=== PATIENT | male | born 1970 | race Caucasian/White ===

== ENCOUNTER 2020-04-29 08:20 | Outpatient (REF) | payer OTHER, SELFPAY ==
[2020-04-29 11:16] LABS: MANUAL DIFF FLAG NO
[2020-04-29 11:29] LABS: Basophils Percent Auto 0.3 % (0-2); Eosinophils Absolute Auto 0.2 X10*3/uL (0.0-0.4); Eosinophils Percent Auto 2.1 % (0-4); Hematocrit 42.9 % (42-52); Hemoglobin 13.8 g/dl (14.0-18.0); Imm Gran Abs Auto 0.02 X10*3/uL (0.00-0.03); Imm Gran Pct Auto 0.3 % (0.0-0.4); Lymphocytes Absolute Auto 2.1 X10*3/uL (1.2-4.9); Lymphocytes Percent Auto 28.7 % (20-40); Mean Corpuscular HGB Conc 32.2 g/dl (31.0-36.0); Mean Corpuscular Hemoglobin 28.2 pg (27.0-33.0); Mean Corpuscular Volume 87.7 fL (80-98); Mean Platelet Volume 11.9 fL (9.4-12.4); Monocytes Absolute Auto 0.6 X10*3/uL (0.1-1.2); Monocytes Percent Auto 7.7 % (2-11); Neutrophils Absolute Auto 4.4 X10*3/uL (2.0-8.3); Neutrophils Percent Auto 60.9 % (45-73); Platelet Count 222 X10*3/uL (160-400); Red Blood Count 4.89 X10*6/uL (4.60-5.80); Red Cell Distribution Width 13.5 % (11.0-16.0); White Blood Count 7.3 X10*3/uL (4.8-10.8)
[2020-04-29 11:51] LABS: Alanine Aminotransferase 21 U/L (0-40); Albumin Level 4.1 g/dL (3.5-5.0); Alkaline Phosphatase 94 U/L (39-117); Anion Gap 11 (12-20); Aspartate Amino Transferase 17 U/L (5-37); Bilirubin Total 1.2 mg/dL (0.0-1.0); Blood Urea Nitrogen 16 mg/dL (9-16); Calcium 9.1 mg/dL (8.4-10.2); Carbon Dioxide 29 mmol/L (22-29); Chloride 103 mmol/L (96-108); Cholesterol 101 mg/dL; Estimated Glomerular Filt Rate > 60; Glucose Fasting 117 mg/dL (60-99); HDL Cholesterol 32 mg/dL; LDL Cholesterol Calculated 55 mg/dl; Potassium 3.9 mmol/l (3.3-5.1); Sodium 139 mmol/L (135-145); Triglycerides 71 mg/dL
[2020-04-29 12:14] LABS: Vitamin D 25-OH Total 25.2 ng/mL (>30)
[2020-04-30 02:56] LABS: LDL Cholesterol Direct 55 mg/dL (<100)
== END 2020-04-29 08:21 | disposition home or self-care (01) ==
LOC: HO.HMGCLDS 08:20
PROVIDERS: PCP Internal Medicine; Visit Provider Internal Medicine Endocrinology, Diabetes & Metabolism
DX: E11.42 Type 2 diabetes mellitus with diabetic polyneuropathy (principal)
CPT/HCPCS: 36415; 80053; 80061; 82306; 83721; 85025

== ENCOUNTER → 2020-05-05 12:15 | Outpatient (BNVA) | payer OTHER, SELFPAY | PROVIDERS: PCP Internal Medicine; Referring Provider Internal Medicine; Visit Provider Internal Medicine Endocrinology, Diabetes & Metabolism | DX: Z13.89 Encounter for screening for other disorder (principal) | CPT/HCPCS: 99214 ==

== ENCOUNTER → 2020-08-09 09:47 | Outpatient (BNVA) | payer OTHER, SELFPAY | PROVIDERS: PCP Internal Medicine; Visit Provider Internal Medicine Endocrinology, Diabetes & Metabolism | DX: E11.42 Type 2 diabetes mellitus with diabetic polyneuropathy (principal); E66.01 Morbid (severe) obesity due to excess calories; E78.5 Hyperlipidemia, unspecified; I10 Essential (primary) hypertension | CPT/HCPCS: 82947; 99212 ==

== ENCOUNTER 2020-10-26 07:53 | Outpatient (REF) | payer OTHER, SELFPAY ==
[2020-10-26 11:37] LABS: Estimated Average Glucose 126 mg/dL
[2020-10-26 11:53] LABS: Creatinine Urine 110.88 mg/dL; Microalbum/Creatinine Ratio Ur 6.3 ug/mg cr
[2020-10-26 11:56] LABS: Alanine Aminotransferase 39 U/L (0-40); Albumin Level 3.9 g/dL (3.5-5.0); Alkaline Phosphatase 92 U/L (39-117); Anion Gap 12 (12-20); Aspartate Amino Transferase 26 U/L (5-37); Blood Urea Nitrogen 17 mg/dL (9-16); Calcium 9.2 mg/dL (8.4-10.2); Carbon Dioxide 28 mmol/L (22-29); Chloride 102 mmol/L (96-108); Cholesterol 100 mg/dL; Estimated Glomerular Filt Rate > 60; Glucose Fasting 126 mg/dL (60-99); HDL Cholesterol 36 mg/dL; LDL Cholesterol Calculated 48 mg/dl; Potassium 4.2 mmol/L (3.3-5.1); Sodium 138 mmol/L (135-145); Triglycerides 84 mg/dL
== END 2020-10-26 07:54 | disposition home or self-care (01) ==
LOC: HO.HMGCLDS 07:53
PROVIDERS: PCP Internal Medicine; Visit Provider Internal Medicine
DX: I10 Essential (primary) hypertension (principal)
CPT/HCPCS: 36415; 80053; 80061; 82043; 83036

== ENCOUNTER → 2021-01-26 10:58 | Outpatient (BNVA) | payer OTHER, SELFPAY | PROVIDERS: PCP Internal Medicine; Visit Provider Internal Medicine Endocrinology, Diabetes & Metabolism | DX: E11.42 Type 2 diabetes mellitus with diabetic polyneuropathy (principal); E66.01 Morbid (severe) obesity due to excess calories; E78.5 Hyperlipidemia, unspecified; I10 Essential (primary) hypertension | CPT/HCPCS: 82947; 99212 ==

== ENCOUNTER → 2021-09-02 08:01 | Outpatient (BNVA) | payer OTHER, SELFPAY | PROVIDERS: PCP Internal Medicine; Visit Provider Nurse Practitioner Gerontology | DX: E11.42 Type 2 diabetes mellitus with diabetic polyneuropathy (principal); E78.5 Hyperlipidemia, unspecified; E66.01 Morbid (severe) obesity due to excess calories; I10 Essential (primary) hypertension; Z68.43 Body mass index [BMI] 50.0-59.9, adult; Z79.4 Long term (current) use of insulin | CPT/HCPCS: 82947; 83036; 99212 ==

== ENCOUNTER → 2021-09-26 09:00 | Outpatient (BNVA) | payer OTHER, SELFPAY | PROVIDERS: PCP Internal Medicine; Visit Provider Registered Nurse Diabetes Educator | DX: E11.42 Type 2 diabetes mellitus with diabetic polyneuropathy (principal); Z79.899 Other long term (current) drug therapy; Z71.3 Dietary counseling and surveillance | CPT/HCPCS: 99212 ==

== ENCOUNTER → 2021-11-15 08:28 | Outpatient (BNVA) | payer OTHER, SELFPAY | PROVIDERS: PCP Internal Medicine; Visit Provider Registered Nurse Diabetes Educator | DX: E11.9 Type 2 diabetes mellitus without complications (principal) | CPT/HCPCS: 99211 ==

== ENCOUNTER → 2021-12-14 08:56 | Outpatient (BNVA) | payer OTHER, SELFPAY | PROVIDERS: PCP Internal Medicine; Visit Provider Registered Nurse Diabetes Educator | DX: E11.9 Type 2 diabetes mellitus without complications (principal) | CPT/HCPCS: 99211 ==

== ENCOUNTER 2021-12-26 13:56 | Emergency (ER) | payer OTHER, SELFPAY ==
--- NOTE | ~2021-12-26 | CT_ITS ---
EXAMINATION: CT HEAD WITHOUT CONTRAST CLINICAL INFORMATION: Left-sided numbness COMPARISON: None TECHNIQUE: Imaging was performed from the skull base to vertex without intravenous administration of contrast. This CT examination was performed using dose optimization techniques as appropriate, variously including the following: *Automated exposure control *Adjustment of mA and/or kV according to patient size (this includes techniques or standardized protocols for targeted exams where dose is matched to indication/reason for exam; i.e. extremities or head) *Use of iterative reconstruction technique Total exam dose length product: 918 mGy-cm FINDINGS: No intra or extra-axial fluid collection, hemorrhage, or mass. No ventriculomegaly. No midline shift or herniation. Basal cisterns are patent. Bueno-white matter differentiation is maintained. No territorial encephalomalacia. No significant volume loss. There is no abnormal attenuation within the brain parenchyma. No calvarial fracture or soft tissue abnormality. Small 1.4 cm mucous retention cyst noted in the right maxillary antrum. Visualized paranasal sinuses and mastoid air cells are otherwise normally aerated. CT/CT head/brain wo con IMPRESSION: 1. No acute intracranial pathology.
[2021-12-26 14:14] VITALS: BP 143/84; PULSE 80; O2SAT 98
[2021-12-26 14:45] VITALS: BP 141/79; PULSE 80; RESP 20; TEMP 36.6; O2SAT 94; BMI 50.0
--- NOTE | 2021-12-26 14:48 | ECG_ITS ---
Test Reason : LEDT SIDE NUMBNESS Blood Pressure : / mmHG Vent. Rate : 078 BPM Atrial Rate : 078 BPM P-R Int : 250 ms QRS Dur : 108 ms QT Int : 392 ms P-R-T Axes : 017 028 039 degrees QTc Int : 446 ms Sinus rhythm with 1st degree A-V block Possible Inferior infarct , age undetermined Abnormal ECG When compared with ECG of 08-FEB-2018 21:19, No significant change was found Referred By: Generic ED Physician Electronically Signed By:Sai Zimmerman
[2021-12-26 15:33] LABS: MANUAL DIFF FLAG NO
[2021-12-26 15:36] LABS: Basophils Percent Auto 0.6 % (0-2); Eosinophils Absolute Auto 0.1 X10*3/uL (0.0-0.4); Eosinophils Percent Auto 1.8 % (0-4); Hematocrit 44.3 % (42.0-52.0); Hemoglobin 14.8 g/dl (14.0-18.0); Imm Gran Abs Auto 0.03 X10*3/uL (0.00-0.03); Imm Gran Pct Auto 0.4 % (0.0-0.4); Lymphocytes Absolute Auto 1.7 X10*3/uL (1.2-4.9); Lymphocytes Percent Auto 22.8 % (20-40); Mean Corpuscular HGB Conc 33.4 g/dl (31.0-36.0); Mean Corpuscular Hemoglobin 28.4 pg (27.0-33.0); Mean Corpuscular Volume 84.9 fL (80.0-98.0); Mean Platelet Volume 10.9 fL (9.4-12.4); Monocytes Absolute Auto 0.6 X10*3/uL (0.1-1.2); Monocytes Percent Auto 7.6 % (2-11); Neutrophils Absolute Auto 4.9 x10*3/uL (2.0-8.3); Neutrophils Percent Auto 66.8 % (45-73); Platelet Count 187 X10*3/uL (160-400); Red Blood Count 5.22 X10*6/uL (4.60-5.80); Red Cell Distribution Width 12.9 % (11.0-16.0); White Blood Count 7.3 X10*3/uL (4.8-10.8)
[2021-12-26 15:46] LABS: Anion Gap 11 (12-20); Blood Urea Nitrogen 13 mg/dL (9-16); Calcium 9.2 mg/dL (8.4-10.2); Carbon Dioxide 26 mmol/L (22-29); Chloride 103 mmol/L (96-108); Creatinine Clr Calc Pharmacy 228.2; Estimated Glomerular Filt Rate > 60; Glucose Random 243 mg/dL (60-115); Potassium 3.9 mmol/L (3.3-5.1); Sodium 136 mmol/L (135-145)
[2021-12-26 15:54] LABS: Troponin-I High Sensitivity < 3.5 ng/L (<3.5-35.0)
--- NOTE | 2021-12-26 21:21 | ED.NEUROSD ---
HPI - Neuro Symptoms/Deficit General Chief Complaint: Neuro Symptoms/Deficit Stated Complaint: L SIDE NUMBNESS 1/2 HOUR AGO,-THINNERS,-FAST SCORE Time Seen by Provider: 12/26/21 20:57 Source: patient Mode of arrival: ambulatory Limitations: no limitations History of Present Illness HPI Narrative: Patient 51 years old with history of diabetes and sleep apnea appeared around 14:00 while coming out from the shower noticed sudden onset of numbness of the left thigh and then left arm and then left face numbness lasted lasted only for about half an hour in left arm and left side of the face but still feel numb in the left thigh area no motor weakness gait was normal no headache no nausea no vomiting patient never had similar problem before patient ambulatory as such Related Data Home Medications Medication Instructions Recorded Confirmed aspirin 81 mg tablet,delayed 81 mg PO DAILY 05/05/20 09/02/21 release (Adult Aspirin Regimen) Previous Rx's Medication Instructions Recorded atorvastatin 10 mg tablet 10 mg PO DAILY 30 days #30 tabs 07/26/21 metoprolol succinate 200 mg 200 mg PO DAILY #90 tabs 08/31/21 tablet,extended release 24 hr pen needle, diabetic 32 gauge x #100 ea 09/20/21 (BD Ultra-Fine Lisa Pen Needle) dulaglutide 4.5 mg/0.5 mL 4.5 mg (0.5 mL) subcut QWEEK #2 mL 09/27/21 subcutaneous pen injector (Trulicity) insulin degludec 200 unit/mL (3 40 unit (0.2 mL) subcut BEDTIME 90 09/27/21 mL) subcutaneous pen ( #18 mL FlexTouch U-200 insulin) flash glucose sensor #2 ea 10/10/21 losartan 100 mg tablet 100 mg PO DAILY 30 days #90 tabs 10/25/21 amlodipine 10 mg tablet 10 mg PO DAILY 30 days #90 tabs 12/07/21 hydrochlorothiazide 25 mg tablet 25 mg PO DAILY #90 tabs 12/22/21 Allergies Allergy/AdvReac Type Severity Reaction Status Date / Time canagliflozin [Invokana] AdvReac Unknown rash Verified 09/02/21 08:26 Review of Systems Review of Systems: Yes all other systems are reviewed and are negative PMFSH Past Medical History Surgical History History of surgery of head Hx of cholecystectomy Family History Family History Father No problems noted. Mother Arthritis Brother Stroke Social History Social History Alcohol intake: current Alcohol intake frequency: holidays/special occasions only Patient Tobacco Use Status: Never used Tobacco Advance Directives: No Advance Directives Information Provided: No Physical Exam Vital Signs: Vital Signs: Last Vital Signs Temp 97.8 F 12/26/21 14:45 Pulse 77 12/26/21 21:42 Resp 15 12/26/21 21:45 BP 151/94 H 12/26/21 21:45 Pulse Ox 97 12/26/21 21:42 O2 Del Method 12/26/21 21:42 BMI result Body Mass Index 50.0 Appearance: Alert. Oriented X3. No acute distress. Eyes: PERRLA, No Nystagmus ENT: Pharynx normal. Oral Mucosa moist Neck: Normal inspection. Neck supple. CVS: Normal heart rate and rhythm. Pulses normal. Respiratory: No respiratory distress. Equal air entry bilateral, no wheezing/rales/rhonchi Abdomen: Soft and nontender. Bowel sounds are present, no mass palpable, no CVA tenderness Skin: Skin warm and dry. Normal skin color. Normal skin turgor. Extremities: No lower extremity edema. No calf tenderness Neuro: Oriented X 3. No motor deficit. Decreased sensation to light touch and pinprick to left thigh lateral aspect.No cerebellar signs , cranial nerves II-XII intact MDM - Neuro Symptoms/Deficit MDM Narrative Medical decision making narrative: Patient with mild paresthesia no focal deficits CT scan head negative after 8 hours of symptoms. Patient is on baby aspirin advised to continue and follow up with neurologist for further evaluation Lab Data Attestation: I reviewed the patient's lab results. Result diagrams: 12/26/21 15:29 12/26/21 15:29 Labs: Lab Results 12/26/21 12/26/21 12/26/21 Range/Units 15:29 15:29 15:29 WBC 7.3 (4.8-10.8) X10*3/uL RBC 5.22 (4.60-5.80) X10*6/uL Hgb 14.8 (14.0-18.0) g/dl Hct 44.3 (42.0-52.0) % MCV 84.9 (80.0-98.0) fL MCH 28.4 (27.0-33.0) pg MCHC 33.4 (31.0-36.0) g/dl RDW 12.9 (11.0-16.0) % Plt Count 187 (160-400) X10*3/uL MPV 10.9 (9.4-12.4) fL Immature Gran % (Auto) 0.4 (0.0-0.4) % Neut % (Auto) 66.8 (45-73) % Lymph % (Auto) 22.8 (20-40) % Lawrence % (Auto) 7.6 (2-11) % Eos % (Auto) 1.8 (0-4) % Baso % (Auto) 0.6 (0-2) % Lymph # (Auto) 1.7 (1.2-4.9) X10*3/uL Lawrence # (Auto) 0.6 (0.1-1.2) X10*3/uL Eos # (Auto) 0.1 (0.0-0.4) X10*3/uL Baso # (Auto) 0.0 (0.0-0.2) X10*3/uL Abs Immat Gran (auto) 0.03 (0.00-0.03) X10*3/uL Absolute Neuts (auto) 4.9 (2.0-8.3) x10*3/uL Absolute Nucleated RBC 0.000 (0.0-0.012) X10*3/uL Nucleated RBC % (auto) 0.0 (0.0-0.2) /100WBC Sodium 136 (135-145) mmol/L Potassium 3.9 (3.3-5.1) mmol/L Chloride 103 (96-108) mmol/L Carbon Dioxide 26 (22-29) mmol/L Anion Gap 11 L (12-20) BUN 13 (9-16) mg/dL Creatinine 0.66 (0.5-1.4) mg/dL Estim Creat Clear Calc 228.2 Estimated GFR > 60 Random Glucose 243 H (60-115) mg/dL Calcium 9.2 (8.4-10.2) mg/dL Troponin I High Sens < 3.5 (<3.5-35.0) ng/L NIH Stroke Scale Internal: Other (1930) Level of Consciousness: Alert Level of Consciousness Questions: Answers both questions correctly Level of Consciousness Commands: Performs both tasks correctly Best Gaze: Normal Visual: No visual loss Facial Palsy: Normal Motor Arm (Right): No drift Motor Arm (Left): No drift Motor Leg (Right): No drift Motor Leg (Left): No drift Limb Ataxia: Absent Sensory: Normal Best Language: No aphasia Dysarthia: Normal Extinction and Inattention: No abnormality Score: 0 Discharge Plan Discharge Clinical Impression: TIA (transient ischemic attack) Patient Disposition: Home, Self-Care Instructions: Transient Ischemic Attack (ED) Additional Instructions: Continue taking baby aspirin daily Is possible that you had small TIA Follow-up with neurologist for further evaluation Report to the ER if recurrence of the symptoms Prescriptions: No Action atorvastatin 10 mg tablet 10 mg PO DAILY 30 Days Qty: 30 4RF metoprolol succinate 200 mg tablet extended release 24 hr 200 mg PO DAILY Qty: 90 3RF (DME) pen needle, diabetic [BD Ultra-Fine Lisa Pen Needle] 32 gauge x 5/32 needle See Rx Instructions .ROUTE .MEDSUPPLY Qty: 100 3RF Rx Instructions: As directed once daily Tresiba FlexTouch U-200 200 unit/mL (3 mL) insulin pen 40 unit subcut BEDTIME 90 Days Qty: 18 5RF Trulicity 4.5 mg/0.5 mL pen injector 4.5 mg subcut QWEEK Qty: 2 6RF (DME) flash glucose sensor Kit See Rx Instructions topical DIRECTED Qty: 2 11RF Rx Instructions: As directed losartan 100 mg tablet 100 mg PO DAILY 30 Days Qty: 90 1RF amlodipine 10 mg tablet 10 mg PO DAILY 30 Days Qty: 90 1RF hydrochlorothiazide 25 mg tablet 25 mg PO DAILY Qty: 90 0RF aspirin [Adult Aspirin Regimen] 81 mg tablet,delayed release (DR/EC) 81 mg PO DAILY Referrals: Christiano Egan MD [Physician] - 1 week Interventions: ED Discharge Assessment Last Done: 12/26/21 22:33
[2021-12-26 21:42] VITALS: PULSE 77; O2SAT 97
--- NOTE | 2021-12-26 21:43 | PC.NURSE ---
pt has no c/o dizziness, cp or SOB. pt states numbness has resolved, but there is still a bit of numbness to left thigh. +CSM to upper and lower extremities. powerbuilder strength equal, face symmetrical. pt in no distress, ambulatory to room and to CT
[2021-12-26 21:45] VITALS: BP 151/94; RESP 15
== END 2021-12-26 22:43 | disposition home or self-care (01) ==
PROVIDERS: Emergency Provider Internal Medicine; PCP Internal Medicine
DX: G45.9 Transient cerebral ischemic attack, unspecified (principal); E11.9 Type 2 diabetes mellitus without complications
CPT/HCPCS: 36415; 70450; 80048; 84484; 85025; 93005; 99284

== ENCOUNTER → 2022-01-11 09:29 | Outpatient (BNVA) | payer OTHER, SELFPAY | PROVIDERS: PCP Internal Medicine; Visit Provider Registered Nurse Diabetes Educator | DX: E11.9 Type 2 diabetes mellitus without complications (principal); Z71.89 Other specified counseling | CPT/HCPCS: 99211 ==

== ENCOUNTER → 2022-01-24 10:58 | Outpatient (REF) | payer OTHER, SELFPAY ==
--- NOTE | 2022-01-24 11:12 | HM_ITS ---
TEST PERFORMED: Cardiac event monitoring. ENROLLMENT PERIOD: 01/24/2022, to 02/23/2022; 30 days. REQUESTING PHYSICIAN: Dr. Lima INDICATION: Transient ischemic attack. FINDINGS: In the above monitoring period, underlying rhythm is sinus. Rate ranged from 87 to 94 beats per minute. No arrhythmias documented. CONCLUSION: Study shows sinus rhythm without any arrhythmias. No symptoms documented either. Long Semaan MD HS/RACHELLE / [phone]
== END ==
LOC: HO.CARD 10:58
PROVIDERS: Visit Provider Internal Medicine
DX: G45.9 Transient cerebral ischemic attack, unspecified (principal); E11.9 Type 2 diabetes mellitus without complications
CPT/HCPCS: 93270

== ENCOUNTER → 2022-02-08 11:26 | Outpatient (BNVA) | payer OTHER, SELFPAY | PROVIDERS: PCP Internal Medicine; Visit Provider Registered Nurse Diabetes Educator | DX: E11.9 Type 2 diabetes mellitus without complications (principal) | CPT/HCPCS: 99211 ==

== ENCOUNTER → 2022-02-24 08:25 | Outpatient (REF) | payer OTHER, SELFPAY ==
--- NOTE | 2022-02-24 08:28 | CA_ITS ---
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 The calculated ejection fraction is 63% by biplane method. - No obvious valvular pathology seen on this study. Findings Procedure Information Contrast agent, definity, is being given per protocol without apparent complications. Left Ventricle Normal left ventricular cavity size. There is normal left ventricular wall thickness. The left ventricular systolic function is normal. The calculated ejection fraction is 63% by biplane method. There is no evidence of regional wall motion abnormalities. Diastolic function is normal for age. Right Ventricle Normal right ventricular cavity size and systolic function. Atria Both atria are normal in size. Aortic Valve There is a normal trileaflet aortic valve. There is no aortic valve stenosis. There is no aortic valve regurgitation. Mitral Valve The mitral valve appears normal. There is no mitral valve regurgitation. There is no mitral valve stenosis. Pulmonic Valve The pulmonic valve is likely normal. Tricuspid Valve The tricuspid valve was not well visualized. There is no tricuspid valve regurgitation. Tricuspid regurgitation envelope is inadequate for calculation of right ventricular systolic pressure. Great Vessels The aortic annulus, sinuses of valsalva, and asc aorta are normal in size. Venous The inferior vena cava is normal in size and collapses greater than 50% with inspiration. Pericardium/Pleural There is no evidence of pericardial effusion. Prior Study Comparison No significant change compared to prior study dated: 01/30/2017. Recommendations, Care & Conclusions No obvious valvular pathology seen on this study. Measurements 2D Linear Measurements IVSd: 0.98 0.6-0.9/0.6-1.0 cm LVIDd: 4.98 3.9-5.3/4.2-5.9 cm LVIDd Index: 1.64 2.4-3.2/2.2-3.1 cm/m2 LVIDs: 2.52 2.0-3.6 cm LVPWd: 0.93 0.7-1.1 cm LA Diam: 5.30 2.7-3.8/3.0-4.0 cm LAIDs Index: 1.74 1.5-2.3 cm/m2 LV Mass: 210.98 67-162/88-224 g LV Mass Index: 69.40 43-95/49-115 g/m2 LVOT Diam: 2.70 3.0+(-)1.3 cm 2D Systolic Function EF 4C: 61.10 >55% EF 2C: 63.60 >55% EF BiP: 62.50 >55% Mitral Valve MV Pk E: 0.92 MV PK A: 0.90 MV Decel Time: 187.00 E/A: 1.00 E'Lateral: 10.80 E'Medial: 11.20 E/E' Med: 8.20 E/E' Lat: 8.50 PHT: 55.00 MVA PHT: 4.00 Decel Reagan: 4.91 Aortic Valve AoV Pk Vidal: 1.35 AoV Pk Grad: 7.00 LVOT LVOT Pk Vidal: 0.84 LVOT Mn Vidal: 0.57 LVOT VTI: 0.19 LVOT Pk Grad: 3.00 LVOT Mn Grad: 2.00 LVOT Diam: 2.70 LVOT Area: 5.73 Diastolic Function MV Pk E: 0.92 MV Pk A: 0.90 E/A: 1.00 E'Medial: 11.20 E/E' Med: 8.20 E' Laterial: 10.80 E/E' Lat: 8.50 Right Ventricle TAPSE (mm): 28.60 TVS' Vidal: 13.10 Tricuspid Valve RA Press: 3.00 Great Vessels Aorta Sinus of Valsalva: 3.80 2.0-3.5 cm Ao Asc: 3.20 2.1-3.4 cm Updated in Other Vendor System with Status of Final Long Seaman MD electronically signed on 02/26/2022 12:07:16 PM with status of Final
== END ==
LOC: HO.CARD 08:25
PROVIDERS: Visit Provider Internal Medicine
DX: G45.9 Transient cerebral ischemic attack, unspecified (principal)
CPT/HCPCS: 93306; Q9957

== ENCOUNTER → 2022-03-31 08:30 | Outpatient (BNVA) | payer OTHER, SELFPAY | PROVIDERS: PCP Internal Medicine; Visit Provider Registered Nurse Diabetes Educator | DX: E11.42 Type 2 diabetes mellitus with diabetic polyneuropathy (principal) | CPT/HCPCS: 99211 ==

== ENCOUNTER 2022-06-22 02:14 | Emergency (ER) | payer OTHER, SELFPAY ==
--- NOTE | ~2022-06-22 | XR_ITS ---
EXAMINATION: XR CHEST CLINICAL INFORMATION: Palpitations. COMPARISON: None TECHNIQUE: Frontal view of the chest was obtained. FINDINGS: Normal appearance of the cardiomediastinal structures. No effusions or pneumothoraces. No focal pulmonary consolidation. Normal pattern of pulmonary vasculature. XR/XR chest 1V IMPRESSION: Normal chest.
[2022-06-22 02:27] VITALS: BP 116/70; BP 150/82; PULSE 102; PULSE 115; RESP 20; TEMP 36.6; O2SAT 96; O2SAT 97; BMI 57.5
--- NOTE | 2022-06-22 02:56 | ED_ITS ---
HPI - General Adult General Chief complaint: General Medical Stated complaint: heart racing Time Seen by Provider: 06/22/22 02:54 Source: patient, EMS and old records reviewed Mode of arrival: EMS Limitations: no limitations History of Present Illness HPI narrative: 52-year-old male presented with concern of palpitation. Patient was getting ready to sleep felt his heart is racing but declined chest pain or shortness of breath patient got anxious and call the ambulance on arrival to the ED patient feels anxious, patient do not have CP or SOB or palpitation any more. Patient had previous history of palpitation require having Holter monitor which showed no abnormality patient was in sinus rhythm. Related Data Home Medications Medication Instructions Recorded Confirmed aspirin 81 mg tablet,delayed 81 mg PO DAILY 05/05/20 03/07/22 release (Adult Aspirin Regimen) Previous Rx's Medication Instructions Recorded metoprolol succinate 200 mg 200 mg PO DAILY #90 tabs 08/31/21 tablet,extended release 24 hr pen needle, diabetic 32 gauge x #100 ea 09/20/21 (BD Ultra-Fine Lisa Pen Needle) insulin degludec 200 unit/mL (3 40 unit (0.2 mL) subcut BEDTIME 90 09/27/21 mL) subcutaneous pen ( #18 mL FlexTouch U-200 insulin) flash glucose sensor #2 ea 10/10/21 atorvastatin 10 mg tablet 10 mg PO DAILY 30 days #90 tabs 01/31/22 metformin 1,000 mg tablet 1,000 mg PO BID #180 tabs 03/07/22 dulaglutide 4.5 mg/0.5 mL 4.5 mg (0.5 mL) subcut QWEEK #2 mL 03/31/22 subcutaneous pen injector (Trulicity) losartan 100 mg tablet 100 mg PO DAILY 30 days #90 tabs 04/12/22 amlodipine 10 mg tablet 10 mg PO DAILY 30 days #90 tabs 05/26/22 hydrochlorothiazide 25 mg tablet 25 mg PO DAILY #30 tabs 06/21/22 Allergies Allergy/AdvReac Type Severity Reaction Status Date / Time canagliflozin [Invokana] AdvReac Unknown rash Verified 03/07/22 10:33 Review of Systems Review of Systems: All other systems are reviewed and are negative Constitutional: Reports as per HPI and Reports no additional constitutional complaints Eyes: Reports as per HPI and Reports no additional eye complaints Reports system reviewed and no additional complaints, except as documented Cardiovascular: Reports as per HPI and Reports no additional cardiovascular complaints Respiratory: Reports as per HPI and Reports no additional respiratory complaints Gastrointestinal: Reports as per HPI and Reports no additional gastrointestinal complaints Genitourinary: Reports no additional female genitourinary complaints Musculoskeletal: Reports no additional musculoskeletal complaints Skin/Breast: Reports system reviewed and no additional complaints, except as docu Psychiatric: Reports no additional psychiatric complaints Endocrine: Reports no additional endocrine complaints Hematologic/Lymphatic: Reports no additional hematologic/lymphatic complaints Allergic/Immunologic: Reports no additional allergic/immunologic complaints Reports system reviewed and no additional complaints, except as documented and Reports Abnormal speech present [facility] Past Medical History Medical History Annual physical exam Diabetes type 2, controlled Diabetic polyneuropathy associated with type 2 diabetes mellitus Dyslipidemia Hypertension Morbid obesity Normal colonoscopy Obesity due to excess calories MARK (obstructive sleep apnea) Surgical History History of surgery of head Hx of cholecystectomy Family History Family History Father No problems noted. Mother Arthritis Brother Stroke Social History Social History Housing: House Alcohol intake: current Alcohol intake frequency: holidays/special occasions only Patient Tobacco Use Status: Never used Tobacco Advance Directives: No Current occupational status: employed Cognitive needs: No Hearing needs: No Vision needs: No Physical Exam ED Vital Signs: Vital Signs - 24 hr 06/22/22 02:27 Temperature 97.8 F Pulse Rate 102 H Respiratory Rate 20 Blood Pressure 116/70 Pulse Oximetry 97 Oxygen Delivery Method Room Air BMI result Body Mass Index 57.5 Vital signs have been reviewed as appeared to be correct. Blood pressure normal. Heart rate normal. Respiration rate normal. Temperature normal. Oxygen saturation normal. Appearance: Anxious, Alert. Oriented X3. No acute distress. Head: Normal external exam. Normocephalic. Atraumatic. No Stuart signs noted. No raccoon eyes noted Eyes: PERRLA. EOMI. Conjunctiva and sclera normal. Eyelids normal. ENT: TM's Normal. Pharynx normal. Uvula midline. Moist mucous membranes. No trismus noted. No drooling noted. No muffled voice noted. Neck: Normal inspection. Neck supple. FROM. No adenopathy. Thyroid Normal. No meningeal signs. No neck mass noted. CVS: Normal heart rate and rhythm. Heart sound normal. No murmurs noted. Pulses normal throughout. Respiratory: No respiratory distress. Painless inspiration. Breath sounds normal. No wheezes/rales/rhonchi noted. Chest nontender. No accessory muscle usage noted or decreased air movement noted. Abdomen: Soft and nontender. Bowel sounds normal in all 4 quadrants. No distention noted. No organomegaly noted. No visible injury noted. Back: No CVA tenderness. Full range of motion noted. Skin: Skin warm and dry. Normal skin color. Normal skin turgor. No rashes/lesions/lacerations noted. Extremities: No lower extremity edema. Extremities exhibit normal range of motion. Extremities nontender. Neuro: Oriented X 3. Cranial nerve exam: II-XII are grossly intact No motor deficit. No sensory deficit. Reflexes normal. Course Course Course Narrative: 52-year-old male came in for evaluation of palpitation, patient had this previous symptoms in the past and had Holter monitor which show no problem, patient appears to be anxious which is likely the underlying reason of his palpitation his EKG is a normal sinus rhythm at rate of 95, labs is just remarkable for very mild hypokalemia which was repleted by oral potassium. Will reassure the patient and discharge. Medications Administered Discontinued Medications Generic Name Dose Route Start Last Admin Trade Name Freq PRN Reason Stop Dose Admin Sodium Chloride 1,000 mls @ 999 mls/hr 06/22/22 02:55 06/22/22 03:23 Ns IV 06/22/22 03:55 999 mls/hr .Q1H1M ONE Administration Lorazepam 2 mg 06/22/22 02:55 06/22/22 03:23 Lorazepam 1 Mg Tablet PO 06/22/22 02:56 2 mg ONCE ONE Administration Potassium Chloride 40 meq 06/22/22 04:04 06/22/22 04:18 Potassium Chloride Packet 20 Meq Packet PO 06/22/22 04:05 40 meq ONCE ONE Administration Medical Decision Making Medical Decision Making Differential Diagnoses: Differential diagnosis (Palpitation/atrial fibrillation/anxiety/electrolyte disturbance.) Lab Attestation: I reviewed the patient's lab results. Independent interpretation of EKG, rhythm strip, radiology study: Independent interp EKG,rhythm strip, radiology study I performed an independent interpretation of the: EKG My interpretation is normal sinus rhythm at 95 beats per minute, normal axis deviation, slight QT prolongation otherwise normal intervals. Discussion of test interpretation with radiology: Discussion of test interpretation with radiology Discharge Plan Discharge Clinical Impression: Heart palpitations, Acute hypokalemia Patient Disposition: Home, Self-Care Instructions: Hypokalemia (ED), Potassium Content of Foods List (ED), Heart Palpitations (ED) Prescriptions: No Action metoprolol succinate 200 mg tablet extended release 24 hr 200 mg PO DAILY Qty: 90 3RF (DME) pen needle, diabetic [BD Ultra-Fine Lisa Pen Needle] 32 gauge x 5/32 needle See Rx Instructions .ROUTE .MEDSUPPLY Qty: 100 3RF Rx Instructions: As directed once daily Tresiba FlexTouch U-200 200 unit/mL (3 mL) insulin pen 40 unit subcut BEDTIME 90 Days Qty: 18 5RF (DME) flash glucose sensor Kit See Rx Instructions topical DIRECTED Qty: 2 11RF Rx Instructions: As directed atorvastatin 10 mg tablet 10 mg PO DAILY 30 Days Qty: 90 4RF Trulicity 4.5 mg/0.5 mL pen injector 4.5 mg subcut QWEEK Qty: 2 5RF losartan 100 mg tablet 100 mg PO DAILY 30 Days Qty: 90 0RF amlodipine 10 mg tablet 10 mg PO DAILY 30 Days Qty: 90 0RF hydrochlorothiazide 25 mg tablet 25 mg PO DAILY Qty: 30 0RF metformin 1,000 mg tablet 1,000 mg PO BID Qty: 180 1RF aspirin [Adult Aspirin Regimen] 81 mg tablet,delayed release (DR/EC) 81 mg PO DAILY Referrals: Lexie Lima MD [Primary Care Provider] -
[2022-06-22 03:15] LABS: MANUAL DIFF FLAG NO
[2022-06-22 03:16] LABS: Basophils Percent Auto 0.4 % (0-2); Eosinophils Absolute Auto 0.1 X10*3/uL (0.0-0.4); Eosinophils Percent Auto 1.5 % (0-4); Hematocrit 40.9 % (42.0-52.0); Hemoglobin 13.3 g/dl (14.0-18.0); Imm Gran Abs Auto 0.02 X10*3/uL (0.00-0.03); Imm Gran Pct Auto 0.3 % (0.0-0.4); Lymphocytes Absolute Auto 1.7 X10*3/uL (1.2-4.9); Lymphocytes Percent Auto 22.9 % (20-40); Mean Corpuscular HGB Conc 32.5 g/dl (31.0-36.0); Mean Corpuscular Hemoglobin 27.4 pg (27.0-33.0); Mean Corpuscular Volume 84.3 fL (80.0-98.0); Mean Platelet Volume 10.4 fL (9.4-12.4); Monocytes Absolute Auto 0.6 X10*3/uL (0.1-1.2); Monocytes Percent Auto 8.3 % (2-11); Neutrophils Absolute Auto 4.8 x10*3/uL (2.0-8.3); Neutrophils Percent Auto 66.6 % (45-73); Platelet Count 192 X10*3/uL (160-400); Red Blood Count 4.85 X10*6/uL (4.60-5.80); Red Cell Distribution Width 13.5 % (11.0-16.0); White Blood Count 7.3 X10*3/uL (4.8-10.8)
[2022-06-22] MEDS: 0.9 % Sodium Chloride 1,000 ML 999 ML IV (03:23)
[2022-06-22] MEDS: LORazepam 1 MG TABLET 2 MG PO (03:23)
[2022-06-22 03:32] LABS: Alanine Aminotransferase 24 U/L (0-40); Albumin Level 3.4 g/dL (3.5-5.0); Alkaline Phosphatase 121 U/L (39-117); Anion Gap 12 (12-20); Aspartate Amino Transferase 15 U/L (5-37); Bilirubin Direct 0.3 mg/dL (0.0-0.5); Bilirubin Total 0.7 mg/dL (0.0-1.0); Blood Urea Nitrogen 15 mg/dL (9-16); Calcium 9.1 mg/dL (8.4-10.2); Carbon Dioxide 25 mmol/L (22-29); Chloride 104 mmol/L (96-108); Creatinine Clr Calc Pharmacy 213.3; Estimated Glomerular Filt Rate > 60; Glucose Random 196 mg/dL (60-115); Lipase 19 U/L (8-78); Magnesium 1.6 mg/dL (1.6-2.6); Potassium 3.2 mmol/L (3.3-5.1); Sodium 138 mmol/L (135-145); Total Protein 6.1 g/dL (6.5-8.0)
[2022-06-22 03:38] LABS: Troponin-I High Sensitivity 4.5 ng/L (<3.5-35.0)
[2022-06-22] MEDS: Potassium Chloride Packet 20 MEQ PACKET 40 MEQ PO (04:18)
[2022-06-22 04:44] VITALS: BP 125/87; PULSE 85; RESP 20; TEMP 36.5; O2SAT 95
--- NOTE | 2022-06-22 05:44 | PC.NURSE ---
pt ambulates independently to bathroom. pt presents back to room. this rn assisted pt back into bed. this rn reconnected pt to IV fluids at this time. IV patent. pt reports no pain at this time. head of bed adjusted to pt's preference
[2022-06-22 06:08] VITALS: BP 111/56; PULSE 81; RESP 26; O2SAT 96
--- NOTE | 2022-06-22 07:32 | ECG_ITS ---
Test Reason : TACHY Blood Pressure : / mmHG Vent. Rate : 095 BPM Atrial Rate : 095 BPM P-R Int : 152 ms QRS Dur : 116 ms QT Int : 382 ms P-R-T Axes : 001 032 050 degrees QTc Int : 480 ms Normal sinus rhythm Nonspecific T wave abnormality Prolonged QT Abnormal ECG When compared with ECG of 26-DEC-2021 15:12, [place] interval has decreased Nonspecific T wave abnormality, worse in Anterior leads Referred By: Mike Rios Electronically Signed By:TIAGO STEPHENS MD
== END 2022-06-22 06:56 | disposition home or self-care (01) ==
PROVIDERS: Emergency Provider Emergency Medicine; PCP Internal Medicine
DX: R00.2 Palpitations (principal); E87.6 Hypokalemia; Z79.899 Other long term (current) drug therapy
CPT/HCPCS: 36415; 71045; 80048; 80076; 83690; 83735; 84484; 85025; 93005; 96360; 96361; 99284

== ENCOUNTER 2022-06-25 10:41 | Emergency (ER) | payer OTHER, SELFPAY ==
[2022-06-25 10:57] VITALS: BP 151/79; PULSE 86; RESP 18; TEMP 36.6; O2SAT 97; BMI 55.6
--- NOTE | 2022-06-25 11:01 | ECG_ITS ---
Test Reason : DIZZINESS Blood Pressure : / mmHG Vent. Rate : 085 BPM Atrial Rate : 085 BPM P-R Int : 224 ms QRS Dur : 110 ms QT Int : 392 ms P-R-T Axes : 022 039 044 degrees QTc Int : 466 ms Sinus rhythm with 1st degree A-V block Otherwise normal EKG When compared with ECG of 22-JUN-2022 02:45, [place] interval has increased Nonspecific T wave abnormality no longer evident in Anterior leads Referred By: Generic ED Physician Electronically Signed By:JAIME HARRIS
--- NOTE | 2022-06-25 12:22 | ED.DIZZY ---
HPI - Dizziness General Chief Complaint: Dizziness Stated Complaint: numbness L side, dizzy Time Seen by Provider: 06/25/22 11:37 Source: patient and family (Mother) Mode of arrival: ambulatory Limitations: no limitations History of Present Illness HPI Narrative: 52-year-old male who presents emergency department for evaluation of lightheadedness. Patient states that he was sitting on his mother's sofa. He scooted his body for to stand up when he had a sudden onset of lightheadedness. He states that his entire body felt light as if he was going to pass out. The symptoms lasted for seconds and then resolved. He denied headache, nausea, vomiting, chest pain, neck, jaw or arm pain associated with the lightheadedness. Patient on 06/22/2022 (3 days prior) for palpitations. His mild hypokalemia otherwise was unremarkable. Patient told me that approximately 6 months prior he was diagnosed with a TIA and wore a monitor for 1 month without finding any evidence for arrhythmias. He states that while he was wearing the monitor he did have episodes of palpitations . Related Data Home Medications Medication Instructions Recorded Confirmed aspirin 81 mg tablet,delayed 81 mg PO DAILY 05/05/20 03/07/22 release (Adult Aspirin Regimen) Previous Rx's Medication Instructions Recorded metoprolol succinate 200 mg 200 mg PO DAILY #90 tabs 08/31/21 tablet,extended release 24 hr pen needle, diabetic 32 gauge x #100 ea 09/20/21 (BD Ultra-Fine Lisa Pen Needle) insulin degludec 200 unit/mL (3 40 unit (0.2 mL) subcut BEDTIME 90 09/27/21 mL) subcutaneous pen ( #18 mL FlexTouch U-200 insulin) flash glucose sensor #2 ea 10/10/21 atorvastatin 10 mg tablet 10 mg PO DAILY 30 days #90 tabs 01/31/22 metformin 1,000 mg tablet 1,000 mg PO BID #180 tabs 03/07/22 dulaglutide 4.5 mg/0.5 mL 4.5 mg (0.5 mL) subcut QWEEK #2 mL 03/31/22 subcutaneous pen injector ([facility]) losartan 100 mg tablet 100 mg PO DAILY 30 days #90 tabs 04/12/22 amlodipine 10 mg tablet 10 mg PO DAILY 30 days #90 tabs 05/26/22 hydrochlorothiazide 25 mg tablet 25 mg PO DAILY #30 tabs 06/21/22 Allergies Allergy/AdvReac Type Severity Reaction Status Date / Time canagliflozin [Invokana] AdvReac Unknown rash Verified 03/07/22 10:33 Review of Systems Review of Systems: Yes all other systems are reviewed and are negative [facility] Past Medical History [facility] Narrative: Social history: He denies tobacco use. He states he rarely drinks alcohol. He denies drug use. Medical History Annual physical exam Diabetes type 2, controlled Diabetic polyneuropathy associated with type 2 diabetes mellitus Dyslipidemia Hypertension Morbid obesity Normal colonoscopy Obesity due to excess calories MARK (obstructive sleep apnea) Surgical History History of surgery of head Hx of cholecystectomy Family History Family History Father No problems noted. Mother Arthritis Brother Stroke Social History Social History Housing: House Alcohol intake: current Alcohol intake frequency: does not drink Patient Tobacco Use Status: Never used Tobacco Advance Directives: No Advance Directives Information Provided: Yes Current occupational status: employed Cognitive needs: No Hearing needs: No Vision needs: No Physical Exam Vital Signs: Vital Signs: Last Vital Signs Temp 97.9 F 06/25/22 10:57 Pulse 86 06/25/22 10:57 Resp 18 06/25/22 10:57 BP 151/79 H 06/25/22 10:57 Pulse Ox 97 06/25/22 10:57 O2 Del Method 06/25/22 10:57 BMI result Body Mass Index 55.6 Const: Other: Elevated BMI 55.6. General: cooperative and no acute distress Orientation/consciousness: oriented to person and oriented to place Limitations: no limitations HEENT: Head: Yes normal to inspection, Yes normocephalic and Yes atraumatic Ears: external ears normal General nose exam: Normal external nose present Face and sinus: Yes normal facial exam Mouth: Normal oral and palatal mucosa present Throat: Yes posterior oropharynx normal Eyes: General: appearance normal, both eyes and all related structures Pupils: Equal, round and reactive pupils present Neck: Neck: Yes normal visual inspection, Yes no lymphadenopathy, Yes trachea midline and Yes supple Chest: Chest palpation & inspection: normal inspection of the chest and normal palpation of entire chest wall Resp: Effort & Inspection: normal respiratory effort and able to speak in complete sentences Auscultation: clear to auscultation bilaterally Cardio: Rate: regular rate Rhythm: regular rhythm Heart sounds: S1 normal heart sound present, S2 normal heart sound present and no murmurs GI: Inspection: Yes normal to inspection Palpation (GI): Soft to palpation, nontender and no guarding Auscultation: normal bowel sounds : General: Yes no CVA tenderness Back/Spine/Pelvis: Back: no CVA tenderness Skin: General skin exam: no rashes or lesions noted Neuro: General: oriented to person and oriented to place Cranial nerves: Yes CN's II-XII intact bilaterally and Yes Equal, round and reactive pupils present Cognition (Neuro): normal cognition Motor exam (neuro): 5/5 motor strength present throughout Extrem: General: Yes normal to inspection Psych: Appearance: grossly normal Speech and movement: Normal speech and movement present Affect: normal affect Attitude: cooperative Thought process: Normal thought process present Thought content: Normal thought content present Course Course Course Narrative: 52-year-old male who presented to the emergency department for evaluation of a brief episode of lightheadedness throughout his entire body which occurred while he was sitting on a sofa and scooted his body forward. The event lasted seconds and then resolved. Patient was also recently here for evaluation of palpitations patient's examination was unremarkable and 12 EKG was normal. At this time I suspect that the patient's symptoms are consistent with anxiety/panic attack I did discuss this with him. Patient was given printed and verbal instructions and discharged home. Medical Decision Making Medical Decision Making Independent interpretation of EKG, rhythm strip, radiology study: Independent interp EKG,rhythm strip, radiology study I performed an independent interpretation of the: EKG My interpretation is: 1125: Sinus rhythm with a first-degree AV block with [place] interval 224 milliseconds, rate of 85, prolonged QRS of 110 milliseconds with a normal QTC of 466 milliseconds, the patient has an isolated Q-wave in lead 3, inverted T-wave in V1, no ST segment elevation, no ST segment depression, no PACs, no PVCs. Compared to EKG dated 06/22/2022, the Q-wave is lead 3 old in the inverted T-wave in V1 is old. The first-degree AV block is new but I do not think this is significant.. Discharge Plan Discharge Clinical Impression: Anxiety, Dizziness Patient Disposition: Home, Self-Care Instructions: Anxiety (ED) Additional Instructions: Your EKG was normal. At this time, I believe that your dizziness is triggered by anxiety. Your palpitations may also be related to anxiety. You should follow-up with her doctor to discuss possibly starting medications and therapy for anxiety. You can also contact [facility] ([facility]) at [phone]. This is a community service that helps with anxiety, depression and can get you a prescribing provider and also a therapist. Follow-up with your doctor in 2 days. Please return to the emergency department if your symptoms get worse or if you develop any symptoms that are concerning to you. Prescriptions: No Action metoprolol succinate 200 mg tablet extended release 24 hr 200 mg PO DAILY Qty: 90 3RF (DME) pen needle, diabetic [BD Ultra-Fine Lisa Pen Needle] 32 gauge x 5/32 needle See Rx Instructions .ROUTE .MEDSUPPLY Qty: 100 3RF Rx Instructions: As directed once daily Tresiba FlexTouch U-200 200 unit/mL (3 mL) insulin pen 40 unit subcut BEDTIME 90 Days Qty: 18 5RF (DME) flash glucose sensor Kit See Rx Instructions topical DIRECTED Qty: 2 11RF Rx Instructions: As directed atorvastatin 10 mg tablet 10 mg PO DAILY 30 Days Qty: 90 4RF Trulicity 4.5 mg/0.5 mL pen injector 4.5 mg subcut QWEEK Qty: 2 5RF losartan 100 mg tablet 100 mg PO DAILY 30 Days Qty: 90 0RF amlodipine 10 mg tablet 10 mg PO DAILY 30 Days Qty: 90 0RF hydrochlorothiazide 25 mg tablet 25 mg PO DAILY Qty: 30 0RF metformin 1,000 mg tablet 1,000 mg PO BID Qty: 180 1RF aspirin [Adult Aspirin Regimen] 81 mg tablet,delayed release (DR/EC) 81 mg PO DAILY
== END 2022-06-25 12:29 | disposition home or self-care (01) ==
PROVIDERS: Emergency Provider Emergency Medicine Emergency Medical Services; PCP Internal Medicine
DX: R42 Dizziness and giddiness (principal); F41.1 Generalized anxiety disorder; F43.0 Acute stress reaction; Z79.899 Other long term (current) drug therapy
CPT/HCPCS: 93005; 99283

== ENCOUNTER 2022-06-29 08:48 | Outpatient (REF) | payer OTHER, SELFPAY ==
[2022-06-29 12:04] LABS: Estimated Average Glucose 177 mg/dL; Hemoglobin A1c % 7.8 %
[2022-06-29 13:03] LABS: Anion Gap 13 (12-20); Blood Urea Nitrogen 14 mg/dL (9-16); Calcium 9.4 mg/dL (8.4-10.2); Carbon Dioxide 28 mmol/L (22-29); Chloride 99 mmol/L (96-108); Cholesterol 107 mg/dL; Estimated Glomerular Filt Rate > 60; Glucose Random 133 mg/dL (60-115); HDL Cholesterol 28 mg/dL; LDL Cholesterol Calculated 66 mg/dl; Potassium 3.6 mmol/L (3.3-5.1); Sodium 136 mmol/L (135-145); Triglycerides 69 mg/dL
== END 2022-06-29 08:49 | disposition home or self-care (01) ==
LOC: HO.HMGCLDS 08:48
PROVIDERS: PCP Internal Medicine; Visit Provider Internal Medicine
DX: E87.6 Hypokalemia (principal)
CPT/HCPCS: 36415; 80048; 80061; 83036

== ENCOUNTER 2022-07-11 19:48 | Emergency (ER) | payer OTHER, SELFPAY ==
--- NOTE | 2022-07-11 | ECG_ITS ---
Test Reason : CP Blood Pressure : / mmHG Vent. Rate : 082 BPM Atrial Rate : 082 BPM P-R Int : 240 ms QRS Dur : 112 ms QT Int : 394 ms P-R-T Axes : -05 020 018 degrees QTc Int : 460 ms Sinus rhythm with 1st degree A-V block Inferior infarct (cited on or before 11-JUL-2022) Abnormal ECG When compared with ECG of 25-JUN-2022 11:25, No significant change was found Referred By: Generic ED Physician Electronically Signed By:TIAGO STEPHENS MD
--- NOTE | ~2022-07-11 | XR_ITS ---
EXAMINATION: XR CHEST CLINICAL INFORMATION: Dizziness and palpation. COMPARISON: Chest 06/22/2022. TECHNIQUE: Frontal view of the chest was obtained. FINDINGS: The lungs are well-expanded and clear of acute pneumonic process. The heart size and pulmonary vascularity is normal. No gross bony abnormality seen. XR/XR chest 1V IMPRESSION: Unremarkable chest examination.
[2022-07-11 19:57] VITALS: BP 137/79; BP 138/72; PULSE 80; PULSE 82; RESP 18; TEMP 36.6; O2SAT 95; O2SAT 96; BMI 54.3
[2022-07-11 20:42] LABS: Basophils Percent Auto 0.5 % (0-2); Eosinophils Absolute Auto 0.2 X10*3/uL (0.0-0.4); Eosinophils Percent Auto 1.7 % (0-4); Hematocrit 43.2 % (42.0-52.0); Hemoglobin 13.9 g/dl (14.0-18.0); Imm Gran Abs Auto 0.02 X10*3/uL (0.00-0.03); Imm Gran Pct Auto 0.2 % (0.0-0.4); Lymphocytes Absolute Auto 2.2 X10*3/uL (1.2-4.9); Lymphocytes Percent Auto 24.5 % (20-40); MANUAL DIFF FLAG NO; Mean Corpuscular HGB Conc 32.2 g/dl (31.0-36.0); Mean Corpuscular Hemoglobin 27.4 pg (27.0-33.0); Mean Platelet Volume 9.8 fL (9.4-12.4); Monocytes Absolute Auto 0.7 X10*3/uL (0.1-1.2); Monocytes Percent Auto 8.2 % (2-11); Neutrophils Absolute Auto 5.8 x10*3/uL (2.0-8.3); Neutrophils Percent Auto 64.9 % (45-73); Platelet Count 239 X10*3/uL (160-400); Red Blood Count 5.08 X10*6/uL (4.60-5.80); Red Cell Distribution Width 13.3 % (11.0-16.0); White Blood Count 8.9 X10*3/uL (4.8-10.8)
[2022-07-11 20:51] LABS: Prothrombin Time 11.6 SEC (10.0-13.1)
[2022-07-11 21:08] LABS: Anion Gap 13 (12-20); Blood Urea Nitrogen 17 mg/dL (9-16); Calcium 9.4 mg/dL (8.4-10.2); Carbon Dioxide 28 mmol/L (22-29); Chloride 102 mmol/L (96-108); Creatinine Clr Calc Pharmacy 211.6; Estimated Glomerular Filt Rate > 60; Glucose Random 164 mg/dL (60-115); Potassium 3.7 mmol/L (3.3-5.1); Sodium 139 mmol/L (135-145)
[2022-07-11 21:14] LABS: Troponin-I High Sensitivity < 3.5 ng/L (<3.5-35.0)
[2022-07-11] MEDS: LORazepam 1 MG TABLET 2 MG PO (22:46)
--- NOTE | 2022-07-11 22:47 | PC.NURSE ---
Medicated pt per Sep. Notified Leila regalado
--- NOTE | 2022-07-11 23:08 | ED.GENADULT ---
HPI - General Adult General Chief complaint: Arrhythmia/Palpitations Stated complaint: LIGHTHEADEDNESS PER EMS Time Seen by Provider: 07/11/22 21:06 Source: patient Mode of arrival: ambulatory Limitations: no limitations History of Present Illness HPI narrative: 52-year-old male who presents emergency department for evaluation lightheadedness and palpitations. The patient was seen in the emergency department by me on 06/25/2022 for similar symptoms and at that time I felt that the patient was having anxiety / hyperventilation attacks. Patient states that he has continued to have episodes similar to the previous episode he states that today he has had at least 7 episodes. States that he has a click sensation of lightheadedness with a feeling in his body that he has difficulty describing. He states that he will feel like his heart skips a beat and then he can hear his pulse and his ear. He states the episodes last seconds. He denied chest pain, shortness of breath or dyspnea on exertion. He denied fever, chills, rhinorrhea, sore throat. He states that he has schedule appointment to see his PCP but the appointment is at least 3 weeks away. Related Data Home Medications Medication Instructions Recorded Confirmed aspirin 81 mg tablet,delayed 81 mg PO DAILY 05/05/20 06/28/22 release (Adult Aspirin Regimen) Previous Rx's Medication Instructions Recorded metoprolol succinate 200 mg 200 mg PO DAILY #90 tabs 08/31/21 tablet,extended release 24 hr pen needle, diabetic 32 gauge x #100 ea 09/20/21 (BD Ultra-Fine Lisa Pen Needle) insulin degludec 200 unit/mL (3 40 unit (0.2 mL) subcut BEDTIME 90 09/27/21 mL) subcutaneous pen ( #18 mL FlexTouch U-200 insulin) flash glucose sensor #2 ea 10/10/21 atorvastatin 10 mg tablet 10 mg PO DAILY 30 days #90 tabs 01/31/22 metformin 1,000 mg tablet 1,000 mg PO BID #180 tabs 03/07/22 losartan 100 mg tablet 100 mg PO DAILY 30 days #90 tabs 04/12/22 amlodipine 10 mg tablet 10 mg PO DAILY 30 days #90 tabs 05/26/22 hydrochlorothiazide 25 mg tablet 25 mg PO DAILY #30 tabs 06/21/22 dulaglutide 4.5 mg/0.5 mL 4.5 mg (0.5 mL) subcut QWEEK #2 mL 06/28/22 subcutaneous pen injector ([employer]) flash glucose scanning reader #2 ea 06/28/22 (FreeStyle Bobby 14 Day Antlers) flash glucose sensor (FreeStyle #1 ea 06/28/22 Bobby 14 Day Sensor kit) lorazepam 1 mg tablet (Ativan) 1 mg PO TID PRN anxiety #12 tabs 07/11/22 Allergies Allergy/AdvReac Type Severity Reaction Status Date / Time canagliflozin [Invokana] AdvReac Unknown rash Verified 06/28/22 12:35 Review of Systems Review of Systems: Yes all other systems are reviewed and are negative [facility] Past Medical History [facility] Narrative: social history: He denies tobacco, alcohol and drug use. Medical History Annual physical exam Diabetes type 2, controlled Diabetic polyneuropathy associated with type 2 diabetes mellitus Dyslipidemia Hypertension Morbid obesity Normal colonoscopy Obesity due to excess calories MARK (obstructive sleep apnea) Surgical History History of surgery of head Hx of cholecystectomy Family History Family History Father No problems noted. Mother Arthritis Brother Stroke Social History Social History Housing: House Alcohol intake: current Alcohol intake frequency: does not drink Patient Tobacco Use Status: Never used Tobacco Advance Directives: No Advance Directives Information Provided: No Current occupational status: employed Cognitive needs: No Hearing needs: No Vision needs: No Physical Exam ED Vital Signs: Vital Signs - 24 hr 07/11/22 19:57 Temperature 97.9 F Pulse Rate 82 Respiratory Rate 18 Blood Pressure 138/72 Pulse Oximetry 96 Oxygen Delivery Method Room Air BMI result Body Mass Index 54.3 Const Other: Awake, alert, male patient, anxious, does not appear to be in distress, answers all questions appropriately, elevated BMI 54.3 HENMT Head: Yes normal to inspection, Yes normocephalic and Yes atraumatic Ears: external ears normal General nose exam: Normal external nose present Face and sinus: Yes normal facial exam Mouth: Normal oral and palatal mucosa present Throat: Yes posterior oropharynx normal Eyes General: appearance normal, both eyes and all related structures Pupils: Equal, round and reactive pupils present Neck Neck: Yes normal visual inspection, Yes no lymphadenopathy, Yes trachea midline and Yes supple Chest Chest palpation & inspection: normal inspection of the chest and normal palpation of entire chest wall Resp Effort & Inspection: normal respiratory effort and able to speak in complete sentences Auscultation: clear to auscultation bilaterally Cardio Rate: regular rate Rhythm: regular rhythm Heart sounds: S1 normal heart sound present, S2 normal heart sound present and no murmurs GI Inspection: Yes normal to inspection Palpation (GI): Soft to palpation, nontender and no guarding Auscultation: normal bowel sounds General: Yes no CVA tenderness Back/Spine/Pelvis Back: no CVA tenderness Skin General skin exam: no rashes or lesions noted Neuro Cranial nerves: Yes CN's II-XII intact bilaterally and Yes Equal, round and reactive pupils present Cognition (Neuro): normal cognition Motor exam (neuro): 5/5 motor strength present throughout Extrem General: Yes normal to inspection Psych Appearance: grossly normal Speech and movement: Normal speech and movement present Affect: normal affect Attitude: cooperative Thought process: Normal thought process present Thought content: Normal thought content present Course Course Course Narrative: 52-year-old male patient who presents emergency department for evaluation of brief episodes of palpitations, which she describes as skipped beats, lightheadedness and a body sensation . He has had these episodes for 1 week any had at least 7 episodes today. Patient's physical examination was unremarkable. Patient's laboratory evaluation was normal except for slight elevated glucose of 164. The patient's high sensitive troponin I was below detectable limits. The patient's EKG was unremarkable. At this time I suspect the patient is having anxiety / hyperventilation type attacks most likely caused by stress and I did discuss this with him. Patient was given Ativan 2 mg orally with some improvement of symptoms. Patient will be did prescribe Ativan 1 mg tablets 3 times a day as needed for anxiety/stress. Patient was advised to contact his PCP for follow-up for further management and treatment of his anxiety / panic attacks. Medications Administered Discontinued Medications Generic Name Dose Route Start Last Admin Trade Name Freq PRN Reason Stop Dose Admin Lorazepam 2 mg 07/11/22 21:24 07/11/22 22:46 Lorazepam 1 Mg Tablet PO 07/11/22 21:25 2 mg ONCE STA Administration Medical Decision Making Lab Data Result Diagrams: 07/11/22 20:38 07/11/22 20:38 Labs: Lab Results 07/11/22 07/11/22 07/11/22 Range/Units 20:38 20:38 20:38 WBC 8.9 (4.8-10.8) X10*3/uL RBC 5.08 (4.60-5.80) X10*6/uL Hgb 13.9 L (14.0-18.0) g/dl Hct 43.2 (42.0-52.0) % MCV 85.0 (80.0-98.0) fL MCH 27.4 (27.0-33.0) pg MCHC 32.2 (31.0-36.0) g/dl RDW 13.3 (11.0-16.0) % Plt Count 239 (160-400) X10*3/uL MPV 9.8 (9.4-12.4) fL Immature Gran % (Auto) 0.2 (0.0-0.4) % Neut % (Auto) 64.9 (45-73) % Lymph % (Auto) 24.5 (20-40) % [place] % (Auto) 8.2 (2-11) % Eos % (Auto) 1.7 (0-4) % Baso % (Auto) 0.5 (0-2) % Lymph # (Auto) 2.2 (1.2-4.9) X10*3/uL [place] # (Auto) 0.7 (0.1-1.2) X10*3/uL Eos # (Auto) 0.2 (0.0-0.4) X10*3/uL Baso # (Auto) 0.0 (0.0-0.2) X10*3/uL Abs Immat Gran (auto) 0.02 (0.00-0.03) X10*3/uL Absolute Neuts (auto) 5.8 (2.0-8.3) x10*3/uL Absolute Nucleated RBC 0.000 (0.0-0.012) X10*3/uL Nucleated RBC % (auto) 0.0 (0.0-0.2) /100WBC PT (10.0-13.1) SEC INR (0.9-1.1) Sodium 139 (135-145) mmol/L Potassium 3.7 (3.3-5.1) mmol/L Chloride 102 (96-108) mmol/L Carbon Dioxide 28 (22-29) mmol/L Anion Gap 13 (12-20) BUN 17 H (9-16) mg/dL Creatinine 0.74 (0.5-1.4) mg/dL Estim Creat Clear Calc 211.6 Estimated GFR > 60 Random Glucose 164 H (60-115) mg/dL Calcium 9.4 (8.4-10.2) mg/dL Troponin I High Sens < 3.5 (<3.5-35.0) ng/L 07/11/22 Range/Units 20:38 WBC (4.8-10.8) X10*3/uL RBC (4.60-5.80) X10*6/uL Hgb (14.0-18.0) g/dl Hct (42.0-52.0) % MCV (80.0-98.0) fL MCH (27.0-33.0) pg MCHC (31.0-36.0) g/dl RDW (11.0-16.0) % Plt Count (160-400) X10*3/uL MPV (9.4-12.4) fL Immature Gran % (Auto) (0.0-0.4) % Neut % (Auto) (45-73) % Lymph % (Auto) (20-40) % [place] % (Auto) (2-11) % Eos % (Auto) (0-4) % Baso % (Auto) (0-2) % Lymph # (Auto) (1.2-4.9) X10*3/uL [place] # (Auto) (0.1-1.2) X10*3/uL Eos # (Auto) (0.0-0.4) X10*3/uL Baso # (Auto) (0.0-0.2) X10*3/uL Abs Immat Gran (auto) (0.00-0.03) X10*3/uL Absolute Neuts (auto) (2.0-8.3) x10*3/uL Absolute Nucleated RBC (0.0-0.012) X10*3/uL Nucleated RBC % (auto) (0.0-0.2) /100WBC PT 11.6 (10.0-13.1) SEC INR 1.0 (0.9-1.1) Sodium (135-145) mmol/L Potassium (3.3-5.1) mmol/L Chloride (96-108) mmol/L Carbon Dioxide (22-29) mmol/L Anion Gap (12-20) BUN (9-16) mg/dL Creatinine (0.5-1.4) mg/dL Estim Creat Clear Calc Estimated GFR Random Glucose (60-115) mg/dL Calcium (8.4-10.2) mg/dL Troponin I High Sens (<3.5-35.0) ng/L Discharge Plan Discharge Clinical Impression: Anxiety, Palpitation Patient Disposition: Home, Self-Care Instructions: Hyperventilation (ED), Anxiety (ED) Additional Instructions: Your blood work was normal. Your EKG was unremarkable. Your presentation is consistent with a stress reaction that your feeling in your body (anxiety/hyperventilation syndrome). You were treated with Ativan (lorazepam) 2 mg orally here in the emergency department. I am prescribing Ativan (lorazepam) 1 mg pills, you can take 1 pill 3 times a day and at night as needed for these episodes that your experiencing. Follow-up with your doctor in 2 days. Please return to the emergency department if your symptoms get worse or if you develop any symptoms that are concerning to you. Prescriptions: New lorazepam [Ativan] 1 mg tablet 1 mg PO TID PRN (Reason: anxiety) Qty: 12 0RF Rx Instructions: Patient may request partial fill No Action metoprolol succinate 200 mg tablet extended release 24 hr 200 mg PO DAILY Qty: 90 3RF (DME) pen needle, diabetic [BD Ultra-Fine Lisa Pen Needle] 32 gauge x 5/32 needle See Rx Instructions .ROUTE .MEDSUPPLY Qty: 100 3RF Rx Instructions: As directed once daily Tresiba FlexTouch U-200 200 unit/mL (3 mL) insulin pen 40 unit subcut BEDTIME 90 Days Qty: 18 5RF (DME) flash glucose sensor Kit See Rx Instructions topical DIRECTED Qty: 2 11RF Rx Instructions: As directed atorvastatin 10 mg tablet 10 mg PO DAILY 30 Days Qty: 90 4RF losartan 100 mg tablet 100 mg PO DAILY 30 Days Qty: 90 0RF amlodipine 10 mg tablet 10 mg PO DAILY 30 Days Qty: 90 0RF hydrochlorothiazide 25 mg tablet 25 mg PO DAILY Qty: 30 0RF metformin 1,000 mg tablet 1,000 mg PO BID Qty: 180 1RF (DME) FreeStyle Bobby 14 Day Sensor Kit See Rx Instructions .Route Qty: 1 1RF Rx Instructions: As directed (DME) FreeStyle Bobby 14 Day Antlers Misc See Rx Instructions .Route Qty: 2 4RF Rx Instructions: As directed Trulicity 4.5 mg/0.5 mL pen injector 4.5 mg subcut QWEEK Qty: 2 5RF aspirin [Adult Aspirin Regimen] 81 mg tablet,delayed release (DR/EC) 81 mg PO DAILY
[2022-07-11 23:47] LABS: IDNOW Serial# 16C4AD1C
[2022-07-11 23:48] LABS: COVID-19 Test Negative (Negative)
== END 2022-07-11 23:56 | disposition home or self-care (01) ==
PROVIDERS: Emergency Provider Emergency Medicine Emergency Medical Services; PCP Internal Medicine
DX: R42 Dizziness and giddiness (principal); R00.2 Palpitations; F41.1 Generalized anxiety disorder; F43.0 Acute stress reaction; Z20.822 Contact with and (suspected) exposure to COVID-19; Z79.899 Other long term (current) drug therapy
CPT/HCPCS: 36415; 71045; 80048; 84484; 85025; 85610; 87635; 93005; 99283

== ENCOUNTER 2022-07-21 09:55 | Emergency (ER) | payer OTHER, SELFPAY ==
--- NOTE | ~2022-07-21 | XR_ITS ---
EXAMINATION: XR CHEST CLINICAL INFORMATION: Chest pain COMPARISON: 07/11/2022 TECHNIQUE: Frontal view of the chest was obtained. FINDINGS: Cardiac leads overlie the chest. The lungs are well expanded. There is no focal consolidation, edema, or effusion. No pneumothorax. The cardiomediastinal silhouette is within normal limits. No acute osseous abnormality. XR/XR chest 1V IMPRESSION: No acute pulmonary disease.
--- NOTE | 2022-07-21 10:10 | ECG_ITS ---
Test Reason : CHEST PAIN Blood Pressure : / mmHG Vent. Rate : 077 BPM Atrial Rate : 077 BPM P-R Int : 242 ms QRS Dur : 108 ms QT Int : 394 ms P-R-T Axes : 033 022 021 degrees QTc Int : 445 ms Sinus rhythm with 1st degree A-V block Possible Inferior infarct (cited on or before 11-JUL-2022) Abnormal ECG When compared with ECG of 11-JUL-2022 20:09, No significant change was found Referred By: Gideon Lyons Electronically Signed By:JAIME HARRIS
--- NOTE | 2022-07-21 10:11 | ED_ITS ---
HPI - Arrhythmia/Palpitations General Chief Complaint: General Medical Stated Complaint: PALPITATIONS Time Seen by Provider: 07/21/22 10:07 Source: patient Mode of arrival: EMS Limitations: no limitations History of Present Illness HPI narrative: This is a 52 years old man with history of hypertension, obesity, diabetes, anxiety presented to the emergency department complaining of palpitations just prior to arrival palpitation now gone denies any chest pain shortness of breath MD complaint: rapid heart beat and heart racing Onset (ago): hour(s) (2) Duration: constant Severity: mild Context: occurred during rest Associated symptoms: denies other symptoms Related Data Home Medications Medication Instructions Recorded Confirmed aspirin 81 mg tablet,delayed 81 mg PO DAILY 05/05/20 07/13/22 release (Adult Aspirin Regimen) Previous Rx's Medication Instructions Recorded metoprolol succinate 200 mg 200 mg PO DAILY #90 tabs 08/31/21 tablet,extended release 24 hr pen needle, diabetic 32 gauge x #100 ea 09/20/21 (BD Ultra-Fine Lisa Pen Needle) insulin degludec 200 unit/mL (3 40 unit (0.2 mL) subcut BEDTIME 90 09/27/21 mL) subcutaneous pen ( #18 mL FlexTouch U-200 insulin) flash glucose sensor #2 ea 10/10/21 atorvastatin 10 mg tablet 10 mg PO DAILY 30 days #90 tabs 01/31/22 metformin 1,000 mg tablet 1,000 mg PO BID #180 tabs 03/07/22 losartan 100 mg tablet 100 mg PO DAILY 30 days #90 tabs 04/12/22 amlodipine 10 mg tablet 10 mg PO DAILY 30 days #90 tabs 05/26/22 hydrochlorothiazide 25 mg tablet 25 mg PO DAILY #30 tabs 06/21/22 dulaglutide 4.5 mg/0.5 mL 4.5 mg (0.5 mL) subcut QWEEK #2 mL 06/28/22 subcutaneous pen injector ([facility]) flash glucose scanning reader #2 ea 06/28/22 (FreeStyle Bobby 14 Day [place]) flash glucose sensor (FreeStyle #1 ea 06/28/22 Bobby 14 Day Sensor kit) lorazepam 1 mg tablet (Ativan) 1 mg PO TID PRN anxiety #12 tabs 07/11/22 buspirone 5 mg tablet 5 mg PO BID #60 tabs 07/13/22 lorazepam 1 mg tablet 1 mg PO BEDTIME PRN anxierty #5 07/21/22 tabs Allergies Allergy/AdvReac Type Severity Reaction Status Date / Time canagliflozin [Invokana] AdvReac Unknown rash Verified 07/21/22 10:15 Review of Systems Constitutional: Constitutional: Reports no additional constitutional complaints ENT: Reports system reviewed and no additional complaints, except as documented Cardiovascular: Cardiovascular: Denies chest pain Respiratory: Respiratory: Reports no additional respiratory complaints [facility] Past Medical History Medical History Annual physical exam Diabetes type 2, controlled Diabetic polyneuropathy associated with type 2 diabetes mellitus Dyslipidemia Hypertension Morbid obesity Normal colonoscopy Obesity due to excess calories MARK (obstructive sleep apnea) Surgical History History of surgery of head Hx of cholecystectomy Family History Family History Father No problems noted. Mother Arthritis Brother Stroke Social History Social History Housing: House Alcohol intake: current Alcohol intake frequency: does not drink Patient Tobacco Use Status: Never used Tobacco Advance Directives: No Current occupational status: employed Cognitive needs: No Hearing needs: No Vision needs: No Physical Exam 2 Vital Signs: Vital Signs: Last Vital Signs Temp 97.5 F 07/21/22 15:19 Pulse 73 07/21/22 15:19 Resp 26 H 07/21/22 15:19 BP 128/67 07/21/22 15:19 Pulse Ox 94 07/21/22 15:19 O2 Del Method 07/21/22 15:19 BMI result Body Mass Index 54.2 Const: General: cooperative HEENT: Head: Yes normal to inspection General nose exam: Normal external nose present Face and sinus: Yes normal facial exam Neck: Neck: Yes normal visual inspection Chest: Chest palpation & inspection: normal inspection of the chest Resp: Effort & Inspection: normal respiratory effort Auscultation: clear to auscultation bilaterally Cardio: Jugular venous distension: no JVD Rate: regular rate Rhythm: regular rhythm GI: Inspection: Yes normal to inspection Palpation (GI): Soft to palpation, not firm, nontender and no guarding Skin: General skin exam: no rashes or lesions noted, elasticity normal and turgor normal Course Reevaluation(s) Reevaluation #1: Patient remained hemodynamically stable he was monitor for few hours no arrhythmia seen, I did check 2 troponin which were both normal at this point I think the patient can be discharged safely home. Time: 16:25 Medications Administered Discontinued Medications Generic Name Dose Route Start Last Admin Trade Name Luis Daniel PRN Reason Stop Dose Admin Lorazepam 1 mg 07/21/22 16:23 07/21/22 16:30 Lorazepam 1 Mg Tablet PO 07/21/22 16:24 1 mg ONCE ONE Administration Medical Decision Making Medical Decision Making [facility] Narrative: Patient presented with palpitation will get labs EKG Differential Diagnosis Differential Diagnoses: The differential diagnosis associated with the pr esentation includes Differential Gonzalo's disease arrhythmia, anxiety, mi Admission/Observation Consideration of admission/observation: Escalation of care including admission/observation considered Lab Data [facility] Lab Attestation statement: I reviewed the patient's lab results. 07/21/22 10:40 07/21/22 10:40 Labs: Lab Results 07/21/22 07/21/22 07/21/22 Range/Units 10:40 10:40 10:40 WBC 6.9 (4.8-10.8) X10*3/uL RBC 5.00 (4.60-5.80) X10*6/uL Hgb 13.8 L (14.0-18.0) g/dl Hct 42.4 (42.0-52.0) % MCV 84.8 (80.0-98.0) fL MCH 27.6 (27.0-33.0) pg MCHC 32.5 (31.0-36.0) g/dl RDW 13.4 (11.0-16.0) % Plt Count 230 (160-400) X10*3/uL MPV 10.7 (9.4-12.4) fL Immature Gran % (Auto) 0.4 (0.0-0.4) % Neut % (Auto) 72.9 (45-73) % Lymph % (Auto) 17.8 L (20-40) % [place] % (Auto) 7.0 (2-11) % Eos % (Auto) 1.5 (0-4) % Baso % (Auto) 0.4 (0-2) % Lymph # (Auto) 1.2 (1.2-4.9) X10*3/uL [place] # (Auto) 0.5 (0.1-1.2) X10*3/uL Eos # (Auto) 0.1 (0.0-0.4) X10*3/uL Baso # (Auto) 0.0 (0.0-0.2) X10*3/uL Abs Immat Gran (auto) 0.03 (0.00-0.03) X10*3/uL Absolute Neuts (auto) 5.0 (2.0-8.3) x10*3/uL Absolute Nucleated RBC 0.000 (0.0-0.012) X10*3/uL Nucleated RBC % (auto) 0.0 (0.0-0.2) /100WBC Sodium 137 (135-145) mmol/L Potassium 4.0 (3.3-5.1) mmol/L Chloride 103 (96-108) mmol/L Carbon Dioxide 25 (22-29) mmol/L Anion Gap 13 (12-20) BUN 12 (9-16) mg/dL Creatinine 0.58 (0.5-1.4) mg/dL Estim Creat Clear Calc 269.6 Estimated GFR > 60 Random Glucose 144 H (60-115) mg/dL Calcium 9.4 (8.4-10.2) mg/dL Total Bilirubin 1.1 H (0.0-1.0) mg/dL AST 27 (5-37) U/L ALT 27 (0-40) U/L Alkaline Phosphatase 78 (39-117) U/L Troponin I High Sens < 3.5 (<3.5-35.0) ng/L Total Protein 6.7 (6.5-8.0) g/dL Albumin 3.7 (3.5-5.0) g/dL 07/21/22 Range/Units 14:04 WBC (4.8-10.8) X10*3/uL RBC (4.60-5.80) X10*6/uL Hgb (14.0-18.0) g/dl Hct (42.0-52.0) % MCV (80.0-98.0) fL MCH (27.0-33.0) pg MCHC (31.0-36.0) g/dl RDW (11.0-16.0) % Plt Count (160-400) X10*3/uL MPV (9.4-12.4) fL Immature Gran % (Auto) (0.0-0.4) % Neut % (Auto) (45-73) % Lymph % (Auto) (20-40) % [place] % (Auto) (2-11) % Eos % (Auto) (0-4) % Baso % (Auto) (0-2) % Lymph # (Auto) (1.2-4.9) X10*3/uL [place] # (Auto) (0.1-1.2) X10*3/uL Eos # (Auto) (0.0-0.4) X10*3/uL Baso # (Auto) (0.0-0.2) X10*3/uL Abs Immat Gran (auto) (0.00-0.03) X10*3/uL Absolute Neuts (auto) (2.0-8.3) x10*3/uL Absolute Nucleated RBC (0.0-0.012) X10*3/uL Nucleated RBC % (auto) (0.0-0.2) /100WBC Sodium (135-145) mmol/L Potassium (3.3-5.1) mmol/L Chloride (96-108) mmol/L Carbon Dioxide (22-29) mmol/L Anion Gap (12-20) BUN (9-16) mg/dL Creatinine (0.5-1.4) mg/dL Estim Creat Clear Calc Estimated GFR Random Glucose (60-115) mg/dL Calcium (8.4-10.2) mg/dL Total Bilirubin (0.0-1.0) mg/dL AST (5-37) U/L ALT (0-40) U/L Alkaline Phosphatase (39-117) U/L Troponin I High Sens < 3.5 (<3.5-35.0) ng/L Total Protein (6.5-8.0) g/dL Albumin (3.5-5.0) g/dL Independent Interpretation I performed an independent interpretation of an: EKG (EKG was reviewed by me personally no ischemia sinus rhythm rate 77) and Plain X-Ray (Chest x-ray reviewed by me personally normal) Radiology Impression Discussion of test interpretation with radiology: I have reviewed the rad iologist's reading. Independent Historian I perform also a bedside point of care cardiac echo no pericardial effusion and good wall motion. Discharge Plan Discharge Clinical Impression: Heart palpitations, Anxiety Patient Disposition: Home, Self-Care Instructions: Heart Palpitations (DC) Prescriptions: New lorazepam 1 mg tablet 1 mg PO BEDTIME PRN (Reason: anxierty) Qty: 5 0RF No Action metoprolol succinate 200 mg tablet extended release 24 hr 200 mg PO DAILY Qty: 90 3RF (DME) pen needle, diabetic [BD Ultra-Fine Lisa Pen Needle] 32 gauge x 5/32 needle See Rx Instructions .ROUTE .MEDSUPPLY Qty: 100 3RF Rx Instructions: As directed once daily Tresiba FlexTouch U-200 200 unit/mL (3 mL) insulin pen 40 unit subcut BEDTIME 90 Days Qty: 18 5RF (DME) flash glucose sensor Kit See Rx Instructions topical DIRECTED Qty: 2 11RF Rx Instructions: As directed atorvastatin 10 mg tablet 10 mg PO DAILY 30 Days Qty: 90 4RF losartan 100 mg tablet 100 mg PO DAILY 30 Days Qty: 90 0RF amlodipine 10 mg tablet 10 mg PO DAILY 30 Days Qty: 90 0RF hydrochlorothiazide 25 mg tablet 25 mg PO DAILY Qty: 30 0RF lorazepam [Ativan] 1 mg tablet 1 mg PO TID PRN (Reason: anxiety) Qty: 12 0RF Rx Instructions: Patient may request partial fill metformin 1,000 mg tablet 1,000 mg PO BID Qty: 180 1RF (DME) FreeStyle Bobby 14 Day Sensor Kit See Rx Instructions .Route Qty: 1 1RF Rx Instructions: As directed (DME) FreeStyle Bobby 14 Day [place] Misc See Rx Instructions .Route Qty: 2 4RF Rx Instructions: As directed Trulicity 4.5 mg/0.5 mL pen injector 4.5 mg subcut QWEEK Qty: 2 5RF buspirone 5 mg tablet 5 mg PO BID Qty: 60 2RF aspirin [Adult Aspirin Regimen] 81 mg tablet,delayed release (DR/EC) 81 mg PO DAILY Referrals: Lexie Lima MD [Primary Care Provider] - 07/24/22
[2022-07-21 10:12] VITALS: BP 135/80; BP 136/79; PULSE 79; PULSE 84; RESP 18; TEMP 36.6; O2SAT 94; O2SAT 96; BMI 54.2
[2022-07-21 10:44] LABS: MANUAL DIFF FLAG NO
[2022-07-21 10:51] LABS: Basophils Percent Auto 0.4 % (0-2); Eosinophils Absolute Auto 0.1 X10*3/uL (0.0-0.4); Eosinophils Percent Auto 1.5 % (0-4); Hematocrit 42.4 % (42.0-52.0); Hemoglobin 13.8 g/dl (14.0-18.0); Imm Gran Abs Auto 0.03 X10*3/uL (0.00-0.03); Imm Gran Pct Auto 0.4 % (0.0-0.4); Lymphocytes Absolute Auto 1.2 X10*3/uL (1.2-4.9); Lymphocytes Percent Auto 17.8 % (20-40); Mean Corpuscular HGB Conc 32.5 g/dl (31.0-36.0); Mean Corpuscular Hemoglobin 27.6 pg (27.0-33.0); Mean Corpuscular Volume 84.8 fL (80.0-98.0); Mean Platelet Volume 10.7 fL (9.4-12.4); Monocytes Absolute Auto 0.5 X10*3/uL (0.1-1.2); Neutrophils Percent Auto 72.9 % (45-73); Platelet Count 230 X10*3/uL (160-400); Red Cell Distribution Width 13.4 % (11.0-16.0); White Blood Count 6.9 X10*3/uL (4.8-10.8)
[2022-07-21 11:11] LABS: Alanine Aminotransferase 27 U/L (0-40); Albumin Level 3.7 g/dL (3.5-5.0); Alkaline Phosphatase 78 U/L (39-117); Anion Gap 13 (12-20); Aspartate Amino Transferase 27 U/L (5-37); Bilirubin Total 1.1 mg/dL (0.0-1.0); Blood Urea Nitrogen 12 mg/dL (9-16); Calcium 9.4 mg/dL (8.4-10.2); Carbon Dioxide 25 mmol/L (22-29); Chloride 103 mmol/L (96-108); Creatinine Clr Calc Pharmacy 269.6; Estimated Glomerular Filt Rate > 60; Glucose Random 144 mg/dL (60-115); Sodium 137 mmol/L (135-145); Total Protein 6.7 g/dL (6.5-8.0)
[2022-07-21 11:15] LABS: Troponin-I High Sensitivity < 3.5 ng/L (<3.5-35.0)
--- NOTE | 2022-07-21 14:18 | PC.NURSE ---
patient awake and alert. skin pwd. resp even and non labored. speaking in full, clear sentences. continues w/ intermittent heart palpitations and lightheadedness. NSR via tele. awaiting result of repeat troponin
[2022-07-21 14:20] VITALS: BP 127/65; PULSE 74; RESP 20; O2SAT 95
[2022-07-21 14:37] LABS: Troponin-I High Sensitivity < 3.5 ng/L (<3.5-35.0)
[2022-07-21 15:19] VITALS: BP 128/67; PULSE 73; RESP 26; TEMP 36.4; O2SAT 94
[2022-07-21] MEDS: LORazepam 1 MG TABLET PO (16:30)
[2022-07-21 17:20] VITALS: BP 143/74; PULSE 79; RESP 16; O2SAT 95
== END 2022-07-21 17:24 | disposition home or self-care (01) ==
PROVIDERS: Emergency Provider Emergency Medicine; PCP Internal Medicine
DX: R00.2 Palpitations (principal); F41.1 Generalized anxiety disorder; F43.0 Acute stress reaction; E11.9 Type 2 diabetes mellitus without complications; Z79.899 Other long term (current) drug therapy; Z79.4 Long term (current) use of insulin
CPT/HCPCS: 36415; 71045; 80053; 84484; 85025; 93005; 99283; 99284

== ENCOUNTER 2022-07-24 02:53 | Emergency (ER) | payer OTHER, SELFPAY ==
--- NOTE | 2022-07-24 | ECG_ITS ---
Test Reason : DIZZINESS Blood Pressure : / mmHG Vent. Rate : 079 BPM Atrial Rate : 079 BPM P-R Int : 246 ms QRS Dur : 116 ms QT Int : 398 ms P-R-T Axes : 001 024 019 degrees QTc Int : 456 ms Sinus rhythm with 1st degree A-V block Inferior infarct (cited on or before 11-JUL-2022) nonspecific T wave changes Abnormal ECG When compared with ECG of 21-JUL-2022 10:31, No significant change was found Referred By: Generic ED Physician Electronically Signed By:Sai Zimmerman
--- NOTE | ~2022-07-24 | XR_ITS ---
EXAMINATION: XR CHEST CLINICAL INFORMATION: Dizziness COMPARISON: 07/21/2022 TECHNIQUE: Frontal view of the chest was obtained. FINDINGS: Low lung volumes crowd the bronchovascular markings. Suspect mild bronchial thickening. No discrete consolidation. No pleural effusion or pneumothorax. Normal heart size and pulmonary vascularity. XR/XR chest 1V IMPRESSION: * No focal consolidation. * Mild bronchial wall thickening as can be seen with bronchitis or asthma.
[2022-07-24 03:03] VITALS: BMI 54.0
[2022-07-24 03:11] VITALS: BP 141/68; PULSE 81; RESP 20; TEMP 36.5; O2SAT 94
--- NOTE | 2022-07-24 03:37 | ED.GENADULT ---
HPI - General Adult General Chief complaint: Dizziness Stated complaint: heart palp, dizzy spells, side of body tingle Time Seen by Provider: 07/24/22 03:15 Source: patient Mode of arrival: ambulatory Limitations: no limitations History of Present Illness HPI narrative: 52-year-old male came in for evaluation of palpitation. 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 Patient all day today feeling facial pressure, runny nose, no fever, no chills. Patient had multiple ED visits for similar symptoms (5 ED visits in 1 month). Related Data Home Medications Medication Instructions Recorded Confirmed aspirin 81 mg tablet,delayed 81 mg PO DAILY 05/05/20 07/13/22 release (Adult Aspirin Regimen) Previous Rx's Medication Instructions Recorded metoprolol succinate 200 mg 200 mg PO DAILY #90 tabs 08/31/21 tablet,extended release 24 hr pen needle, diabetic 32 gauge x #100 ea 09/20/21 (BD Ultra-Fine Lisa Pen Needle) insulin degludec 200 unit/mL (3 40 unit (0.2 mL) subcut BEDTIME 90 09/27/21 mL) subcutaneous pen ( #18 mL FlexTouch U-200 insulin) flash glucose sensor #2 ea 10/10/21 atorvastatin 10 mg tablet 10 mg PO DAILY 30 days #90 tabs 01/31/22 metformin 1,000 mg tablet 1,000 mg PO BID #180 tabs 03/07/22 losartan 100 mg tablet 100 mg PO DAILY 30 days #90 tabs 04/12/22 amlodipine 10 mg tablet 10 mg PO DAILY 30 days #90 tabs 05/26/22 hydrochlorothiazide 25 mg tablet 25 mg PO DAILY #30 tabs 06/21/22 dulaglutide 4.5 mg/0.5 mL 4.5 mg (0.5 mL) subcut QWEEK #2 mL 06/28/22 subcutaneous pen injector ([employer]) flash glucose scanning reader #2 ea 06/28/22 (FreeStyle Bobby 14 Day [place]) flash glucose sensor (FreeStyle #1 ea 06/28/22 Bobby 14 Day Sensor kit) lorazepam 1 mg tablet (Ativan) 1 mg PO TID PRN anxiety #12 tabs 07/11/22 buspirone 5 mg tablet 5 mg PO BID #60 tabs 07/13/22 lorazepam 1 mg tablet 1 mg PO BEDTIME PRN anxierty #5 07/21/22 tabs amoxicillin 500 mg tablet 500 mg PO BID #20 tabs 07/24/22 Allergies Allergy/AdvReac Type Severity Reaction Status Date / Time canagliflozin [Invokana] AdvReac Unknown rash Verified 07/24/22 03:12 Review of Systems Review of Systems: All other systems are reviewed and are negative Constitutional: Reports as per HPI and Reports no additional constitutional complaints Eyes: Reports as per HPI and Reports no additional eye complaints Reports system reviewed and no additional complaints, except as documented Cardiovascular: Reports as per HPI and Reports no additional cardiovascular complaints Respiratory: Reports as per HPI and Reports no additional respiratory complaints Gastrointestinal: Reports as per HPI and Reports no additional gastrointestinal complaints Genitourinary: Reports no additional female genitourinary complaints Musculoskeletal: Reports no additional musculoskeletal complaints Skin/Breast: Reports system reviewed and no additional complaints, except as docu Psychiatric: Reports no additional psychiatric complaints Endocrine: Reports no additional endocrine complaints Hematologic/Lymphatic: Reports no additional hematologic/lymphatic complaints Allergic/Immunologic: Reports no additional allergic/immunologic complaints Reports system reviewed and no additional complaints, except as documented and Reports Abnormal speech present [facility] Past Medical History Medical History Annual physical exam Diabetes type 2, controlled Diabetic polyneuropathy associated with type 2 diabetes mellitus Dyslipidemia Hypertension Morbid obesity Normal colonoscopy Obesity due to excess calories MARK (obstructive sleep apnea) Surgical History History of surgery of head Hx of cholecystectomy Family History Family History Father No problems noted. Mother Arthritis Brother Stroke Social History Social History Housing: House Alcohol intake: current Alcohol intake frequency: does not drink Patient Tobacco Use Status: Never used Tobacco Advance Directives: No Advance Directives Information Provided: Yes Current occupational status: employed Cognitive needs: No Hearing needs: No Vision needs: No Physical Exam ED Vital Signs: Vital Signs - 24 hr 07/24/22 03:11 Temperature 97.7 F Pulse Rate 81 Respiratory Rate 20 Blood Pressure 141/68 H Pulse Oximetry 94 Oxygen Delivery Method Room Air BMI result Body Mass Index 54.0 Vital signs have been reviewed as appeared to be correct. Blood pressure normal. Heart rate normal. Respiration rate normal. Temperature normal. Oxygen saturation normal. Appearance: Anxious, Alert. Oriented X3. No acute distress. Head: Normal external exam. Normocephalic. Atraumatic. No Stuart signs noted. No raccoon eyes noted Eyes: PERRLA. EOMI. Conjunctiva and sclera normal. Eyelids normal. ENT: TM's Normal. Pharynx normal. Uvula midline. Moist mucous membranes. Tenderness with percussion over bilateral maxillary sinuses. No trismus noted. No drooling noted. No muffled voice noted. Neck: Normal inspection. Neck supple. FROM. No adenopathy. Thyroid Normal. No meningeal signs. No neck mass noted. CVS: Normal heart rate and rhythm. Heart sound normal. No murmurs noted. Pulses normal throughout. Respiratory: No respiratory distress. Painless inspiration. Breath sounds normal. No wheezes/rales/rhonchi noted. Chest nontender. No accessory muscle usage noted or decreased air movement noted. Abdomen: Soft and nontender. Bowel sounds normal in all 4 quadrants. No distention noted. No organomegaly noted. No visible injury noted. Back: No CVA tenderness. Full range of motion noted. Skin: Skin warm and dry. Normal skin color. Normal skin turgor. No rashes/lesions/lacerations noted. Extremities: No lower extremity edema. Extremities exhibit normal range of motion. Extremities nontender. Neuro: Oriented X 3. Cranial nerve exam: II-XII are grossly intact No motor deficit. No sensory deficit. Reflexes normal. Course Course Course Narrative: Palpitation/anxiety patient had multiple ED visits for similar symptoms patient's exam is unchanged. Maxillary sinusitis start the patient on amoxicillin. uti? with no discrete symptoms of UTI patient will be taking amoxicillin for sinusitis which showed clear UTI. Medical Decision Making Differential Diagnosis Differential Diagnoses: The differential diagnosis associated with the presentation includes (Cardiac dysrhythmia, ACS, tachycardia, bradycardia, electrolyte disturbance, sinus infection) Lab Data MDM Lab Attestation statement: I reviewed the patient's lab results. 07/24/22 03:32 07/24/22 03:32 Labs: Lab Results 07/24/22 07/24/22 07/24/22 Range/Units 03:32 03:32 03:32 WBC 8.4 (4.8-10.8) X10*3/uL RBC 5.33 (4.60-5.80) X10*6/uL Hgb 14.7 (14.0-18.0) g/dl Hct 45.6 (42.0-52.0) % MCV 85.6 (80.0-98.0) fL MCH 27.6 (27.0-33.0) pg MCHC 32.2 (31.0-36.0) g/dl RDW 13.4 (11.0-16.0) % Plt Count 230 (160-400) X10*3/uL MPV 10.4 (9.4-12.4) fL Immature Gran % (Auto) 0.5 H (0.0-0.4) % Neut % (Auto) 61.2 (45-73) % Lymph % (Auto) 27.2 (20-40) % [place] % (Auto) 8.3 (2-11) % Eos % (Auto) 2.3 (0-4) % Baso % (Auto) 0.5 (0-2) % Lymph # (Auto) 2.3 (1.2-4.9) X10*3/uL [place] # (Auto) 0.7 (0.1-1.2) X10*3/uL Eos # (Auto) 0.2 (0.0-0.4) X10*3/uL Baso # (Auto) 0.0 (0.0-0.2) X10*3/uL Abs Immat Gran (auto) 0.04 H (0.00-0.03) X10*3/uL Absolute Neuts (auto) 5.1 (2.0-8.3) x10*3/uL Absolute Nucleated RBC 0.000 (0.0-0.012) X10*3/uL Nucleated RBC % (auto) 0.0 (0.0-0.2) /100WBC Sodium 137 (135-145) mmol/L Potassium 3.6 (3.3-5.1) mmol/L Chloride 102 (96-108) mmol/L Carbon Dioxide 25 (22-29) mmol/L Anion Gap 14 (12-20) BUN 13 (9-16) mg/dL Creatinine 0.67 (0.5-1.4) mg/dL Estim Creat Clear Calc 232.7 Estimated GFR > 60 Random Glucose 136 H (60-115) mg/dL Calcium 10.0 D (8.4-10.2) mg/dL Total Bilirubin 1.2 H (0.0-1.0) mg/dL Direct Bilirubin 0.4 (0.0-0.5) mg/dL AST 21 (5-37) U/L ALT 29 (0-40) U/L Alkaline Phosphatase 104 (39-117) U/L Troponin I High Sens < 3.5 (<3.5-35.0) ng/L B-Natriuretic Peptide (<100) pg/mL Total Protein 7.0 (6.5-8.0) g/dL Albumin 4.0 (3.5-5.0) g/dL Lipase 41 (8-78) U/L Urine Color Urine Appearance Urine pH (5.0-9.0) Ur Specific Davis (1.005-1.025) Urine Protein (Neg-Trace) mg/dL Urine Glucose (UA) (Negative) mg/dL Urine Ketones (Negative) mg/dL Urine Blood (Negative) Urine Nitrite (Negative) Ur Leukocyte Esterase (Negative) Urine RBC (0-2) /HPF Urine WBC (0-5) /HPF Ur Squamous Epith Cells (0-2) /HPF Urine Bacteria (None Seen) Hyaline Casts (0-2) /LPF Influenza Type A (PCR) (Negative) Influenza Type B (PCR) (Negative) RSV RNA Qual (PCR) (Negative) SARS-CoV-2 RNA (RT-PCR) (Negative) 07/24/22 07/24/22 07/24/22 Range/Units 03:32 03:32 05:35 WBC (4.8-10.8) X10*3/uL RBC (4.60-5.80) X10*6/uL Hgb (14.0-18.0) g/dl Hct (42.0-52.0) % MCV (80.0-98.0) fL MCH (27.0-33.0) pg MCHC (31.0-36.0) g/dl RDW (11.0-16.0) % Plt Count (160-400) X10*3/uL MPV (9.4-12.4) fL Immature Gran % (Auto) (0.0-0.4) % Neut % (Auto) (45-73) % Lymph % (Auto) (20-40) % [place] % (Auto) (2-11) % Eos % (Auto) (0-4) % Baso % (Auto) (0-2) % Lymph # (Auto) (1.2-4.9) X10*3/uL [place] # (Auto) (0.1-1.2) X10*3/uL Eos # (Auto) (0.0-0.4) X10*3/uL Baso # (Auto) (0.0-0.2) X10*3/uL Abs Immat Gran (auto) (0.00-0.03) X10*3/uL Absolute Neuts (auto) (2.0-8.3) x10*3/uL Absolute Nucleated RBC (0.0-0.012) X10*3/uL Nucleated RBC % (auto) (0.0-0.2) /100WBC Sodium (135-145) mmol/L Potassium (3.3-5.1) mmol/L Chloride (96-108) mmol/L Carbon Dioxide (22-29) mmol/L Anion Gap (12-20) BUN (9-16) mg/dL Creatinine (0.5-1.4) mg/dL Estim Creat Clear Calc Estimated GFR Random Glucose (60-115) mg/dL Calcium (8.4-10.2) mg/dL Total Bilirubin (0.0-1.0) mg/dL Direct Bilirubin (0.0-0.5) mg/dL AST (5-37) U/L ALT (0-40) U/L Alkaline Phosphatase (39-117) U/L Troponin I High Sens (<3.5-35.0) ng/L B-Natriuretic Peptide < 10 (<100) pg/mL Total Protein (6.5-8.0) g/dL Albumin (3.5-5.0) g/dL Lipase (8-78) U/L Urine Color Yellow Urine Appearance Clear Urine pH 5.5 (5.0-9.0) Ur Specific [place] 1.015 (1.005-1.025) Urine Protein Negative (Neg-Trace) mg/dL Urine Glucose (UA) Negative (Negative) mg/dL Urine Ketones Negative (Negative) mg/dL Urine Blood Negative (Negative) Urine Nitrite Negative (Negative) Ur Leukocyte Esterase Small (1+) H (Negative) Urine RBC 0-2 (0-2) /HPF Urine WBC 6-10 H (0-5) /HPF Ur Squamous Epith Cells 0-2 (0-2) /HPF Urine Bacteria None Seen (None Seen) Hyaline Casts 0-2 (0-2) /LPF Influenza Type A (PCR) NEGATIVE (Negative) Influenza Type B (PCR) NEGATIVE (Negative) RSV RNA Qual (PCR) NEGATIVE (Negative) SARS-CoV-2 RNA (RT-PCR) NEGATIVE (Negative) Independent Interpretation I performed an independent interpretation of an: EKG (Normal sinus rhythm at 79 beats per minute, first-degree AV block otherwise unremarkable intervals, no ST-T changes.) and Plain X-Ray (No acute intrathoracic pathology.) Radiology Impression Discussion of test interpretation with radiology: I have reviewed the radiologist's reading. Discharge Plan Discharge Clinical Impression: Palpitations, Sinusitis, Anxiety, Acute UTI Patient Disposition: Home, Self-Care Instructions: Heart Palpitations (ED) Prescriptions: New amoxicillin 500 mg tablet 500 mg PO BID Qty: 20 0RF No Action metoprolol succinate 200 mg tablet extended release 24 hr 200 mg PO DAILY Qty: 90 3RF (DME) pen needle, diabetic [BD Ultra-Fine Lisa Pen Needle] 32 gauge x 5/32 needle See Rx Instructions .ROUTE .MEDSUPPLY Qty: 100 3RF Rx Instructions: As directed once daily Tresiba FlexTouch U-200 200 unit/mL (3 mL) insulin pen 40 unit subcut BEDTIME 90 Days Qty: 18 5RF (DME) flash glucose sensor Kit See Rx Instructions topical DIRECTED Qty: 2 11RF Rx Instructions: As directed atorvastatin 10 mg tablet 10 mg PO DAILY 30 Days Qty: 90 4RF losartan 100 mg tablet 100 mg PO DAILY 30 Days Qty: 90 0RF amlodipine 10 mg tablet 10 mg PO DAILY 30 Days Qty: 90 0RF hydrochlorothiazide 25 mg tablet 25 mg PO DAILY Qty: 30 0RF lorazepam 1 mg tablet 1 mg PO BEDTIME PRN (Reason: anxierty) Qty: 5 0RF lorazepam [Ativan] 1 mg tablet 1 mg PO TID PRN (Reason: anxiety) Qty: 12 0RF Rx Instructions: Patient may request partial fill metformin 1,000 mg tablet 1,000 mg PO BID Qty: 180 1RF (DME) FreeStyle Bobby 14 Day Sensor Kit See Rx Instructions .Route Qty: 1 1RF Rx Instructions: As directed (DME) FreeStyle Bobby 14 Day [place] Misc See Rx Instructions .Route Qty: 2 4RF Rx Instructions: As directed Trulicity 4.5 mg/0.5 mL pen injector 4.5 mg subcut QWEEK Qty: 2 5RF buspirone 5 mg tablet 5 mg PO BID Qty: 60 2RF aspirin [Adult Aspirin Regimen] 81 mg tablet,delayed release (DR/EC) 81 mg PO DAILY Referrals: Lexie Lima MD [Primary Care Provider] -
[2022-07-24 03:38] LABS: Basophils Percent Auto 0.5 % (0-2); Eosinophils Absolute Auto 0.2 X10*3/uL (0.0-0.4); Eosinophils Percent Auto 2.3 % (0-4); Hematocrit 45.6 % (42.0-52.0); Hemoglobin 14.7 g/dl (14.0-18.0); Imm Gran Abs Auto 0.04 X10*3/uL (0.00-0.03); Imm Gran Pct Auto 0.5 % (0.0-0.4); Lymphocytes Absolute Auto 2.3 X10*3/uL (1.2-4.9); Lymphocytes Percent Auto 27.2 % (20-40); MANUAL DIFF FLAG NO; Mean Corpuscular HGB Conc 32.2 g/dl (31.0-36.0); Mean Corpuscular Hemoglobin 27.6 pg (27.0-33.0); Mean Corpuscular Volume 85.6 fL (80.0-98.0); Mean Platelet Volume 10.4 fL (9.4-12.4); Monocytes Absolute Auto 0.7 X10*3/uL (0.1-1.2); Monocytes Percent Auto 8.3 % (2-11); Neutrophils Absolute Auto 5.1 x10*3/uL (2.0-8.3); Neutrophils Percent Auto 61.2 % (45-73); Platelet Count 230 X10*3/uL (160-400); Red Blood Count 5.33 X10*6/uL (4.60-5.80); Red Cell Distribution Width 13.4 % (11.0-16.0); White Blood Count 8.4 X10*3/uL (4.8-10.8)
[2022-07-24 03:55] LABS: Alanine Aminotransferase 29 U/L (0-40); Alkaline Phosphatase 104 U/L (39-117); Anion Gap 14 (12-20); Aspartate Amino Transferase 21 U/L (5-37); Bilirubin Direct 0.4 mg/dL (0.0-0.5); Bilirubin Total 1.2 mg/dL (0.0-1.0); Blood Urea Nitrogen 13 mg/dL (9-16); Carbon Dioxide 25 mmol/L (22-29); Chloride 102 mmol/L (96-108); Creatinine Clr Calc Pharmacy 232.7; Estimated Glomerular Filt Rate > 60; Glucose Random 136 mg/dL (60-115); Lipase 41 U/L (8-78); Potassium 3.6 mmol/L (3.3-5.1); Sodium 137 mmol/L (135-145)
[2022-07-24 03:58] LABS: B Type Natriuretic Peptide < 10 pg/mL (<100); Troponin-I High Sensitivity < 3.5 ng/L (<3.5-35.0)
[2022-07-24 04:15] LABS: Influenza A PCR NEGATIVE (Negative); Influenza B PCR NEGATIVE (Negative); Resp Syncy Virus RNA Qual PCR NEGATIVE (Negative); SARS COV2 PCR INHOUSE NEGATIVE (Negative)
[2022-07-24 05:47] LABS: Appearance Urine Clear; Color Urine Yellow; Glucose Urine UA Negative (Negative); Leukocyte Esterase Urine Small (1+) (Negative); Nitrite Urine Negative (Negative); PH 5.5 (5.0-9.0); Specific Gravity - Urine 1.015 (1.005-1.025); UMIC TRIGGER UACC YES; Urine Blood Negative (Negative); Urine Ketones Negative (Negative); Urine Protein Negative (Neg-Trace)
[2022-07-24 05:49] LABS: Bacteria Urine None Seen (None Seen); Hyaline Casts Urine 0-2 /LPF (0-2); RBC Urine 0-2 /HPF (0-2); Squamous Epithelial Cell Urine 0-2 /HPF (0-2); UACC Culture Trigger YES
[2022-07-24 06:08] VITALS: BP 119/66; PULSE 80; RESP 16; TEMP 36.5; O2SAT 93
--- NOTE | 2022-07-24 06:22 | PC.NURSE ---
Pt. expresses anxiety throughout visit. Pt. reported heart rate raising to about 90 and feeling some palpitations. Pt. labwork and EKG all reassuring. Pt. being treated for sinusitis and a UTI. This RN went over some non-pharmacological anxiety relief with the patient and encouraged follow-up with PCP.
== END 2022-07-24 06:26 | disposition home or self-care (01) ==
PROVIDERS: Emergency Provider Emergency Medicine; PCP Internal Medicine
DX: R00.2 Palpitations (principal); F41.9 Anxiety disorder, unspecified; J32.0 Chronic maxillary sinusitis; N39.0 Urinary tract infection, site not specified; Z20.822 Contact with and (suspected) exposure to COVID-19; Z20.828 Contact with and (suspected) exposure to other viral communicable diseases; I10 Essential (primary) hypertension; E11.9 Type 2 diabetes mellitus without complications; E78.5 Hyperlipidemia, unspecified; E66.01 Morbid (severe) obesity due to excess calories; Z68.43 Body mass index [BMI] 50.0-59.9, adult; Z86.73 Personal history of transient ischemic attack (TIA), and cerebral infarction without residual deficits; Z79.02 Long term (current) use of antithrombotics/antiplatelets; Z79.899 Other long term (current) drug therapy; Z79.85 Long-term (current) use of injectable non-insulin antidiabetic drugs; Z79.84 Long term (current) use of oral hypoglycemic drugs
CPT/HCPCS: 0241U; 36415; 71045; 80048; 80076; 81001; 83690; 83880; 84484; 85025; 87086; 93005; 99283; 99284

== ENCOUNTER → 2022-07-28 11:23 | Outpatient (REF) | payer OTHER, SELFPAY ==
--- NOTE | 2022-07-28 11:18 | HM_ITS ---
* Total monitoring time 3 days. * Underlying rhythm is sinus. Average ventricular rate 82/Min. Range 68 to 99/Min. * Rare PVCs with minimal burden. One couplet. * Very rare PACs. * First-degree heart block noted, but nothing more pronounced. * No patient diary or markers. MTDD
== END ==
LOC: HO.CARD 11:23
PROVIDERS: Visit Provider Internal Medicine
DX: R00.2 Palpitations (principal)
CPT/HCPCS: 93242

== ENCOUNTER 2022-08-07 12:10 | Outpatient (REF) | payer OTHER, SELFPAY ==
[2022-08-07 14:46] LABS: TSH reflex Free T4 0.69 uIU/mL (0.32-4.0)
[2022-08-07 15:00] LABS: Vitamin B12 586 pg/mL (200-900)
[2022-08-08 11:33] LABS: Calcium (PTHI) 10.1 mg/dL (8.6-10.3); PTHI 64 pg/mL (16-77)
== END 2022-08-07 12:11 | disposition home or self-care (01) ==
LOC: HO.HMGCLDS 12:10
PROVIDERS: PCP Internal Medicine; Visit Provider Physician Assistant
DX: R20.2 Paresthesia of skin (principal)
CPT/HCPCS: 36415; 82310; 82607; 83970; 84443

== ENCOUNTER 2022-08-11 14:07 | Emergency (ER) | payer OTHER, SELFPAY ==
--- NOTE | ~2022-08-11 | XR_ITS ---
EXAMINATION: XR CHEST CLINICAL INFORMATION: Dizziness COMPARISON: 07/24/2022 TECHNIQUE: 2 views of the chest were obtained. FINDINGS: The lungs are well expanded. There is no focal consolidation, edema, or effusion. No pneumothorax. The cardiomediastinal silhouette is within normal limits. No acute osseous abnormality. Degenerative changes noted in the spine. XR/XR chest 2V IMPRESSION: Clear lungs.
--- NOTE | ~2022-08-11 | CT_ITS ---
EXAMINATION: CT HEAD WITHOUT CONTRAST CLINICAL INFORMATION: Intermittent dizziness for the past week COMPARISON: Head CT 12/26/2021 TECHNIQUE: Imaging was performed from the skull base to vertex without intravenous administration of contrast. This CT examination was performed using dose optimization techniques as appropriate, variously including the following: *Automated exposure control *Adjustment of mA and/or kV according to patient size (this includes techniques or standardized protocols for targeted exams where dose is matched to indication/reason for exam; i.e. extremities or head) *Use of iterative reconstruction technique Total exam dose length product: 826 mGy-cm FINDINGS: No intra or extra-axial fluid collection, hemorrhage, or mass. No ventriculomegaly. No midline shift or herniation. Basal cisterns are patent. Bueno-white matter differentiation is maintained. No territorial encephalomalacia. No significant volume loss. There is no abnormal attenuation within the brain parenchyma. No calvarial fracture or soft tissue abnormality. The mastoid air cells are well aerated. Trace mucus layering in the left sphenoid sinus. Paranasal sinuses otherwise normally aerated.. CT/CT head/brain wo IV con IMPRESSION: No acute intracranial pathology.
[2022-08-11 14:11] VITALS: BP 146/88; PULSE 79; RESP 18; TEMP 36.6; O2SAT 98; BMI 53.4
--- NOTE | 2022-08-11 14:12 | ED_ITS ---
HPI - General Adult General Chief complaint: Dizziness <REMEDIOS Dillon - Last Filed: 08/11/22 14:13> Stated complaint: Dizziness <REMEDIOS Dillon - Last Filed: 08/11/22 14:13> Time Seen by Provider: 08/11/22 16:09 <REMEDIOS Dillon - Last Filed: 08/11/22 14:13> Source: patient <REMEDIOS Rutherford Last Filed: 08/11/22 17:40> Mode of arrival: ambulatory <REMEDIOS Rutherford Last Filed: 08/11/22 17:40> Limitations: no limitations <REMEDIOS Rutherford Last Filed: 08/11/22 17:40> History of Present Illness HPI narrative: 52-year-old male with a past medical history of hypertension, obesity, diabetes, anxiety who is presenting to the ER with multiple complaints which include intermittent dizziness, headaches, sinus pressure pain, nasal congestion/rhinorrhea for the past few weeks worse today. Reports today when he was taking a shower in the shower with hitting his sinuses he reports it was making his symptoms worse. He believes he might have a sinus infection although wants to make sure there is nothing going on with his brain due to the dizziness has been for a few weeks. He denies any fevers, change in vision, neck pain/stiffness, sore throat, trouble swallowing or breathing, ear pain, chest pain or shortness of breath, dyspnea on exertion, orthopnea, palpitations, paresthesias, nausea/vomiting/diarrhea constipation, black or bloody stools, abdominal pain, flank pain, recent falls or trauma, recent tick bites, recent CO2 exposure, others with similar symptoms, recent spinal procedure or epidural, recent travel or sick contacts, lower extremity edema or calf tenderness or any other symptoms complaints or concerns at this time. <REMEDIOS Rutherford - Last Filed: 08/11/22 17:40> MD complaint: Dizziness, headaches, sinus pressure pain <REMEDIOS Rutherford Last Filed: 08/11/22 17:40> Onset (ago): week(s) <REMEDIOS Rutherford Last Filed: 08/11/22 17:40> Related Data Home medications: Home Medications Medication Instructions Recorded Confirmed aspirin 81 mg tablet,delayed 81 mg PO DAILY 05/05/20 07/28/22 release (Adult Aspirin Regimen) Previous Rx's Medication Instructions Recorded metoprolol succinate 200 mg 200 mg PO DAILY #90 tabs 08/31/21 tablet,extended release 24 hr pen needle, diabetic 32 gauge x #100 ea 09/20/21 (BD Ultra-Fine Lisa Pen Needle) flash glucose sensor #2 ea 10/10/21 atorvastatin 10 mg tablet 10 mg PO DAILY 30 days #90 tabs 01/31/22 metformin 1,000 mg tablet 1,000 mg PO BID #180 tabs 03/07/22 losartan 100 mg tablet 100 mg PO DAILY 30 days #90 tabs 04/12/22 amlodipine 10 mg tablet 10 mg PO DAILY 30 days #90 tabs 05/26/22 hydrochlorothiazide 25 mg tablet 25 mg PO DAILY #30 tabs 06/21/22 dulaglutide 4.5 mg/0.5 mL 4.5 mg (0.5 mL) subcut QWEEK #2 mL 06/28/22 subcutaneous pen injector (Trulicity) flash glucose scanning reader #2 ea 06/28/22 (FreeStyle Bobby 14 Day Otis) lorazepam 1 mg tablet (Ativan) 1 mg PO TID PRN anxiety #12 tabs 07/11/22 buspirone 5 mg tablet 5 mg PO BID #60 tabs 07/13/22 amoxicillin 500 mg tablet 500 mg PO BID #20 tabs 07/24/22 FreeStyle Bobby 14 Day Sensor #6 ea 07/25/22 (flash glucose sensor) buspirone 10 mg tablet 10 mg PO BID #60 tabs 07/26/22 dulaglutide 1.5 mg/0.5 mL 1.5 mg (0.5 mL) subcut QWEEK #6 mL 07/27/22 subcutaneous pen injector (Trulicity) dulaglutide 3 mg/0.5 mL 3 mg (0.5 mL) subcut QWEEK #6 mL 07/27/22 subcutaneous pen injector (Trulicity) lorazepam 1 mg tablet 0.5 mg PO BID PRN anxiety #14 tabs 08/07/22 lorazepam 1 mg tablet 1 mg PO BEDTIME PRN anxierty #14 08/07/22 tabs insulin degludec 200 unit/mL (3 40 unit (0.2 mL) subcut BEDTIME 90 08/08/22 mL) subcutaneous pen (Tresiba days #18 mL FlexTouch U-200 insulin) amoxicillin 875 mg-potassium 1 tab PO BID 10 days #20 tabs 08/11/22 clavulanate 125 mg tablet prednisone 20 mg tablet 40 mg PO DAILY inflammation 5 days 08/11/22 #10 tabs <REMEDIOS Dillon - Last Filed: 08/11/22 14:13> Allergies/adverse reactions: Allergies Allergy/AdvReac Type Severity Reaction Status Date / Time canagliflozin [Invokana] AdvReac Unknown rash Verified 08/07/22 11:35 <REMEDIOS Dillon - Last Filed: 08/11/22 14:13> Review of Systems Review of Systems: Constitutional : No Fever, No Chills, No Night Sweats, No Fatigue, No Malaise ENT/Mouth : No Ear Pain, + Nasal Congestion, + Sinus Pain, No sore throat, + Rhinorrhea Eyes: No Eye Pain, No Swelling, No Redness, No Foreign Body, No Discharge, No Vision Changes Cardiovascular : No Chest Pain, No SOB, No Dyspnea on Exertion, No Orthopnea, No Palpitations Respiratory : No Cough, No Sputum, No Wheezing, No Dyspnea Gastrointestinal : No Nausea, No Vomiting, No Diarrhea, No Constipation, No abdominal Pain, No Hematochezia, No Melena Genitourinary : No Dysuria, No Urinary Frequency, No Urinary Incontinence, No Urgency, No Flank Pain Musculoskeletal : No joint pain, No Myalgias Skin : No lacerations Neuro : + dizziness/headaches No Focal weakness, no general weakness, No Numbness, No Paresthesias, No Loss of Consciousness <REMEDIOS Rutherford - Last Filed: 08/11/22 17:40> Yes all other systems are reviewed and are negative <REMEDIOS Rutherford Last Filed: 08/11/22 17:40> PMFSH Past Medical History Attestation statement: The following information was validated with the patient. <REMEDIOS Rutherford Last Filed: 08/11/22 17:40> Source: old records reviewed and nursing notes reviewed <REMEDIOS Rutherford Last Filed: 08/11/22 17:40> Medical History: Medical History Annual physical exam Diabetes type 2, controlled Diabetic polyneuropathy associated with type 2 diabetes mellitus Dyslipidemia Hypertension Morbid obesity Normal colonoscopy Obesity due to excess calories MARK (obstructive sleep apnea) <REMEDIOS Dillon - Last Filed: 08/11/22 14:13> Surgical History: Surgical History History of surgery of head Hx of cholecystectomy <REMEDIOS Dillon - Last Filed: 08/11/22 14:13> Family History Family History: Family History Father No problems noted. Mother Arthritis Brother Stroke <REMEDIOS Dillon - Last Filed: 08/11/22 14:13> Social History Social History: Social History Housing: House Alcohol intake: current Alcohol intake frequency: holidays/special occasions only Patient Tobacco Use Status: Never used Tobacco Advance Directives: No Advance Directives Information Provided: No Current occupational status: employed Cognitive needs: No Hearing needs: No Vision needs: No <REMEDIOS Dillon - Last Filed: 08/11/22 14:13> Physical Exam ED Vital Signs: Vital Signs - 24 hr 08/11/22 14:11 Temperature 98 F Pulse Rate 79 Respiratory Rate 18 Blood Pressure 146/88 H Pulse Oximetry 98 Oxygen Delivery Method Room Air BMI result Body Mass Index 53.4 <REMEDIOS Dillon - Last Filed: 08/11/22 14:13> Vital Signs - 24 hr 08/11/22 14:11 Temperature 98 F Pulse Rate 79 Respiratory Rate 18 Blood Pressure 146/88 H Pulse Oximetry 98 Oxygen Delivery Method Room Air BMI result Body Mass Index 53.4 vital signs have been reviewed as normal and appeared to be correct. Blood pressure normal. Heart rate normal. Respiration rate normal. Temperature n ormal. Oxygen saturation normal. <REMEDIOS Rutherford - Last Filed: 08/11/22 17:40> Appearance: Alert. Oriented X3. No acute distress. Head: Normal external exam. Normocephalic. Atraumatic. Able to rotate head bilaterally. Eyes: PERRLA. EOMI. No nystagmus noted. Conjunctiva and sclera normal. Eyelids normal. Corneal reflex normal. ENT: EAC normal. TM's Normal. Hearing normal. Pharynx normal. Uvula midline. tongue midline. Moist mucous membranes. No trismus noted. No drooling noted. No muffled voice noted. No nystagmus noted. Patient does have tenderness to palpation on the sinuses. Neck: Normal inspection. Neck supple. FROM. No adenopathy. Trachea midline. Thyroid Normal. No meningeal signs. No neck mass noted. CVS: Normal heart rate and rhythm. Heart sound normal. No murmurs noted. Pulses normal throughout. Respiratory: No respiratory distress. Painless inspiration. Breath sounds normal. No wheezes/rales/rhonchi noted. Chest nontender. No accessory muscle usage noted or decreased air movement noted. Abdomen: Soft and nontender. Bowel sounds normal in all 4 quadrants. No distention noted. No organomegaly noted. No visible injury noted. Back: No CVA tenderness. Full range of motion noted. Skin: Skin warm and dry. Normal skin color. Normal skin turgor. No rashes/lesions/lacerations noted. Extremities: No lower extremity edema. Extremities exhibit normal range of motion. Extremities nontender. Able to shrug shoulders bilaterally and keep up against resistance. Neuro: Oriented X 3. No motor deficit. No sensory deficit. Reflexes normal. Moving all extremities. No focal motor deficits. Cranial nerves II-XI intact bilaterally. Facial strength normal. Normal cognition. Speech normal. Gait normal. Strength 5/5 throughout. No pronator drift. No tremor noted. No fasciculations noted. No rigidity noted. Muscle tone normal throughout. No asterixis noted. Awzshg-px-mzez test normal. Heel to hernandez test normal. Tandem gait normal. Does not sway with eyes open. Romberg test negative. Rapid alternating movement upper extremity normal. Rapid alternating movement lower extremity normal. Hand drop from overhead Misses face. NIHSS score 0. <REMEDIOS Rutherford - Last Filed: 08/11/22 17:40> Course Course Course Narrative: RME performed by Marisabel Brewer PA-C. Patient is a 52 year old male presenting to the emergency department with dizziness. Patient states that he is having intermittent dizziness, nothing makes it worse, nothing makes it better. Patient states that he is also having sinus pressure. <REMEDIOS Dillon - Last Filed: 08/11/22 14:13> Reevaluation(s) Reevaluation #1: 52-year-old male with a past medical history of hypertension, obesity, diabetes, anxiety who is presenting to the ER with multiple complaints which include intermittent dizziness, headaches, sinus pressure pain, nasal congestion/rhinorrhea for the past few weeks worse today. Reports today when he was taking a shower in the shower with hitting his sinuses he reports it was making his symptoms worse. He believes he might have a sinus infection although wants to make sure there is nothing going on with his brain due to the dizzines s has been for a few weeks. Labs were ordered while the patient was in the waiting room and patient's random glucose 123. Total bilirubin 1.1 which is similar compared to prior. Otherwise all other labs are within normal limits. Patient had negative troponin. Patient negative for COVID/RSV/flu. CT scan of brain revealed nasal congestion in the sinuses otherwise negative for any acute processes. Chest x- ray within normal limits no acute processes are noted. EKG is sinus rhythm with first-degree AV block with a ventricular rate of [address] and T- wave abnormalities similar when compared to prior EKG 07/24/2022 no acute ischemic changes noted at this time. Therefore at this time patient will be discharged with antibiotics for sinusitis infection instructions return if any new or worsening symptoms to follow up with primary care provider. Patient understands agrees with this plan. <REMEDIOS Rutherford - Last Filed: 08/11/22 17:40> Time: 17:35 <REMEDIOS Rutherford - Last Filed: 08/11/22 17:40> Medical Decision Making Lab Data MDM Lab Attestation statement: I reviewed the patient's lab results. <REMEDIOS Rutherford - Last Filed: 08/11/22 17:40> Result Diagrams: 08/11/22 14:22 08/11/22 14:22 <REMEDIOS Dillon - Last Filed: 08/11/22 14:13> Labs: Lab Results 08/11/22 08/11/22 08/11/22 Range/Units 14:22 14:22 14:22 WBC 10.2 (4.8-10.8) X10*3/uL RBC 5.73 (4.60-5.80) X10*6/uL Hgb 15.8 (14.0-18.0) g/dl Hct 48.0 (42.0-52.0) % MCV 83.8 (80.0-98.0) fL MCH 27.6 (27.0-33.0) pg MCHC 32.9 (31.0-36.0) g/dl RDW 13.6 (11.0-16.0) % Plt Count 267 (160-400) X10*3/uL MPV 10.2 (9.4-12.4) fL Immature Gran % (Auto) 0.4 (0.0-0.4) % Neut % (Auto) 65.6 (45-73) % Lymph % (Auto) 21.6 (20-40) % [place] % (Auto) 9.2 (2-11) % Eos % (Auto) 2.6 (0-4) % Baso % (Auto) 0.6 (0-2) % Lymph # (Auto) 2.2 (1.2-4.9) X10*3/uL [place] # (Auto) 0.9 (0.1-1.2) X10*3/uL Eos # (Auto) 0.3 (0.0-0.4) X10*3/uL Baso # (Auto) 0.1 (0.0-0.2) X10*3/uL Abs Immat Gran (auto) 0.04 H (0.00-0.03) X10*3/uL Absolute Neuts (auto) 6.7 (2.0-8.3) x10*3/uL Absolute Nucleated RBC 0.000 (0.0-0.012) X10*3/uL Nucleated RBC % (auto) 0.0 (0.0-0.2) /100WBC Sodium 139 (135-145) mmol/L Potassium 3.8 (3.3-5.1) mmol/L Chloride 103 (96-108) mmol/L Carbon Dioxide 26 (22-29) mmol/L Anion Gap 14 (12-20) BUN 16 (9-16) mg/dL Creatinine 0.71 (0.5-1.4) mg/dL Estim Creat Clear Calc 218.4 Estimated GFR > 60 Random Glucose 123 H (60-115) mg/dL Calcium 10.1 (8.4-10.2) mg/dL Magnesium 2.1 (1.6-2.6) mg/dL Total Bilirubin 1.1 H (0.0-1.0) mg/dL AST 17 (5-37) U/L ALT 26 (0-40) U/L Alkaline Phosphatase 104 (39-117) U/L Troponin I High Sens < 3.5 (<3.5-35.0) ng/L Total Protein 7.2 (6.5-8.0) g/dL Albumin 4.1 (3.5-5.0) g/dL Influenza Type A (PCR) (Negative) Influenza Type B (PCR) (Negative) RSV RNA Qual (PCR) (Negative) SARS-CoV-2 RNA (RT-PCR) (Negative) 08/11/22 Range/Units 16:25 WBC (4.8-10.8) X10*3/uL RBC (4.60-5.80) X10*6/uL Hgb (14.0-18.0) g/dl Hct (42.0-52.0) % MCV (80.0-98.0) fL MCH (27.0-33.0) pg MCHC (31.0-36.0) g/dl RDW (11.0-16.0) % Plt Count (160-400) X10*3/uL MPV (9.4-12.4) fL Immature Gran % (Auto) (0.0-0.4) % Neut % (Auto) (45-73) % Lymph % (Auto) (20-40) % [place] % (Auto) (2-11) % Eos % (Auto) (0-4) % Baso % (Auto) (0-2) % Lymph # (Auto) (1.2-4.9) X10*3/uL [place] # (Auto) (0.1-1.2) X10*3/uL Eos # (Auto) (0.0-0.4) X10*3/uL Baso # (Auto) (0.0-0.2) X10*3/uL Abs Immat Gran (auto) (0.00-0.03) X10*3/uL Absolute Neuts (auto) (2.0-8.3) x10*3/uL Absolute Nucleated RBC (0.0-0.012) X10*3/uL Nucleated RBC % (auto) (0.0-0.2) /100WBC Sodium (135-145) mmol/L Potassium (3.3-5.1) mmol/L Chloride (96-108) mmol/L Carbon Dioxide (22-29) mmol/L Anion Gap (12-20) BUN (9-16) mg/dL Creatinine (0.5-1.4) mg/dL Estim Creat Clear Calc Estimated GFR Random Glucose (60-115) mg/dL Calcium (8.4-10.2) mg/dL Magnesium (1.6-2.6) mg/dL Total Bilirubin (0.0-1.0) mg/dL AST (5-37) U/L ALT (0-40) U/L Alkaline Phosphatase (39-117) U/L Troponin I High Sens (<3.5-35.0) ng/L Total Protein (6.5-8.0) g/dL Albumin (3.5-5.0) g/dL Influenza Type A (PCR) NEGATIVE (Negative) Influenza Type B (PCR) NEGATIVE (Negative) RSV RNA Qual (PCR) NEGATIVE (Negative) SARS-CoV-2 RNA (RT-PCR) NEGATIVE (Negative) <REMEDIOS Dillon - Last Filed: 08/11/22 14:13> Lab Results 08/11/22 08/11/22 08/11/22 Range/Units 14:22 14:22 14:22 WBC 10.2 (4.8-10.8) X10*3/uL RBC 5.73 (4.60-5.80) X10*6/uL Hgb 15.8 (14.0-18.0) g/dl Hct 48.0 (42.0-52.0) % MCV 83.8 (80.0-98.0) fL MCH 27.6 (27.0-33.0) pg MCHC 32.9 (31.0-36.0) g/dl RDW 13.6 (11.0-16.0) % Plt Count 267 (160-400) X10*3/uL MPV 10.2 (9.4-12.4) fL Immature Gran % (Auto) 0.4 (0.0-0.4) % Neut % (Auto) 65.6 (45-73) % Lymph % (Auto) 21.6 (20-40) % [place] % (Auto) 9.2 (2-11) % Eos % (Auto) 2.6 (0-4) % Baso % (Auto) 0.6 (0-2) % Lymph # (Auto) 2.2 (1.2-4.9) X10*3/uL [place] # (Auto) 0.9 (0.1-1.2) X10*3/uL Eos # (Auto) 0.3 (0.0-0.4) X10*3/uL Baso # (Auto) 0.1 (0.0-0.2) X10*3/uL Abs Immat Gran (auto) 0.04 H (0.00-0.03) X10*3/uL Absolute Neuts (auto) 6.7 (2.0-8.3) x10*3/uL Absolute Nucleated RBC 0.000 (0.0-0.012) X10*3/uL Nucleated RBC % (auto) 0.0 (0.0-0.2) /100WBC Sodium 139 (135-145) mmol/L Potassium 3.8 (3.3-5.1) mmol/L Chloride 103 (96-108) mmol/L Carbon Dioxide 26 (22-29) mmol/L Anion Gap 14 (12-20) BUN 16 (9-16) mg/dL Creatinine 0.71 (0.5-1.4) mg/dL Estim Creat Clear Calc 218.4 Estimated GFR > 60 Random Glucose 123 H (60-115) mg/dL Calcium 10.1 (8.4-10.2) mg/dL Magnesium 2.1 (1.6-2.6) mg/dL Total Bilirubin 1.1 H (0.0-1.0) mg/dL AST 17 (5-37) U/L ALT 26 (0-40) U/L Alkaline Phosphatase 104 (39-117) U/L Troponin I High Sens < 3.5 (<3.5-35.0) ng/L Total Protein 7.2 (6.5-8.0) g/dL Albumin 4.1 (3.5-5.0) g/dL Influenza Type A (PCR) (Negative) Influenza Type B (PCR) (Negative) RSV RNA Qual (PCR) (Negative) SARS-CoV-2 RNA (RT-PCR) (Negative) 08/11/22 Range/Units 16:25 WBC (4.8-10.8) X10*3/uL RBC (4.60-5.80) X10*6/uL Hgb (14.0-18.0) g/dl Hct (42.0-52.0) % MCV (80.0-98.0) fL MCH (27.0-33.0) pg MCHC (31.0-36.0) g/dl RDW (11.0-16.0) % Plt Count (160-400) X10*3/uL MPV (9.4-12.4) fL Immature Gran % (Auto) (0.0-0.4) % Neut % (Auto) (45-73) % Lymph % (Auto) (20-40) % [place] % (Auto) (2-11) % Eos % (Auto) (0-4) % Baso % (Auto) (0-2) % Lymph # (Auto) (1.2-4.9) X10*3/uL [place] # (Auto) (0.1-1.2) X10*3/uL Eos # (Auto) (0.0-0.4) X10*3/uL Baso # (Auto) (0.0-0.2) X10*3/uL Abs Immat Gran (auto) (0.00-0.03) X10*3/uL Absolute Neuts (auto) (2.0-8.3) x10*3/uL Absolute Nucleated RBC (0.0-0.012) X10*3/uL Nucleated RBC % (auto) (0.0-0.2) /100WBC Sodium (135-145) mmol/L Potassium (3.3-5.1) mmol/L Chloride (96-108) mmol/L Carbon Dioxide (22-29) mmol/L Anion Gap (12-20) BUN (9-16) mg/dL Creatinine (0.5-1.4) mg/dL Estim Creat Clear Calc Estimated GFR Random Glucose (60-115) mg/dL Calcium (8.4-10.2) mg/dL Magnesium (1.6-2.6) mg/dL Total Bilirubin (0.0-1.0) mg/dL AST (5-37) U/L ALT (0-40) U/L Alkaline Phosphatase (39-117) U/L Troponin I High Sens (<3.5-35.0) ng/L Total Protein (6.5-8.0) g/dL Albumin (3.5-5.0) g/dL Influenza Type A (PCR) NEGATIVE (Negative) Influenza Type B (PCR) NEGATIVE (Negative) RSV RNA Qual (PCR) NEGATIVE (Negative) SARS-CoV-2 RNA (RT-PCR) NEGATIVE (Negative) <REMEDIOS Rutherford - Last Filed: 08/11/22 17:40> Independent Interpretation I performed an independent interpretation of an: CT Scan <REMEDIOS Rutherford - Last Filed: 08/11/22 17:40> Interpretation: EKG is sinus rhythm with first-degree AV block with a ventricular rate of [address] and T-wave abnormalities similar when compared to prior EKG 07/24/2022 no acute ischemic changes noted at this time. FINDINGS: No intra or extra-axial fluid collection, hemorrhage, or mass. No ventriculomegaly. No midline shift or herniation. Basal cisterns are patent. Bueno-white matter differentiation is maintained. No territorial encephalomalacia. ?No significant volume loss. There is no abnormal attenuation within the brain parenchyma. No calvarial fracture or soft tissue abnormality. ?The mastoid air cells are well aerated. Trace mucus layering in the left sphenoid sinus. Paranasal sinuses otherwise normally aerated.. CT/CT head/brain wo IV con IMPRESSION: No acute intracranial pathology. ? FINDINGS: The lungs are well expanded. There is no focal consolidation, edema, or effusion. No pneumothorax. The cardiomediastinal silhouette is within normal limits. No acute osseous abnormality. Degenerative changes noted in the spine. XR/XR chest 2V IMPRESSION: Clear lungs. <REMEDIOS Rutherford - Last Filed: 08/11/22 17:40> Discharge Plan Discharge Clinical Impression: Sinusitis <REMEDIOS Dillon - Last Filed: 08/11/22 14:13> Patient Disposition: Home, Self-Care <REMEDIOS Dillon - Last Filed: 08/11/22 14:13> Instructions: Sinusitis (ED) <REMEDIOS Dillon - Last Filed: 08/11/22 14:13> Prescriptions: New amoxicillin-pot clavulanate 875-125 mg tablet 1 tab PO BID 10 Days Qty: 20 0RF prednisone 20 mg tablet 40 mg PO DAILY 5 Days Qty: 10 0RF No Action metoprolol succinate 200 mg tablet extended release 24 hr 200 mg PO DAILY Qty: 90 3RF (DME) pen needle, diabetic [BD Ultra-Fine Lisa Pen Needle] 32 gauge x 5/32 needle See Rx Instructions .ROUTE .MEDSUPPLY Qty: 100 3RF Rx Instructions: As directed once daily (DME) flash glucose sensor Kit See Rx Instructions topical DIRECTED Qty: 2 11RF Rx Instructions: As directed atorvastatin 10 mg tablet 10 mg PO DAILY 30 Days Qty: 90 4RF losartan 100 mg tablet 100 mg PO DAILY 30 Days Qty: 90 0RF amlodipine 10 mg tablet 10 mg PO DAILY 30 Days Qty: 90 0RF hydrochlorothiazide 25 mg tablet 25 mg PO DAILY Qty: 30 0RF (DME) FreeStyle Bobby 14 Day Sensor Kit See Rx Instructions .Route Qty: 6 3RF Rx Instructions: As directed buspirone 10 mg tablet 10 mg PO BID Qty: 60 0RF Trulicity 3 mg/0.5 mL pen injector 3 mg subcut QWEEK Qty: 6 2RF Rx Instructions: Take WITH Trulicity 1.5mg weekly to equal 4.5mg weekly Trulicity 1.5 mg/0.5 mL pen injector 1.5 mg subcut QWEEK Qty: 6 2RF Rx Instructions: Take WITH Trulicity 3mg weekly to equal 4.5mg weekly due to drug shortage Tresiba FlexTouch U-200 200 unit/mL (3 mL) insulin pen 40 unit subcut BEDTIME 90 Days Qty: 18 5RF amoxicillin 500 mg tablet 500 mg PO BID Qty: 20 0RF lorazepam [Ativan] 1 mg tablet 1 mg PO TID PRN (Reason: anxiety) Qty: 12 0RF Rx Instructions: Patient may request partial fill metformin 1,000 mg tablet 1,000 mg PO BID Qty: 180 1RF (DME) Freeyle Bobby 14 Day Otis Misc See Rx Instructions .Route Qty: 2 4RF Rx Instructions: As directed Trulicity 4.5 mg/0.5 mL pen injector 4.5 mg subcut QWEEK Qty: 2 5RF buspirone 5 mg tablet 5 mg PO BID Qty: 60 2RF lorazepam 1 mg tablet 0.5 mg PO BID PRN (Reason: anxiety) Qty: 14 0RF lorazepam 1 mg tablet 1 mg PO BEDTIME PRN (Reason: anxierty) Qty: 14 0RF aspirin [Adult Aspirin Regimen] 81 mg tablet,delayed release (DR/EC) 81 mg PO DAILY <REMEDIOS Dillon - Last Filed: 08/11/22 14:13> Referrals: Lexie Lima MD [Primary Care Provider] - 2 days <REMEDIOS Dillon - Last Filed: 08/11/22 14:13>
--- NOTE | 2022-08-11 14:13 | ECG_ITS ---
Test Reason : DIZZINESS Blood Pressure : / mmHG Vent. Rate : 078 BPM Atrial Rate : 078 BPM P-R Int : 232 ms QRS Dur : 114 ms QT Int : 394 ms P-R-T Axes : 029 026 037 degrees QTc Int : 449 ms Sinus rhythm with 1st degree A-V block Inferior infarct (cited on or before 11-JUL-2022) Nonspecific ST and T wave abnormality Abnormal ECG When compared with ECG of 24-JUL-2022 02:58, No significant change was found Referred By: Marisabel Brewer Electronically Signed By:JAIME HARRIS
[2022-08-11 14:27] LABS: MANUAL DIFF FLAG NO
[2022-08-11 14:28] LABS: Basophils Absolute Auto 0.1 X10*3/uL (0.0-0.2); Basophils Percent Auto 0.6 % (0-2); Eosinophils Absolute Auto 0.3 X10*3/uL (0.0-0.4); Eosinophils Percent Auto 2.6 % (0-4); Hemoglobin 15.8 g/dl (14.0-18.0); Imm Gran Abs Auto 0.04 X10*3/uL (0.00-0.03); Imm Gran Pct Auto 0.4 % (0.0-0.4); Lymphocytes Absolute Auto 2.2 X10*3/uL (1.2-4.9); Lymphocytes Percent Auto 21.6 % (20-40); Mean Corpuscular HGB Conc 32.9 g/dl (31.0-36.0); Mean Corpuscular Hemoglobin 27.6 pg (27.0-33.0); Mean Corpuscular Volume 83.8 fL (80.0-98.0); Mean Platelet Volume 10.2 fL (9.4-12.4); Monocytes Absolute Auto 0.9 X10*3/uL (0.1-1.2); Monocytes Percent Auto 9.2 % (2-11); Neutrophils Absolute Auto 6.7 x10*3/uL (2.0-8.3); Neutrophils Percent Auto 65.6 % (45-73); Platelet Count 267 X10*3/uL (160-400); Red Blood Count 5.73 X10*6/uL (4.60-5.80); Red Cell Distribution Width 13.6 % (11.0-16.0); White Blood Count 10.2 X10*3/uL (4.8-10.8)
[2022-08-11 14:46] LABS: Alanine Aminotransferase 26 U/L (0-40); Albumin Level 4.1 g/dL (3.5-5.0); Alkaline Phosphatase 104 U/L (39-117); Anion Gap 14 (12-20); Aspartate Amino Transferase 17 U/L (5-37); Bilirubin Total 1.1 mg/dL (0.0-1.0); Blood Urea Nitrogen 16 mg/dL (9-16); Calcium 10.1 mg/dL (8.4-10.2); Carbon Dioxide 26 mmol/L (22-29); Chloride 103 mmol/L (96-108); Creatinine Clr Calc Pharmacy 218.4; Estimated Glomerular Filt Rate > 60; Glucose Random 123 mg/dL (60-115); Magnesium 2.1 mg/dL (1.6-2.6); Potassium 3.8 mmol/L (3.3-5.1); Sodium 139 mmol/L (135-145); Total Protein 7.2 g/dL (6.5-8.0)
[2022-08-11 14:58] LABS: Troponin-I High Sensitivity < 3.5 ng/L (<3.5-35.0)
[2022-08-11 17:20] LABS: Influenza A PCR NEGATIVE (Negative); Influenza B PCR NEGATIVE (Negative); Resp Syncy Virus RNA Qual PCR NEGATIVE (Negative); SARS COV2 PCR INHOUSE NEGATIVE (Negative)
== END 2022-08-11 17:43 | disposition home or self-care (01) ==
PROVIDERS: Physician Assistant Medical; Emergency Provider Emergency Medicine; PCP Internal Medicine
DX: J32.9 Chronic sinusitis, unspecified (principal); R42 Dizziness and giddiness; Z20.822 Contact with and (suspected) exposure to COVID-19; Z20.828 Contact with and (suspected) exposure to other viral communicable diseases; E11.9 Type 2 diabetes mellitus without complications; I10 Essential (primary) hypertension; E78.5 Hyperlipidemia, unspecified; E66.01 Morbid (severe) obesity due to excess calories; Z68.43 Body mass index [BMI] 50.0-59.9, adult; Z79.82 Long term (current) use of aspirin; Z79.84 Long term (current) use of oral hypoglycemic drugs; Z79.85 Long-term (current) use of injectable non-insulin antidiabetic drugs; Z79.899 Other long term (current) drug therapy
CPT/HCPCS: 0241U; 36415; 70450; 71046; 80053; 83735; 84484; 85025; 93005; 99283; 99284

== ENCOUNTER 2022-08-14 17:46 | Emergency (ER) | payer OTHER, SELFPAY ==
[2022-08-14 17:55] VITALS: BP 133/79; PULSE 82; RESP 20; TEMP 36.8; O2SAT 95; BMI 53.1
--- NOTE | 2022-08-14 17:55 | ED.ARRPALP ---
HPI - Arrhythmia/Palpitations General Chief Complaint: Arrhythmia/Palpitations <Samantha Hernandez NP - Last Filed: 08/14/22 17:57> Stated Complaint: Heart palpitations/ slight chest pain <Samantha Hernandez NP - Last Filed: 08/14/22 17:57> Time Seen by Provider: 08/15/22 01:18 <Samantha Hernandez NP - Last Filed: 08/14/22 17:57> Source: patient <Sofiya Leija MD - Last Filed: 08/15/22 01:38> Mode of arrival: ambulatory <Sofiya Leija MD - Last Filed: 08/15/22 01:38> Limitations: no limitations <Sofiya Leija MD - Last Filed: 08/15/22 01:38> History of Present Illness HPI narrative: Patient comes to the emergency room complaining of palpitations for 2 days. Patient states that he has had palpitations in the past, recently had a Holter monitor done, was unremarkable patient. Patient states that the only difference now is that the palpitations are stronger. Patient noted that after taking prednisone for URI, the palpitations got worse. Patient denies any chest pain or shortness of breath. <Sofiya Leija MD - Last Filed: 08/15/22 01:38> Related Data Home Medications: Home Medications Medication Instructions Recorded Confirmed aspirin 81 mg tablet,delayed 81 mg PO DAILY 05/05/20 07/28/22 release (Adult Aspirin Regimen) Previous Rx's Medication Instructions Recorded pen needle, diabetic 32 gauge x #100 ea 09/20/2132 (BD Ultra-Fine Lisa Pen Needle) flash glucose sensor #2 ea 10/10/21 atorvastatin 10 mg tablet 10 mg PO DAILY 30 days #90 tabs 01/31/22 metformin 1,000 mg tablet 1,000 mg PO BID #180 tabs 03/07/22 losartan 100 mg tablet 100 mg PO DAILY 30 days #90 tabs 04/12/22 amlodipine 10 mg tablet 10 mg PO DAILY 30 days #90 tabs 05/26/22 hydrochlorothiazide 25 mg tablet 25 mg PO DAILY #30 tabs 06/21/22 dulaglutide 4.5 mg/0.5 mL 4.5 mg (0.5 mL) subcut QWEEK #2 mL 06/28/22 subcutaneous pen injector (Trulicity) flash glucose scanning reader #2 ea 06/28/22 (FreeStyle Bobby 14 Day [place]) lorazepam 1 mg tablet (Ativan) 1 mg PO TID PRN anxiety #12 tabs 07/11/22 buspirone 5 mg tablet 5 mg PO BID #60 tabs 07/13/22 amoxicillin 500 mg tablet 500 mg PO BID #20 tabs 07/24/22 FreeStyle Bobby 14 Day Sensor #6 ea 07/25/22 (flash glucose sensor) buspirone 10 mg tablet 10 mg PO BID #60 tabs 07/26/22 dulaglutide 1.5 mg/0.5 mL 1.5 mg (0.5 mL) subcut QWEEK #6 mL 07/27/22 subcutaneous pen injector (Trulicity) dulaglutide 3 mg/0.5 mL 3 mg (0.5 mL) subcut QWEEK #6 mL 07/27/22 subcutaneous pen injector (Trulicity) lorazepam 1 mg tablet 0.5 mg PO BID PRN anxiety #14 tabs 08/07/22 lorazepam 1 mg tablet 1 mg PO BEDTIME PRN anxierty #14 08/07/22 tabs insulin degludec 200 unit/mL (3 40 unit (0.2 mL) subcut BEDTIME 90 08/08/22 mL) subcutaneous pen (Tresi days #18 mL FlexTouch U-200 insulin) amoxicillin 875 mg-potassium 1 tab PO BID 10 days #20 tabs 08/11/22 clavulanate 125 mg tablet prednisone 20 mg tablet 40 mg PO DAILY inflammation 5 days 08/11/22 #10 tabs metoprolol succinate 200 mg 200 mg PO DAILY #90 tabs 08/14/22 tablet,extended release 24 hr <Samantha Hernandez NP - Last Filed: 08/14/22 17:57> Allergies/Adverse Reactions: Allergies Allergy/AdvReac Type Severity Reaction Status Date / Time canagliflozin [Invokana] AdvReac Unknown rash Verified 08/07/22 11:35 <Samantha Hernandez NP - Last Filed: 08/14/22 17:57> Review of Systems Review of Systems: Constitutional : No Weight loss, No Fever, No Chills, No Night Sweats, No Fatigue, No Malaise ENT/Mouth : No Hearing loss, No Ear Pain, No Nasal Congestion, No Sinus Pain, No Hoarseness, No sore throat, No Rhinorrhea, No Swallowing Difficulty Eyes: No Eye Pain, No Swelling, No Redness, No Foreign Body, No Discharge, No Vision Changes Cardiovascular : No Chest Pain, No SOB, No Dyspnea on Exertion, No Orthopnea, No Edema, complaining of Palpitations Respiratory : No Cough, No Sputum, No Wheezing, No Smoke Exposure, No Dyspnea Gastrointestinal : No Nausea, No Vomiting, No Diarrhea, No Constipation, No abdominal Pain, No Hematochezia, No Melena Genitourinary : no irregular bleeding, No Dysuria, No Urinary Frequency, No Hematuria, No Urinary Incontinence, No Urgency, No Flank Pain, No Urinary Flow Changes, No Hesitancy Musculoskeletal : No joint pain, No Myalgias, No Joint Swelling Skin : No Skin Lesions, No rash Neuro : No Weakness, No Numbness, No Paresthesias, No Loss of Consciousness, No Dizziness, No Headache Psych : No Anxiety/Panic, No Depression, No SI/HI/AH/VH, No Social Issues, Heme/Lymph: No Bruising, No Bleeding,No Lymphadenopathy Endocrine : No Polyuria, No Polydipsia, No Temperature Intolerance <Sofiya Leija MD - Last Filed: 08/15/22 01:38> [facility] Past Medical History Medical History: Medical History Annual physical exam Diabetes type 2, controlled Diabetic polyneuropathy associated with type 2 diabetes mellitus Dyslipidemia Hypertension Morbid obesity Normal colonoscopy Obesity due to excess calories MARK (obstructive sleep apnea) <Samantha Hernandez NP - Last Filed: 08/14/22 17:57> Surgical History: Surgical History History of surgery of head Hx of cholecystectomy <Samantha Hernandez NP - Last Filed: 08/14/22 17:57> Family History Family History: Family History Father No problems noted. Mother Arthritis Brother Stroke <Samantha Hernandez NP - Last Filed: 08/14/22 17:57> Social History Social History: Social History Housing: House Alcohol intake: current Alcohol intake frequency: holidays/special occasions only Patient Tobacco Use Status: Never used Tobacco Advance Directives: No Advance Directives Information Provided: No Current occupational status: employed Cognitive needs: No Hearing needs: No Vision needs: No <Samantha Hernandez NP - Last Filed: 08/14/22 17:57> Physical Exam Vital Signs: Vital Signs: Last Vital Signs Temp 98.3 F 08/14/22 17:55 Pulse 82 08/14/22 17:55 Resp 20 08/14/22 17:55 BP 133/79 08/14/22 17:55 Pulse Ox 95 08/14/22 17:55 O2 Del Method 08/14/22 17:55 BMI result Body Mass Index 53.1 <Samantha Hernandez NP - Last Filed: 08/14/22 17:57> Vital Signs: Last Vital Signs Temp 98.3 F 08/14/22 17:55 Pulse 82 08/14/22 17:55 Resp 20 08/14/22 17:55 BP 133/79 08/14/22 17:55 Pulse Ox 95 08/14/22 17:55 O2 Del Method 08/14/22 17:55 BMI result Body Mass Index 53.1 <Sofiya Leija MD - Last Filed: 08/15/22 01:38> Const: Other: Appearance: Alert. Oriented X3. No acute distress. Well appearing, morbidly obese Eyes: Pupils equal, round and reactive to light. ENT: Pharynx normal. Neck: Normal inspection. Neck supple. No lymph nodes noted. No crepitus CVS: Normal heart rate and rhythm. Pulses normal. Normal S1 and S2 Respiratory: No respiratory distress. Breath sounds normal. No Wheezing. No rales Abdomen: Soft and nontender. No rigidity. No distention. Skin: Skin warm and dry. Normal skin color. Normal skin turgor. Extremities: No lower extremity edema. No Lacerations. No Rash Neuro: Oriented X 3. No motor deficit. No sensory deficit. Moving all extremities. No slurred speech. CN 2 through 12 grossly intact Psych: calm, cooperative, normal affect <Sofiya Leija MD - Last Filed: 08/15/22 01:38> Course Course Course Narrative: This is a rapid medical exam. deferred additional HPI, ROS,PE to primary provider. 52 yo male with history of HTN, HLD, DM, obesity here with complaints of dizziness/palpitations with walking x 2 days. Recently started prednisone for sinus infection and he believes they are causing the symptoms. Will obtain EKG, labs. VSS <Samantha Hernandez NP - Last Filed: 08/14/22 17:57> Medical Decision Making Medical Decision Making [facility] Narrative: -troponin x2 negative. EKG 1 shows sinus rhythm, heart rate 82, nonspecific T-wave inversions in V1 and V2. EKG 2 similar to EKG 1 with a heart rate of 69,. When these 2 EKGs are compared to the EKGs from August 11, there are no changes. -Patient is asymptomatic -patient will follow-up with his primary care physician <Sofiya Leija MD - Last Filed: 08/15/22 01:38> Differential Diagnosis Differential Diagnoses: The differential diagnosis associated with the presentation includes (Palpitations, anxiety) <Sofiya Leija MD - Last Filed: 08/15/22 01:38> Lab Data [facility] Lab Attestation statement: I reviewed the patient's lab results. <Sofiya Leija MD - Last Filed: 08/15/22 01:38> Result Diagrams: 08/14/22 18:25 08/14/22 18:25 <Samantha Hernandez NP - Last Filed: 08/14/22 17:57> Labs: Lab Results 08/14/22 08/14/22 08/14/22 Range/Units 18:25 18:25 18:25 WBC 10.5 (4.8-10.8) X10*3/uL RBC 5.77 (4.60-5.80) X10*6/uL Hgb 16.0 (14.0-18.0) g/dl Hct 48.1 (42.0-52.0) % MCV 83.4 (80.0-98.0) fL MCH 27.7 (27.0-33.0) pg MCHC 33.3 (31.0-36.0) g/dl RDW 13.4 (11.0-16.0) % Plt Count 267 (160-400) X10*3/uL MPV 10.5 (9.4-12.4) fL Immature Gran % (Auto) 0.4 (0.0-0.4) % Neut % (Auto) 76.6 H (45-73) % Lymph % (Auto) 15.9 L (20-40) % Dare % (Auto) 6.6 (2-11) % Eos % (Auto) 0.1 (0-4) % Baso % (Auto) 0.4 (0-2) % Lymph # (Auto) 1.7 (1.2-4.9) X10*3/uL Dare # (Auto) 0.7 (0.1-1.2) X10*3/uL Eos # (Auto) 0.0 (0.0-0.4) X10*3/uL Baso # (Auto) 0.0 (0.0-0.2) X10*3/uL Abs Immat Gran (auto) 0.04 H (0.00-0.03) X10*3/uL Absolute Neuts (auto) 8.0 (2.0-8.3) x10*3/uL Absolute Nucleated RBC 0.000 (0.0-0.012) X10*3/uL Nucleated RBC % (auto) 0.0 (0.0-0.2) /100WBC Sodium 137 (135-145) mmol/L Potassium 4.2 (3.3-5.1) mmol/L Chloride 102 (96-108) mmol/L Carbon Dioxide 25 (22-29) mmol/L Anion Gap 14 (12-20) BUN 15 (9-16) mg/dL Creatinine 0.70 (0.5-1.4) mg/dL Estim Creat Clear Calc 220.6 Estimated GFR > 60 Random Glucose 190 H (60-115) mg/dL Calcium 10.3 H (8.4-10.2) mg/dL Magnesium 2.1 (1.6-2.6) mg/dL Total Bilirubin 1.0 (0.0-1.0) mg/dL Direct Bilirubin 0.3 (0.0-0.5) mg/dL AST 18 (5-37) U/L ALT 27 (0-40) U/L Alkaline Phosphatase 116 (39-117) U/L Troponin I High Sens < 3.5 (<3.5-35.0) ng/L Total Protein 7.4 (6.5-8.0) g/dL Albumin 4.1 (3.5-5.0) g/dL COVID-19 ([facility]) (Negative) COVID-19 Clin Com 08/14/22 08/14/22 Range/Units 23:44 23:44 WBC (4.8-10.8) X10*3/uL RBC (4.60-5.80) X10*6/uL Hgb (14.0-18.0) g/dl Hct (42.0-52.0) % MCV (80.0-98.0) fL MCH (27.0-33.0) pg MCHC (31.0-36.0) g/dl RDW (11.0-16.0) % Plt Count (160-400) X10*3/uL MPV (9.4-12.4) fL Immature Gran % (Auto) (0.0-0.4) % Neut % (Auto) (45-73) % Lymph % (Auto) (20-40) % Dare % (Auto) (2-11) % Eos % (Auto) (0-4) % Baso % (Auto) (0-2) % Lymph # (Auto) (1.2-4.9) X10*3/uL Dare # (Auto) (0.1-1.2) X10*3/uL Eos # (Auto) (0.0-0.4) X10*3/uL Baso # (Auto) (0.0-0.2) X10*3/uL Abs Immat Gran (auto) (0.00-0.03) X10*3/uL Absolute Neuts (auto) (2.0-8.3) x10*3/uL Absolute Nucleated RBC (0.0-0.012) X10*3/uL Nucleated RBC % (auto) (0.0-0.2) /100WBC Sodium (135-145) mmol/L Potassium (3.3-5.1) mmol/L Chloride (96-108) mmol/L Carbon Dioxide (22-29) mmol/L Anion Gap (12-20) BUN (9-16) mg/dL Creatinine (0.5-1.4) mg/dL Estim Creat Clear Calc Estimated GFR Random Glucose (60-115) mg/dL Calcium (8.4-10.2) mg/dL Magnesium (1.6-2.6) mg/dL Total Bilirubin (0.0-1.0) mg/dL Direct Bilirubin (0.0-0.5) mg/dL AST (5-37) U/L ALT (0-40) U/L Alkaline Phosphatase (39-117) U/L Troponin I High Sens < 3.5 (<3.5-35.0) ng/L Total Protein (6.5-8.0) g/dL Albumin (3.5-5.0) g/dL COVID-19 ([facility]DEN) Negative (Negative) COVID-19 Clin Com See Note <Samantha Hernandez, CUSTOM APPLICATOR - Last Filed: 08/14/22 17:57> Lab Results 08/14/22 08/14/22 08/14/22 Range/Units 18:25 18:25 18:25 WBC 10.5 (4.8-10.8) X10*3/uL RBC 5.77 (4.60-5.80) X10*6/uL Hgb 16.0 (14.0-18.0) g/dl Hct 48.1 (42.0-52.0) % MCV 83.4 (80.0-98.0) fL MCH 27.7 (27.0-33.0) pg MCHC 33.3 (31.0-36.0) g/dl RDW 13.4 (11.0-16.0) % Plt Count 267 (160-400) X10*3/uL MPV 10.5 (9.4-12.4) fL Immature Gran % (Auto) 0.4 (0.0-0.4) % Neut % (Auto) 76.6 H (45-73) % Lymph % (Auto) 15.9 L (20-40) % Dare % (Auto) 6.6 (2-11) % Eos % (Auto) 0.1 (0-4) % Baso % (Auto) 0.4 (0-2) % Lymph # (Auto) 1.7 (1.2-4.9) X10*3/uL Dare # (Auto) 0.7 (0.1-1.2) X10*3/uL Eos # (Auto) 0.0 (0.0-0.4) X10*3/uL Baso # (Auto) 0.0 (0.0-0.2) X10*3/uL Abs Immat Gran (auto) 0.04 H (0.00-0.03) X10*3/uL Absolute Neuts (auto) 8.0 (2.0-8.3) x10*3/uL Absolute Nucleated RBC 0.000 (0.0-0.012) X10*3/uL Nucleated RBC % (auto) 0.0 (0.0-0.2) /100WBC Sodium 137 (135-145) mmol/L Potassium 4.2 (3.3-5.1) mmol/L Chloride 102 (96-108) mmol/L Carbon Dioxide 25 (22-29) mmol/L Anion Gap 14 (12-20) BUN 15 (9-16) mg/dL Creatinine 0.70 (0.5-1.4) mg/dL Estim Creat Clear Calc 220.6 Estimated GFR > 60 Random Glucose 190 H (60-115) mg/dL Calcium 10.3 H (8.4-10.2) mg/dL Magnesium 2.1 (1.6-2.6) mg/dL Total Bilirubin 1.0 (0.0-1.0) mg/dL Direct Bilirubin 0.3 (0.0-0.5) mg/dL AST 18 (5-37) U/L ALT 27 (0-40) U/L Alkaline Phosphatase 116 (39-117) U/L Troponin I High Sens < 3.5 (<3.5-35.0) ng/L Total Protein 7.4 (6.5-8.0) g/dL Albumin 4.1 (3.5-5.0) g/dL COVID-19 ([facility]) (Negative) COVID-19 Clin Com 08/14/22 08/14/22 Range/Units 23:44 23:44 WBC (4.8-10.8) X10*3/uL RBC (4.60-5.80) X10*6/uL Hgb (14.0-18.0) g/dl Hct (42.0-52.0) % MCV (80.0-98.0) fL MCH (27.0-33.0) pg MCHC (31.0-36.0) g/dl RDW (11.0-16.0) % Plt Count (160-400) X10*3/uL MPV (9.4-12.4) fL Immature Gran % (Auto) (0.0-0.4) % Neut % (Auto) (45-73) % Lymph % (Auto) (20-40) % Dare % (Auto) (2-11) % Eos % (Auto) (0-4) % Baso % (Auto) (0-2) % Lymph # (Auto) (1.2-4.9) X10*3/uL Dare # (Auto) (0.1-1.2) X10*3/uL Eos # (Auto) (0.0-0.4) X10*3/uL Baso # (Auto) (0.0-0.2) X10*3/uL Abs Immat Gran (auto) (0.00-0.03) X10*3/uL Absolute Neuts (auto) (2.0-8.3) x10*3/uL Absolute Nucleated RBC (0.0-0.012) X10*3/uL Nucleated RBC % (auto) (0.0-0.2) /100WBC Sodium (135-145) mmol/L Potassium (3.3-5.1) mmol/L Chloride (96-108) mmol/L Carbon Dioxide (22-29) mmol/L Anion Gap (12-20) BUN (9-16) mg/dL Creatinine (0.5-1.4) mg/dL Estim Creat Clear Calc Estimated GFR Random Glucose (60-115) mg/dL Calcium (8.4-10.2) mg/dL Magnesium (1.6-2.6) mg/dL Total Bilirubin (0.0-1.0) mg/dL Direct Bilirubin (0.0-0.5) mg/dL AST (5-37) U/L ALT (0-40) U/L Alkaline Phosphatase (39-117) U/L Troponin I High Sens < 3.5 (<3.5-35.0) ng/L Total Protein (6.5-8.0) g/dL Albumin (3.5-5.0) g/dL COVID-19 ([facility]) Negative (Negative) COVID-19 Clin Com See Note <Sofiya Leija MD - Last Filed: 08/15/22 01:38> Discharge Plan Discharge Clinical Impression: Palpitations <Samantha Hernandez NP - Last Filed: 08/14/22 17:57> Patient Disposition: Home, Self-Care <Samantha Hernandez NP - Last Filed: 08/14/22 17:57> Instructions: Heart Palpitations (DC) <Samantha Hernandez NP - Last Filed: 08/14/22 17:57> Additional Instructions: Please follow-up with your primary care physician tomorrow. If you have any worsening or new symptoms, please return to the emergency room or call 911 <Samantha Hernandez NP - Last Filed: 08/14/22 17:57> Prescriptions: No Action (DME) pen needle, diabetic [BD Ultra-Fine Lisa Pen Needle] 32 gauge x 5/32 needle See Rx Instructions .ROUTE .MEDSUPPLY Qty: 100 3RF Rx Instructions: As directed once daily (DME) flash glucose sensor Kit See Rx Instructions topical DIRECTED Qty: 2 11RF Rx Instructions: As directed atorvastatin 10 mg tablet 10 mg PO DAILY 30 Days Qty: 90 4RF losartan 100 mg tablet 100 mg PO DAILY 30 Days Qty: 90 0RF amlodipine 10 mg tablet 10 mg PO DAILY 30 Days Qty: 90 0RF hydrochlorothiazide 25 mg tablet 25 mg PO DAILY Qty: 30 0RF (DME) FreeStyle Bobby 14 Day Sensor Kit See Rx Instructions .Route Qty: 6 3RF Rx Instructions: As directed buspirone 10 mg tablet 10 mg PO BID Qty: 60 0RF Trulicity 3 mg/0.5 mL pen injector 3 mg subcut QWEEK Qty: 6 2RF Rx Instructions: Take WITH Trulicity 1.5mg weekly to equal 4.5mg weekly Trulicity 1.5 mg/0.5 mL pen injector 1.5 mg subcut QWEEK Qty: 6 2RF Rx Instructions: Take WITH Trulicity 3mg weekly to equal 4.5mg weekly due to drug shortage Tresiba FlexTouch U-200 200 unit/mL (3 mL) insulin pen 40 unit subcut BEDTIME 90 Days Qty: 18 5RF metoprolol succinate 200 mg tablet extended release 24 hr 200 mg PO DAILY Qty: 90 3RF amoxicillin 500 mg tablet 500 mg PO BID Qty: 20 0RF amoxicillin-pot clavulanate 875-125 mg tablet 1 tab PO BID 10 Days Qty: 20 0RF prednisone 20 mg tablet 40 mg PO DAILY 5 Days Qty: 10 0RF lorazepam [Ativan] 1 mg tablet 1 mg PO TID PRN (Reason: anxiety) Qty: 12 0RF Rx Instructions: Patient may request partial fill metformin 1,000 mg tablet 1,000 mg PO BID Qty: 180 1RF (DME) FreeStyle Bobby 14 Day [place] Misc See Rx Instructions .Route Qty: 2 4RF Rx Instructions: As directed Trulicity 4.5 mg/0.5 mL pen injector 4.5 mg subcut QWEEK Qty: 2 5RF buspirone 5 mg tablet 5 mg PO BID Qty: 60 2RF lorazepam 1 mg tablet 0.5 mg PO BID PRN (Reason: anxiety) Qty: 14 0RF lorazepam 1 mg tablet 1 mg PO BEDTIME PRN (Reason: anxierty) Qty: 14 0RF aspirin [Adult Aspirin Regimen] 81 mg tablet,delayed release (DR/EC) 81 mg PO DAILY <Samantha Hernandez NP - Last Filed: 08/14/22 17:57>
--- NOTE | 2022-08-14 17:56 | ECG_ITS ---
Test Reason : palpitations Blood Pressure : / mmHG Vent. 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
[2022-08-14 18:34] LABS: MANUAL DIFF FLAG NO
[2022-08-14 18:40] LABS: Basophils Percent Auto 0.4 % (0-2); Eosinophils Percent Auto 0.1 % (0-4); Hematocrit 48.1 % (42.0-52.0); Imm Gran Abs Auto 0.04 X10*3/uL (0.00-0.03); Imm Gran Pct Auto 0.4 % (0.0-0.4); Lymphocytes Absolute Auto 1.7 X10*3/uL (1.2-4.9); Lymphocytes Percent Auto 15.9 % (20-40); Mean Corpuscular HGB Conc 33.3 g/dl (31.0-36.0); Mean Corpuscular Hemoglobin 27.7 pg (27.0-33.0); Mean Corpuscular Volume 83.4 fL (80.0-98.0); Mean Platelet Volume 10.5 fL (9.4-12.4); Monocytes Absolute Auto 0.7 X10*3/uL (0.1-1.2); Monocytes Percent Auto 6.6 % (2-11); Neutrophils Percent Auto 76.6 % (45-73); Platelet Count 267 X10*3/uL (160-400); Red Blood Count 5.77 X10*6/uL (4.60-5.80); Red Cell Distribution Width 13.4 % (11.0-16.0); White Blood Count 10.5 X10*3/uL (4.8-10.8)
[2022-08-14 18:50] LABS: Alanine Aminotransferase 27 U/L (0-40); Albumin Level 4.1 g/dL (3.5-5.0); Alkaline Phosphatase 116 U/L (39-117); Anion Gap 14 (12-20); Aspartate Amino Transferase 18 U/L (5-37); Bilirubin Direct 0.3 mg/dL (0.0-0.5); Blood Urea Nitrogen 15 mg/dL (9-16); Calcium 10.3 mg/dL (8.4-10.2); Carbon Dioxide 25 mmol/L (22-29); Chloride 102 mmol/L (96-108); Creatinine Clr Calc Pharmacy 220.6; Estimated Glomerular Filt Rate > 60; Glucose Random 190 mg/dL (60-115); Magnesium 2.1 mg/dL (1.6-2.6); Potassium 4.2 mmol/L (3.3-5.1); Sodium 137 mmol/L (135-145); Total Protein 7.4 g/dL (6.5-8.0)
[2022-08-14 18:57] LABS: Troponin-I High Sensitivity < 3.5 ng/L (<3.5-35.0)
[2022-08-15 00:14] LABS: COVID-19 Test Negative (Negative); IDNOW Serial# 6674DD1D
[2022-08-15 00:31] LABS: Troponin-I High Sensitivity < 3.5 ng/L (<3.5-35.0)
--- NOTE | 2022-08-15 07:35 | ECG_ITS ---
Test Reason : CHEST PAIN Blood Pressure : / mmHG Vent. Rate : 069 BPM Atrial Rate : 069 BPM P-R Int : 228 ms QRS Dur : 114 ms QT Int : 410 ms P-R-T Axes : 011 042 051 degrees QTc Int : 439 ms Sinus rhythm with 1st degree A-V block Otherwise normal ECG When compared with ECG of 14-AUG-2022 18:28, No significant change was found Referred By: Sofiya Leija Electronically Signed By:Sai Zimmerman
== END 2022-08-15 02:16 | disposition home or self-care (01) ==
PROVIDERS: Nurse Practitioner Family; Emergency Provider Emergency Medicine; PCP Internal Medicine
DX: I49.9 Cardiac arrhythmia, unspecified (principal); R07.89 Other chest pain; R00.2 Palpitations; E11.9 Type 2 diabetes mellitus without complications; Z20.822 Contact with and (suspected) exposure to COVID-19; Z20.828 Contact with and (suspected) exposure to other viral communicable diseases; Z79.4 Long term (current) use of insulin; Z79.899 Other long term (current) drug therapy
CPT/HCPCS: 36415; 80048; 80076; 83735; 84484; 85025; 87635; 93005; 99283

== ENCOUNTER 2022-08-31 16:28 | Emergency (ER) | payer OTHER, SELFPAY ==
--- NOTE | ~2022-08-31 | XR_ITS ---
EXAMINATION: XR CHEST CLINICAL INFORMATION: Dizziness/palpitation. COMPARISON: Chest radiograph dated from 08/11/2022. TECHNIQUE: 2 views of the chest were obtained. FINDINGS: New subtle focal hazy airspace opacity in the right lower lobe. Otherwise, clear lungs. No pleural effusion or pneumothorax. Stable appearance of the cardiomediastinal silhouette. Thoracic spondylosis. No acute osseous abnormalities. The visualized upper abdomen is within normal limits. XR/XR chest 2V IMPRESSION: New focal hazy airspace opacity in the right lower lobe which could represent atelectasis, aspiration or developing infiltrate. Correlate clinically and follow-up to ensure resolution.
[2022-08-31 16:31] VITALS: BP 131/75; PULSE 94; RESP 18; TEMP 36.8; O2SAT 94; BMI 52.9
--- NOTE | 2022-08-31 16:32 | ED.ARRPALP ---
HPI - Arrhythmia/Palpitations General Chief Complaint: Arrhythmia/Palpitations <REMEDIOS Rutherford - Last Filed: 08/31/22 16:36> Stated Complaint: heart palpitations, ?tachy cradiac <REMEDIOS Rutherford - Last Filed: 08/31/22 16:36> Time Seen by Provider: 08/31/22 21:16 <REMEDIOS Rutherford - Last Filed: 08/31/22 16:36> Source: patient, RN notes reviewed and old records reviewed <Gonzalo Mcclendon - Last Filed: 08/31/22 21:41> Mode of arrival: ambulatory <Gonzalo Mcclendon - Last Filed: 08/31/22 21:41> Limitations: no limitations <Gonzalo Mcclendon - Last Filed: 08/31/22 21:41> History of Present Illness HPI narrative: 52-year-old male past medical history significant for morbid obesity, anxiety, palpitations, hypokalemia, diabetes, MARK presents for evaluation of palpitations. The patient reports about 30 minutes prior to arrival he ?burped He reports that he then had a sensation that his heart was racing? I can feel a pressure in my neck and head. He reports that he has associated intermittent shortness of breath Denies any cough, fevers, chills The patient denies any pain and currently has no symptoms including palpitations He reports that he ?felt palpitations about 8 times while in the waiting room for 5 hours. ? He reports that he had a Holter monitor about a month ago without any significant findings. The patient was treated for sinusitis about 3 weeks ago with Augmentin and he reports he still feels symptomatic with sinus pressure <Gonzalo Mcclendon - Last Filed: 08/31/22 21:41> Related Data Home Medications: Home Medications Medication Instructions Recorded Confirmed aspirin 81 mg tablet,delayed 81 mg PO DAILY 05/05/20 08/21/22 release (Adult Aspirin Regimen) Previous Rx's Medication Instructions Recorded pen needle, diabetic 32 gauge x #100 ea 09/20/21 (BD Ultra-Fine Lisa Pen Needle) flash glucose sensor #2 ea 10/10/21 atorvastatin 10 mg tablet 10 mg PO DAILY 30 days #90 tabs 01/31/22 amlodipine 10 mg tablet 10 mg PO DAILY 30 days #90 tabs 05/26/22 hydrochlorothiazide 25 mg tablet 25 mg PO DAILY #30 tabs 06/21/22 dulaglutide 4.5 mg/0.5 mL 4.5 mg (0.5 mL) subcut QWEEK #2 mL 06/28/22 subcutaneous pen injector (Trulicity) flash glucose scanning reader #2 ea 06/28/22 (FreeStyle Bobby 14 Day [place]) FreeStyle Bobby 14 Day Sensor #6 ea 07/25/22 (flash glucose sensor) dulaglutide 1.5 mg/0.5 mL 1.5 mg (0.5 mL) subcut QWEEK #6 mL 07/27/22 subcutaneous pen injector (Trulicity) dulaglutide 3 mg/0.5 mL 3 mg (0.5 mL) subcut QWEEK #6 mL 07/27/22 subcutaneous pen injector (Trulicity) insulin degludec 200 unit/mL (3 40 unit (0.2 mL) subcut BEDTIME 90 08/08/22 mL) subcutaneous pen (Tresiba days #18 mL FlexTouch U-200 insulin) metoprolol succinate 200 mg 200 mg PO DAILY #90 tabs 08/14/22 tablet,extended release 24 hr losartan 100 mg tablet 100 mg PO DAILY #90 tabs 08/16/22 buspirone 10 mg tablet 10 mg PO BID #60 tabs 08/21/22 comp.stocking,thigh,long,x-lrg #1 ea 08/21/22 sertraline 50 mg tablet 50 mg PO DAILY #30 tabs 08/21/22 metformin 1,000 mg tablet 1,000 mg PO BID #180 tabs 08/22/22 azithromycin 250 mg tablet See Rx Instructions PO .COMPLEX #6 08/31/22 tabs <REMEDIOS Rutherford - Last Filed: 08/31/22 16:36> Allergies/Adverse Reactions: Allergies Allergy/AdvReac Type Severity Reaction Status Date / Time canagliflozin [Invokana] AdvReac Unknown rash Verified 08/31/22 16:30 <REMEDIOS Rutherford - Last Filed: 08/31/22 16:36> Review of Systems Constitutional: Constitutional: Reports as per HPI, Denies chills and Denies fatigue <Gonzalo Mcclendon - Last Filed: 08/31/22 21:41> ENT: Reports facial pain and Reports sinus pressure <Gonzalo Mcclendon - Last Filed: 08/31/22 21:41> Cardiovascular: Cardiovascular: Denies chest pain, Reports palpitations and Reports dyspnea <Gonzalo Mcclendon - Last Filed: 08/31/22 21:41> Respiratory: Respiratory: Denies cough and Reports dyspnea <Gonzalo Mcclendon - Last Filed: 08/31/22 21:41> Gastrointestinal: Gastrointestinal: Denies abdominal pain, Denies constipation and Denies vomiting <Gonzalo Mcclendon - Last Filed: 08/31/22 21:41> Genitourinary: Genitourinary: Denies difficulty urinating and Denies dysuria <Gonzalo Mcclendon - Last Filed: 08/31/22 21:41> Psychiatric: Psychiatric: Reports anxiety <Gonzalo Mcclendon Last Filed: 08/31/22 21:41> Endocrine: Endocrine: Denies fatigue and Reports palpitations <Gonzalo Mcclendon - Last Filed: 08/31/22 21:41> [facility] Past Medical History Medical History: Medical History Annual physical exam Diabetes type 2, controlled Diabetic polyneuropathy associated with type 2 diabetes mellitus Dyslipidemia Hypertension Morbid obesity Normal colonoscopy Obesity due to excess calories MARK (obstructive sleep apnea) <REMEDIOS Rutherford - Last Filed: 08/31/22 16:36> Surgical History: Surgical History History of surgery of head Hx of cholecystectomy <REMEDIOS Rutherford - Last Filed: 08/31/22 16:36> Family History Family History: Family History Father No problems noted. Mother Arthritis Brother Stroke <REMEDIOS Rutherford - Last Filed: 08/31/22 16:36> Social History Social History: Social History Housing: House Alcohol intake: current Alcohol intake frequency: holidays/special occasions only Patient Tobacco Use Status: Never used Tobacco Advance Directives: No Advance Directives Information Provided: No Current occupational status: employed Cognitive needs: No Hearing needs: No Vision needs: No <REMEDIOS Rutherford - Last Filed: 08/31/22 16:36> Physical Exam Vital Signs: Vital Signs: Last Vital Signs Temp 97.1 F 08/31/22 21:21 Pulse 68 08/31/22 21:21 Resp 17 08/31/22 21:21 BP 123/67 08/31/22 21:21 Pulse Ox 95 08/31/22 21:21 O2 Del Method 08/31/22 16:31 BMI result Body Mass Index 52.9 <REMEDIOS Rutherford - Last Filed: 08/31/22 16:36> Vital Signs: Last Vital Signs Temp 97.1 F 08/31/22 21:21 Pulse 68 08/31/22 21:21 Resp 17 08/31/22 21:21 BP 123/67 08/31/22 21:21 Pulse Ox 95 08/31/22 21:21 O2 Del Method 08/31/22 16:31 BMI result Body Mass Index 52.9 <Gonzalo Mcclendon - Last Filed: 08/31/22 21:41> Const: General: cooperative, comfortable, no acute distress and well developed <Gonzalo Mcclendon - Last Filed: 08/31/22 21:41> Nutritional Appearance: obese <Gonzalo Mcclendon - Last Filed: 08/31/22 21:41> Orientation/consciousness: patient oriented x3 <Gonzalo Mcclendon - Last Filed: 08/31/22 21:41> HEENT: Head: Yes normocephalic and Yes atraumatic <Gonzalo Mcclendon - Last Filed: 08/31/22 21:41> Face and sinus: Yes sinus tenderness <Gonzalo Mcclendon - Last Filed: 08/31/22 21:41> Throat: Yes posterior oropharynx normal <Gonzalo Mcclendon - Last Filed: 08/31/22 21:41> Neck: Neck: Yes normal visual inspection, Yes full ROM, Yes trachea midline, No anterior neck swelling and Yes lymphadenopathy <Gonzalo Mcclendon - Last Filed: 08/31/22 21:41> Chest: Chest palpation & inspection: normal inspection of the chest and normal palpation of entire chest wall <Gonzalo Mcclendon Last Filed: 08/31/22 21:41> Resp: Effort & Inspection: normal respiratory effort and able to speak in complete sentences <Gonzalo OAlamance - Last Filed: 08/31/22 21:41> Auscultation: clear to auscultation bilaterally, no rales, no rhonchi and no wheezes <Gonzalo OAlamance - Last Filed: 08/31/22 21:41> Cardio: Jugular venous distension: no JVD <Gonzalo TylerAlamance - Last Filed: 08/31/22 21:41> Rate: regular rate <Gonzalo TylerAlamance - Last Filed: 08/31/22 21:41> Rhythm: regular rhythm <Gonzalo TylerAlamance - Last Filed: 08/31/22 21:41> Heart sounds: S1 normal heart sound present and S2 normal heart sound present <Gonzalo TylerManuel - Last Filed: 08/31/22 21:41> GI: Inspection: Yes normal to inspection and No distended <Gonzalo TylerAlamance - Last Filed: 08/31/22 21:41> Palpation (GI): Soft to palpation, nontender and no guarding <Gonzalo OAlamance - Last Filed: 08/31/22 21:41> Skin: Rashes: no rashes <Gonzalo OAlamance - Last Filed: 08/31/22 21:41> Neuro: General: patient oriented x3 <Gonzalo Martinez Last Filed: 08/31/22 21:41> Course Course Course Narrative: RME- 16:35PM - 52 yo male with history of HTN, HLD, DM, obesity here with complaints of intermittent dizziness/palpitations and facial pressure/lightheadedness for a while. Although patient is very concerned. He had a Holter monitor for 3 days which was normal. Reports every time he comes here his EKG is normal in his labs are normal. Although he does not feel normal. Also reports neck and middle back pain. Started taking magnesium glycinate. Denies drug or alcohol. Denies any other symptoms complaints or concerns at this time. Plan: will obtain labs, EKG, chest x-ray, COVID/RSV/flu swab. Patient will be sent back to the waiting room to be evaluated in the ED. <REMEDIOS Rutherford - Last Filed: 08/31/22 16:36> Medical Decision Making Medical Decision Making [facility] Narrative: This is a 52-year-old male who has numerous ER visits for anxiety, palpitations. I suspect this is a large component of anxiety to the patient's presentation. His EKG is sinus rhythm without ectopy. He is on a teletypesetter monitor without any noted arrhythmias. Patient's labs are reassuring without any electrolyte abnormalities. The patient is currently, cooperative, his vital signs are stable his heart rate is 72. Dinah 3 discussed with the patient regarding his anxiety and how this contributes to his symptoms. Of note, the patient's chest x-ray does show a subtle possible developing infiltrate and given the patient's intermittent shortness of breath we will treat with azithromycin. This will also cover any further sinus floor as the patient did not respond to amoxicillin when treated 3 weeks ago. <Gonzalo Mcclendon - Last Filed: 08/31/22 21:41> Differential Diagnosis Differential Diagnoses: The differential diagnosis associated with the presentation includes (Anxiety, cardiac arrhythmia, palpitations, PVC, pneumonia, electrolyte abnormality) <Gonzalo Mcclendon - Last Filed: 08/31/22 21:41> Lab Data [facility] Lab Attestation statement: I reviewed the patient's lab results. <Gonzalo Mcclendon - Last Filed: 08/31/22 21:41> Result Diagrams: 08/31/22 17:02 08/31/22 17:02 <REMEDIOS Rutherford - Last Filed: 08/31/22 16:36> Labs: Lab Results 08/31/22 08/31/22 08/31/22 Range/Units 17:02 17:02 17:02 WBC 9.6 (4.8-10.8) X10*3/uL RBC 5.44 (4.60-5.80) X10*6/uL Hgb 15.0 (14.0-18.0) g/dl Hct 45.6 (42.0-52.0) % MCV 83.8 (80.0-98.0) fL MCH 27.6 (27.0-33.0) pg MCHC 32.9 (31.0-36.0) g/dl RDW 13.4 (11.0-16.0) % Plt Count 254 (160-400) X10*3/uL MPV 10.4 (9.4-12.4) fL Immature Gran % (Auto) 0.3 (0.0-0.4) % Neut % (Auto) 68.5 (45-73) % Lymph % (Auto) 21.2 (20-40) % [place] % (Auto) 7.5 (2-11) % Eos % (Auto) 2.0 (0-4) % Baso % (Auto) 0.5 (0-2) % Lymph # (Auto) 2.0 (1.2-4.9) X10*3/uL [place] # (Auto) 0.7 (0.1-1.2) X10*3/uL Eos # (Auto) 0.2 (0.0-0.4) X10*3/uL Baso # (Auto) 0.1 (0.0-0.2) X10*3/uL Abs Immat Gran (auto) 0.03 (0.00-0.03) X10*3/uL Absolute Neuts (auto) 6.6 (2.0-8.3) x10*3/uL Absolute Nucleated RBC 0.000 (0.0-0.012) X10*3/uL Nucleated RBC % (auto) 0.0 (0.0-0.2) /100WBC PT 11.3 (10.0-13.1) SEC INR 1.0 (0.9-1.1) Sodium 138 (135-145) mmol/L Potassium 3.9 (3.3-5.1) mmol/L Chloride 103 (96-108) mmol/L Carbon Dioxide 23 (22-29) mmol/L Anion Gap 16 (12-20) BUN 13 (9-16) mg/dL Creatinine 0.66 (0.5-1.4) mg/dL Estim Creat Clear Calc 233.3 Estimated GFR > 60 Random Glucose 124 H (60-115) mg/dL Calcium 9.6 D (8.4-10.2) mg/dL Magnesium 2.1 (1.6-2.6) mg/dL Total Bilirubin 1.3 H (0.0-1.0) mg/dL AST 17 (5-37) U/L ALT 20 (0-40) U/L Alkaline Phosphatase 95 (39-117) U/L Troponin I High Sens (<3.5-35.0) ng/L Total Protein 7.1 (6.5-8.0) g/dL Albumin 4.0 (3.5-5.0) g/dL Influenza Type A (PCR) (Negative) Influenza Type B (PCR) (Negative) RSV RNA Qual (PCR) (Negative) SARS-CoV-2 RNA (RT-PCR) (Negative) 08/31/22 08/31/22 Range/Units 17:02 17:02 WBC (4.8-10.8) X10*3/uL RBC (4.60-5.80) X10*6/uL Hgb (14.0-18.0) g/dl Hct (42.0-52.0) % MCV (80.0-98.0) fL MCH (27.0-33.0) pg MCHC (31.0-36.0) g/dl RDW (11.0-16.0) % Plt Count (160-400) X10*3/uL MPV (9.4-12.4) fL Immature Gran % (Auto) (0.0-0.4) % Neut % (Auto) (45-73) % Lymph % (Auto) (20-40) % [place] % (Auto) (2-11) % Eos % (Auto) (0-4) % Baso % (Auto) (0-2) % Lymph # (Auto) (1.2-4.9) X10*3/uL [place] # (Auto) (0.1-1.2) X10*3/uL Eos # (Auto) (0.0-0.4) X10*3/uL Baso # (Auto) (0.0-0.2) X10*3/uL Abs Immat Gran (auto) (0.00-0.03) X10*3/uL Absolute Neuts (auto) (2.0-8.3) x10*3/uL Absolute Nucleated RBC (0.0-0.012) X10*3/uL Nucleated RBC % (auto) (0.0-0.2) /100WBC PT (10.0-13.1) SEC INR (0.9-1.1) Sodium (135-145) mmol/L Potassium (3.3-5.1) mmol/L Chloride (96-108) mmol/L Carbon Dioxide (22-29) mmol/L Anion Gap (12-20) BUN (9-16) mg/dL Creatinine (0.5-1.4) mg/dL Estim Creat Clear Calc Estimated GFR Random Glucose (60-115) mg/dL Calcium (8.4-10.2) mg/dL Magnesium (1.6-2.6) mg/dL Total Bilirubin (0.0-1.0) mg/dL AST (5-37) U/L ALT (0-40) U/L Alkaline Phosphatase (39-117) U/L Troponin I High Sens < 3.5 (<3.5-35.0) ng/L Total Protein (6.5-8.0) g/dL Albumin (3.5-5.0) g/dL Influenza Type A (PCR) NEGATIVE (Negative) Influenza Type B (PCR) NEGATIVE (Negative) RSV RNA Qual (PCR) NEGATIVE (Negative) SARS-CoV-2 RNA (RT-PCR) NEGATIVE (Negative) <REMEDIOS Rutherford - Last Filed: 08/31/22 16:36> Lab Results 08/31/22 08/31/22 08/31/22 Range/Units 17:02 17:02 17:02 WBC 9.6 (4.8-10.8) X10*3/uL RBC 5.44 (4.60-5.80) X10*6/uL Hgb 15.0 (14.0-18.0) g/dl Hct 45.6 (42.0-52.0) % MCV 83.8 (80.0-98.0) fL MCH 27.6 (27.0-33.0) pg MCHC 32.9 (31.0-36.0) g/dl RDW 13.4 (11.0-16.0) % Plt Count 254 (160-400) X10*3/uL MPV 10.4 (9.4-12.4) fL Immature Gran % (Auto) 0.3 (0.0-0.4) % Neut % (Auto) 68.5 (45-73) % Lymph % (Auto) 21.2 (20-40) % [place] % (Auto) 7.5 (2-11) % Eos % (Auto) 2.0 (0-4) % Baso % (Auto) 0.5 (0-2) % Lymph # (Auto) 2.0 (1.2-4.9) X10*3/uL [place] # (Auto) 0.7 (0.1-1.2) X10*3/uL Eos # (Auto) 0.2 (0.0-0.4) X10*3/uL Baso # (Auto) 0.1 (0.0-0.2) X10*3/uL Abs Immat Gran (auto) 0.03 (0.00-0.03) X10*3/uL Absolute Neuts (auto) 6.6 (2.0-8.3) x10*3/uL Absolute Nucleated RBC 0.000 (0.0-0.012) X10*3/uL Nucleated RBC % (auto) 0.0 (0.0-0.2) /100WBC PT 11.3 (10.0-13.1) SEC INR 1.0 (0.9-1.1) Sodium 138 (135-145) mmol/L Potassium 3.9 (3.3-5.1) mmol/L Chloride 103 (96-108) mmol/L Carbon Dioxide 23 (22-29) mmol/L Anion Gap 16 (12-20) BUN 13 (9-16) mg/dL Creatinine 0.66 (0.5-1.4) mg/dL Estim Creat Clear Calc 233.3 Estimated GFR > 60 Random Glucose 124 H (60-115) mg/dL Calcium 9.6 D (8.4-10.2) mg/dL Magnesium 2.1 (1.6-2.6) mg/dL Total Bilirubin 1.3 H (0.0-1.0) mg/dL AST 17 (5-37) U/L ALT 20 (0-40) U/L Alkaline Phosphatase 95 (39-117) U/L Troponin I High Sens (<3.5-35.0) ng/L Total Protein 7.1 (6.5-8.0) g/dL Albumin 4.0 (3.5-5.0) g/dL Influenza Type A (PCR) (Negative) Influenza Type B (PCR) (Negative) RSV RNA Qual (PCR) (Negative) SARS-CoV-2 RNA (RT-PCR) (Negative) 08/31/22 08/31/22 Range/Units 17:02 17:02 WBC (4.8-10.8) X10*3/uL RBC (4.60-5.80) X10*6/uL Hgb (14.0-18.0) g/dl Hct (42.0-52.0) % MCV (80.0-98.0) fL MCH (27.0-33.0) pg MCHC (31.0-36.0) g/dl RDW (11.0-16.0) % Plt Count (160-400) X10*3/uL MPV (9.4-12.4) fL Immature Gran % (Auto) (0.0-0.4) % Neut % (Auto) (45-73) % Lymph % (Auto) (20-40) % [place] % (Auto) (2-11) % Eos % (Auto) (0-4) % Baso % (Auto) (0-2) % Lymph # (Auto) (1.2-4.9) X10*3/uL [place] # (Auto) (0.1-1.2) X10*3/uL Eos # (Auto) (0.0-0.4) X10*3/uL Baso # (Auto) (0.0-0.2) X10*3/uL Abs Immat Gran (auto) (0.00-0.03) X10*3/uL Absolute Neuts (auto) (2.0-8.3) x10*3/uL Absolute Nucleated RBC (0.0-0.012) X10*3/uL Nucleated RBC % (auto) (0.0-0.2) /100WBC PT (10.0-13.1) SEC INR (0.9-1.1) Sodium (135-145) mmol/L Potassium (3.3-5.1) mmol/L Chloride (96-108) mmol/L Carbon Dioxide (22-29) mmol/L Anion Gap (12-20) BUN (9-16) mg/dL Creatinine (0.5-1.4) mg/dL Estim Creat Clear Calc Estimated GFR Random Glucose (60-115) mg/dL Calcium (8.4-10.2) mg/dL Magnesium (1.6-2.6) mg/dL Total Bilirubin (0.0-1.0) mg/dL AST (5-37) U/L ALT (0-40) U/L Alkaline Phosphatase (39-117) U/L Troponin I High Sens < 3.5 (<3.5-35.0) ng/L Total Protein (6.5-8.0) g/dL Albumin (3.5-5.0) g/dL Influenza Type A (PCR) NEGATIVE (Negative) Influenza Type B (PCR) NEGATIVE (Negative) RSV RNA Qual (PCR) NEGATIVE (Negative) SARS-CoV-2 RNA (RT-PCR) NEGATIVE (Negative) <Gonzalo Mcclendon - Last Filed: 08/31/22 21:41> Independent Interpretation I performed an independent interpretation of an: EKG and Plain X-Ray <Gonzalo Mcclendon - Last Filed: 08/31/22 21:41> Interpretation: Sinus rhythm without ectopy <Gonzalo Mcclendon - Last Filed: 08/31/22 21:41> Radiology Impression Discussion of test interpretation with radiology: I have reviewed the radiologist's reading. <Gonzalo Mcclendon - Last Filed: 08/31/22 21:41> Radiologist Impression: Agree with radiology's interpretation of subtle right-sided infiltrate <Gonzalo Mcclendon - Last Filed: 08/31/22 21:41> Discharge Plan Discharge Clinical Impression: Heart palpitations, Community acquired pneumonia, Anxiety <REMEDIOS Rutherford - Last Filed: 08/31/22 16:36> Patient Disposition: Home, Self-Care <REMEDIOS Rutherford - Last Filed: 08/31/22 16:36> Instructions: Anxiety (ED) <REMEDIOS Rutherford - Last Filed: 08/31/22 16:36> Additional Instructions: New chest x-ray today showed a subtle area that could be related to a developing pneumonia. This could explain the symptoms that you are experiencing, so we will treat with antibiotic. Take the azithromycin as directed. This should also help with any further sinus pressure your experiencing. Your cardiac workup was reassuring. There was no evidence of irregular heart rhythm, or abnormal lab values Call your doctor to schedule follow-up <REMEDIOS Rutherford - Last Filed: 08/31/22 16:36> Prescriptions: New azithromycin 250 mg tablet See Rx Instructions .ROUTE .COMPLEX Qty: 6 0RF Rx Instructions: For 250 mg dose pack: take 500 mg today (day 1), then 250 mg for 4 days (days 2-5) No Action (DME) pen needle, diabetic [BD Ultra-Fine Lisa Pen Needle] 32 gauge x 5/32 needle See Rx Instructions .ROUTE .MEDSUPPLY Qty: 100 3RF Rx Instructions: As directed once daily (DME) flash glucose sensor Kit See Rx Instructions topical DIRECTED Qty: 2 11RF Rx Instructions: As directed atorvastatin 10 mg tablet 10 mg PO DAILY 30 Days Qty: 90 4RF amlodipine 10 mg tablet 10 mg PO DAILY 30 Days Qty: 90 0RF hydrochlorothiazide 25 mg tablet 25 mg PO DAILY Qty: 30 0RF (DME) FreeStyle Bobby 14 Day Sensor Kit See Rx Instructions .Route Qty: 6 3RF Rx Instructions: As directed Trulicity 3 mg/0.5 mL pen injector 3 mg subcut QWEEK Qty: 6 2RF Rx Instructions: Take WITH Trulicity 1.5mg weekly to equal 4.5mg weekly Trulicity 1.5 mg/0.5 mL pen injector 1.5 mg subcut QWEEK Qty: 6 2RF Rx Instructions: Take WITH Trulicity 3mg weekly to equal 4.5mg weekly due to drug shortage Tresiba FlexTouch U-200 200 unit/mL (3 mL) insulin pen 40 unit subcut BEDTIME 90 Days Qty: 18 5RF metoprolol succinate 200 mg tablet extended release 24 hr 200 mg PO DAILY Qty: 90 3RF losartan 100 mg tablet 100 mg PO DAILY Qty: 90 1RF metformin 1,000 mg tablet 1,000 mg PO BID Qty: 180 3RF (DME) FreeStyle Bobby 14 Day [place] Misc See Rx Instructions .Route Qty: 2 4RF Rx Instructions: As directed Trulicity 4.5 mg/0.5 mL pen injector 4.5 mg subcut QWEEK Qty: 2 5RF sertraline 50 mg tablet 50 mg PO DAILY Qty: 30 1RF Rx Instructions: 1/2 tabl tabl po x 2 days, then 1 tabl qd (DME) comp.stocking,thigh,long,x-lrg Misc See Rx Instructions .Route Qty: 1 0RF Rx Instructions: 1 qd buspirone 10 mg tablet 10 mg PO BID Qty: 60 3RF aspirin [Adult Aspirin Regimen] 81 mg tablet,delayed release (DR/EC) 81 mg PO DAILY <REMEDIOS Rutherford - Last Filed: 08/31/22 16:36>
--- NOTE | 2022-08-31 16:33 | ECG_ITS ---
Test Reason : palpitations Blood Pressure : / mmHG Vent. Rate : 070 BPM Atrial Rate : 070 BPM P-R Int : 230 ms QRS Dur : 114 ms QT Int : 406 ms P-R-T Axes : -01 021 023 degrees QTc Int : 438 ms Sinus rhythm with 1st degree A-V block Inferior infarct , age undetermined Nonspecific T wave changes Abnormal ECG When compared with ECG of 15-AUG-2022 01:24, No significant change was found Referred By: Muna Samaniego Electronically Signed By:Sai Zimmerman
[2022-08-31 17:10] LABS: MANUAL DIFF FLAG NO
[2022-08-31 17:12] LABS: Basophils Absolute Auto 0.1 X10*3/uL (0.0-0.2); Basophils Percent Auto 0.5 % (0-2); Eosinophils Absolute Auto 0.2 X10*3/uL (0.0-0.4); Hematocrit 45.6 % (42.0-52.0); Imm Gran Abs Auto 0.03 X10*3/uL (0.00-0.03); Imm Gran Pct Auto 0.3 % (0.0-0.4); Lymphocytes Percent Auto 21.2 % (20-40); Mean Corpuscular HGB Conc 32.9 g/dl (31.0-36.0); Mean Corpuscular Hemoglobin 27.6 pg (27.0-33.0); Mean Corpuscular Volume 83.8 fL (80.0-98.0); Mean Platelet Volume 10.4 fL (9.4-12.4); Monocytes Absolute Auto 0.7 X10*3/uL (0.1-1.2); Monocytes Percent Auto 7.5 % (2-11); Neutrophils Absolute Auto 6.6 x10*3/uL (2.0-8.3); Neutrophils Percent Auto 68.5 % (45-73); Platelet Count 254 X10*3/uL (160-400); Red Blood Count 5.44 X10*6/uL (4.60-5.80); Red Cell Distribution Width 13.4 % (11.0-16.0); White Blood Count 9.6 X10*3/uL (4.8-10.8)
[2022-08-31 17:28] LABS: Alanine Aminotransferase 20 U/L (0-40); Alkaline Phosphatase 95 U/L (39-117); Anion Gap 16 (12-20); Aspartate Amino Transferase 17 U/L (5-37); Bilirubin Total 1.3 mg/dL (0.0-1.0); Blood Urea Nitrogen 13 mg/dL (9-16); Calcium 9.6 mg/dL (8.4-10.2); Carbon Dioxide 23 mmol/L (22-29); Chloride 103 mmol/L (96-108); Creatinine Clr Calc Pharmacy 233.3; Estimated Glomerular Filt Rate > 60; Glucose Random 124 mg/dL (60-115); Magnesium 2.1 mg/dL (1.6-2.6); Potassium 3.9 mmol/L (3.3-5.1); Sodium 138 mmol/L (135-145); Total Protein 7.1 g/dL (6.5-8.0)
[2022-08-31 17:29] LABS: Prothrombin Time 11.3 SEC (10.0-13.1)
[2022-08-31 17:38] LABS: Troponin-I High Sensitivity < 3.5 ng/L (<3.5-35.0)
[2022-08-31 17:49] LABS: Influenza A PCR NEGATIVE (Negative); Influenza B PCR NEGATIVE (Negative); Resp Syncy Virus RNA Qual PCR NEGATIVE (Negative); SARS COV2 PCR INHOUSE NEGATIVE (Negative)
--- NOTE | 2022-08-31 21:17 | MHC.EDTECH ---
ekg was done but not documented
[2022-08-31 21:21] VITALS: BP 123/67; PULSE 68; RESP 17; TEMP 36.2; O2SAT 95
== END 2022-08-31 21:50 | disposition home or self-care (01) ==
PROVIDERS: Physician Assistant Medical; Emergency Provider Emergency Medicine; PCP Internal Medicine
DX: J18.9 Pneumonia, unspecified organism (principal); I49.9 Cardiac arrhythmia, unspecified; R00.2 Palpitations; F41.1 Generalized anxiety disorder; F43.0 Acute stress reaction; Z20.828 Contact with and (suspected) exposure to other viral communicable diseases; Z20.822 Contact with and (suspected) exposure to COVID-19; Z79.899 Other long term (current) drug therapy
CPT/HCPCS: 0241U; 36415; 71046; 80053; 83735; 84484; 85025; 85610; 93005; 99283

== ENCOUNTER 2022-09-13 08:43 | Outpatient (REF) | payer OTHER, SELFPAY ==
--- NOTE | ~2022-09-13 | XR_ITS ---
EXAMINATION: XR CHEST CLINICAL INFORMATION: Pneumonia COMPARISON: Chest x-rays every 2022 TECHNIQUE: 2 views of the chest were obtained. FINDINGS: Cardiac silhouette is normal in size. The lungs are mildly hypoinflated. There is no lobar consolidation. Subtle bibasilar opacities are again noted suggesting atelectasis. Slightly improved aeration of the right lung base. No pleural effusion or pneumothorax. Moderate degenerative changes of the spine. XR/XR chest 2V IMPRESSION: Slightly improved aeration of the right lung base. Atelectasis is suspected, however, infiltrate not entirely excluded.
[2022-09-13 11:04] LABS: MANUAL DIFF FLAG NO
[2022-09-13 11:19] LABS: Basophils Absolute Auto 0.1 X10*3/uL (0.0-0.2); Basophils Percent Auto 0.7 % (0-2); Eosinophils Absolute Auto 0.2 X10*3/uL (0.0-0.4); Eosinophils Percent Auto 2.7 % (0-4); Hematocrit 43.6 % (42.0-52.0); Hemoglobin 14.2 g/dl (14.0-18.0); Imm Gran Abs Auto 0.02 X10*3/uL (0.00-0.03); Imm Gran Pct Auto 0.3 % (0.0-0.4); Lymphocytes Absolute Auto 1.6 X10*3/uL (1.2-4.9); Lymphocytes Percent Auto 21.4 % (20-40); Mean Corpuscular HGB Conc 32.6 g/dl (31.0-36.0); Mean Corpuscular Hemoglobin 27.8 pg (27.0-33.0); Mean Corpuscular Volume 85.5 fL (80.0-98.0); Mean Platelet Volume 11.3 fL (9.4-12.4); Monocytes Absolute Auto 0.7 X10*3/uL (0.1-1.2); Monocytes Percent Auto 8.7 % (2-11); Neutrophils Absolute Auto 5.1 x10*3/uL (2.0-8.3); Neutrophils Percent Auto 66.2 % (45-73); Platelet Count 246 X10*3/uL (160-400); Red Cell Distribution Width 13.6 % (11.0-16.0); White Blood Count 7.7 X10*3/uL (4.8-10.8)
[2022-09-13 11:50] LABS: Estimated Average Glucose 154 mg/dL
[2022-09-13 12:28] LABS: Alanine Aminotransferase 22 U/L (0-40); Albumin Level 3.8 g/dL (3.5-5.0); Alkaline Phosphatase 96 U/L (39-117); Anion Gap 12 (12-20); Aspartate Amino Transferase 19 U/L (5-37); Bilirubin Total 1.1 mg/dL (0.0-1.0); Blood Urea Nitrogen 15 mg/dL (9-16); Calcium 9.5 mg/dL (8.4-10.2); Carbon Dioxide 30 mmol/L (22-29); Chloride 102 mmol/L (96-108); Cholesterol 118 mg/dL; Estimated Glomerular Filt Rate > 60; Glucose Fasting 119 mg/dL (60-99); HDL Cholesterol 29 mg/dL; LDL Cholesterol Calculated 73 mg/dl; Magnesium 2.1 mg/dL (1.6-2.6); Potassium 3.6 mmol/L (3.3-5.1); Sodium 140 mmol/L (135-145); Total Protein 6.6 g/dL (6.5-8.0); Triglycerides 80 mg/dL
== END 2022-09-13 08:44 | disposition home or self-care (01) ==
LOC: HO.HMGCLDS 08:43
PROVIDERS: PCP Internal Medicine; Visit Provider Internal Medicine
DX: I10 Essential (primary) hypertension (principal); E78.5 Hyperlipidemia, unspecified; E11.42 Type 2 diabetes mellitus with diabetic polyneuropathy; J18.9 Pneumonia, unspecified organism
CPT/HCPCS: 36415; 71046; 80053; 80061; 83036; 83735; 85025

== ENCOUNTER 2022-09-13 13:23 | Outpatient (REF) | payer OTHER, SELFPAY | END 2022-09-13 13:24 | disposition home or self-care (01) | LOC: HO.HMGCX 13:23 | PROVIDERS: PCP Internal Medicine; Visit Provider Internal Medicine | DX: Z13.89 Encounter for screening for other disorder (principal) ==

== ENCOUNTER → 2022-09-29 08:50 | Outpatient (BNVA) | payer OTHER, SELFPAY | PROVIDERS: PCP Internal Medicine; Referring Provider Internal Medicine; Visit Provider Internal Medicine Cardiovascular Disease | DX: R00.2 Palpitations (principal) | CPT/HCPCS: 93005; 99202 ==

== ENCOUNTER 2022-10-12 13:00 | Outpatient (RCR) | payer OTHER, SELFPAY ==
--- NOTE | 2022-09-06 10:52 | MHC.PT.EP ---
[facility] [place] Office [place] Office [place] Office [address] Sebastian Sullivan [address] [phone] F: [phone] F: [phone] F: [phone] F: [phone] Physical Therapy Plan of Care Date of Evaluation: Date of Surgery: Diagnosis: This is a 52 yo male presenting to skilled PT with a script for cervicalgia Assessment: This is a 52 yo male presenting to skilled PT with a script for cervicalgia. Patient reporting neck pain that has been ongoing for a few months now, no noted injury. Patient reporting that pain increases with standing for prolonged periods (mainly at work, has not had any ergonomic adjustments). Pain can also start out of nowhere and is described as throbbing, sharp/shooting and cramping. Pain is located B c-spine and goes into the upper back, no side is worse than the other. Pain comes and goes. Denies PARISI's but gets some occasional dizziness/lightheadedness. He reports numbness/tingling in different areas of his body that have been ongoing prior to his neck pain and do not appear to be radiating from his neck. 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 He has been using ice for pain management. Assessment reveals pain that ranges from4-10/10. Patient demos slight decreased cervical ROM but decreased shoulder ROM B (L worse than R). He has decreased strength of B shoulders and upper back. Denies soft tissue tenderness. Based on functional limitations, impaired QOL and decreased education on pain management, patient is a good candidate for skilled PT 2x/wk for 6 wks. Frequency and Duration: The patient will be seen 2x/wk for 6 wks Short Term Goals: I in HEP Improve rotation by at least 25% Hvac Manager Goals: Improve pain to no more than a 3/10 Report 50% improvement in QOL Tolerate standing for entire shift without pain Improve NDI by 4 points Treatment Plan: Modalities to reduce pain, spasms and effusion. Manual therapy to restore motion and function. Therapeutic exercise to improve strength and flexibility. Neuromuscular re-education for posture and balance. Therapeutic activities to return to functional activities of daily living. Electronically signed by: Jesika Dubuc, PT Please sign and return to therapist. Thank you for your referral.
--- NOTE | 2022-11-13 11:22 | MHC.PT.DC ---
[facility] [place] [facility] [place] [facility] [place] Office [address] Sebastian Sullivan [address] [phone] F: [phone] F: [phone] F: [phone] F: [phone] Physical Therapy Discharge Report Diagnosis: This is a 52 yo male presenting to skilled PT with a script for cervicalgia Date of Surgery: Date of Evaluation: 09/06/22 Date of Discharge: 11/13/22 Treatments to Date: 7 Cancellations to Date: 0 No Shows to Date: 0 Discharge Status: Achieved Goals Improved Function Independent with HEP Patient Elected to Stop Discharge Summary: Pt was challenged throughout the session without increase in pain. Enjoyed his ther-ex program and is motivated to return to the gym once cleared by cardiology, no noted palpitations throughout the session. He had no pain and normal ROM during his last session. He self DC'd due to work related scheduling however has an HEP to continue on his own. DC'd his chart after 30 days/ Electronically signed by: Jesika Cadena PT Please sign and return to therapist. Thank you for your referral.
== END 2022-11-13 11:22 | disposition home or self-care (01) ==
LOC: HO.PTCHIC 13:00
PROVIDERS: PCP Internal Medicine; Visit Provider Physician Assistant
DX: M54.2 Cervicalgia (principal)
CPT/HCPCS: 97110; 97140; 97162

== ENCOUNTER → 2022-10-18 10:49 | Outpatient (REF) | payer OTHER, SELFPAY ==
--- NOTE | 2022-10-18 10:52 | HM_ITS ---
Cardiac event monitor Indication: Palpitations Technique: Patient was hooked up to cardiac event monitor for total of 30 days starting on 10/18/2022. Compliance 8 was 95%. Findings: Baseline was normal sinus rhythm with lowest heart rate of 68 beats per minute and maximum heart rate of 98 beats per minute. There were no significant pauses noted. There were occasional isolated PVCs noted with total burden of 1.2%. No significant supraventricular tachycardia or atrial fibrillation noted Patient activated the button 37 times with symptoms of skipped heartbeat or palpitations or nausea vomiting sweating correlated with isolated PVCs. Conclusion: 1. Baseline was normal sinus rhythm with no pauses 2. Occasional PVCs with total burden of 1.2% 3. Patient reported events multiple times correlating with isolated PVCs MTDD
== END ==
LOC: HO.CARD 10:49
PROVIDERS: PCP Internal Medicine; Visit Provider Internal Medicine Cardiovascular Disease
DX: R00.2 Palpitations (principal)
CPT/HCPCS: 93270

== ENCOUNTER → 2022-10-23 09:58 | Outpatient (REF) | payer OTHER, SELFPAY ==
--- NOTE | 2022-10-23 10:00 | CA_ITS ---
Transthoracic Echocardiogram Patient (Last, First, Middle): Bharat Cullen M Gender: Male Date of : 1970 Age: 52 Procedure Date: 10/23/2022 Procedure Type: Transthoracic Echocardiogram Location: OP Height: 190.5 cm Weight: 191.87 kg BSA: 3.02 m2 Heart Rate: bpm BP: 138 / 80 mmHg Process Laboratory Specialist: Referring MD: Craig Valadez MD Weather Anchor: Craig Valadez MD Symptoms: R00.2 - Palpitations Study Quality: Adequate ECG Rhythm: Sinus Conclusions: - 1. Normal LV systolic function with normal filling pattern 2. Normal cardiac valvular Doppler 3. Upper limits of normal RV systolic pressure 4. No gross pericardial effusion Findings Left Ventricle Normal left ventricular size, thickness, and systolic function. The visually estimated ejection fraction is between 60-65%. Spectral Doppler is indicative of a normal filling pattern. Peak GLS is -18.6%, within normal limits. Right Ventricle Normal right ventricular cavity size and systolic function. Atria Both atria are normal in size. There is lipomatous hypertrophy of the interatrial septum. Interatrial shunt cannot be excluded. Aortic Valve The aortic valve structure and function is likely normal. There is no aortic valve stenosis. There is no aortic valve regurgitation. Mitral Valve Normal mitral valve structure and function. There is trace mitral valve regurgitation. There is no mitral valve stenosis. Pulmonic Valve The pulmonic valve is likely normal. Tricuspid Valve Normal tricuspid valve structure. There is mild tricuspid valve regurgitation. Normal right atrial pressure. There is no evidence of pulmonary hypertension. Great Vessels The aorta was not well visualized. The pulmonary artery was not well visualized. Venous The inferior vena cava is normal in size and collapses greater than 50% with inspiration. Pericardium/Pleural There is no evidence of pericardial effusion. Prior Study Comparison Changes noted compared to prior study dated: 02/24/2022. RV systolic function are at upper limits of normal Measurements 2D Linear Measurements IVSd: 1.21 0.6-0.9/0.6-1.0 cm LVIDd: 5.49 3.9-5.3/4.2-5.9 cm LVIDd Index: 1.82 2.4-3.2/2.2-3.1 cm/m2 LVIDs: 3.39 2.0-3.6 cm LVPWd: 1.31 0.7-1.1 cm Ao Root: 3.30 2.1-3.5 cm LA Diam: 4.60 2.7-3.8/3.0-4.0 cm LAIDs Index: 1.52 1.5-2.3 cm/m2 LV Mass: 362.39 67-162/88-224 g LV Mass Index: 120.00 43-95/49-115 g/m2 LVOT Diam: 2.40 3.0+(-)1.3 cm 2D Systolic Function EF 4C: 63.40 >55% EF 2C: 54.40 >55% EF BiP: 60.10 >55% Mitral Valve MV Pk E: 0.84 MV PK A: 0.70 MV Decel Time: 186.00 E/A: 1.20 E'Lateral: 15.90 E'Medial: 5.33 E/E' Med: 15.70 E/E' Lat: 5.30 PHT: 54.00 MVA PHT: 4.07 Decel [place]: 4.50 Aortic Valve AoV Pk Vidal: 1.58 AoV Mn Vidal: 1.02 AoV VTI: 0.34 AoV Pk Grad: 10.00 Aov Mn Grad: 5.00 LOAN Cont.VTI: 2.56 LVOT LVOT Pk Vidal: 0.82 LVOT Mn Vidal: 0.55 LVOT VTI: 0.19 LVOT Pk Grad: 3.00 LVOT Mn Grad: 1.00 LVOT Diam: 2.40 LVOT Area: 4.52 Diastolic Function MV Pk E: 0.84 MV Pk A: 0.70 E/A: 1.20 E'Medial: 5.33 E/E' Med: 15.70 E' Laterial: 15.90 E/E' Lat: 5.30 Right Ventricle TAPSE (mm): 30.00 TVS' Vidal: 14.00 Tricuspid Valve TR Pk Vidal: 3.02 TR Pk Grad: 36.00 RA Press: 3.00 RVSP: 39.00 Great Vessels Aorta Ao Root-2D: 3.30 2.0-3.7 cm Pulmonary Valve PV Pk Vidal: 1.09 Peak PV Grad: 5.00 Updated in Other Vendor System with Status of Final Craig Valadez MD electronically signed on 10/23/2022 4:47:41 PM with status of Final
== END ==
LOC: HO.CARD 09:58
PROVIDERS: Visit Provider Internal Medicine Cardiovascular Disease
DX: R00.2 Palpitations (principal)
CPT/HCPCS: 93306; 93356

== ENCOUNTER → 2022-12-06 15:04 | Outpatient (BNVA) | payer OTHER, SELFPAY | PROVIDERS: PCP Internal Medicine; Referring Provider Internal Medicine; Visit Provider Internal Medicine Cardiovascular Disease | DX: I49.3 Ventricular premature depolarization (principal); I10 Essential (primary) hypertension; E11.42 Type 2 diabetes mellitus with diabetic polyneuropathy; E66.01 Morbid (severe) obesity due to excess calories; Z68.43 Body mass index [BMI] 50.0-59.9, adult; Z79.4 Long term (current) use of insulin | CPT/HCPCS: 99212 ==

== ENCOUNTER 2023-01-02 12:55 | Outpatient (REF) | payer OTHER, SELFPAY ==
[2023-01-02 15:31] LABS: Estimated Average Glucose 146 mg/dL; Hemoglobin A1c % 6.7 %
[2023-01-02 15:45] LABS: Alanine Aminotransferase 26 U/L (0-40); Alkaline Phosphatase 127 U/L (39-117); Anion Gap 12 (12-20); Aspartate Amino Transferase 22 U/L (5-37); Bilirubin Total 0.8 mg/dL (0.0-1.0); Blood Urea Nitrogen 16 mg/dL (9-16); Carbon Dioxide 27 mmol/L (22-29); Chloride 104 mmol/L (96-108); Estimated Glomerular Filt Rate > 60; Glucose Random 137 mg/dL (60-115); Sodium 139 mmol/L (135-145); Total Protein 7.5 g/dL (6.5-8.0)
== END 2023-01-02 12:56 | disposition home or self-care (01) ==
LOC: HO.HMGCLDS 12:55
PROVIDERS: PCP Internal Medicine; Visit Provider Internal Medicine
DX: E11.42 Type 2 diabetes mellitus with diabetic polyneuropathy (principal); E78.5 Hyperlipidemia, unspecified; I10 Essential (primary) hypertension
CPT/HCPCS: 36415; 80053; 83036

== ENCOUNTER 2023-07-29 13:29 | Emergency (ER) | payer OTHER, SELFPAY ==
--- NOTE | ~2023-07-29 | CT_ITS ---
EXAMINATION: CT HEAD WITHOUT CONTRAST CLINICAL INFORMATION: Fall. COMPARISON: CT head from 08/11/2022. TECHNIQUE: Contiguous axial imaging was performed from the skull base to vertex without intravenous administration of contrast. This CT examination was performed using dose optimization techniques as appropriate, variously including the following: *Automated exposure control. *Adjustment of mA and/or kV according to patient size (this includes techniques or standardized protocols for targeted exams where dose is matched to indication/reason for exam; i.e. extremities or head). *Use of iterative reconstruction technique. DLP: 1037 mGy-cm FINDINGS: There are hyperattenuating left hemispheric subdural blood products, measuring up to 1.1 cm in depth. Subdural blood products slightly trace along the left aspect of the falx cerebri and left tentorial leaflet. Trace subarachnoid hemorrhagic products are noted along the bilateral frontoparietal lobes. Moderate mass effect on the left cerebral hemisphere with effacement of the regional sulci and left lateral ventricle. There is 1 cm rightward midline shift. There is a degree of downward transtentorial herniation with crowding of the midbrain. Near complete effacement of the third ventricle. The right lateral ventricle is slightly expanded, potentially with early entrapment. No demonstrated loss of villarreal-white matter differentiation. No acute soft tissue or osseous abnormalities. Mild mucosal thickening of the paranasal sinuses. The mastoid air cells and middle ear cavities are clear. CT/CT head/brain wo IV con IMPRESSION: 1. Left hemispheric subdural hematoma measuring up to 1.1 cm in depth. Trace subarachnoid hemorrhagic products. 2. Moderate mass effect on the left cerebral hemisphere with 1 cm rightward midline shift. There is a degree of downward transtentorial herniation with crowding of the midbrain. 3. The right lateral ventricle is slightly expanded, potentially with early entrapment. This critical result was discussed with at 18:35 on 07/29/2023 and it was ascertained that the content and urgency of the report was understood at the time of direct communication.
[2023-07-29 13:57] VITALS: BP 138/86; PULSE 65; O2SAT 96
[2023-07-29 14:16] VITALS: BP 122/78; PULSE 70; RESP 22; TEMP 36.8; O2SAT 94; BMI 55.1
[2023-07-29 15:41] VITALS: BP 121/79; PULSE 73; RESP 16; TEMP 36.6; O2SAT 95
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
[2023-07-29 17:14] VITALS: BP 129/70; PULSE 74; RESP 16; TEMP 36.4; O2SAT 97
[2023-07-29] MEDS: 0.9 % Sodium Chloride 1,000 ML 999 ML IV (17:33)
[2023-07-29 17:39] LABS: MANUAL DIFF FLAG NO
[2023-07-29 17:44] LABS: Basophils Percent Auto 0.3 % (0-2); Eosinophils Absolute Auto 0.1 X10*3/uL (0.0-0.4); Eosinophils Percent Auto 0.6 % (0-4); Hematocrit 45.9 % (42.0-52.0); Hemoglobin 14.9 g/dl (14.0-18.0); Imm Gran Abs Auto 0.06 X10*3/uL (0.00-0.03); Imm Gran Pct Auto 0.4 % (0.0-0.4); Lymphocytes Absolute Auto 1.9 X10*3/uL (1.2-4.9); Mean Corpuscular HGB Conc 32.5 g/dl (31.0-36.0); Mean Corpuscular Volume 83.3 fL (80.0-98.0); Mean Platelet Volume 10.5 fL (9.4-12.4); Monocytes Absolute Auto 0.9 X10*3/uL (0.1-1.2); Monocytes Percent Auto 6.8 % (2-11); Neutrophils Absolute Auto 10.5 x10*3/uL (2.0-8.3); Neutrophils Percent Auto 77.9 % (45-73); Platelet Count 236 X10*3/uL (160-400); Red Blood Count 5.51 X10*6/uL (4.60-5.80); Red Cell Distribution Width 13.2 % (11.0-16.0); White Blood Count 13.4 X10*3/uL (4.8-10.8)
[2023-07-29 17:55] LABS: COVID-19 Test Negative (Negative); IDNOW Serial# 08D9AD1C
[2023-07-29 18:00] LABS: Alanine Aminotransferase 31 U/L (0-40); Albumin Level 3.6 g/dL (3.5-5.0); Alkaline Phosphatase 79 U/L (39-117); Anion Gap 14 (12-20); Aspartate Amino Transferase 30 U/L (5-37); Bilirubin Total 1.9 mg/dL (0.0-1.0); Blood Urea Nitrogen 14 mg/dL (9-16); Calcium 9.6 mg/dL (8.4-10.2); Carbon Dioxide 27 mmol/L (22-29); Chloride 101 mmol/L (96-108); Creatinine Clr Calc Pharmacy 213.9; Estimated Glomerular Filt Rate > 60; Glucose Random 148 mg/dL (60-115); Magnesium 1.9 mg/dL (1.6-2.6); Potassium 3.7 mmol/L (3.3-5.1); Sodium 138 mmol/L (135-145); Total Protein 7.3 g/dL (6.5-8.0)
--- NOTE | 2023-07-29 18:02 | PC.NURSE ---
pt a+o x3. he reports 04/24 R lower back pain s/p fall x2 yesterday. pt reports that he fell at 6 pm and at 10 pm. 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 pt lives alone. denies loc/hs. denies headache/dizziness/blurry vision. no other complaints. pt on aspirin, vss.
[2023-07-29 19:02] LABS: INTERNATIONAL NORM RATIO 1.4 (0.9-1.1); Prothrombin Time 17.2 SEC (11.1-13.3)
[2023-07-29 19:03] VITALS: BP 121/71; PULSE 88; O2SAT 94
--- NOTE | 2023-07-29 19:04 | PC.NURSE ---
PT A & O x 4 , neuros intact, VSS. Transport currently being facilitated by LUIS CARLOS Moscoso. PT reporting headache 10/23.
[2023-07-29 19:05] LABS: Partial Thromboplastin Time 35.7 SEC (26.0-36.4)
[2023-07-29 19:17] VITALS: BP 127/57; PULSE 74; RESP 18; O2SAT 95
== END 2023-07-29 19:30 | disposition short-term general hospital (02) ==
PROVIDERS: Emergency Provider Internal Medicine
DX: S06.5XAA Traumatic subdural hemorrhage with loss of consciousness status unknown, initial encounter (principal); R53.1 Weakness; M54.50 Low back pain, unspecified; R51.9 Headache, unspecified; W01.10XA Fall on same level from slipping, tripping and stumbling with subsequent striking against unspecified object, initial encounter; Y93.9 Activity, unspecified; Y92.007 Garden or yard of unspecified non-institutional (private) residence as the place of occurrence of the external cause; Y99.8 Other external cause status; Z79.899 Other long term (current) drug therapy; Z11.52 Encounter for screening for COVID-19
CPT/HCPCS: 36415; 70450; 80053; 82550; 83735; 85025; 85610; 85730; 87635; 96360; 96361; 99285

== ENCOUNTER 2023-08-31 13:29 | Outpatient (AMB) | payer OTHER, SELFPAY ==
--- NOTE | 2023-08-31 13:45 | MHC.PC.OV ---
Vital Signs 08/31/23 13:46 Height 6 ft 3 in Weight 442 lb BMI 55.2 BP 134/78 Blood Pressure Location Lt brachial Position Sitting Pulse 65 Pulse Source Pulse Oximeter Pulse Oximetry (%) 94 Oxygen Delivery Method Room Air Intake [facility] Allergies canagliflozin [Invokana] Adverse Reaction (Unknown, Verified 08/31/23 13:48) rash Medication List - Last Reconciled 08/31/23 by Lexie Lima MD amlodipine 10 mg PO DAILY aspirin (Adult Aspirin Regimen) 81 mg PO DAILY atorvastatin 10 mg PO DAILY buspirone 10 mg PO TID comp.stocking,thigh,long,x-lrg 1 qd dulaglutide (Trulicity) 3 mg (0.5 mL) subcut QWEEK dulaglutide (Trulicity) 1.5 mg (0.5 mL) subcut QWEEK dulaglutide (Trulicity) 4.5 mg (0.5 mL) subcut QWEEK flash glucose scanning reader (FreeStyle Bobby 14 Day [place]) As directed flash glucose sensor As directed FreeStyle Bobby 14 Day Sensor (flash glucose sensor) As directed NS hydrochlorothiazide 25 mg PO DAILY insulin degludec (Tresiba FlexTouch U-200 insulin) 24 units subcut BEDTIME losartan 100 mg PO DAILY magnesium oxide 400 mg PO DAILY metformin 1,000 mg PO DAILY metoprolol succinate ER 200 mg PO DAILY pen needle, diabetic (BD Ultra-Fine Lisa Pen Needle) As directed once daily sertraline 50 mg PO DAILY Tobacco use date assessed: 08/31/23 Dental Screening Dental Screen Date: 08/31/23 Did you have a dental visit in the last 12 months?: Yes Did you have a dental problem in the last 6 months where you did not have access to dental care?: No Was dental information given to patient?: Patient has dentist HPI [facility] HDF/Subdural hematoma HPI Details Patient presents for the follow-up of hospitalization at [facility] trauma for left subdural hematoma with midline shift and transtentorial herniation after a fall at home. Patient was hospitalized at Surgical ICU and underwent middle meningeal artery embolization on August 03. Patient was transferred to rehab and recovered well. He completed physical therapy and is back to his baseline ambulation. Patient denies any weakness numbness in extremities headaches change in vision nausea or vomiting. He reports high blood glucose readings since the discharge because of decreased dose of Tresiba and metformin at discharge. Hypertension has been stable on Losartan. [facility] Medical History (Updated 08/31/23 @ 15:13 by Lexie Lima MD) Obesity due to excess calories Annual physical exam MARK (obstructive sleep apnea) Normal colonoscopy Diabetic polyneuropathy associated with type 2 diabetes mellitus Hypertension Dyslipidemia Morbid obesity Diabetes type 2, controlled Surgical History History of surgery of head Hx of cholecystectomy Family History Father No problems noted. Mother Arthritis Brother Stroke Social History Housing: House Alcohol intake: current Alcohol intake frequency: holidays/special occasions only Patient Tobacco Use Status: Never used Tobacco e-Cigarette/Vaping Use: Never Used Current occupational status: employed Cognitive needs: No Hearing needs: No Vision needs: No Questionnaire PHQ-9 Over the last 2 weeks, how often have you been bothered by any of the following problems? 1. Little interest or pleasure in doing things: not at all 2. Feeling down, depressed, or hopeless: several days 3. Trouble falling or staying asleep, or sleeping too much: several days 4. Feeling tired or having little energy: several days 5. Poor appetite or overeating: not at all 6. Feeling bad about yourself - or that you are a failure or have let yourself or your family down: not at all 7. Trouble concentrating on things, such as reading the newspaper or watching television: not at all 8. Moving or speaking so slowly that other people could have noticed. Or the opposite - being so fidgety or restless that you have been moving around a lot more than usual: not at all 9. Thoughts that you would be better off or of hurting yourself in some way: not at all Total score: 3 Depression Screening Interpretation: Negative Depression Screening Done: Yes Source: Developed by Drs. Gaurav Dalton, Shira De La Vega, Jordin Nash and colleagues, with an educational bassem from [employer]. Thrive Questionnaire Date Thrive assessed: 08/31/23 I am a: Patient What is your living situation today?: I have a steady place to live Within the past 12 months, did the food you bought not last and you didn't have the money to get more?: Never true Within the past 12 months, did you worry whether your food would run out before you got money to buy more?: Never true Do you have trouble paying for medicines?: No Do you have trouble getting transportation to medical appointments?: No Do you have trouble paying your heating and electricity bill?: No Do you have trouble taking care of your child, family member or friend?: No Do you have trouble with day-to-day activities such as bathing, preparing meals, shopping, managing finances, etc.?: No Are you currently unemployed and looking for a job?: No Are you interested in more education?: No Please select the resources that you would like help with: None THRIVE Score: 0 AUDIT C Alcohol Use Questionnaire (AUDIT-C) 1. How often do you have a drink containing alcohol?: Never 3. How often do you have six or more drinks on one occasion?: Never Total Score: 0 BRIDGETT-7 AMB Questionnaire BRIDGETT-7 Date BRIDGETT - 7 assessed: 08/31/23 Feeling nervous, anxious, or on edge: 0 = Not at all Not being able to stop or control worryin = Not at all Worrying too much about different things: 0 = Not at all Trouble relaxin = Not at all Being so restless that it is hard to sit still: 0 = Not at all Becoming easily annoyed or irritable: 0 = Not at all Feeling afraid as if something awful might happen: 0 = Not at all Total BRIDGETT-7 score (0-4 normal; 5-9 mild; 10-14 moderate; 15-21 severe): 0 Source: Developed by Drs. Gaurav Dalton, Shira De La Vgea, Jordin Nash and colleagues, with an educational bassem from [employer]. Review of Systems Const All systems reviewed & are unremarkable except as noted in HPI and below Reports no additional complaints Eyes Reports no additional complaints ENT Reports no additional complaints Card Reports no additional complaints Resp Reports no additional complaints GI Reports no additional complaints Reports no additional complaints Physical exam (Primary Care) Vital Signs: Last Vital Signs Pulse 65 08/31/23 13:46 BP 134/78 08/31/23 13:46 Pulse Ox 94 08/31/23 13:46 Oxygen Delivery Method Room Air 08/31/23 13:46 BMI result Body Mass Index 55.2 Tobacco/Smoking Status: Tobacco use Status Tobacco use date assessed 08/31/23 08/31/23 13:52 Patient Tobacco Use Status Never used Tobacco 08/31/23 13:52 e-Cigarette/Vaping Use Never Used 08/31/23 13:46 PHQ-9: PHQ-9 Score PHQ-9: Total score 3 08/31/23 13:53 Depression Screening Interpretation: Negative Thrive Assessment: Date of Thrive Assessment Date Thrive assessed 08/31/23 08/31/23 13:52 Const General: no acute distress HENMT Head: Yes normal to inspection Neck Neck: Yes no lymphadenopathy and Yes supple Resp Effort & Inspection: normal respiratory effort Auscultation: clear to auscultation bilaterally Cardio Rhythm: regular rhythm Heart sounds: S1 normal heart sound present and S2 normal heart sound present GI Palpation (GI): Soft to palpation Neuro General: gait normal Cranial nerves: Yes CN's II-XII intact bilaterally Motor exam (neuro): 5/5 motor strength present throughout Assessment and Plan Assessment & Plan (1) Subdural hematoma, post-traumatic: Comment: Left, 1.1 cm, with midline shift to the right and transtentorial herniation, s/p middle meningeal artery embolization 08/03/23 f/u [facility] in 1 and 3 months Code(s): S06.5XAA - Traumatic subdural hemorrhage with loss of consciousness status unknown, initial encounter Plan: Follow-up with [facility] trauma team in 1 and 3 months (2) Diabetes type 2, controlled: Code(s): E11.9 - Type 2 diabetes mellitus without complications Qualifiers: Diabetes mellitus halfway insulin use: without halfway use Diabetes mellitus complication status: with neurologic complications Diabetes mellitus complication detail: with polyneuropathy Qualified Code(s): E11.42 - Type 2 diabetes mellitus with diabetic polyneuropathy Plan: Patient was advised to increase his Tresiba and metformin to pre-hospital doses and monitor his blood glucose with Bobby sensor, follow-up in 2 months with a fasting labs before (3) Morbid obesity: Code(s): E66.01 - Morbid (severe) obesity due to excess calories (4) Hypertension: Code(s): I10 - Essential (primary) hypertension Qualifiers: Hypertension type: essential hypertension Qualified Code(s): I10 - Essential (primary) hypertension Plan: Continue current medications Orders: Orders Complete Blood Count Auto Diff 6 Weeks E11.9 - Type 2 diabetes mellitus without complications, E78.5 - Hyperlipidemia, unspecified, I10 - Essential (primary) hypertension Comprehensive [place]. Panel Fast 6 Weeks E11.9 - Type 2 diabetes mellitus without complications, E78.5 - Hyperlipidemia, unspecified, I10 - Essential (primary) hypertension Lipid Panel 6 Weeks E11.9 - Type 2 diabetes mellitus without complications, E78.5 - Hyperlipidemia, unspecified, I10 - Essential (primary) hypertension Hemoglobin A1c 6 Weeks E11.9 - Type 2 diabetes mellitus without complications, E78.5 - Hyperlipidemia, unspecified, I10 - Essential (primary) hypertension Microalbumin, Random (w Creat) 6 Weeks E11.9 - Type 2 diabetes mellitus without complications, E78.5 - Hyperlipidemia, unspecified, I10 - Essential (primary) hypertension TSH reflex Free T4 6 Weeks E11.9 - Type 2 diabetes mellitus without complications, E78.5 - Hyperlipidemia, unspecified, I10 - Essential (primary) hypertension Medications: Changed From metformin 1,000 mg PO DAILY To metformin 1,000 mg PO BID From insulin degludec (Tresiba FlexTouch U-200 insulin) 24 units subcut BEDTIME To insulin degludec (Tresiba FlexTouch U-200 insulin) 48 units subcut BEDTIME Discontinued dulaglutide (Trulicity) Take WITH Trulicity 1.5mg weekly to equal 4.5mg weekly Discontinued Reason: Doctor's Order 3 mg (0.5 mL) subcut QWEEK 6 mL 2RF dulaglutide (Trulicity) Take WITH Trulicity 3mg weekly to equal 4.5mg weekly due to drug shortage Discontinued Reason: Doctor's Order 1.5 mg (0.5 mL) subcut QWEEK 6 mL 2RF Coding Level of Care Code Est Pt Level 4 (34075) Diagnoses Subdural hematoma, post-traumatic S06.5XAA Controlled type 2 diabetes mellitus with diabetic polyneuropathy, without long-term current use of insulin E11.42 Diabetes mellitus halfway insulin use: without terminal clerk use Diabetes mellitus complication status: with neurologic complications Diabetes mellitus complication detail: with polyneuropathy Morbid obesity E66.01 Essential hypertension I10 Hypertension type: essential hypertension
[2023-08-31 13:46] VITALS: BP 134/78; PULSE 65; O2SAT 94; BMI 55.2
== END 2023-08-31 15:19 | disposition home or self-care (01) ==
PROVIDERS: PCP Internal Medicine; Visit Provider Internal Medicine
DX: S06.5XAA Traumatic subdural hemorrhage with loss of consciousness status unknown, initial encounter (principal); E11.42 Type 2 diabetes mellitus with diabetic polyneuropathy; E66.01 Morbid (severe) obesity due to excess calories; Z68.43 Body mass index [BMI] 50.0-59.9, adult; W19.XXXA Unspecified fall, initial encounter; I10 Essential (primary) hypertension
CPT/HCPCS: 99214

== ENCOUNTER 2023-10-22 08:44 | Outpatient (REF) | payer OTHER, SELFPAY ==
[2023-10-22 10:15] LABS: MANUAL DIFF FLAG NO
[2023-10-22 10:22] LABS: Basophils Absolute Auto 0.1 X10*3/uL (0.0-0.2); Basophils Percent Auto 0.6 % (0-2); Eosinophils Absolute Auto 0.2 X10*3/uL (0.0-0.4); Eosinophils Percent Auto 2.6 % (0-4); Hematocrit 45.2 % (42.0-52.0); Hemoglobin 14.6 g/dl (14.0-18.0); Imm Gran Abs Auto 0.02 X10*3/uL (0.00-0.03); Imm Gran Pct Auto 0.2 % (0.0-0.4); Lymphocytes Percent Auto 23.6 % (20-40); Mean Corpuscular HGB Conc 32.3 g/dl (31.0-36.0); Mean Corpuscular Hemoglobin 27.5 pg (27.0-33.0); Mean Corpuscular Volume 85.1 fL (80.0-98.0); Mean Platelet Volume 10.6 fL (9.4-12.4); Monocytes Absolute Auto 0.7 X10*3/uL (0.1-1.2); Monocytes Percent Auto 8.3 % (2-11); Neutrophils Absolute Auto 5.4 x10*3/uL (2.0-8.3); Neutrophils Percent Auto 64.7 % (45-73); Platelet Count 258 X10*3/uL (160-400); Red Blood Count 5.31 X10*6/uL (4.60-5.80); Red Cell Distribution Width 13.8 % (11.0-16.0); White Blood Count 8.4 X10*3/uL (4.8-10.8)
[2023-10-22 11:12] LABS: Alanine Aminotransferase 32 U/L (0-40); Albumin Level 3.9 g/dL (3.5-5.0); Alkaline Phosphatase 144 U/L (39-117); Anion Gap 13 (12-20); Aspartate Amino Transferase 21 U/L (5-37); Bilirubin Total 0.6 mg/dL (0.0-1.0); Blood Urea Nitrogen 16 mg/dL (9-16); Calcium 9.7 mg/dL (8.4-10.2); Carbon Dioxide 27 mmol/L (22-29); Chloride 103 mmol/L (96-108); Cholesterol 125 mg/dL (<200); Estimated Glomerular Filt Rate > 60; Glucose Fasting 140 mg/dL (60-99); HDL Cholesterol 32 mg/dL (>40); LDL Cholesterol Calculated 76 mg/dL (<100); Sodium 139 mmol/L (135-145); TSH reflex Free T4 1.07 uIU/mL (0.32-4.0); Total Protein 7.2 g/dL (6.5-8.0); Triglycerides 89 mg/dL (<150)
[2023-10-22 11:17] LABS: Estimated Average Glucose 169 mg/dL; Hemoglobin A1c % 7.5 % (<6.0)
[2023-10-22 11:19] LABS: Creatinine Urine 122.79 mg/dL; Microalbum/Creatinine Ratio Ur 7.3 ug/mg cr (<30)
== END 2023-10-22 08:45 | disposition home or self-care (01) ==
LOC: HO.HMGCLDS 08:44
PROVIDERS: PCP Internal Medicine; Visit Provider Internal Medicine
DX: I10 Essential (primary) hypertension (principal); E11.9 Type 2 diabetes mellitus without complications; E78.5 Hyperlipidemia, unspecified
CPT/HCPCS: 36415; 80053; 80061; 82043; 82570; 83036; 84443; 85025

== ENCOUNTER 2023-10-26 10:23 | Outpatient (AMB) | payer OTHER, SELFPAY ==
--- NOTE | 2023-10-26 10:24 | A.OFFPC_ITS ---
Vital Signs 10/26/23 10:41 Height 6 ft 3 in Weight 433 lb BMI 54.1 BP 126/78 Blood Pressure Location Lt brachial Position Sitting Pulse 87 Pulse Source Pulse Oximeter Pulse Oximetry (%) 93 Oxygen Delivery Method Room Air Intake Visit Reasons: Annual PE Intake Note: Pt is here today for PE. Allergies canagliflozin [Invokana] Adverse Reaction (Unknown, Verified 10/26/23 10:45) rash Medication List - Last Reconciled 10/26/23 by Lexie Lima MD amlodipine 10 mg PO DAILY aspirin (Adult Aspirin Regimen) 81 mg PO DAILY atorvastatin 10 mg PO DAILY buspirone 10 mg PO TID comp.stocking,thigh,long,x-lrg 1 qd dulaglutide (Trulicity) 4.5 mg (0.5 mL) subcut QWEEK flash glucose scanning reader (FreeStyle Bobby 14 Day [place]) As directed flash glucose sensor As directed FreeStyle Bobby 14 Day Sensor (flash glucose sensor) As directed NS hydrochlorothiazide 25 mg PO DAILY insulin degludec (Tresiba FlexTouch U-200 insulin) 48 units (0.24 mL) subcut BEDTIME losartan 100 mg PO DAILY magnesium oxide 400 mg PO DAILY metformin 1,000 mg PO BID metoprolol succinate ER 200 mg PO DAILY pen needle, diabetic (BD Ultra-Fine Lisa Pen Needle) As directed once daily sertraline 50 mg PO DAILY Tobacco use date assessed: 10/26/23 Dental Screening Dental Screen Date: 08/31/23 HPI Annual PE HPI Details Patient presents for PE. PFS Medical History Obesity due to excess calories Annual physical exam MARK (obstructive sleep apnea) Normal colonoscopy Diabetic polyneuropathy associated with type 2 diabetes mellitus Hypertension Dyslipidemia Morbid obesity Diabetes type 2, controlled Surgical History History of surgery of head Hx of cholecystectomy Family History Father No problems noted. Mother Arthritis Brother Stroke Social History Housing: House Alcohol intake: current Alcohol intake frequency: holidays/special occasions only Patient Tobacco Use Status: Never used Tobacco e-Cigarette/Vaping Use: Never Used service: No Current occupational status: employed Cognitive needs: No Hearing needs: No Vision needs: No Questionnaire Thrive Questionnaire Date Thrive assessed: 08/31/23 BRIDGETT-7 AMB Questionnaire BRIDGETT-7 Date BRIDGETT - 7 assessed: 08/31/23 Source: Developed by Drs. Gaurav Dalton, Shira De La Vega, Jordin Nash and colleagues, with an educational bassem from [employer]. Review of Systems Const All systems reviewed & are unremarkable except as noted in HPI and below Reports no additional complaints Eyes Reports no additional complaints ENT Reports no additional complaints Card Reports no additional complaints Resp Reports no additional complaints GI Reports no additional complaints Physical exam (Primary Care) Vital Signs: Last Vital Signs Pulse 87 10/26/23 10:41 BP 126/78 10/26/23 10:41 Pulse Ox 93 10/26/23 10:41 Oxygen Delivery Method Room Air 10/26/23 10:41 BMI result Body Mass Index 54.1 Tobacco/Smoking Status: Tobacco use Status Tobacco use date assessed 10/26/23 10/26/23 10:47 Patient Tobacco Use Status Never used Tobacco 10/26/23 10:25 e-Cigarette/Vaping Use Never Used 10/26/23 10:25 Thrive Assessment: Date of Thrive Assessment Date Thrive assessed 08/31/23 10/26/23 10:25 Const General: no acute distress HENMT Head: Yes normal to inspection Ears: hearing grossly normal bilaterally Throat: Yes posterior oropharynx normal Eyes General: appearance normal, both eyes and all related structures Neck Neck: Yes no lymphadenopathy and Yes supple Resp Effort & Inspection: normal respiratory effort Auscultation: clear to auscultation bilaterally Cardio Rhythm: regular rhythm Heart sounds: S1 normal heart sound present and S2 normal heart sound present GI Inspection: Yes normal to inspection Palpation (GI): Soft to palpation Percussion: Yes normal to percussion Auscultation: normal bowel sounds Assessment and Plan Assessment & Plan (1) Diabetic polyneuropathy associated with type 2 diabetes mellitus: Code(s): E11.42 - Type 2 diabetes mellitus with diabetic polyneuropathy Plan: Follow-up with lead generation representative (2) Diabetes type 2, controlled: Code(s): E11.9 - Type 2 diabetes mellitus without complications Qualifiers: Diabetes mellitus termite control service representative insulin use: without shelter use Diabetes mellitus complication status: with neurologic complications Diabetes mellitus complication detail: with polyneuropathy Qualified Code(s): E11.42 - Type 2 diabetes mellitus with diabetic polyneuropathy Plan: A1c is 7.5 , ADA diet increase physical activity weight loss discussed with the patient. Continue current medications. If the A1c is still elevated in 3 months Mounjaro will be tried instead of Trulicity. (3) Morbid obesity: Code(s): E66.01 - Morbid (severe) obesity due to excess calories Plan: Increase physical activity weight loss discussed with the patient (4) Dyslipidemia: Code(s): E78.5 - Hyperlipidemia, unspecified Plan: Continue statin (5) Hypertension: Code(s): I10 - Essential (primary) hypertension Qualifiers: Hypertension type: essential hypertension Qualified Code(s): I10 - Essential (primary) hypertension Plan: Continue current medications (6) Annual physical exam: Code(s): Z00.00 - Encounter for general adult medical examination without abnormal findings Plan: Well-balanced diet regular physical activity weight loss discussed with the patient. He is due for a repeat colonoscopy next year Orders: Orders Microalbumin, Random (w Creat) 3 Months E11.42 - Type 2 diabetes mellitus with diabetic polyneuropathy, E78.5 - Hyperlipidemia, unspecified, I10 - Essential (primary) hypertension Comprehensive [place]. Panel Fast 3 Months E11.42 - Type 2 diabetes mellitus with diabetic polyneuropathy, E78.5 - Hyperlipidemia, unspecified, I10 - Essential (primary) hypertension Hemoglobin A1c 3 Months E11.42 - Type 2 diabetes mellitus with diabetic polyneuropathy, E78.5 - Hyperlipidemia, unspecified, I10 - Essential (primary) hypertension Complete Blood Count Auto Diff 3 Months E11.42 - Type 2 diabetes mellitus with diabetic polyneuropathy, E78.5 - Hyperlipidemia, unspecified, I10 - Essential (primary) hypertension Lipid Panel 3 Months E11.42 - Type 2 diabetes mellitus with diabetic polyneuropathy, E78.5 - Hyperlipidemia, unspecified, I10 - Essential (primary) hypertension Coding Level of Care Code Est Pt Prev Care 40-64y(80522) Diagnoses Diabetic polyneuropathy associated with type 2 diabetes mellitus E11.42 Controlled type 2 diabetes mellitus with diabetic polyneuropathy, without long- term current use of insulin E11.42 Diabetes mellitus shelter insulin use: without shelter use Diabetes mellitus complication status: with neurologic complications Diabetes mellitus complication detail: with polyneuropathy Morbid obesity E66.01 Dyslipidemia E78.5 Essential hypertension I10 Hypertension type: essential hypertension Annual physical exam Z00.00
[2023-10-26 10:41] VITALS: BP 126/78; PULSE 87; O2SAT 93; BMI 54.1
== END 2023-10-26 11:12 | disposition home or self-care (01) ==
PROVIDERS: PCP Internal Medicine; Visit Provider Internal Medicine
DX: Z00.00 Encounter for general adult medical examination without abnormal findings (principal); E11.42 Type 2 diabetes mellitus with diabetic polyneuropathy; E66.01 Morbid (severe) obesity due to excess calories; Z68.43 Body mass index [BMI] 50.0-59.9, adult; E78.5 Hyperlipidemia, unspecified; I10 Essential (primary) hypertension
CPT/HCPCS: 99396

== ENCOUNTER 2023-12-06 10:23 | Outpatient (AMB) | payer OTHER, SELFPAY ==
[2023-12-06 10:44] VITALS: BP 120/80; PULSE 87; BMI 54.8
--- NOTE | 2023-12-06 10:44 | MHC.OFFVIS ---
Vital Signs 12/06/23 10:44 Height 6 ft 3 in Weight 438 lb 11.518 oz BMI 54.8 BP 120/80 Blood Pressure Location Lt brachial Position Sitting Pulse 87 Intake Visit Reasons: 1 yr f/up Intake Note: 1 year follow-up with ekg feeling good Finger Buff Sewer Required: No Allergies canagliflozin [Invokana] Adverse Reaction (Unknown, Verified 10/26/23 10:45) rash Medication List - Last Reconciled 12/06/23 by Craig Valadez MD amlodipine 10 mg PO DAILY atorvastatin 10 mg PO DAILY buspirone 10 mg PO TID comp.stocking,thigh,long,x-lrg 1 qd dulaglutide (Trulicity) 4.5 mg (0.5 mL) subcut QWEEK flash glucose scanning reader (FreeStyle Bobby 14 Day [place]) As directed flash glucose sensor As directed FreeStyle Bobby 14 Day Sensor (flash glucose sensor) As directed NS hydrochlorothiazide 25 mg PO DAILY insulin degludec (Tresiba FlexTouch U-200 insulin) 48 units (0.24 mL) subcut BEDTIME losartan 100 mg PO DAILY magnesium oxide 400 mg PO DAILY metformin 1,000 mg PO BID metoprolol succinate ER 200 mg PO DAILY pen needle, diabetic (BD Ultra-Fine Lisa Pen Needle) As directed once daily sertraline 50 mg PO DAILY HPI Comments Details: Bharat comes for follow-up. In July had an accidental fall and had subdural hematoma. Aspirin was discontinued at that point time. Since then he has been doing well although occasionally still feels palpitations. Sometimes he says his beats are very strong and he gets low concern. However he has learned to ignore them. Symptoms are not worsening. He has no life-limiting other symptoms. Denies any significant exertional chest pain or shortness of breath. He said he continues to struggle with weight loss program. [facility] Medical History Obesity due to excess calories Annual physical exam MARK (obstructive sleep apnea) Normal colonoscopy Diabetic polyneuropathy associated with type 2 diabetes mellitus Hypertension Dyslipidemia Morbid obesity Diabetes type 2, controlled Surgical History History of surgery of head Hx of cholecystectomy Family History Father No problems noted. Mother Arthritis Brother Stroke Social History Housing: House Alcohol intake: current Alcohol intake frequency: holidays/special occasions only Patient Tobacco Use Status: Never used Tobacco e-Cigarette/Vaping Use: Never Used service: No Current occupational status: employed Cognitive needs: No Hearing needs: No Vision needs: No Review of Systems Const Denies chills, Denies fatigue, Denies fever(s), Denies frequent falls, Denies weakness, Denies weight gain and Denies weight loss ENT Denies dizziness Card Denies chest pain, Denies leg edema, Denies lightheadedness, Denies palpitations, Denies dyspnea, Denies dyspnea on exertion, Denies orthopnea and Denies other (loss of consciousness) Resp Denies cough, Denies dyspnea and Denies dyspnea on exertion GI Denies hematochezia and Denies change in stool character Musc Denies abnormal gait, Denies muscle weakness, Denies numbness, Denies radiating pain into limb and Denies tingling Neuro Denies Abnormal speech present, Denies abnormal gait, Denies dizziness, Denies frequent falls, Denies numbness, Denies tingling and Denies weakness Endo Denies fatigue and Denies palpitations Physical Exam Vital Signs: Last Vital Signs Pulse 87 12/06/23 10:44 BP 120/80 12/06/23 10:44 BMI result Body Mass Index 54.8 Const General: cooperative, comfortable, no acute distress, alert, awake and anxious Nutritional Appearance: obese morbidly obese Orientation/consciousness: patient oriented x3 Limitations: no limitations Neck Neck: Yes trachea midline, Yes supple and Yes no JVD Chest Chest palpation & inspection: normal inspection of the chest Resp Effort & Inspection: normal respiratory effort Auscultation: clear to auscultation bilaterally Cardio Jugular venous distension: no JVD Palpation: normal PMI Rate: regular rate Rhythm: regular rhythm Heart sounds: S1 normal heart sound present, S2 normal heart sound present, no click, no gallops, no murmurs and no rubs GI Auscultation: normal bowel sounds Neuro General: patient oriented x3 and no focal motor deficits Speech: No Abnormal speech present Office Procedures EKG Details: EKG shows normal sinus rhythm with first-degree AV block with Q-waves in lead 3 and AVF most likely pseudo infarct pattern related to body habitus [id number], Complete Assessment & Plan Assessment & Plan (1) PVCs (premature ventricular contractions): Code(s): I49.3 - Ventricular premature depolarization Category: Medical Plan: Highly symptomatic PVCs currently on very high dose of metoprolol. He still continues to have symptoms but has learned to live with them. We discussed about benign nature of isolated PVCs in the setting of normal structure of the heart again. Discussed that this should not affect his overall prognosis. He understands agrees and feels relieved. Continue aggressive risk factor modification. Blood pressure is currently well optimized. Advised to monitor blood pressure at home maintain a log. Goal blood pressure less than 130/84. Continue aggressive diabetes management goal hemoglobin A1c less than 7%. Continue statin therapy with target goal LDL less than 70 mg/dL. There was mentioned of TIA in his chart and I am not sure if he has any significant other vascular disease. If aspirin is essential reconsider starting it after neuro surgery evaluation. He is encouraged to continue to participate in aggressive weight loss program and he is trying. Will refer him to bariatric surgery program. From cardiac perspective will follow up in 2 years time Orders: Referrals Bariatric Surgery Referral E66.01 - Morbid (severe) obesity due to excess calories Coding Level of Care Code Est Pt Level 3 (20680) Diagnoses PVCs (premature ventricular contractions) I49.3 CPT Codes EKG - CPT: [id number], Complete ([id number])
== END 2023-12-06 11:17 | disposition home or self-care (01) ==
PROVIDERS: Visit Provider Internal Medicine Cardiovascular Disease
DX: I49.3 Ventricular premature depolarization (principal)
CPT/HCPCS: 93010; 99213

== ENCOUNTER → 2023-12-06 10:23 | Outpatient (BNVA) | payer OTHER, SELFPAY | PROVIDERS: Visit Provider Internal Medicine Cardiovascular Disease | DX: I49.3 Ventricular premature depolarization (principal); I44.0 Atrioventricular block, first degree; R94.31 Abnormal electrocardiogram [ECG] [EKG] | CPT/HCPCS: 93005; 99212 ==

== ENCOUNTER 2024-01-15 09:47 | Outpatient (AMB) | payer OTHER, SELFPAY ==
[2024-01-15 09:53] VITALS: BP 128/74; PULSE 86; O2SAT 94; BMI 56.2
--- NOTE | 2024-01-15 09:53 | A.OFFPC_ITS ---
Vital Signs 01/15/24 09:53 Height 6 ft 3 in Weight 450 lb BMI 56.2 BP 128/74 Blood Pressure Location Rt brachial Position Sitting Pulse 86 Pulse Source Pulse Oximeter Pulse Oximetry (%) 94 Oxygen Delivery Method Room Air Intake Visit Reasons: 3M F/U Intake Note: Pt is here today for a 3 months follow up visit. Pt states that he had a dry cough for 4 days and now he has some mucus buiding up. Allergies canagliflozin [Invokana] Adverse Reaction (Unknown, Verified 01/15/24 09:58) rash Medication List - Last Reconciled 01/15/24 by Lexie Lima MD amlodipine 10 mg PO DAILY atorvastatin 10 mg PO DAILY buspirone 10 mg PO TID comp.stocking,thigh,long,x-lrg 1 qd dulaglutide (Trulicity) 4.5 mg (0.5 mL) subcut QWEEK flash glucose scanning reader (FreeStyle Bobby 14 Day [place]) As directed flash glucose sensor As directed FreeStyle Bobby 14 Day Sensor (flash glucose sensor) As directed NS hydrochlorothiazide 25 mg PO DAILY insulin degludec (Tresiba FlexTouch U-200 insulin) 48 units (0.24 mL) subcut BEDTIME losartan 100 mg PO DAILY magnesium oxide 400 mg PO DAILY metformin 1,000 mg PO BID metoprolol succinate ER 200 mg PO DAILY pen needle, diabetic (BD Ultra-Fine Lisa Pen Needle) As directed once daily sertraline 50 mg PO DAILY Tobacco use date assessed: 01/15/24 Dental Screening Dental Screen Date: 01/15/24 Did you have a dental visit in the last 12 months?: Yes Did you have a dental problem in the last 6 months where you did not have access to dental care?: No Was dental information given to patient?: Patient has dentist HPI 3M F/U HPI Details Patient presents for the follow-up on hypertension hyperlipidemia type 2 diabetes. He has not been compliant with ADA diet and reports high blood glucose reading after eating to over 200. Patient gained 12 lb since the last visit despite taking maximum dose of Trulicity. [facility] Medical History Obesity due to excess calories Annual physical exam MARK (obstructive sleep apnea) Normal colonoscopy Diabetic polyneuropathy associated with type 2 diabetes mellitus Hypertension Dyslipidemia Morbid obesity Diabetes type 2, controlled Surgical History History of surgery of head Hx of cholecystectomy Family History Father No problems noted. Mother Arthritis Brother Stroke Social History Housing: House Alcohol intake: current Alcohol intake frequency: holidays/special occasions only Patient Tobacco Use Status: Never used Tobacco e-Cigarette/Vaping Use: Never Used service: No Current occupational status: employed Cognitive needs: No Hearing needs: No Vision needs: No Questionnaire Thrive Questionnaire Date Thrive assessed: 08/31/23 BRIDGETT-7 AMB Questionnaire BRIDGETT-7 Date BRIDGETT - 7 assessed: 08/31/23 Source: Developed by Drs. Gaurav Dalton, Shira De La Vega, Jordin Nash and colleagues, with an educational bassem from [employer]. Review of Systems Const All systems reviewed & are unremarkable except as noted in HPI and below Card Reports no additional complaints Resp Reports no additional complaints GI Reports no additional complaints Reports no additional complaints Musc Reports no additional complaints Physical exam (Primary Care) Vital Signs: Last Vital Signs Pulse 86 01/15/24 09:53 BP 128/74 01/15/24 09:53 Pulse Ox 94 01/15/24 09:53 Oxygen Delivery Method Room Air 01/15/24 09:53 BMI result Body Mass Index 56.2 Tobacco/Smoking Status: Tobacco use Status Tobacco use date assessed 01/15/24 01/15/24 09:59 Patient Tobacco Use Status Never used Tobacco 01/15/24 09:54 e-Cigarette/Vaping Use Never Used 01/15/24 09:54 Thrive Assessment: Date of Thrive Assessment Date Thrive assessed 08/31/23 01/15/24 09:54 Const General: no acute distress HENMT Head: Yes normal to inspection Neck Neck: Yes no lymphadenopathy and Yes supple Resp Effort & Inspection: normal respiratory effort Auscultation: clear to auscultation bilaterally Cardio Rhythm: regular rhythm Heart sounds: S1 normal heart sound present and S2 normal heart sound present GI Inspection: Yes normal to inspection Assessment and Plan Assessment & Plan (1) Diabetes type 2, controlled: Code(s): E11.9 - Type 2 diabetes mellitus without complications Qualifiers: Diabetes mellitus complication detail: with polyneuropathy Diabetes mellitus complication status: with neurologic complications Diabetes mellitus terminal operator insulin use: without terminal operator use Qualified Code(s): E11.42 - Type 2 diabetes mellitus with diabetic polyneuropathy Plan: Patient will return for fasting blood work including A1c, ADA diet increase exercise weight loss discussed with the patient. He will be referred to diabetic medical and health services manager. Trulicity will be changed to Mounjaro and patient will continue Tresiba and metformin. Follow-up in 3 months with a fasting labs before (2) Hypertension: Code(s): I10 - Essential (primary) hypertension Qualifiers: Hypertension type: essential hypertension Qualified Code(s): I10 - Essential (primary) hypertension Plan: Continue current medications (3) Dyslipidemia: Code(s): E78.5 - Hyperlipidemia, unspecified Plan: Continue statin (4) Morbid obesity: Code(s): E66.01 - Morbid (severe) obesity due to excess calories Plan: Weight loss discussed with the patient. Orders: Orders Hemoglobin A1c 3 Months E11.42 - Type 2 diabetes mellitus with diabetic polyneuropathy, E78.5 - Hyperlipidemia, unspecified, I10 - Essential (primary) hypertension Lipid Panel 3 Months E11.42 - Type 2 diabetes mellitus with diabetic polyneuropathy, E78.5 - Hyperlipidemia, unspecified, I10 - Essential (primary) hypertension Microalbumin, Random (w Creat) 3 Months E11.42 - Type 2 diabetes mellitus with diabetic polyneuropathy, E78.5 - Hyperlipidemia, unspecified, I10 - Essential (primary) hypertension Comprehensive [place]. Panel Fast 3 Months E11.42 - Type 2 diabetes mellitus with diabetic polyneuropathy, E78.5 - Hyperlipidemia, unspecified, I10 - Essential (primary) hypertension Referrals Nutrition/Dietitian Referral E11.42 - Type 2 diabetes mellitus with diabetic polyneuropathy Medications: New Mounjaro (tirzepatide) 15 mg (0.5 mL) subcut QWEEK 6 mL 3RF NS Refilled metformin 1,000 mg PO BID 180 tabs 3RF amlodipine 10 mg PO DAILY 90 tabs 3RF I10 - Essential (primary) hypertension atorvastatin 10 mg PO DAILY 90 tabs 3RF E78.5 - Hyperlipidemia, unspecified Discontinued dulaglutide (Trulicity) Discontinued Reason: Doctor's Order 4.5 mg (0.5 mL) subcut QWEEK 6 mL 4RF Coding Level of Care Code Est Pt Level 4 (72684) Diagnoses Controlled type 2 diabetes mellitus with diabetic polyneuropathy, without long- term current use of insulin E11.42 Diabetes mellitus complication detail: with polyneuropathy Diabetes mellitus complication status: with neurologic complications Diabetes mellitus terminal operator insulin use: without terminal operator use Essential hypertension I10 Hypertension type: essential hypertension Dyslipidemia E78.5 Morbid obesity E66.01
== END 2024-01-15 10:22 | disposition home or self-care (01) ==
PROVIDERS: PCP Internal Medicine; Visit Provider Internal Medicine
DX: E11.42 Type 2 diabetes mellitus with diabetic polyneuropathy (principal); E66.01 Morbid (severe) obesity due to excess calories; Z68.43 Body mass index [BMI] 50.0-59.9, adult; I10 Essential (primary) hypertension; E78.5 Hyperlipidemia, unspecified
CPT/HCPCS: 99214

== ENCOUNTER 2024-01-24 10:01 | Outpatient (AMB) | payer OTHER, SELFPAY ==
--- NOTE | 2024-01-24 10:08 | A.OFFVIS_ITS ---
VS Expanded 01/24/24 10:10 01/31/24 09:13 Height 6 ft 3 in 6 ft 3 in Weight 452 lb 6.217 oz 452 lb BMI 56.5 56.5 Intake Visit Reasons: T2DM w diabetic polyneuropathy/CONFIRMED Allergies canagliflozin [Invokana] Adverse Reaction (Unknown, Verified 01/15/24 09:58) rash Nutrition Presentation Details: Pt presents for T2DM with polyneuropathy. Pt was referred by PCP, Dr. Ondina Lima Pt reports dietary indiscretion , wants to work on meal planning BS Monitoring Most Recent Diabetes Results: Microalb/Creat Ratio 7.3 ug/mg cr (<30) 10/22/23 Cholesterol 125 mg/dL (<200) 10/22/23 HDL Cholesterol 32 mg/dL (>40) L 10/22/23 Triglycerides 89 mg/dL (<150) 10/22/23 Creatinine 0.67 mg/dL (0.5-1.4) 10/22/23 Blood Urea Nitrogen 16 mg/dL (9-16) 10/22/23 Sodium 139 mmol/L (135-145) 10/22/23 Potassium 4.0 mmol/L (3.3-5.1) 10/22/23 Chloride 103 mmol/L (96-108) 10/22/23 Carbon Dioxide 27 mmol/L (22-29) 10/22/23 Calcium 9.7 mg/dL (8.4-10.2) 10/22/23 AST 21 U/L (5-37) 10/22/23 ALT 32 U/L (0-40) 10/22/23 Total Protein 7.2 g/dL (6.5-8.0) 10/22/23 Albumin 3.9 g/dL (3.5-5.0) 10/22/23 BVM-Atqbllq-Ad.Jeor Equation Height: 6 ft 3 in Weight: 452 lb Resting Metabolic Rate: 2978.13 Calculated Activity Level: Sedentary Calories Needed to Maintain Weight: 3573.76 Diagnosis Nutrition problem #1: food nutri know defi As related to (etiology) #1: diagnosis As evidenced by (sign/symptom) #1: knowledge deficit of diet [facility] Medical History Obesity due to excess calories Annual physical exam MARK (obstructive sleep apnea) Normal colonoscopy Diabetic polyneuropathy associated with type 2 diabetes mellitus Hypertension Dyslipidemia Morbid obesity Diabetes type 2, controlled Surgical History History of surgery of head Hx of cholecystectomy Family History Father No problems noted. Mother Arthritis Brother Stroke Social History Housing: House Alcohol intake: current Alcohol intake frequency: holidays/special occasions only Patient Tobacco Use Status: Never used Tobacco e-Cigarette/Vaping Use: Never Used service: No Current occupational status: employed Cognitive needs: No Hearing needs: No Vision needs: No Assessment & Plan Assessment & Plan (1) Diabetic polyneuropathy associated with type 2 diabetes mellitus: Code(s): E11.42 - Type 2 diabetes mellitus with diabetic polyneuropathy Category: Medical Plan: Wt: 205 Kg ( 01/2024 ) Est kcal needs as per MSJ: 3600 (40% carb, 30% protein/fat) Est fluid needs as per 25-30 ml/d: 6200 Est prot per day as per 1 g/kg bw: 205 Recommend fiber intake : 8-10 g per day and gradually increase to 25-28 g per day for women and 35-38 g for men or as tolerated Recommend sodium intake per day : less than 2000 mg Educated patient on: ( R = reviewed V = verbalizes understanding N/R = needs review N/A = not applicable * Food sources of carbohydrate, adequate serving sizes and its role in various health conditions: R V N/R * Differences between complex carbohydrates a simple carbohydrates, role of fiber in diet: R * Lean protein sources of foods: R V NR * Differences between types of fats and role in diet (mono on saturated fat fatty acids, saturated fatty acids, trans fats): R V N/R * Food sources of sodium in salt and healthy modifications for heart health in kidney health: R * Vitamins and minerals: R V N/R * Healthy plate method concept: R * Physical activity: Benefits a precaution: R V N/R * Hypoglycemia protocol (rule of 15): R V N/R * Dietary prevention of Hyperglycemia: R V R/V Patient Instructions: Drink water with meals (herb, fruit infused water ok) Replace a pastry/processed snack with a fruit , choose 3 a day Reduce total carb at meal to 120 g or less following healthy plate method , have 3 meals per day Coding Level of Care Code Nutr Indiv Intake (85475) Diagnoses Diabetic polyneuropathy associated with type 2 diabetes mellitus E11.42 Time Spent (min) 30
[2024-01-24 10:10] VITALS: BMI 56.5
[2024-01-31 09:13] VITALS: BMI 56.5
== END 2024-01-24 10:54 | disposition home or self-care (01) ==
PROVIDERS: PCP Internal Medicine; Visit Provider Dietitian, Registered
DX: E11.42 Type 2 diabetes mellitus with diabetic polyneuropathy (principal)

== ENCOUNTER → 2024-01-24 10:01 | Outpatient (BNVA) | payer OTHER, SELFPAY | PROVIDERS: PCP Internal Medicine; Visit Provider Dietitian, Registered | DX: E11.42 Type 2 diabetes mellitus with diabetic polyneuropathy (principal) | CPT/HCPCS: 97802 ==

== ENCOUNTER 2024-07-14 09:02 | Outpatient (REF) | payer OTHER, SELFPAY ==
[2024-07-14 09:59] LABS: MANUAL DIFF FLAG NO
[2024-07-14 10:03] LABS: Basophils Percent Auto 0.5 % (0-2); Eosinophils Absolute Auto 0.2 X10*3/uL (0.0-0.4); Eosinophils Percent Auto 2.4 % (0-4); Hematocrit 44.5 % (42.0-52.0); Hemoglobin 14.3 g/dl (14.0-18.0); Imm Gran Abs Auto 0.04 X10*3/uL (0.00-0.03); Imm Gran Pct Auto 0.5 % (0.0-0.4); Lymphocytes Absolute Auto 1.8 X10*3/uL (1.2-4.9); Lymphocytes Percent Auto 24.6 % (20-40); Mean Corpuscular HGB Conc 32.1 g/dl (31.0-36.0); Mean Corpuscular Hemoglobin 26.8 pg (27.0-33.0); Mean Corpuscular Volume 83.5 fL (80.0-98.0); Mean Platelet Volume 10.7 fL (9.4-12.4); Monocytes Absolute Auto 0.6 X10*3/uL (0.1-1.2); Monocytes Percent Auto 7.7 % (2-11); Neutrophils Absolute Auto 4.8 x10*3/uL (2.0-8.3); Neutrophils Percent Auto 64.3 % (45-73); Platelet Count 203 X10*3/uL (160-400); Red Blood Count 5.33 X10*6/uL (4.60-5.80); Red Cell Distribution Width 14.5 % (11.0-16.0); White Blood Count 7.4 X10*3/uL (4.8-10.8)
[2024-07-14 10:20] LABS: Alanine Aminotransferase 36 U/L (0-40); Albumin Level 3.9 g/dL (3.5-5.0); Alkaline Phosphatase 134 U/L (39-117); Anion Gap 10 (12-20); Aspartate Amino Transferase 31 U/L (5-37); Bilirubin Total 0.7 mg/dL (0.0-1.0); Blood Urea Nitrogen 10 mg/dL (9-16); Calcium 9.6 mg/dL (8.4-10.2); Carbon Dioxide 30 mmol/L (22-29); Chloride 102 mmol/L (96-108); Cholesterol 122 mg/dL (<200); Estimated Glomerular Filt Rate > 60; Glucose Fasting 188 mg/dL (60-99); HDL Cholesterol 31 mg/dL (>40); LDL Cholesterol Calculated 70 mg/dL (<100); Potassium 3.8 mmol/L (3.3-5.1); Sodium 138 mmol/L (135-145); Total Protein 7.1 g/dL (6.5-8.0); Triglycerides 105 mg/dL (<150)
[2024-07-14 10:29] LABS: Estimated Average Glucose 200 mg/dL; Hemoglobin A1C 244.7683 umol/L; Hemoglobin A1c % 8.6 % (<6.0); Total Hemoglobin (HGBA1C) 3456.6278 umol/L
[2024-07-14 10:47] LABS: Creatinine Urine 171.01 mg/dL; Microalbum/Creatinine Ratio Ur 8.7 ug/mg cr (<30)
== END 2024-07-14 09:03 | disposition home or self-care (01) ==
LOC: HO.HMGCLDS 09:02
PROVIDERS: PCP Internal Medicine; Visit Provider Internal Medicine
DX: I10 Essential (primary) hypertension (principal); E78.5 Hyperlipidemia, unspecified; E11.42 Type 2 diabetes mellitus with diabetic polyneuropathy
CPT/HCPCS: 36415; 80053; 80061; 82043; 82570; 83036; 85025

== ENCOUNTER 2024-07-15 12:25 | Outpatient (AMB) | payer OTHER, SELFPAY ==
[2024-07-15 12:31] VITALS: BP 136/82; PULSE 96; O2SAT 92; BMI 57.5
--- NOTE | 2024-07-15 12:31 | MHC.PC.OV ---
Vital Signs 07/15/24 12:31 Height 6 ft 3 in Weight 460 lb BMI 57.5 BP 136/82 Blood Pressure Location Lt brachial Position Sitting Pulse 96 Pulse Source Pulse Oximeter Pulse Oximetry (%) 92 Oxygen Delivery Method Room Air Intake Visit Reasons: 3M F/U diabetic - see comments Intake Note: Pt is here today for 3 months follow up visit on DM. Allergies canagliflozin [Invokana] Adverse Reaction (Unknown, Verified 07/15/24 12:49) rash Medication List - Last Reconciled 07/15/24 by Lexie Lima MD amlodipine 10 mg PO DAILY atorvastatin 10 mg PO DAILY buspirone 10 mg PO TID comp.stocking,thigh,long,x-lrg 1 qd Dexcom G7 Sensor (blood-glucose sensor) As directed NS flash glucose scanning reader (FreeStyle Bobby 14 Day [place]) As directed flash glucose sensor As directed FreeStyle Bobby 14 Day Sensor (flash glucose sensor) As directed NS hydrochlorothiazide 25 mg PO DAILY insulin degludec (Tresiba FlexTouch U-200 insulin) 48 units (0.24 mL) subcut BEDTIME losartan 100 mg PO DAILY magnesium oxide 400 mg PO DAILY metformin 1,000 mg PO BID metoprolol succinate ER 200 mg PO DAILY Mounjaro (tirzepatide) 15 mg (0.5 mL) subcut QWEEK NS pen needle, diabetic (BD Ultra-Fine Lisa Pen Needle) As directed once daily sertraline 50 mg PO DAILY Tobacco use date assessed: 07/15/24 Dental Screening Dental Screen Date: 01/15/24 HPI 3M F/U diabetic - see comments HPI Details Patient presents for the follow-up on hypertension hyperlipidemia type 2 diabetes morbid obesity. Patient has not been compliant with ADA diet , gaining weight and not exercising because of bilateral knee pain. He has not been checking his blood glucose regularly would like to get a new Dexcom sensor [facility] Medical History Obesity due to excess calories Annual physical exam MARK (obstructive sleep apnea) Normal colonoscopy Diabetic polyneuropathy associated with type 2 diabetes mellitus Hypertension Dyslipidemia Morbid obesity Diabetes type 2, controlled Surgical History History of surgery of head Hx of cholecystectomy Family History Father No problems noted. Mother Arthritis Brother Stroke Social History Housing: House Alcohol intake: current Alcohol intake frequency: holidays/special occasions only Patient Tobacco Use Status: Never used Tobacco e-Cigarette/Vaping Use: Never Used service: No Current occupational status: employed Cognitive needs: No Hearing needs: No Vision needs: No Questionnaire PHQ-9 Over the last 2 weeks, how often have you been bothered by any of the following problems? 1. Little interest or pleasure in doing things: not at all 2. Feeling down, depressed, or hopeless: not at all 3. Trouble falling or staying asleep, or sleeping too much: not at all 4. Feeling tired or having little energy: several days 5. Poor appetite or overeating: several days 6. Feeling bad about yourself - or that you are a failure or have let yourself or your family down: not at all 7. Trouble concentrating on things, such as reading the newspaper or watching television: not at all 8. Moving or speaking so slowly that other people could have noticed. Or the opposite - being so fidgety or restless that you have been moving around a lot more than usual: not at all 9. Thoughts that you would be better off or of hurting yourself in some way: not at all Total score: 2 Depression Screening Interpretation: Negative Depression Screening Done: Yes 69132 - PHQ-9 Billing: Yes Source: Developed by Drs. Gaurav Dalton, Shira De La Vega, Jordin Nash and colleagues, with an educational bassem from [employer]. Thrive Questionnaire Date Thrive assessed: 07/15/24 I am a: Patient What is your living situation today?: I have a steady place to live Within the past 12 months, did the food you bought not last and you didn't have the money to get more?: I choose not to answer this question Within the past 12 months, did you worry whether your food would run out before you got money to buy more?: Never true Do you have trouble paying for medicines?: No Do you have trouble getting transportation to medical appointments?: No Do you have trouble paying your heating and electricity bill?: No Do you have trouble taking care of your child, family member or friend?: No Do you have trouble with day-to-day activities such as bathing, preparing meals, shopping, managing finances, etc.?: No Are you currently unemployed and looking for a job?: Yes Are you interested in more education?: No Please select the resources that you would like help with: None Currently or been in a relationship where the following occur: No concerns reported THRIVE Score: 0 AUDIT C Alcohol Use Questionnaire (AUDIT-C) 1. How often do you have a drink containing alcohol?: Never 3. How often do you have six or more drinks on one occasion?: Never Total Score: 0 BRIDGETT-7 AMB Questionnaire BRIDGETT-7 Date BRIDGETT - 7 assessed: 07/15/24 Feeling nervous, anxious, or on edge: 0 = Not at all Not being able to stop or control worryin = Not at all Worrying too much about different things: 0 = Not at all Trouble relaxin = Not at all Being so restless that it is hard to sit still: 0 = Not at all Becoming easily annoyed or irritable: 0 = Not at all Feeling afraid as if something awful might happen: 0 = Not at all Total BRIDGETT-7 score (0-4 normal; 5-9 mild; 10-14 moderate; 15-21 severe): 0 Source: Developed by Drs. Gaurav Dalton, Shira De La Vega, Jordin Nash and colleagues, with an educational bassem from [employer]. BRIDGETT-7 Assessment Billing BRIDGETT-7 Assessment Tool: BRIDGETT-7 Assessment 30166 Review of Systems Const All systems reviewed & are unremarkable except as noted in HPI and below Eyes Reports no additional complaints ENT Reports no additional complaints Card Reports no additional complaints Resp Reports no additional complaints GI Reports no additional complaints Reports no additional complaints Physical exam (Primary Care) Vital Signs: Last Vital Signs Pulse 96 07/15/24 12:31 BP 136/82 07/15/24 12:31 Pulse Ox 92 07/15/24 12:31 Oxygen Delivery Method Room Air 07/15/24 12:31 BMI result Body Mass Index 57.5 Tobacco/Smoking Status: Tobacco use Status Tobacco use date assessed 07/15/24 07/15/24 12:33 Patient Tobacco Use Status Never used Tobacco 07/15/24 12:33 e-Cigarette/Vaping Use Never Used 07/15/24 12:31 PHQ-9: PHQ-9 Score PHQ-9: Total score 2 07/15/24 13:15 Depression Screening Interpretation: Negative Thrive Assessment: Date of Thrive Assessment Date Thrive assessed 07/15/24 07/15/24 13:15 Currently or been in a relationship where the following occur: No concerns reported Const General: no acute distress HENMT Head: Yes normal to inspection Resp Effort & Inspection: normal respiratory effort Auscultation: clear to auscultation bilaterally Cardio Rhythm: regular rhythm Heart sounds: S1 normal heart sound present and S2 normal heart sound present GI Inspection: Yes normal to inspection Palpation (GI): Soft to palpation Percussion: Yes normal to percussion Auscultation: normal bowel sounds Extrem Other: Decreased range of motion and crepitus of both knees Coding Level of Care Code Est Pt Level 4 (75567) Diagnoses Essential hypertension I10 Hypertension type: essential hypertension Dyslipidemia E78.5 Controlled type 2 diabetes mellitus with diabetic polyneuropathy, without long-term current use of insulin E11.42 Diabetes mellitus complication detail: with polyneuropathy Diabetes mellitus complication status: with neurologic complications Diabetes mellitus long term care social worker insulin use: without senior care use Morbid obesity E66.01 Bilateral knee pain M25.561; M25.562 Additional Codes BRIDGETT-7 Assessment Billing - BRIDGETT-7 Assessment Tool: BRIDGETT-7 Assessment 67969 ([id number]) PHQ-9 - 29582 - PHQ-9 Billing: Yes ([id number]) Assessment & Plan Assessment & Plan (1) Hypertension: Code(s): I10 - Essential (primary) hypertension Category: Medical Qualifiers: Hypertension type: essential hypertension Qualified Code(s): I10 - Essential (primary) hypertension Plan: Continue current medications (2) Dyslipidemia: Code(s): E78.5 - Hyperlipidemia, unspecified Category: Medical Plan: Continue statin (3) Diabetes type 2, controlled: Code(s): E11.9 - Type 2 diabetes mellitus without complications Category: Medical Qualifiers: Diabetes mellitus complication detail: with polyneuropathy Diabetes mellitus complication status: with neurologic complications Diabetes mellitus long term care social worker insulin use: without senior care use Qualified Code(s): E11.42 - Type 2 diabetes mellitus with diabetic polyneuropathy Plan: A1c is 8.6, ADA diet increase exercise weight loss discussed with the patient continue current medications. patient will try Dexcom to improve glycemic control and detect hypoglycemia. Jardiance 10 mg daily will be added. Follow-up in 3 months with a fasting labs before (4) Morbid obesity: Code(s): E66.01 - Morbid (severe) obesity due to excess calories Category: Medical Plan: Decrease caloric intake increasing physical activity weight loss discussed with the patient (5) Bilateral knee pain: Comment: X-rays showed advanced osteoarthritis Code(s): M25.561 - Pain in right knee; M25.562 - Pain in left knee Category: Medical Plan: Referred to physical therapy Orders: Orders Hemoglobin A1c 3 Months E11.42 - Type 2 diabetes mellitus with diabetic polyneuropathy, E66.01 - Morbid (severe) obesity due to excess calories, E78.5 - Hyperlipidemia, unspecified, I10 - Essential (primary) hypertension Complete Blood Count Auto Diff 3 Months E11.42 - Type 2 diabetes mellitus with diabetic polyneuropathy, E66.01 - Morbid (severe) obesity due to excess calories, E78.5 - Hyperlipidemia, unspecified, I10 - Essential (primary) hypertension Lipid Panel 3 Months E11.42 - Type 2 diabetes mellitus with diabetic polyneuropathy, E66.01 - Morbid (severe) obesity due to excess calories, E78.5 - Hyperlipidemia, unspecified, I10 - Essential (primary) hypertension Microalbumin, Random (w Creat) 3 Months E11.42 - Type 2 diabetes mellitus with diabetic polyneuropathy, E66.01 - Morbid (severe) obesity due to excess calories, E78.5 - Hyperlipidemia, unspecified, I10 - Essential (primary) hypertension PT Evaluation and Treatment Today M25.561 - Pain in right knee, M25.562 - Pain in left knee Comprehensive [place]. Panel Fast 3 Months E11.42 - Type 2 diabetes mellitus with diabetic polyneuropathy, E66.01 - Morbid (severe) obesity due to excess calories, E78.5 - Hyperlipidemia, unspecified, I10 - Essential (primary) hypertension Medications: New Dexcom G7 Sensor (blood-glucose sensor) As directed 3 ea 4RF NS empagliflozin (Jardiance) 10 mg PO DAILY 90 tabs 3RF Refilled hydrochlorothiazide 25 mg PO DAILY 90 tabs 3RF I10 - Essential (primary) hypertension amlodipine 10 mg PO DAILY 90 tabs 3RF I10 - Essential (primary) hypertension atorvastatin 10 mg PO DAILY 90 tabs 3RF E78.5 - Hyperlipidemia, unspecified losartan 100 mg PO DAILY 90 tabs 3RF I10 - Essential (primary) hypertension
== END 2024-07-15 13:40 | disposition home or self-care (01) ==
PROVIDERS: PCP Internal Medicine; Visit Provider Internal Medicine
DX: E11.42 Type 2 diabetes mellitus with diabetic polyneuropathy (principal); E66.01 Morbid (severe) obesity due to excess calories; Z68.43 Body mass index [BMI] 50.0-59.9, adult; M25.561 Pain in right knee; I10 Essential (primary) hypertension; E78.5 Hyperlipidemia, unspecified; M25.562 Pain in left knee

== ENCOUNTER 2024-09-04 09:00 | Outpatient (RCR) | payer OTHER, SELFPAY ==
--- NOTE | 2024-08-20 10:48 | MHC.PT.EP ---
[facility] Office [place] Office [place] Office [address] [phone] F: [phone] F: [phone] F: [phone] F: [phone] Physical Therapy Plan of Care Date of Evaluation: 08/20/24 Date of Surgery: Diagnosis: bilateral knee pain Assessment: Patient is a 54 year old R handed male who presents with s/s consistent with bilateral knee pain. He is not working and is fairly sedentary. Patient past medical history includes obesity. Current impairments include pain, balance, ROM, strength, activity tolerance and functional mobility. Functional limitations include decreased ability to transer, stand, negotiate stairs, and being on feet for prolonged periods of time. Patient is motivated with good rehab potential. Skilled PT will address impairments and functional limitations in order to achieve goals. Frequency and Duration: The patient will be seen 2x/week for 5 weeks Short Term Goals: I with HEP - 2weeks AROM 0-120 - 3 weeks Able to walk 20 minutes without increased pain - 3 weeks Senior Living Goals: LEFS 50/80 - 5 weeks Strength 4/5 grossly - 5 weeks Max pain with ADLs 3/10 - 5 weeks Treatment Plan: Modalities to reduce pain, spasms and effusion. Manual therapy to restore motion and function. Therapeutic exercise to improve strength and flexibility. Neuromuscular re-education for posture and balance. Therapeutic activities to return to functional activities of daily living. Electronically signed by: Abdias Fu PT Please sign and return to therapist. Thank you for your referral.
--- NOTE | 2024-10-08 14:10 | MHC.PT.DC ---
[facility] [place] Office [place] Office [place] Office [address] [phone] F: [phone] F: [phone] F: [phone] F: [phone] Physical Therapy Discharge Report Diagnosis: bilateral knee pain Date of Surgery: Date of Evaluation: 08/20/24 Date of Discharge: Treatments to Date: 3 Cancellations to Date: No Shows to Date: Discharge Status: Independent with HEP Patient Elected to Stop Discharge Summary: 09/04/24: pt able to progress well today. we will continue to assess response and progress HEP NV. 08/26/24: progressed with strength, flex and activity. no adverse reactions. continue to progress as tolerated. Patient is a 54 year old R handed male who presents with s/s consistent with bilateral knee pain. He is not working and is fairly sedentary. Patient past medical history includes obesity. Current impairments include pain, balance, ROM, strength, activity tolerance and functional mobility. Functional limitations include decreased ability to transer, stand, negotiate stairs, and being on feet for prolonged periods of time. Patient is motivated with good rehab potential. Skilled PT will address impairments and functional limitations in order to achieve goals. Electronically signed by: Abdias Fu, PT Please sign and return to therapist. Thank you for your referral.
== END 2024-10-08 14:10 | disposition home or self-care (01) ==
LOC: HO.PTCHIC 09:00
PROVIDERS: PCP Internal Medicine; Visit Provider Internal Medicine
DX: M25.561 Pain in right knee (principal); M25.562 Pain in left knee
CPT/HCPCS: 97110; 97162

== ENCOUNTER 2024-09-06 11:08 | Outpatient (AMB) | payer OTHER, SELFPAY ==
[2024-09-06 13:30] VITALS: BP 118/82; PULSE 69; RESP 16; TEMP 36.8; O2SAT 95; BMI 57.2
--- NOTE | 2024-09-06 13:30 | MHC.OFFWIV ---
Intake Vital Signs 09/06/24 13:30 Height 6 ft 3 in Weight 458 lb BMI 57.2 BP 118/82 Blood Pressure Location Lt brachial Position Sitting Respiration 16 Pulse 69 Pulse Source Pulse Oximeter Temp 98.2 F Temp Source Oral Pulse Oximetry (%) 95 Oxygen Delivery Method Room Air Intake Visit Reasons: EP-Fell home, Rt side of body pain. Intake Note: Pt is here today c/o Rt side of body pain due to a fall in his driveway on ice, x4days ago: denies hitting head Patient Tobacco Use Status: Never used Tobacco Allergies canagliflozin [Invokana] Adverse Reaction (Unknown, Verified 09/06/24 13:30) rash HPI EP-Fell home, Rt side of body pain. HPI Details Patient is a 54-year-old morbidly obese male with a history of obstructive sleep apnea and diabetes who comes to the walk-in clinic 2 days after he slipped on ice and fell onto his right anterior chest wall and shoulder area. He denies hitting his head, loss of consciousness, headache or dizziness, disequilibrium, memory changes, vision changes, or other significant associated TBI symptoms. He also denies neck or spine pain. 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 He reports that he had pain with lifting and carrying the groceries, and has pain with movement, especially with standing up. He also has pain with deep respirations, although he denies shortness of breath, cough, fever or chills, fatigue, myalgias or malaise, headache or dizziness, nausea vomiting or diarrhea, or other systemic infection associated symptoms. He reports history of a subdural head bleed last winter when he had a similar slip and fall on ice, but struck his head that time. He is on no blood thinners currently. HPI Comments History of Present Illness Details Patient is a 54-year-old male COUNT INCLUDES THE [facility] Medical History Obesity due to excess calories Annual physical exam MARK (obstructive sleep apnea) Normal colonoscopy Diabetic polyneuropathy associated with type 2 diabetes mellitus Hypertension Dyslipidemia Morbid obesity Diabetes type 2, controlled Surgical History History of surgery of head Hx of cholecystectomy Family History Father No problems noted. Mother Arthritis Brother Stroke Social History Housing: House Alcohol intake: current Alcohol intake frequency: holidays/special occasions only Patient Tobacco Use Status: Never used Tobacco e-Cigarette/Vaping Use: Never Used service: No Current occupational status: employed Cognitive needs: No Hearing needs: No Vision needs: No Review of Systems Const All systems reviewed & are unremarkable except as noted in HPI and below Physical Exam Vital Signs: Last Vital Signs Temp 98.2 F 09/06/24 13:30 Pulse 69 09/06/24 13:30 Resp 16 09/06/24 13:30 BP 118/82 09/06/24 13:30 Pulse Ox 95 09/06/24 13:30 Oxygen Delivery Method Room Air 09/06/24 13:30 BMI result Body Mass Index 57.2 Const General: cooperative, alert, awake, Physically active, in distress (He shows distress with position changes, especially sitting to standing) not respiratory and well groomed; No comfortable, anxious, diaphoretic, ill appearing, intoxicated appearing, poor hygiene or tired appearing Nutritional Appearance: obese Orientation/consciousness: patient oriented x3 Limitations: no limitations Neck Neck: Yes full ROM Chest Other: Tender to palpation of the right anterior maxillary chest wall, with palpable contusion, but no chest wall deformity, flail chest segment, or paradoxical chest wall movement. Chest palpation & inspection: localized rib tenderness with anteroposterior compression Resp Effort & Inspection: normal respiratory effort, able to speak in complete sentences, no audible wheezes, no cough, no grunting, not labored, no nasal flaring, no pursed lip breathing, no respiratory distress, no retractions, no segmental paradox chest wall movement, no stridor, not tachypneic, no tripod positioning, no use of accessory muscles, No prolonged expiratory phase and symmetric chest movement Auscultation: clear to auscultation bilaterally, no crackles, no rales, no rhonchi, no wheezes, diminished lung sounds (Right more than left) and No rub present Cardio Palpation: normal PMI Rate: regular rate Rhythm: regular rhythm Heart sounds: S1 normal heart sound present and S2 normal heart sound present Skin Other: Good color, warm and dry Neuro General: patient oriented x3 Extrem Right upper extremity: full ROM (PROM, but limited AROM due to chest wall pain), shoulder/upper arm Details: tenderness (Anterior aspect); no swelling and Extremity exam: right hand Details: normal capillary refill, neuromotor exam normal and neurosensory exam normal; no cyanosis and no edema Psych Appearance: grossly normal Mental Status: mental status grossly normal Speech and movement: Normal speech and movement present Affect: normal affect Attitude: cooperative Thought process: Normal thought process present Insight: Good insight present (Psych) Judgement: Good judgement present (Psych) Results Reviewed Results Reviewed: Right-sided ribs and chest view x-rays obtained today. No obvious rib fractures noted, although difficult to determine for sure based on visible lung masses that resemble large nodes. Pending radiologist's stat read to confirm Assessment & Plan Assessment & Plan (1) Chest wall injury: Code(s): S29.9XXA - Unspecified injury of thorax, initial encounter Qualifiers: Encounter type: initial encounter Qualified Code(s): S29.9XXA - Unspecified injury of thorax, initial encounter Plan: Patient is a 54-year-old morbidly obese male with a history of obstructive sleep apnea and diabetes who comes to the walk-in clinic 2 days after he slipped on ice and fell onto his right anterior chest wall and shoulder area. No apparent head injury. At rest he appears stable, in mild distress only and in no respiratory distress. However with position changes (especially sitting to standing) and with deep respirations, he is in moderate apparent distress. His oxygen saturation is 95% on room air, which is better than on prior visits and his lung sounds are diminished on the right more than the left however, and this might be due to his pain. He has no visible trauma to his right chest wall, however he is mildly swollen to palpation to the anterior axillary chest wall area, and very tender there. He is also tender with anterior-posterior compression. His lung sounds are clear, but difficult to auscultate due to habitus and his restricted respirations. He has no cough, and no work of breathing however. His right shoulder exam is only remarkable for anterior joint line tenderness, and restricted range of motion actively, likely due to pain, however as he is not restricted in passive range of motion. His plain film x-ray of the right shoulder looks unremarkable, and I do not see an obvious rib deformity on the rib xrays. However, is difficult to visualize the ribs due to diffuse masses in the right lung gonzales. There is no history of this on prior reads, but radiologist read is pending. In meantime, we discussed that it is possible that he has developed pneumonia, and that he needs to do incentive breathing and monitor his condition closely. It is also possible that he has an occult or hairline rib fracture due to his pain level with movement, and we discussed how finding of the ribs is no longer appropriate treatment, and that he needs due rest, and maintain adequate respiratory status. We discussed a call back with the x-ray results, as the clinic is closing but I can keep monitoring for results. I am attempting to get a stat read from Radiology. I will send him over pain management meds in the meantime. He has tolerated oxycodone in the past, with no risk of addiction per chart. So Percocet 5 mg written for him at this time, and I advised that he be sure to use his CPAP machine with use at night, due to obstructive sleep apnea history. We discussed that he should continue close monitoring and he knows to go to the emergency department with worsening symptoms. If he continues outpatient, he might need follow up next week with PCP if possible, or again at the walk-in if needed. I will have MA reach out to him to schedule a follow up once we have confirmation of his x-ray. Orders: Orders XR ribs RT min 3V w CXR1V Today T14.90XA - Injury, unspecified, initial encounter XR shoulder RT min 2V Today T14.90XA - Injury, unspecified, initial encounter Medications: New amoxicillin-pot clavulanate 875-125 mg 1 tab PO BID 10 tabs 0RF oxycodone-acetaminophen 5-325 mg (Percocet) Partial Fill upon patient request. 1 tab PO Q4-6H PRN 12 tabs 0RF pain, severe 4 days azithromycin For 250 mg dose pack: take 500 mg today (day 1), then 250 mg for 4 days (days 2-5) PO 6 tabs 0RF Coding Level of Care Code Est Pt Level 4 (09146) Diagnoses Injury of chest wall, initial encounter S29.9XXA Encounter type: initial encounter
== END 2024-09-06 14:42 | disposition home or self-care (01) ==
LOC: HO.HMCWIC 11:08
PROVIDERS: PCP Internal Medicine; Visit Provider Physician Assistant Medical
DX: S29.9XXA Unspecified injury of thorax, initial encounter (principal)

== ENCOUNTER 2024-09-06 11:08 | Outpatient (REF) | payer OTHER, SELFPAY ==
--- NOTE | ~2024-09-06 | XR_ITS ---
CLINICAL HISTORY: T14.90XA - Injury, unspecified, initial encounter 3 view right shoulder Comparison: None Findings: Bones intact. No dislocations. No significant arthritic change. No erosions. No radiopaque foreign body. IMPRESSION: 1. No acute findings This document has been electronically signed by: Clifford Schmitt MD on 09/06/2024 15:10:03
--- NOTE | ~2024-09-06 | XR_ITS ---
CLINICAL HISTORY: T14.90XA - Injury, unspecified, initial encounter 4 view, chest and right ribs Comparison: None Findings: Bones intact. No dislocations. Moderate diffuse reticulonodular pulmonary opacity. IMPRESSION: 1. No acute rib fractures. 2. Moderate atypical pneumonia. This document has been electronically signed by: Clifford Schmitt MD on 09/06/2024 17:12:59
== END 2024-09-06 11:09 | disposition home or self-care (01) ==
LOC: HO.HMGCX 11:08
PROVIDERS: PCP Internal Medicine; Visit Provider Physician Assistant Medical
DX: S29.9XXA Unspecified injury of thorax, initial encounter (principal)
CPT/HCPCS: 71101; 73030; 99212

== ENCOUNTER → 2024-09-06 14:30 | Outpatient (BNV) | payer OTHER, SELFPAY | PROVIDERS: PCP Internal Medicine; Visit Provider Radiology Diagnostic Radiology | DX: R07.9 Chest pain, unspecified (principal) | CPT/HCPCS: 71250 ==

== ENCOUNTER 2024-09-06 21:57 | Inpatient (IN) | payer OTHER, SELFPAY ==
--- NOTE | ~2024-09-06 | CT_ITS ---
CLINICAL HISTORY: severe R sided chest pain CT chest without contrast Comparison: Chest x-ray from 09/13/2022 Findings: Mild multifocal pulmonary opacities nonspecific and may reflect pneumonitis/pneumonia with a opacities measuring up to 1 cm imaged left lung base. Mild additional atelectasis and scarring also present. No pneumothorax or pleural effusion. Mediastinal lipomatosis noted with mild cardiomegaly with multi chamber enlargement of the heart. No enlarged mediastinal lymphadenopathy in this noncontrast study. Steatotic change of the partially imaged liver. Degenerative changes include imaged spine and imaged manubrium articulation. IMPRESSION: 1. Mild pulmonary opacities are nonspecific and may reflect pneumonitis/pneumonia, including left lower lobe. Recommend attention on follow-up to ensure resolution. 2. Mild cardiomegaly. This document has been electronically signed by: Elmo Troy MD on 09/06/2024 23:47:45
--- NOTE | ~2024-09-06 | CT_ITS ---
CLINICAL HISTORY: pain hypoxia , Suboptimal study due to pt body habitus stopping table from moving f or scan CT angiography chest with contrast. With MIP MPR Postprocessing. Comparison: Chest CT from 09/06/2024 Findings: No definite central pulmonary embolism with artifacts and suboptimal imaging timing. Main pulmonary artery measures 4 cm diameter as can be associated with pulmonary hypertension. Mild cardiomegaly with multi chamber enlargement of the heart. Trace pericardial effusion. No new or enlarged mediastinal lymphadenopathy. Mild worsening bibasilar atelectasis/pneumonitis. No pneumothorax or pleural effusion. Volume loss of the imaged pancreas again noted in the partially imaged abdomen. The gallbladder is surgically absent. Mild degenerative changes of the imaged spine. Mild vertebral height losses appear old/chronic. IMPRESSION: 1. No definite central pulmonary embolism accounting for artifacts. 2. Mild worsening bibasilar atelectasis/pneumonitis. This document has been electronically signed by: Elmo Troy MD on 09/07/2024 00:58:51
[2024-09-06 22:59] VITALS: BP 151/82; PULSE 84; RESP 22; TEMP 36.7; O2SAT 86; BMI 57.1
--- NOTE | 2024-09-06 22:59 | ED.SOB ---
HPI - SOB/Dyspnea General Chief Complaint: Chest Pain Stated Complaint: moderate pneomonia/sent from Urgent care Time Seen by Provider: 09/06/24 23:17 Source: patient and old records reviewed Mode of arrival: ambulatory Limitations: no limitations History of Present Illness ED Provider: Heydi Galan PA-C HPI Narrative: 54 yo male with hx of morbid obesity, prior fall with SDH, not anticoagulated, hyperlipidemia, HTN, DM presents after fall that occurred 3 days ago. Patient states he slipped and fell landing on his right side. Since he has had severe right-sided chest pain. Patient states he has not been able to take a deep breath secondary to his pain. Patient states following his fall, he developed a productive cough and generalized malaise. When patient fell he did not strike his head there was no loss consciousness. Patient was seen by his primary care provider and told that he had pneumonia, with no rib fractures. Patient was advised to come to the emergency department for further assessment due to new onset hypoxia, the patient was 86% on room air. Related Data Home Medications ?Medication ?Instructions ?Recorded ?Confirmed buspirone 10 mg tablet 10 mg PO TID 09/29/22 07/15/24 magnesium oxide 400 mg PO DAILY 09/29/22 07/15/24 Previous Rx's ?Medication ?Instructions ?Recorded pen needle, diabetic 32 gauge x #100 ea 09/20/21 (BD Ultra-Fine Lisa Pen Needle) flash glucose sensor #2 ea 10/10/21 flash glucose scanning reader #2 ea 06/28/22 (FreeStyle Bobby 14 Day [place]) comp.stocking,thigh,long,x-lrg #1 ea 08/21/22 sertraline 50 mg tablet 50 mg PO DAILY #30 tabs 08/21/22 Mounjaro 15 mg/0.5 mL subcutaneous 15 mg (0.5 mL) subcut QWEEK #6 mL 01/15/24 pen injector (tirzepatide) metformin 1,000 mg tablet 1,000 mg PO BID #180 tabs 01/15/24 FreeStyle Bobby 14 Day Sensor #6 ea 05/12/24 (flash glucose sensor) insulin degludec 200 unit/mL (3 48 unit (0.24 mL) subcut BEDTIME 06/24/24 mL) subcutaneous pen (Tresiba #24 mL FlexTouch U-200 insulin) metoprolol succinate 200 mg 200 mg PO DAILY #90 tabs 07/13/24 tablet,extended release 24 hr Dexcom G7 Sensor (blood-glucose #3 ea 07/15/24 sensor) amlodipine 10 mg tablet 10 mg PO DAILY #90 tabs 07/15/24 atorvastatin 10 mg tablet 10 mg PO DAILY #90 tabs 07/15/24 empagliflozin 10 mg tablet 10 mg PO DAILY #90 tabs 07/15/24 (Jardiance) hydrochlorothiazide 25 mg tablet 25 mg PO DAILY #90 tabs 07/15/24 losartan 100 mg tablet 100 mg PO DAILY #90 tabs 07/15/24 Dexcom G7 Assistant Front Office Manager (blood-glucose #1 ea 08/13/24 meter,continuous) amoxicillin 875 mg-potassium 1 tab PO BID #10 tabs 09/06/24 clavulanate 125 mg tablet azithromycin 250 mg tablet See Rx Instructions PO .COMPLEX #6 09/06/24 tabs oxycodone-acetaminophen 5 mg-325 1 tab PO Q4-6H PRN pain, severe 4 09/06/24 mg tablet (Percocet) days #12 tabs Allergies Allergy/AdvReac Type Severity Reaction Status Date / Time canagliflozin [Invokana] AdvReac Unknown rash Verified 09/06/24 23:00 Review of Systems Review of Systems: Yes all other systems are reviewed and are negative Constitutional: Constitutional: Reports fatigue, Denies fever(s) and Reports malaise Cardiovascular: Cardiovascular: Reports chest pain and Reports dyspnea Respiratory: Respiratory: Reports chest congestion, Reports cough, Reports dyspnea and Denies wheezing Gastrointestinal: Gastrointestinal: Denies abdominal pain, Denies nausea and Denies vomiting Endocrine: Endocrine: Reports fatigue Allergic/Immunologic: Allergic/Immunologic: Denies wheezing PMF Past Medical History Attestation statement: The following information was validated with the patient. Medical History Obesity due to excess calories Annual physical exam MARK (obstructive sleep apnea) Normal colonoscopy Diabetic polyneuropathy associated with type 2 diabetes mellitus Hypertension Dyslipidemia Morbid obesity Diabetes type 2, controlled Surgical History History of surgery of head Hx of cholecystectomy Family History Family History Father No problems noted. Mother Arthritis Brother Stroke Social History Social History Housing: House Alcohol intake: current Alcohol intake frequency: holidays/special occasions only Patient Tobacco Use Status: Never used Tobacco e-Cigarette/Vaping Use: Never Used Advance Directives: No Advance Directives Information Provided: Yes service: No Current occupational status: employed Cognitive needs: No Hearing needs: No Vision needs: No Physical Exam Vital Signs: Vital Signs: Last Vital Signs Temp 98.0 F 09/06/24 22:59 Pulse 84 09/06/24 22:59 Resp 22 H 09/06/24 22:59 BP 151/82 H 09/06/24 22:59 Pulse Ox 86 L 09/06/24 22:59 O2 Del Method Room Air 09/06/24 22:59 BMI result Body Mass Index 57.1 Const: Other: Alert, appears older than stated age Orientation/consciousness: patient oriented x3 Resp: Other: Tachypneic, splinting with inspiration Cardio: Other: Normal peripheral perfusion Skin: Other: Warm dry no rash Neuro: General: patient oriented x3, no focal motor deficits and CN's II-XI intact bilaterally Psych: Other: Cooperative Course Course Course Narrative: 54 yo male with PMH of HLD, obesity, prior fall and SDH but not on thinners, HTN, DM he notes he fell on and did not hit head or have LOC - he reports since then he cannot move because his breathing is so painful. He went to walk in clinic today had rib xrays but no trauma noted. He was found to have multifocal pneumonia referred to ED. He does admit to dyspnea, cough, sputum and not feeling well. He was not sick before he fell. He cannot take a deep breath. At this time EKG, basic labs, CT scan of chest. this is a RAPID medical screening exam the rest of the history and physical exam is to be done by the main provider. Reevaluation(s) Reevaluation #1: Considering sepsis, blood cultures in process, lactic resulted at 2.8, starting empiric antibiotics, he has evidence of pneumonia on chest CT. He is normotensive, he does not require weight based IV fluid therapy, we will give a 500 mL bolus. He is afebrile. Time: 23:37 Medications Administered Generic Name Dose Route Start Last Admin Trade Name Freq PRN Reason Stop Dose Admin Azithromycin 500 mg/ Sodium 250 mls @ 125 mls/hr 09/07/24 00:21 09/07/24 01:03 Chloride IV 09/07/24 02:20 125 mls/hr ONCE ONE Administration Sodium Chloride 500 mls @ 500 mls/hr 09/07/24 00:26 09/07/24 01:03 Ns IV 09/07/24 01:25 500 mls/hr .Q1H ONE Administration Discontinued Medications Generic Name Dose Route Start Last Admin Trade Name Freq PRN Reason Stop Dose Admin Ceftriaxone Sodium 2 gm 09/07/24 00:21 09/07/24 01:02 Ceftriaxone Sodium 2 Gm Vial IVPUSH 09/07/24 00:22 2 gm ONCE ONE Administration Iohexol 100 ml 09/07/24 00:20 09/07/24 00:21 Iohexol 350 Mg/Ml 100 Ml Infus..Btl IV 09/07/24 00:21 100 ml ONCE ONE Administration Morphine Sulfate 10 mg 09/06/24 23:45 09/06/24 23:49 Morphine Sulfate 10 Mg/Ml Cartridge IVPUSH 09/06/24 23:46 10 mg ONCE ONE Administration Protocol Medical Decision Making Medical Decision Making MDM Narrative: 54 yo male with hx of morbid obesity, prior fall with SDH, not anticoagulated, hyperlipidemia, HTN, DM presents after fall that occurred 3 days ago. Patient states he slipped and fell landing on his right side. Since he has had severe right-sided chest pain. Patient states he has not been able to take a deep breath secondary to his pain. Patient states following his fall, he developed a productive cough and generalized malaise. When patient fell he did not strike his head there was no loss consciousness. Patient was seen by his primary care provider and told that he had pneumonia, with no rib fractures. Patient was advised to come to the emergency department for further assessment due to new onset hypoxia, the patient was 86% on room air. Problem: Obesity, diabetes History: Per patient I have considered the following differential diagnoses: Occult rib fractures, pneumonia, PE, ACS, new heart failure, sepsis, viral syndrome Plan: Sepsis secondary to respiratory etiology is the greatest concern, the patient has had cough and cold symptoms, now with new hypoxia and report of pneumonia on outpatient chest x-ray. In addition to screening labs, blood cultures and a lactic acid we will be obtained. The patient was afebrile, normotensive, he does not require the weight based IV fluid resuscitation per our sepsis protocol. We will be ordering ceftriaxone and azithromycin. A CT scan was obtained to better differentiate the pneumonia, and to rule out occult rib fractures. We will be giving morphine for the patient's pain. He is now on 4 L nasal cannula with an oxygen saturation of 90%. Thought about ACS, the patient does have multiple risk factors for coronary artery disease, a troponin and EKG were obtained. New heart failure was also considered, BNP was added. PE is of concern with new hypoxia, pleuritic chest discomfort, and there are EKG changes that are concerning for potential PE, S1Q3T3, we are deferring a dimer and obtaining a CT angio of the chest. I have independently reviewed the following tests: Labs: Slight leukocytosis, not anemic, no electrolyte abnormality, 1st lactic acid 2.8, troponin 3.8, BNP 60, viral panel negative EKG: Sinus rhythm with first-degree AV block, rate of 73, evidence of old inferior infarct, ST and T-wave abnormality anterior leads, QTC 456, S1Q3T3?? Chest CT:MPRESSION: 1. Mild pulmonary opacities are nonspecific and may reflect pneumonitis/pneumonia, including left lower lobe. Recommend attention on follow-up to ensure resolution. 2. Mild cardiomegaly. This document has been electronically signed by: Elmo Troy MD on 09/06/2024 23:47:45 CTA chest:Findings: No definite central pulmonary embolism with artifacts and suboptimal imaging timing. Main pulmonary artery measures 4 cm diameter as can be associated with pulmonary hypertension. Mild cardiomegaly with multi chamber enlargement of the heart. Trace pericardial effusion. No new or enlarged mediastinal lymphadenopathy. Mild worsening bibasilar atelectasis/pneumonitis. No pneumothorax or pleural effusion. Volume loss of the imaged pancreas again noted in the partially imaged abdomen. The gallbladder is surgically absent. Mild degenerative changes of the imaged spine. Mild vertebral height losses appear old/chronic. IMPRESSION: 1. No definite central pulmonary embolism accounting for artifacts. 2. Mild worsening bibasilar atelectasis/pneumonitis. This document has been electronically signed by: Elmo Troy MD on 09/07/2024 00:58:51 Lab Data 09/06/24 23:37 09/06/24 23:37 Labs: Lab Results 09/06/24 09/06/24 Range/Units 23:37 23:39 WBC 11.8 H (4.8-10.8) X10*3/uL RBC 5.77 (4.60-5.80) X10*6/uL Hgb 15.4 (14.0-18.0) g/dl Hct 47.5 (42.0-52.0) % MCV 82.3 (80.0-98.0) fL MCH 26.7 L (27.0-33.0) pg MCHC 32.4 (31.0-36.0) g/dl RDW 14.8 (11.0-16.0) % Plt Count 245 (160-400) X10*3/uL MPV 10.8 (9.4-12.4) fL Immature Gran % (Auto) 0.3 (0.0-0.4) % Neut % (Auto) 72.0 (45-73) % Lymph % (Auto) 17.8 L (20-40) % [place] % (Auto) 8.4 (2-11) % Eos % (Auto) 1.1 (0-4) % Baso % (Auto) 0.4 (0-2) % Lymph # (Auto) 2.1 (1.2-4.9) X10*3/uL [place] # (Auto) 1.0 (0.1-1.2) X10*3/uL Eos # (Auto) 0.1 (0.0-0.4) X10*3/uL Baso # (Auto) 0.1 (0.0-0.2) X10*3/uL Abs Immat Gran (auto) 0.04 H (0.00-0.03) X10*3/uL Absolute Neuts (auto) 8.5 H (2.0-8.3) x10*3/uL Absolute Nucleated RBC 0.000 (0.0-0.012) X10*3/uL Nucleated RBC % (auto) 0.0 (0.0-0.2) /100WBC Hold Blue Top SEE NOTE Sodium 139 (135-145) mmol/L Potassium 3.5 (3.3-5.1) mmol/L Chloride 106 (96-108) mmol/L Carbon Dioxide 21 L (22-29) mmol/L Anion Gap 16 (12-20) BUN 16 (9-16) mg/dL Creatinine 0.77 (0.5-1.4) mg/dL Estim Creat Clear Calc 204.8 Estimated GFR > 60 Random Glucose 185 H (60-115) mg/dL Lactic Acid 2.8 H* (0.5-2.0) mmol/L Calcium 10.0 (8.4-10.2) mg/dL Magnesium 2.2 (1.6-2.6) mg/dL Total Bilirubin 0.9 (0.0-1.0) mg/dL Direct Bilirubin 0.3 (0.0-0.5) mg/dL AST 21 (5-37) U/L ALT 26 (0-40) U/L Alkaline Phosphatase 97 (39-117) U/L Total Creatine Kinase 57 (38-174) U/L Troponin I High Sens 3.8 (<3.5-35.0) ng/L C-Reactive Protein 2.18 H (< or = 0.50) mg/dL B-Natriuretic Peptide 60 (<100) pg/mL Total Protein 8.0 (6.5-8.0) g/dL Albumin 4.1 (3.5-5.0) g/dL Lipase 16 (8-78) U/L Procalcitonin 0.04 ng/mL Hold Green Top See Note Influenza Type A (PCR) NEGATIVE (Negative) Influenza Type B (PCR) NEGATIVE (Negative) RSV RNA Qual (PCR) NEGATIVE (Negative) SARS-CoV-2 RNA (RT-PCR) NEGATIVE (Negative) Procedures Procedure Narrative Procedure Narrative: Ultrasound-guided IV. 20 gauge 2-1/2 inch IV placed in right upper extremity. Adequate blood return, flushes well secured with Tegaderm. Discharge Plan Discharge Clinical Impression: Pneumonia, Hypoxia Patient Disposition: Admitted As Inpatient Print Language: Kazakh
--- NOTE | 2024-09-06 23:01 | ECG_ITS ---
Test Reason : CP Blood Pressure : */* mmHG Vent. Rate : 73 BPM Atrial Rate : 73 BPM P-R Int : 214 ms QRS Dur : 112 ms QT Int : 414 ms P-R-T Axes : 26 53 12 degrees QTcB Int : 456 ms Sinus rhythm with 1st degree A-V block Possible Inferior infarct (cited on or before 31-Aug-2022) ST & T wave abnormality, consider anterior ischemia Abnormal ECG When compared with ECG of 31-Aug-2022 16:53, T wave inversion more evident in Anterior leads Referred By: Fatemeh Ballard Electronically Signed By: JAIME HARRIS
--- NOTE | 2024-09-06 23:20 | MHC.EDTECH ---
EKG delayed due to CT taken pt ,T/W was not aware,pt brought from CT to an ED bed
[2024-09-06 23:47] LABS: MANUAL DIFF FLAG NO
[2024-09-06] MEDS: Morphine Sulfate 10 MG/ML CARTRIDGE IVPUSH (23:49)
[2024-09-06 23:52] LABS: Basophils Absolute Auto 0.1 X10*3/uL (0.0-0.2); Basophils Percent Auto 0.4 % (0-2); Eosinophils Absolute Auto 0.1 X10*3/uL (0.0-0.4); Eosinophils Percent Auto 1.1 % (0-4); Hematocrit 47.5 % (42.0-52.0); Hemoglobin 15.4 g/dl (14.0-18.0); Imm Gran Abs Auto 0.04 X10*3/uL (0.00-0.03); Imm Gran Pct Auto 0.3 % (0.0-0.4); Lymphocytes Absolute Auto 2.1 X10*3/uL (1.2-4.9); Lymphocytes Percent Auto 17.8 % (20-40); Mean Corpuscular HGB Conc 32.4 g/dl (31.0-36.0); Mean Corpuscular Hemoglobin 26.7 pg (27.0-33.0); Mean Corpuscular Volume 82.3 fL (80.0-98.0); Mean Platelet Volume 10.8 fL (9.4-12.4); Monocytes Percent Auto 8.4 % (2-11); Neutrophils Absolute Auto 8.5 x10*3/uL (2.0-8.3); Platelet Count 245 X10*3/uL (160-400); Red Blood Count 5.77 X10*6/uL (4.60-5.80); Red Cell Distribution Width 14.8 % (11.0-16.0); White Blood Count 11.8 X10*3/uL (4.8-10.8)
[2024-09-07] VITALS (11 sets, daily range): BP systolic 113–132; BP diastolic 47–70; PULSE 63–69; RESP 16–26; TEMP 36.8–37.2; O2SAT 84–95
[2024-09-07 00:11] LABS: Lactic Acid 2.8 mmol/L (0.5-2.0)
[2024-09-07 00:13] LABS: Troponin-I High Sensitivity 3.8 ng/L (<3.5-35.0)
[2024-09-07 00:14] LABS: B Type Natriuretic Peptide 60 pg/mL (<100)
[2024-09-07 00:17] LABS: Alanine Aminotransferase 26 U/L (0-40); Albumin Level 4.1 g/dL (3.5-5.0); Alkaline Phosphatase 97 U/L (39-117); Anion Gap 16 (12-20); Aspartate Amino Transferase 21 U/L (5-37); Bilirubin Direct 0.3 mg/dL (0.0-0.5); Bilirubin Total 0.9 mg/dL (0.0-1.0); Blood Urea Nitrogen 16 mg/dL (9-16); C Reactive Protein 2.18 mg/dL (< or = 0.50); Carbon Dioxide 21 mmol/L (22-29); Chloride 106 mmol/L (96-108); Creatinine Clr Calc Pharmacy 204.8; Estimated Glomerular Filt Rate > 60; Glucose Random 185 mg/dL (60-115); Lipase 16 U/L (8-78); Magnesium 2.2 mg/dL (1.6-2.6); Potassium 3.5 mmol/L (3.3-5.1); Sodium 139 mmol/L (135-145)
[2024-09-07] MEDS: iohexoL 350 MG/ML 100 ML INFUS..BTL IV (00:21)
[2024-09-07 00:30] LABS: Procalcitonin 0.04 ng/mL
[2024-09-07 00:33] LABS: Influenza A PCR NEGATIVE (Negative); Influenza B PCR NEGATIVE (Negative); Resp Syncy Virus RNA Qual PCR NEGATIVE (Negative); SARS COV2 PCR INHOUSE NEGATIVE (Negative)
[2024-09-07] MEDS: cefTRIAXone sodium 2 GM VIAL IVPUSH (01:02)
[2024-09-07] MEDS: 0.9 % Sodium Chloride 500 ML IV (01:03)
[2024-09-07] MEDS: Azithromycin 500 MG in 0.9 % Sodium Chloride 250 ML 125 MG IV (01:03)
[2024-09-07 01:44] LABS: Reflex Lactate? Lactic Acid Added
[2024-09-07 01:48] LABS: Lactic Acid 1.3 mmol/L (0.5-2.0)
[2024-09-07 01:53] LABS: ABG HCO3 25 mmol/L (22-26); ABG pCO2 43 mmHg (32-45); ABG pH 7.37 (7.35-7.45); ABG pO2 64 mmHg (83-108)
[2024-09-07 01:54] LABS: Troponin-I High Sensitivity 3.2 ng/L (<3.5-35.0)
[2024-09-07 01:57] LABS: ABG Refer to POC result
--- NOTE | 2024-09-07 02:37 | ED.CHESTPAIN ---
HPI - Chest Pain General Chief Complaint: Chest Pain Stated Complaint: moderate pneomonia/sent from Urgent care Time Seen by Provider: 09/06/24 23:17 Source: patient and old records reviewed Mode of arrival: ambulatory Limitations: no limitations Related Data Home Medications ?Medication ?Instructions ?Recorded ?Confirmed buspirone 10 mg tablet 10 mg PO TID 09/29/22 07/15/24 magnesium oxide 400 mg PO DAILY 09/29/22 07/15/24 Previous Rx's ?Medication ?Instructions ?Recorded pen needle, diabetic 32 gauge x #100 ea 09/20/21/32 (BD Ultra-Fine Lisa Pen Needle) flash glucose sensor #2 ea 10/10/21 flash glucose scanning reader #2 ea 06/28/22 (FreeStyle Obbby 14 Day [place]) comp.stocking,thigh,long,x-lrg #1 ea 08/21/22 sertraline 50 mg tablet 50 mg PO DAILY #30 tabs 08/21/22 Mounjaro 15 mg/0.5 mL subcutaneous 15 mg (0.5 mL) subcut QWEEK #6 mL 01/15/24 pen injector (tirzepatide) metformin 1,000 mg tablet 1,000 mg PO BID #180 tabs 01/15/24 FreeStyle Bobby 14 Day Sensor #6 ea 05/12/24 (flash glucose sensor) insulin degludec 200 unit/mL (3 48 unit (0.24 mL) subcut BEDTIME 06/24/24 mL) subcutaneous pen (Tresiba #24 mL FlexTouch U-200 insulin) metoprolol succinate 200 mg 200 mg PO DAILY #90 tabs 07/13/24 tablet,extended release 24 hr Dexcom G7 Sensor (blood-glucose #3 ea 07/15/24 sensor) amlodipine 10 mg tablet 10 mg PO DAILY #90 tabs 07/15/24 atorvastatin 10 mg tablet 10 mg PO DAILY #90 tabs 07/15/24 empagliflozin 10 mg tablet 10 mg PO DAILY #90 tabs 07/15/24 (Jardiance) hydrochlorothiazide 25 mg tablet 25 mg PO DAILY #90 tabs 07/15/24 losartan 100 mg tablet 100 mg PO DAILY #90 tabs 07/15/24 Dexcom G7 Wallpaper Scraper (blood-glucose #1 ea 08/13/24 meter,continuous) amoxicillin 875 mg-potassium 1 tab PO BID #10 tabs 09/06/24 clavulanate 125 mg tablet azithromycin 250 mg tablet See Rx Instructions PO .COMPLEX #6 09/06/24 tabs oxycodone-acetaminophen 5 mg-325 1 tab PO Q4-6H PRN pain, severe 4 09/06/24 mg tablet (Percocet) days #12 tabs Allergies Allergy/AdvReac Type Severity Reaction Status Date / Time canagliflozin [Invokana] AdvReac Unknown rash Verified 09/06/24 23:00 [facility]LY [facility] Past Medical History Medical History Obesity due to excess calories Annual physical exam MARK (obstructive sleep apnea) Normal colonoscopy Diabetic polyneuropathy associated with type 2 diabetes mellitus Hypertension Dyslipidemia Morbid obesity Diabetes type 2, controlled Surgical History History of surgery of head Hx of cholecystectomy Family History Family History Father No problems noted. Mother Arthritis Brother Stroke Social History Social History Housing: House Alcohol intake: current Alcohol intake frequency: holidays/special occasions only Patient Tobacco Use Status: Never used Tobacco e-Cigarette/Vaping Use: Never Used Advance Directives: No Advance Directives Information Provided: Yes service: No Current occupational status: employed Cognitive needs: No Hearing needs: No Vision needs: No Physical Exam Vital Signs: Vital Signs: Last Vital Signs Temp 98.0 F 09/06/24 22:59 Pulse 84 09/06/24 22:59 Resp 22 H 09/06/24 22:59 BP 151/82 H 09/06/24 22:59 Pulse Ox 86 L 09/06/24 22:59 O2 Del Method Room Air 09/06/24 22:59 BMI result Body Mass Index 57.1 Medications Administered Discontinued Medications Generic Name Dose Route Start Last Admin Trade Name Freq PRN Reason Stop Dose Admin Ceftriaxone Sodium 2 gm 09/07/24 00:21 09/07/24 01:02 Ceftriaxone Sodium 2 Gm Vial IVPUSH 09/07/24 00:22 2 gm ONCE ONE Administration Azithromycin 500 mg/ Sodium 250 mls @ 125 mls/hr 09/07/24 00:21 09/07/24 01:03 Chloride IV 09/07/24 02:20 125 mls/hr ONCE ONE Administration Sodium Chloride 500 mls @ 500 mls/hr 09/07/24 00:26 09/07/24 01:03 Ns IV 09/07/24 01:25 500 mls/hr .Q1H ONE Administration Iohexol 100 ml 09/07/24 00:20 09/07/24 00:21 Iohexol 350 Mg/Ml 100 Ml Infus..Btl IV 09/07/24 00:21 100 ml ONCE ONE Administration Morphine Sulfate 10 mg 09/06/24 23:45 09/06/24 23:49 Morphine Sulfate 10 Mg/Ml Cartridge IVPUSH 09/06/24 23:46 10 mg ONCE ONE Administration Protocol Medical Decision Making Lab Data 09/06/24 23:37 09/06/24 23:37 Labs: Lab Results 09/06/24 09/06/24 09/07/24 Range/Units 23:37 23:39 01:29 WBC 11.8 H (4.8-10.8) X10*3/uL RBC 5.77 (4.60-5.80) X10*6/uL Hgb 15.4 (14.0-18.0) g/dl Hct 47.5 (42.0-52.0) % MCV 82.3 (80.0-98.0) fL MCH 26.7 L (27.0-33.0) pg MCHC 32.4 (31.0-36.0) g/dl RDW 14.8 (11.0-16.0) % Plt Count 245 (160-400) X10*3/uL MPV 10.8 (9.4-12.4) fL Immature Gran % (Auto) 0.3 (0.0-0.4) % Neut % (Auto) 72.0 (45-73) % Lymph % (Auto) 17.8 L (20-40) % [place] % (Auto) 8.4 (2-11) % Eos % (Auto) 1.1 (0-4) % Baso % (Auto) 0.4 (0-2) % Lymph # (Auto) 2.1 (1.2-4.9) X10*3/uL [place] # (Auto) 1.0 (0.1-1.2) X10*3/uL Eos # (Auto) 0.1 (0.0-0.4) X10*3/uL Baso # (Auto) 0.1 (0.0-0.2) X10*3/uL Abs Immat Gran (auto) 0.04 H (0.00-0.03) X10*3/uL Absolute Neuts (auto) 8.5 H (2.0-8.3) x10*3/uL Absolute Nucleated RBC 0.000 (0.0-0.012) X10*3/uL Nucleated RBC % (auto) 0.0 (0.0-0.2) /100WBC Hold Blue Top SEE NOTE O2 Saturation % ABG pH at Pt Temp (7.35-7.45) ABG pCO2 at Pt Temp (32-45) mmHg ABG pO2 at Pt Temp (83-108) mmHg ABG HCO3 (22-26) mmol/L ABG Base Excess (Actual) mmol/L Sodium 139 (135-145) mmol/L Potassium 3.5 (3.3-5.1) mmol/L Chloride 106 (96-108) mmol/L Carbon Dioxide 21 L (22-29) mmol/L Anion Gap 16 (12-20) BUN 16 (9-16) mg/dL Creatinine 0.77 (0.5-1.4) mg/dL Estim Creat Clear Calc 204.8 Estimated GFR > 60 Random Glucose 185 H (60-115) mg/dL Lactic Acid 2.8 H* 1.3 (0.5-2.0) mmol/L Calcium 10.0 (8.4-10.2) mg/dL Magnesium 2.2 (1.6-2.6) mg/dL Total Bilirubin 0.9 (0.0-1.0) mg/dL Direct Bilirubin 0.3 (0.0-0.5) mg/dL AST 21 (5-37) U/L ALT 26 (0-40) U/L Alkaline Phosphatase 97 (39-117) U/L Total Creatine Kinase 57 (38-174) U/L Troponin I High Sens 3.8 3.2 (<3.5-35.0) ng/L C-Reactive Protein 2.18 H (< or = 0.50) mg/dL B-Natriuretic Peptide 60 (<100) pg/mL Total Protein 8.0 (6.5-8.0) g/dL Albumin 4.1 (3.5-5.0) g/dL Lipase 16 (8-78) U/L Procalcitonin 0.04 ng/mL Hold Green Top See Note Influenza Type A (PCR) NEGATIVE (Negative) Influenza Type B (PCR) NEGATIVE (Negative) RSV RNA Qual (PCR) NEGATIVE (Negative) SARS-CoV-2 RNA (RT-PCR) NEGATIVE (Negative) 09/07/24 Range/Units 01:49 WBC (4.8-10.8) X10*3/uL RBC (4.60-5.80) X10*6/uL Hgb (14.0-18.0) g/dl Hct (42.0-52.0) % MCV (80.0-98.0) fL MCH (27.0-33.0) pg MCHC (31.0-36.0) g/dl RDW (11.0-16.0) % Plt Count (160-400) X10*3/uL MPV (9.4-12.4) fL Immature Gran % (Auto) (0.0-0.4) % Neut % (Auto) (45-73) % Lymph % (Auto) (20-40) % [place] % (Auto) (2-11) % Eos % (Auto) (0-4) % Baso % (Auto) (0-2) % Lymph # (Auto) (1.2-4.9) X10*3/uL [place] # (Auto) (0.1-1.2) X10*3/uL Eos # (Auto) (0.0-0.4) X10*3/uL Baso # (Auto) (0.0-0.2) X10*3/uL Abs Immat Gran (auto) (0.00-0.03) X10*3/uL Absolute Neuts (auto) (2.0-8.3) x10*3/uL Absolute Nucleated RBC (0.0-0.012) X10*3/uL Nucleated RBC % (auto) (0.0-0.2) /100WBC Hold Blue Top O2 Saturation 89.0 % ABG pH at Pt Temp 7.37 (7.35-7.45) ABG pCO2 at Pt Temp 43 (32-45) mmHg ABG pO2 at Pt Temp 64 L (83-108) mmHg ABG HCO3 25 (22-26) mmol/L ABG Base Excess (Actual) 0.0 mmol/L Sodium (135-145) mmol/L Potassium (3.3-5.1) mmol/L Chloride (96-108) mmol/L Carbon Dioxide (22-29) mmol/L Anion Gap (12-20) BUN (9-16) mg/dL Creatinine (0.5-1.4) mg/dL Estim Creat Clear Calc Estimated GFR Random Glucose (60-115) mg/dL Lactic Acid (0.5-2.0) mmol/L Calcium (8.4-10.2) mg/dL Magnesium (1.6-2.6) mg/dL Total Bilirubin (0.0-1.0) mg/dL Direct Bilirubin (0.0-0.5) mg/dL AST (5-37) U/L ALT (0-40) U/L Alkaline Phosphatase (39-117) U/L Total Creatine Kinase (38-174) U/L Troponin I High Sens (<3.5-35.0) ng/L C-Reactive Protein (< or = 0.50) mg/dL B-Natriuretic Peptide (<100) pg/mL Total Protein (6.5-8.0) g/dL Albumin (3.5-5.0) g/dL Lipase (8-78) U/L Procalcitonin ng/mL Hold Green Top Influenza Type A (PCR) (Negative) Influenza Type B (PCR) (Negative) RSV RNA Qual (PCR) (Negative) SARS-CoV-2 RNA (RT-PCR) (Negative) Discharge Plan Discharge Clinical Impression: Pneumonia, Hypoxia Patient Disposition: Admitted As Inpatient Print Language: Hebrew
--- NOTE | 2024-09-07 02:38 | P.HPHOSP_ITS ---
History of Present Illness Date of Service: 09/07/24 Attending physician on admission: [facility] Chief Complaint: Right-sided chest pain Patient is a 54-year-old male with a past medical history significant for morbid obesity, HLD, SDH s/p fall, PVCs, HTN, type 2 diabetes, MARK on BiPAP and diabetic neuropathy, who presented to the ED due to right-sided chest pain after a fall 3 days ago and pneumonia. He reports that he had a mechanical fall and was seen by his PCP who diagnosed pneumonia however note rib fractures. He then went to urgent care who also did not see any rib fractures on imaging but found moderate pneumonia and suggested that he come to the ED due to hypoxia. He still complains of severe right-sided chest pain making it difficult for him to take a deep breath. He has a productive cough and generalized malaise. After his fall he denies any head strike or loss of consciousness. He does not use oxygen at baseline but is requiring OxyMask here. Review of Systems 2 Constitutional: Constitutional: Denies body ache(s), Denies chills, Denies fatigue, Denies fever(s) and Denies headache(s) Eyes: Eyes: Denies change in vision and Denies photophobia ENT: Denies headache(s), Denies nasal congestion, Denies nasal discharge and Denies sore throat Cardiovascular: Cardiovascular: Reports chest pain, Denies rapid heart rate, Denies leg edema, Denies lightheadedness and Reports dyspnea (Due to inability to take a deep breath) Respiratory: Respiratory: Reports chest congestion, Reports cough, Reports pain on inspiration, Reports pain with cough, Reports dyspnea (Due to inability to take a deep breath) and Denies wheezing Gastrointestinal: Gastrointestinal: Denies diarrhea, Denies nausea and Denies vomiting Genitourinary: Genitourinary: Denies difficulty urinating, Denies dysuria and Denies urinary urgency Musculoskeletal: Musculoskeletal: Denies myalgias Integumentary/Breasts: Skin/Breast: Denies rash Neurologic: Denies confusion and Denies headache(s) Psychiatric: Psychiatric: Denies confusion Endocrine: Endocrine: Denies fatigue Hematologic/Lymphatic: Hematologic/Lymphatic: Denies easy bleeding and Denies easy bruising Allergic/Immunologic: Allergic/Immunologic: Denies wheezing FOR[facility]LY [facility] Medical History Obesity due to excess calories Annual physical exam MARK (obstructive sleep apnea) Normal colonoscopy Diabetic polyneuropathy associated with type 2 diabetes mellitus Hypertension Dyslipidemia Morbid obesity Diabetes type 2, controlled Family History Father No problems noted. Mother Arthritis Brother Stroke Surgical History History of surgery of head Hx of cholecystectomy Social History Housing: House Alcohol intake: current Alcohol intake frequency: holidays/special occasions only Patient Tobacco Use Status: Never used Tobacco e-Cigarette/Vaping Use: Never Used Advance Directives: No Advance Directives Information Provided: Yes service: No Current occupational status: employed Cognitive needs: No Hearing needs: No Vision needs: No Narrative: No smoking, alcohol or drug use Meds Allergies Allergy/AdvReac Type Severity Reaction Status Date / Time canagliflozin [Invokana] AdvReac Unknown rash Verified 09/06/24 23:00 Home Medications ?Medication ?Instructions ?Recorded ?Confirmed ?Last Taken ?Type buspirone 10 mg tablet 10 mg PO TID 09/29/22 07/15/24 Unknown History magnesium oxide 400 mg PO DAILY 09/29/22 07/15/24 Unknown History Physical Exam 2 Vital Signs and Narrative: Vital Signs: Last Vital Signs Temp 98.0 F 09/06/24 22:59 Pulse 84 09/06/24 22:59 Resp 22 H 09/06/24 22:59 BP 151/82 H 09/06/24 22:59 Pulse Ox 86 L 09/06/24 22:59 O2 Del Method Room Air 09/06/24 22:59 BMI result Body Mass Index 57.1 General: AOx3, no acute distress, morbidly obese Resp: Difficult to auscultate due to body habitus and pain with inspiration, breath sounds diminished bilaterally, no wheezing CVS: S1, S2, RRR GI: +BS, NT, no distention Skin: Warm, dry Neuro: Cranial nerves II-XII grossly intact bilaterally. Motor grossly intact bilaterally Extremities: No lower extremity edema Psych: Appropriate affect Const: General: No confusion Orientation/consciousness: No confusion Eyes: Direct Ophthalmoscopy: No photophobia Neuro: General: No confusion Results Labs 09/06/24 23:37 09/06/24 23:37 Labs: Laboratory Results - last 24 hr 09/06/24 09/06/24 09/07/24 23:37 23:39 01:29 MCV 82.3 MCH 26.7 L MCHC 32.4 RDW 14.8 Plt Count 245 MPV 10.8 Immature Gran % (Auto) 0.3 Neut % (Auto) 72.0 Lymph % (Auto) 17.8 L [place] % (Auto) 8.4 Eos % (Auto) 1.1 Baso % (Auto) 0.4 Lymph # (Auto) 2.1 [place] # (Auto) 1.0 Eos # (Auto) 0.1 Baso # (Auto) 0.1 Abs Immat Gran (auto) 0.04 H Absolute Neuts (auto) 8.5 H Absolute Nucleated RBC 0.000 Nucleated RBC % (auto) 0.0 Hold Blue Top SEE NOTE O2 Saturation ABG pH at Pt Temp ABG pCO2 at Pt Temp ABG pO2 at Pt Temp ABG HCO3 ABG Base Excess (Actual) Anion Gap 16 Estim Creat Clear Calc 204.8 Estimated GFR > 60 Random Glucose 185 H Lactic Acid 2.8 H* 1.3 Calcium 10.0 Magnesium 2.2 Total Bilirubin 0.9 Direct Bilirubin 0.3 AST 21 ALT 26 Alkaline Phosphatase 97 Total Creatine Kinase 57 C-Reactive Protein 2.18 H B-Natriuretic Peptide 60 Total Protein 8.0 Albumin 4.1 Lipase 16 Procalcitonin 0.04 Hold Green Top See Note Influenza Type A (PCR) NEGATIVE Influenza Type B (PCR) NEGATIVE RSV RNA Qual (PCR) NEGATIVE SARS-CoV-2 RNA (RT-PCR) NEGATIVE 09/07/24 01:49 MCV MCH MCHC RDW Plt Count MPV Immature Gran % (Auto) Neut % (Auto) Lymph % (Auto) [place] % (Auto) Eos % (Auto) Baso % (Auto) Lymph # (Auto) [place] # (Auto) Eos # (Auto) Baso # (Auto) Abs Immat Gran (auto) Absolute Neuts (auto) Absolute Nucleated RBC Nucleated RBC % (auto) Hold Blue Top O2 Saturation 89.0 ABG pH at Pt Temp 7.37 ABG pCO2 at Pt Temp 43 ABG pO2 at Pt Temp 64 L ABG HCO3 25 ABG Base Excess (Actual) 0.0 Anion Gap Estim Creat Clear Calc Estimated GFR Random Glucose Lactic Acid Calcium Magnesium Total Bilirubin Direct Bilirubin AST ALT Alkaline Phosphatase Total Creatine Kinase C-Reactive Protein B-Natriuretic Peptide Total Protein Albumin Lipase Procalcitonin Hold Green Top Influenza Type A (PCR) Influenza Type B (PCR) RSV RNA Qual (PCR) SARS-CoV-2 RNA (RT-PCR) Assessment and Plan (1) Acute hypoxic respiratory failure: Status: Acute (2) Sepsis: Status: Acute (3) Pneumonia: Status: Acute (4) Respiratory acidosis: Status: Acute (5) Lactic acidosis: Status: Acute (6) Morbid obesity: Status: Acute Plan Patient is a 54-year-old male with a past medical history significant for morbid obesity, HLD, SDH s/p fall, PVCs, HTN, type 2 diabetes, MARK on BiPAP and diabetic neuropathy, who presented to the ED due to right-sided chest pain after a fall 3 days ago and pneumonia. Acute hypoxic respiratory failure and sepsis secondary to pneumonia - WBC 11.8, tachypneic, lactic acid 2.8, 1.3 on repeat, blood cultures x2 pending, not severe sepsis - chest CT with mild pulmonary opacities left lower lung - CTA chest negative for PE - COVID/flu/RSV negative - EKG with NSR, first-degree AV block - started on ceftriaxone and azithromycin, continue - given 500 mL NS in ED, no further fluids needed at this time, BP normal - on BiPAP for sleep, OxyMask prior to BiPAP, titrate off oxygen as appropriate - monitor CBC and BMP Respiratory acidosis/lactic acidosis - secondary to acute hypoxia/metformin use - lactic acid improved on repeat from 2.8-1.3 - continue with oxygen as above Morbid obesity - BMI 57.1 - weight loss encouraged, patient on mounjaro HLD - continue home meds Type 2 diabetes - hold home meds - sliding scale insulin - diabetic diet MARK - BiPAP at night Full code VTE prophylaxis: Lovenox Patient was acute hypoxic respiratory failure and sepsis secondary to pneumonia, requiring admission for at least 2 midnight stay for IV antibiotics, titration off of oxygen and monitoring. Quality Stroke Does the patient have a stroke diagnosis?: No VTE Prior VTE?: No VTE Risk Level:: Medical - moderate - high VTE Device Contraindication: Treatment Not Indicated VTE Drug Contraindication: N/A - Med Ordered
[2024-09-07] MEDS: Enoxaparin Sodium 40 MG/0.4 ML SYRINGE SUBCUT ×2 (04:18→14:23)
[2024-09-07 05:33] LABS: MANUAL DIFF FLAG NO
[2024-09-07 05:39] LABS: Basophils Percent Auto 0.4 % (0-2); Eosinophils Absolute Auto 0.1 X10*3/uL (0.0-0.4); Hematocrit 44.3 % (42.0-52.0); Hemoglobin 14.3 g/dl (14.0-18.0); Imm Gran Abs Auto 0.05 X10*3/uL (0.00-0.03); Imm Gran Pct Auto 0.5 % (0.0-0.4); Lymphocytes Absolute Auto 1.6 X10*3/uL (1.2-4.9); Mean Corpuscular HGB Conc 32.3 g/dl (31.0-36.0); Mean Corpuscular Hemoglobin 26.7 pg (27.0-33.0); Mean Corpuscular Volume 82.8 fL (80.0-98.0); Mean Platelet Volume 10.9 fL (9.4-12.4); Monocytes Absolute Auto 0.9 X10*3/uL (0.1-1.2); Monocytes Percent Auto 9.9 % (2-11); Neutrophils Absolute Auto 6.6 x10*3/uL (2.0-8.3); Neutrophils Percent Auto 71.2 % (45-73); Platelet Count 210 X10*3/uL (160-400); Red Blood Count 5.35 X10*6/uL (4.60-5.80); Red Cell Distribution Width 14.7 % (11.0-16.0); White Blood Count 9.3 X10*3/uL (4.8-10.8)
[2024-09-07 05:52] LABS: Anion Gap 12 (12-20); Blood Urea Nitrogen 16 mg/dL (9-16); Calcium 9.2 mg/dL (8.4-10.2); Carbon Dioxide 24 mmol/L (22-29); Chloride 106 mmol/L (96-108); Creatinine Clr Calc Pharmacy 246.4; Estimated Glomerular Filt Rate > 60; Glucose Random 166 mg/dL (60-115); Potassium 3.4 mmol/L (3.3-5.1); Sodium 139 mmol/L (135-145)
[2024-09-07 07:24] LABS: Glucose, Whole Blood 187 mg/dL (60-115)
[2024-09-07] MEDS: Insulin Lispro 100 UNIT/ML 3 ML VIAL SUBCUT ×4 (08:00→21:26)
[2024-09-07] MEDS: Benzonatate 100 MG CAPSULE PO ×3 (08:00→20:38)
--- NOTE | 2024-09-07 08:01 | PM.EVENT ---
Event Note Date of Service: 09/07/24 Event Note: 54-year-old male with a past medical history significant for morbid obesity, HLD, SDH s/p fall, PVCs, HTN, type 2 diabetes, MARK on BiPAP and diabetic neuropathy, who presented to the ED due to right-sided chest pain after a fall 3 days ago and pneumonia. Complaining of right-sided chest pain Taking shallow breaths Lungs diminished breath sounds /no wheeze Acute hypoxic respiratory failure and sepsis secondary to pneumonia -on admission WBC 11.8, tachypneic, lactic acid 2.8, 1.3 on repeat, blood cultures x2 pending, not severe sepsis - chest CT with mild pulmonary opacities left lower lung - CTA chest negative for PE - COVID/flu/RSV negative - EKG with NSR, first-degree AV block - WBC normalized to 9.3,cont. iv ceftriaxone and azithromycin, started on 09/07 - on BiPAP for sleep, OxyMask prior to BiPAP, titrate off oxygen as appropriate - monitor CBC and BMP -add incentive spirometry/out of bed to chair -add scheduled cough medication and continue as needed Acute lactic acidosis- likely due to metformin use, dehydration, lactic acid improved after IV fluids repeat from 2.8 to 1.3 Morbid obesity- BMI 57.1, weight loss encouraged, patient on mounjaro HLD - continue home meds Hypertension on multiple antihypertensive resume hydrochlorothiazide, metoprolol 200 mg, amlodipine 10 mg, hold losartan 100 mg Type 2 diabetes - hold metformin and Mounjero, continue Jardiance 10 mg and Lantus 20 units home dose 48 units - sliding scale insulin - diabetic diet MARK - BiPAP at night with oxygen Mood disorder on sertraline 100 mg at bedtime and BuSpar 10 mg t.i.d.. Full code VTE prophylaxis: Lovenox acute hypoxic respiratory failure and sepsis secondary to pneumonia, requiring continued inpatient hospitalization for IV antibiotics, titration off of oxygen and monitoring. Time Spent With Patient Time: Total time managing care of this patient today ____ minutes.
[2024-09-07] MEDS: 0.9 % Sodium Chloride Flush 3 ML SYRINGE IVFLUSH ×2 (08:47→18:35)
--- NOTE | 2024-09-07 09:22 | PC.NURSE ---
Resumed care of patient at 0700, he was sitting up on the edge of his bed, he had removed his own Cpap at this time, Pt NC changed out to a thrasher at 6L NC as pt will not wear an oxy mask, humidification added as well. Pt having pain with coughing, PRN medications given with morning with good effect. RA pt continues to be 83-85%, on 6L he is 88-94%, this RN reached out to provider to discuss if they wanted to make any changes, MD would like pt to remain on 6L NC, will add IS to help encourage deep breathing. Awaiting new medication orders at this time to help with cooughing. Frequent reminding to pt to breath through his nose and trying to splint his right side when deep breathing or coughing.
--- NOTE | 2024-09-07 09:29 | PHA.MEDREC ---
Pharmacy Consult ? Medication Reconciliation Pharmacy has completed the medication reconciliation. Spoke to pt to confirm meds. Pt was prescribed Augmentin 875 mg BID, Azithromycin 250 mg taper, and percocet 5/325 mg Q4-6H PRN, but has not picked them up yet. Left off med rec.
--- NOTE | 2024-09-07 12:44 | MHC.CM.PN ---
PT REPORTS HE LIVES WITH HIS BROTHER AND IS INDEPENDENT WITH CARE HE USES A CPAP CONNECTED TO OXYGEN WHEN SLEEPING HE SAYS HE HAS A HCP, COPY REQUESTED PCP: MAIRAM PATTERSON PTS PREFERRED DCP: [facility] PT WILL ARRANGE TRANSPORT
[2024-09-07 12:56] LABS: Glucose, Whole Blood 160 mg/dL (60-115)
[2024-09-07] MEDS: busPIRone HCl 10 MG TABLET PO ×2 (14:22→20:38)
[2024-09-07] MEDS: guaiFEN/Codeine SF 200/20/10ML 10 ML LIQUID PO (14:23)
[2024-09-07 18:02] LABS: Glucose, Whole Blood 174 mg/dL (60-115)
--- NOTE | 2024-09-07 19:52 | PC.NURSE ---
Report taken from Orly ALDRIDGE assumed care of pt at 1900. Pt A&Ox3 skin pwd respirations even unlabored, sitting up at side of bed, CPAP on, SpO2 95% on CPaP, tolerating well. Pt endorsing right sided chest pain constant and aching/sharp in nature. States he hasn't received pain meds all day. Hospitalist contacted, request for PRN pain med for moderate pain. Pt offers no additional complaints.
[2024-09-07] MEDS: Ketorolac Tromethamine 15 MG/ML VIAL IVPUSH (20:37)
[2024-09-07] MEDS: Sertraline HCL 100 MG TABLET PO (20:38)
[2024-09-07 21:17] LABS: Glucose, Whole Blood 228 mg/dL (60-115)
--- NOTE | 2024-09-07 23:00 | PC.NURSE ---
Report given to Destini ALDRIDGE pt exits my care at this time.
[2024-09-08] MEDS: cefTRIAXone sodium 1 GM VIAL IVPUSH ×2 (01:53→21:12)
[2024-09-08 02:02] VITALS: BP 134/65; PULSE 66; RESP 27; TEMP 36.8; O2SAT 93
[2024-09-08] MEDS: guaiFEN/Codeine SF 200/20/10ML 10 ML LIQUID PO (02:08)
[2024-09-08] MEDS: Azithromycin 250 MG TABLET PO ×2 (02:53→21:12)
[2024-09-08] MEDS: Enoxaparin Sodium 40 MG/0.4 ML SYRINGE SUBCUT ×2 (02:59→15:49)
--- NOTE | 2024-09-08 06:29 | PC.NURSE ---
pt wore his cpap all night with no difficulty.
[2024-09-08 06:37] LABS: MANUAL DIFF FLAG NO
[2024-09-08 06:47] LABS: Basophils Percent Auto 0.4 % (0-2); Eosinophils Absolute Auto 0.1 X10*3/uL (0.0-0.4); Eosinophils Percent Auto 1.7 % (0-4); Hematocrit 44.4 % (42.0-52.0); Hemoglobin 13.9 g/dl (14.0-18.0); Imm Gran Abs Auto 0.04 X10*3/uL (0.00-0.03); Imm Gran Pct Auto 0.5 % (0.0-0.4); Lymphocytes Absolute Auto 1.2 X10*3/uL (1.2-4.9); Lymphocytes Percent Auto 15.5 % (20-40); Mean Corpuscular HGB Conc 31.3 g/dl (31.0-36.0); Mean Corpuscular Hemoglobin 26.6 pg (27.0-33.0); Mean Corpuscular Volume 84.9 fL (80.0-98.0); Mean Platelet Volume 10.9 fL (9.4-12.4); Monocytes Absolute Auto 0.7 X10*3/uL (0.1-1.2); Monocytes Percent Auto 9.4 % (2-11); Neutrophils Absolute Auto 5.7 x10*3/uL (2.0-8.3); Neutrophils Percent Auto 72.5 % (45-73); Platelet Count 180 X10*3/uL (160-400); Red Blood Count 5.23 X10*6/uL (4.60-5.80); Red Cell Distribution Width 14.6 % (11.0-16.0); White Blood Count 7.9 X10*3/uL (4.8-10.8)
--- NOTE | 2024-09-08 07:00 | PC.NURSE ---
Report taken from Destini Allison RN
[2024-09-08 07:02] LABS: Anion Gap 12 (12-20); Blood Urea Nitrogen 13 mg/dL (9-16); Calcium 9.2 mg/dL (8.4-10.2); Carbon Dioxide 24 mmol/L (22-29); Chloride 106 mmol/L (96-108); Creatinine Clr Calc Pharmacy 242.6; Estimated Glomerular Filt Rate > 60; Glucose Random 186 mg/dL (60-115); Potassium 3.4 mmol/L (3.3-5.1); Sodium 139 mmol/L (135-145)
[2024-09-08 08:33] VITALS: BP 155/71; PULSE 72; RESP 16; TEMP 36.7; O2SAT 92
--- NOTE | 2024-09-08 08:36 | PC.NURSE ---
MD Patrick notified that pt. is requiring 5L NC when off of CPAP
[2024-09-08 08:42] LABS: Glucose, Whole Blood 246 mg/dL (60-115)
[2024-09-08] MEDS: amLODIPine Besylate 10 MG TABLET PO (08:50)
[2024-09-08] MEDS: Empagliflozin 10 MG TABLET PO (08:50)
[2024-09-08] MEDS: Magnesium Oxide 400 MG TABLET PO (08:50)
[2024-09-08] MEDS: Metoprolol Succinate ER 100 MG TAB.ER.24H 200 MG PO (08:50)
[2024-09-08] MEDS: Benzonatate 100 MG CAPSULE PO ×3 (08:50→19:58)
[2024-09-08] MEDS: Insulin Lispro 100 UNIT/ML 3 ML VIAL SUBCUT ×4 (08:50→21:19)
[2024-09-08] MEDS: Atorvastatin Calcium 10 MG TABLET PO (08:50)
[2024-09-08] MEDS: hydroCHLOROthiazide 25 MG TABLET PO (08:50)
[2024-09-08 09:56] VITALS: BP 132/79; PULSE 75; RESP 19; TEMP 36.5; O2SAT 93
--- NOTE | 2024-09-08 11:02 | P.PNIM_ITS ---
Subjective Subjective Date of Service: 09/09/24 Interval History: Complaining of right upper back and anterior chest pain worse with deep breathing, denies fever, no chills, no nausea, no vomiting tolerating diet, tolerating BiPAP at night requiring daytime oxygen Due to hypoxia. Review of Systems All other system reviewed and are negative. Physical Exam 2 Vital Signs: Vital Signs: Last Vital Signs Temp 97.7 F 09/08/24 09:56 Pulse 75 09/08/24 09:56 Resp 19 09/08/24 09:56 BP 132/79 09/08/24 09:56 Pulse Ox 93 09/08/24 09:56 O2 Del Method Oxymask 09/08/24 09:56 O2 Flow Rate 5 09/08/24 09:56 BMI result Body Mass Index 57.1 Const: Other: General in no acute distress. Neck no JVD. CVS regular rate rhythm, Respiratory lungs diminished, no respiratory distress, no wheeze, no rhonchi. Gastrointestinal abdomen soft, non tender, bowel sounds audible, obese, Extremities no edema. Neuro non focal Skin no rash/no ecchymosis Psych appropriate affect Objective Data Active Medications Acetaminophen (Acetaminophen 325 Mg Tablet) 975 mg PO Q6H PRN PRN Reason: Pain, Mild 1-3,fever,headache Hydrocodone Bitart/Acetaminophen (Hydrocodone Bit/Acetam 5/325 Tablet) 2 tab PO Q6H PRN PRN Reason: Pain, Severe (Pain Scale 7-10) Amlodipine Besylate (Amlodipine Besylate 10 Mg Tablet) 10 mg PO DAILY [facility]; Protocol Last Admin: 09/08/24 08:50 Dose: 10 mg Documented By: WANDA Atorvastatin Calcium (Atorvastatin Calcium 10 Mg Tablet) 10 mg PO DAILY [facility] Last Admin: 09/08/24 08:50 Dose: 10 mg Documented By: WANDA Azithromycin (Azithromycin 250 Mg Tablet) 250 mg PO Q24H [facility] Stop: 09/11/24 00:31 Last Admin: 09/08/24 02:53 Dose: 250 mg Documented By: JUAN LUIS Benzonatate (Benzonatate 100 Mg Capsule) 100 mg PO TID [facility] Last Admin: 09/08/24 08:50 Dose: 100 mg Documented By: WANDA Buspirone HCl (Buspirone Hcl 10 Mg Tablet) 10 mg PO TID [facility] Last Admin: 09/07/24 20:38 Dose: 10 mg Documented By: CAITLIN Calcium Carbonate (Calcium Carbonate 750 Mg Tab.Chew) 750 mg PO Q4H PRN PRN Reason: Heartburn Ceftriaxone Sodium (Ceftriaxone Sodium 1 Gm Vial) 1 gm IVPUSH Q24H [facility] Last Admin: 09/08/24 01:53 Dose: 1 gm Documented By: JUAN LUIS Dextrose (Dextrose 50 % 25 Gm/50 Ml Syringe) 25 gm IVPUSH Q15M PRN; Protocol PRN Reason: per Hypoglycemia Standing Ord. Empagliflozin (Empagliflozin 10 Mg Tablet) 10 mg PO DAILY [facility] Last Admin: 09/08/24 08:50 Dose: 10 mg Documented By: WANDA Enoxaparin Sodium (Enoxaparin Sodium 40 Mg/0.4 Ml Syringe) 40 mg SUBCUT Q12H [facility] Last Admin: 09/08/24 02:59 Dose: 40 mg Documented By: JUAN LUIS Glucose (Glucose Gel 15 Gm Gel..Gram.) 15 gm PO Q15M PRN; Protocol PRN Reason: per Hypoglycemia Standing Ord. Guaifenesin/Codeine Phosphate (Guaifen/Codeine Sf 200/20/10ml 10 Ml Liquid) 10 ml PO Q6H PRN PRN Reason: Cough Last Admin: 09/08/24 02:08 Dose: 10 ml Documented By: JUAN LUIS Hydrochlorothiazide (Hydrochlorothiazide 25 Mg Tablet) 25 mg PO DAILY [facility]; Protocol Last Admin: 09/08/24 08:50 Dose: 25 mg Documented By: WANDA Insulin Human Lispro (Insulin Lispro 100 Unit/Ml 3 Ml Vial) 0 unit SUBCUT QIDACHS [facility]; Protocol Last Admin: 09/08/24 08:50 Dose: 4 unit Documented By: WANDA Ketorolac Tromethamine (Ketorolac Tromethamine 30 Mg/Ml Vial) 30 mg IVPUSH Q6H PRN PRN Reason: Pain, Moderate(Pain Scale 4-6) Magnesium Hydroxide (Milk Of Magnesia 30 Ml Oral.Susp) 30 ml PO DAILY PRN PRN Reason: Constipation Magnesium Oxide (Magnesium Oxide 400 Mg Tablet) 400 mg PO DAILY [facility] Last Admin: 09/08/24 08:50 Dose: 400 mg Documented By: WANDA Melatonin (Melatonin 3 Mg Tablet) 6 mg PO BEDTIME PRN PRN Reason: Insomnia Metoprolol Succinate (Metoprolol Succinate Er 100 Mg Tab.Er.24h) 200 mg PO DAILY [facility]; Protocol Last Admin: 09/08/24 08:50 Dose: 200 mg Documented By: WANDA Ondansetron HCl (Ondansetron Hcl 4 Mg/2 Ml Vial) 4 mg IVPUSH Q8H PRN PRN Reason: Nausea and Vomiting Sertraline HCl (Sertraline Hcl 100 Mg Tablet) 100 mg PO BEDTIME [facility] Last Admin: 09/07/24 20:38 Dose: 100 mg Documented By: CAITLIN Sodium Chloride (0.9 % Sodium Chloride Flush 3 Ml Syringe) 3 ml IVFLUSH QSHIFT [facility] Last Admin: 09/08/24 08:51 Dose: Not Given Documented By: WANDA Non-Admin Reason: Previously Administered Labs 09/09/24 05:26 09/09/24 05:26 Labs: Laboratory Results - last 24 hr 09/07/24 09/07/24 09/07/24 12:51 17:54 21:13 MCV MCH MCHC RDW Plt Count MPV Immature Gran % (Auto) Neut % (Auto) Lymph % (Auto) [place] % (Auto) Eos % (Auto) Baso % (Auto) Lymph # (Auto) [place] # (Auto) Eos # (Auto) Baso # (Auto) Abs Immat Gran (auto) Absolute Neuts (auto) Absolute Nucleated RBC Nucleated RBC % (auto) Anion Gap Estim Creat Clear Calc Estimated GFR POC Glucose 160 H 174 H 228 H Random Glucose Calcium 09/08/24 09/08/24 06:16 08:38 MCV 84.9 MCH 26.6 L MCHC 31.3 RDW 14.6 Plt Count 180 MPV 10.9 Immature Gran % (Auto) 0.5 H Neut % (Auto) 72.5 Lymph % (Auto) 15.5 L [place] % (Auto) 9.4 Eos % (Auto) 1.7 Baso % (Auto) 0.4 Lymph # (Auto) 1.2 [place] # (Auto) 0.7 Eos # (Auto) 0.1 Baso # (Auto) 0.0 Abs Immat Gran (auto) 0.04 H Absolute Neuts (auto) 5.7 Absolute Nucleated RBC 0.000 Nucleated RBC % (auto) 0.0 Anion Gap 12 Estim Creat Clear Calc 242.6 Estimated GFR > 60 POC Glucose 246 H Random Glucose 186 H Calcium 9.2 Microbiology Microbiology Results: Microbiology 09/06/24 23:39 Blood Culture - Preliminary Blood - Venous No growth after 24 hours. 09/06/24 23:39 Blood Culture - Preliminary Blood - Venous No growth after 24 hours. Assessment and Plan (1) Lactic acidosis: Status: Acute (2) Respiratory acidosis: Status: Acute (3) Sepsis: Status: Acute (4) Acute hypoxic respiratory failure: Status: Acute Plan Acute hypoxic respiratory failure and sepsis secondary to pneumonia -on admission WBC 11.8, tachypneic, lactic acid 2.8, 1.3 on repeat, blood cultures x2 pending, not severe sepsis -chest CT with mild pulmonary opacities left lower lung -CTA chest negative for PE -COVID/flu/RSV negative -EKG with NSR, first-degree AV block - WBC normalized to 9.3,cont. iv ceftriaxone and azithromycin, started on 09/07 - on BiPAP for sleep, OxyMask with BiPAP, continue O2 support daytime and titrate off oxygen as appropriate - monitor CBC and BMP -add incentive spirometry/out of bed to chair -add scheduled cough medication and continue as needed -will add IV Toradol and hydrocodone for pain management Acute lactic acidosis- likely due to metformin use, dehydration, lactic acid improved after IV fluids repeat from 2.8 to 1.3 Morbid obesity- BMI 57.1, weight loss encouraged, patient on mounjaro HLD - continue home meds Hypertension on multiple antihypertensive resume hydrochlorothiazide, metoprolol 200 mg, amlodipine 10 mg, hold losartan 100 mg Type 2 diabetes - hold metformin and Mounjero, continue Jardiance 10 mg and Lantus 20 units home dose 48 units - sliding scale insulin - diabetic diet MARK -continue BiPAP at night with oxygen Mood disorder on sertraline 100 mg at bedtime and BuSpar 10 mg t.i.d.. Full code VTE prophylaxis: Lovenox acute hypoxic respiratory failure and sepsis secondary to pneumonia, requiring continued inpatient hospitalization for IV antibiotics, titration off of oxygen and monitoring. Quality Stroke Does the patient have a stroke diagnosis?: No VTE Prior VTE?: No VTE Risk Level:: Medical - moderate - high VTE Device Contraindication: Treatment Not Indicated VTE Drug Contraindication: N/A - Med Ordered
[2024-09-08 11:24] LABS: Glucose, Whole Blood 166 mg/dL (60-115)
[2024-09-08] MEDS: Ketorolac Tromethamine 30 MG/ML VIAL IVPUSH ×2 (12:46→19:58)
[2024-09-08 13:02] VITALS: BMI 57.0
[2024-09-08 15:05] VITALS: BP 131/60; PULSE 62; RESP 18; TEMP 36.3; O2SAT 95
[2024-09-08] MEDS: busPIRone HCl 10 MG TABLET PO ×2 (15:49→19:58)
[2024-09-08 16:19] LABS: Glucose, Whole Blood 174 mg/dL (60-115)
[2024-09-08] MEDS: 0.9 % Sodium Chloride Flush 3 ML SYRINGE IVFLUSH ×2 (16:49→21:20)
[2024-09-08 19:00] VITALS: BP 137/69; PULSE 67; RESP 18; TEMP 36.9; O2SAT 92
[2024-09-08 19:50] LABS: Glucose, Whole Blood 221 mg/dL (60-115)
[2024-09-08] MEDS: Sertraline HCL 100 MG TABLET PO (19:58)
[2024-09-09 02:58] VITALS: BP 121/60; PULSE 58; RESP 18; TEMP 36.6; O2SAT 97
[2024-09-09] MEDS: Enoxaparin Sodium 40 MG/0.4 ML SYRINGE SUBCUT ×2 (02:58→15:27)
[2024-09-09 06:26] LABS: MANUAL DIFF FLAG NO
[2024-09-09 06:29] LABS: Basophils Percent Auto 0.6 % (0-2); Eosinophils Absolute Auto 0.2 X10*3/uL (0.0-0.4); Eosinophils Percent Auto 2.4 % (0-4); Hematocrit 41.7 % (42.0-52.0); Hemoglobin 13.6 g/dl (14.0-18.0); Imm Gran Abs Auto 0.03 X10*3/uL (0.00-0.03); Imm Gran Pct Auto 0.5 % (0.0-0.4); Lymphocytes Absolute Auto 1.3 X10*3/uL (1.2-4.9); Lymphocytes Percent Auto 19.9 % (20-40); Mean Corpuscular HGB Conc 32.6 g/dl (31.0-36.0); Mean Corpuscular Hemoglobin 27.1 pg (27.0-33.0); Mean Corpuscular Volume 83.1 fL (80.0-98.0); Mean Platelet Volume 10.9 fL (9.4-12.4); Monocytes Absolute Auto 0.6 X10*3/uL (0.1-1.2); Monocytes Percent Auto 9.3 % (2-11); Neutrophils Absolute Auto 4.4 x10*3/uL (2.0-8.3); Neutrophils Percent Auto 67.3 % (45-73); Platelet Count 185 X10*3/uL (160-400); Red Blood Count 5.02 X10*6/uL (4.60-5.80); Red Cell Distribution Width 14.5 % (11.0-16.0); White Blood Count 6.6 X10*3/uL (4.8-10.8)
[2024-09-09 06:46] LABS: Anion Gap 12 (12-20); Blood Urea Nitrogen 17 mg/dL (9-16); Calcium 8.9 mg/dL (8.4-10.2); Carbon Dioxide 26 mmol/L (22-29); Chloride 105 mmol/L (96-108); Creatinine Clr Calc Pharmacy 250.1; Estimated Glomerular Filt Rate > 60; Glucose Random 158 mg/dL (60-115); Potassium 3.1 mmol/L (3.3-5.1); Sodium 140 mmol/L (135-145)
[2024-09-09 07:00] VITALS: BP 130/66; PULSE 58; RESP 16; TEMP 36.1; O2SAT 98
[2024-09-09 07:44] LABS: Glucose, Whole Blood 161 mg/dL (60-115)
[2024-09-09] MEDS: HYDROcodone Bit/Acetam 5/325 TABLET 2 TAB PO (08:01)
[2024-09-09] MEDS: Potassium Chloride ER 20 MEQ TAB.ER.PRT 40 MEQ PO (08:02)
[2024-09-09] MEDS: Empagliflozin 10 MG TABLET PO (08:03)
[2024-09-09] MEDS: Metoprolol Succinate ER 100 MG TAB.ER.24H 200 MG PO (08:03)
[2024-09-09] MEDS: busPIRone HCl 10 MG TABLET PO ×3 (08:03→19:49)
[2024-09-09] MEDS: Magnesium Oxide 400 MG TABLET PO (08:03)
[2024-09-09] MEDS: hydroCHLOROthiazide 25 MG TABLET PO (08:03)
[2024-09-09] MEDS: Atorvastatin Calcium 10 MG TABLET PO (08:03)
[2024-09-09] MEDS: amLODIPine Besylate 10 MG TABLET PO (08:03)
[2024-09-09] MEDS: Benzonatate 100 MG CAPSULE PO ×2 (08:04→15:27)
[2024-09-09] MEDS: Insulin Lispro 100 UNIT/ML 3 ML VIAL SUBCUT ×4 (08:05→21:41)
[2024-09-09] MEDS: 0.9 % Sodium Chloride Flush 3 ML SYRINGE IVFLUSH ×3 (08:06→21:41)
[2024-09-09 11:00] VITALS: BP 128/81; PULSE 52; RESP 16; TEMP 36.2; O2SAT 96
[2024-09-09 11:46] LABS: Glucose, Whole Blood 171 mg/dL (60-115)
--- NOTE | 2024-09-09 13:44 | HO.PM.IMPN ---
Subjective Subjective Date of Service: 09/09/24 Interval History: Good pain control, persistent hypoxia, using incentive spirometry, continue O2 support No acute events overnight, no fevers, no chills, no worsening shortness of breath, tolerating diet. Review of Systems All other system reviewed and are negative Physical Exam Vital Signs: Vital Signs: Last Vital Signs Temp 97.1 F 09/09/24 11:00 Pulse 52 09/09/24 11:00 Resp 16 09/09/24 11:00 BP 128/81 09/09/24 11:00 Pulse Ox 96 09/09/24 11:00 O2 Del Method Nasal Cannula 09/09/24 11:00 O2 Flow Rate 7 09/09/24 11:00 BMI result Body Mass Index 57.0 Const: Other: General in no acute distress. Neck no JVD. CVS regular rate rhythm, Respiratory lungs diminished, no respiratory distress, no wheeze, no rhonchi. Gastrointestinal abdomen soft, non tender, bowel sounds audible, obese, Extremities no edema. Neuro non focal Skin no rash/no ecchymosis Psych appropriate affect Objective Data Active Medications Acetaminophen (Acetaminophen 325 Mg Tablet) 975 mg PO Q6H PRN PRN Reason: Pain, Mild 1-3,fever,headache Hydrocodone Bitart/Acetaminophen (Hydrocodone Bit/Acetam 5/325 Tablet) 2 tab PO Q6H PRN PRN Reason: Pain, Severe (Pain Scale 7-10) Last Admin: 09/09/24 08:01 Dose: 2 tab Documented By: CHAPARRO Amlodipine Besylate (Amlodipine Besylate 10 Mg Tablet) 10 mg PO DAILY [facility]; Protocol Last Admin: 09/09/24 08:03 Dose: 10 mg Documented By: CHAPARRO Atorvastatin Calcium (Atorvastatin Calcium 10 Mg Tablet) 10 mg PO DAILY [facility] Last Admin: 09/09/24 08:03 Dose: 10 mg Documented By: CHAPARRO Azithromycin (Azithromycin 250 Mg Tablet) 250 mg PO Q24H [facility] Stop: 09/10/24 22:01 Last Admin: 09/08/24 21:12 Dose: 250 mg Documented By: STEPHANIE Benzonatate (Benzonatate 100 Mg Capsule) 100 mg PO TID [facility] Last Admin: 09/09/24 08:04 Dose: 100 mg Documented By: CHAPARRO Buspirone HCl (Buspirone Hcl 10 Mg Tablet) 10 mg PO TID [facility] Last Admin: 09/09/24 08:03 Dose: 10 mg Documented By: CHAPARRO Calcium Carbonate (Calcium Carbonate 750 Mg Tab.Chew) 750 mg PO Q4H PRN PRN Reason: Heartburn Ceftriaxone Sodium (Ceftriaxone Sodium 1 Gm Vial) 1 gm IVPUSH Q24H [facility] Last Admin: 09/08/24 21:12 Dose: 1 gm Documented By: STEPHANIE Dextrose (Dextrose 50 % 25 Gm/50 Ml Syringe) 25 gm IVPUSH Q15M PRN; Protocol PRN Reason: per Hypoglycemia Standing Ord. Empagliflozin (Empagliflozin 10 Mg Tablet) 10 mg PO DAILY [facility] Last Admin: 09/09/24 08:03 Dose: 10 mg Documented By: CHAPARRO Enoxaparin Sodium (Enoxaparin Sodium 40 Mg/0.4 Ml Syringe) 40 mg SUBCUT Q12H [facility] Last Admin: 09/09/24 02:58 Dose: 40 mg Documented By: STEPHANIE Glucose (Glucose Gel 15 Gm Gel..Gram.) 15 gm PO Q15M PRN; Protocol PRN Reason: per Hypoglycemia Standing Ord. Guaifenesin/Codeine Phosphate (Guaifen/Codeine Sf 200/20/10ml 10 Ml Liquid) 10 ml PO Q6H PRN PRN Reason: Cough Last Admin: 09/08/24 02:08 Dose: 10 ml Documented By: JUAN LUIS Hydrochlorothiazide (Hydrochlorothiazide 25 Mg Tablet) 25 mg PO DAILY [facility]; Protocol Last Admin: 09/09/24 08:03 Dose: 25 mg Documented By: CHAPARRO Insulin Human Lispro (Insulin Lispro 100 Unit/Ml 3 Ml Vial) 0 unit SUBCUT QIDACHS [facility]; Protocol Last Admin: 09/09/24 12:25 Dose: 2 unit Documented By: CHAPARRO Ketorolac Tromethamine (Ketorolac Tromethamine 30 Mg/Ml Vial) 30 mg IVPUSH Q6H PRN PRN Reason: Pain, Moderate(Pain Scale 4-6) Last Admin: 09/08/24 19:58 Dose: 30 mg Documented By: STEPHANIE Magnesium Hydroxide (Milk Of Magnesia 30 Ml Oral.Susp) 30 ml PO DAILY PRN PRN Reason: Constipation Magnesium Oxide (Magnesium Oxide 400 Mg Tablet) 400 mg PO DAILY [facility] Last Admin: 09/09/24 08:03 Dose: 400 mg Documented By: CHAPARRO Melatonin (Melatonin 3 Mg Tablet) 6 mg PO BEDTIME PRN PRN Reason: Insomnia Metoprolol Succinate (Metoprolol Succinate Er 100 Mg Tab.Er.24h) 200 mg PO DAILY [facility]; Protocol Last Admin: 09/09/24 08:03 Dose: 200 mg Documented By: CHAPARRO Ondansetron HCl (Ondansetron Hcl 4 Mg/2 Ml Vial) 4 mg IVPUSH Q8H PRN PRN Reason: Nausea and Vomiting Sertraline HCl (Sertraline Hcl 100 Mg Tablet) 100 mg PO BEDTIME [facility] Last Admin: 09/08/24 19:58 Dose: 100 mg Documented By: STEPHANIE Sodium Chloride (0.9 % Sodium Chloride Flush 3 Ml Syringe) 3 ml IVFLUSH QSHIFT [facility] Last Admin: 09/09/24 08:06 Dose: 3 ml Documented By: CHAPARRO Labs 09/09/24 05:26 09/09/24 05:26 Labs: Laboratory Results - last 24 hr 09/08/24 09/08/24 09/09/24 16:08 19:32 05:26 MCV 83.1 MCH 27.1 MCHC 32.6 RDW 14.5 Plt Count 185 MPV 10.9 Immature Gran % (Auto) 0.5 H Neut % (Auto) 67.3 Lymph % (Auto) 19.9 L [place] % (Auto) 9.3 Eos % (Auto) 2.4 Baso % (Auto) 0.6 Lymph # (Auto) 1.3 [place] # (Auto) 0.6 Eos # (Auto) 0.2 Baso # (Auto) 0.0 Abs Immat Gran (auto) 0.03 Absolute Neuts (auto) 4.4 Absolute Nucleated RBC 0.000 Nucleated RBC % (auto) 0.0 Anion Gap 12 Estim Creat Clear Calc 250.1 Estimated GFR > 60 POC Glucose 174 H 221 H Random Glucose 158 H Calcium 8.9 09/09/24 09/09/24 07:37 11:33 MCV MCH MCHC RDW Plt Count MPV Immature Gran % (Auto) Neut % (Auto) Lymph % (Auto) [place] % (Auto) Eos % (Auto) Baso % (Auto) Lymph # (Auto) [place] # (Auto) Eos # (Auto) Baso # (Auto) Abs Immat Gran (auto) Absolute Neuts (auto) Absolute Nucleated RBC Nucleated RBC % (auto) Anion Gap Estim Creat Clear Calc Estimated GFR POC Glucose 161 H 171 H Random Glucose Calcium Microbiology Microbiology Results: Microbiology 09/06/24 23:39 Blood Culture - Preliminary Blood - Venous No growth after 48 hours. 09/06/24 23:39 Blood Culture - Preliminary Blood - Venous No growth after 48 hours. Assessment and Plan (1) Lactic acidosis: Status: Acute (2) Respiratory acidosis: Status: Acute (3) Sepsis: Status: Acute (4) Acute hypoxic respiratory failure: Status: Acute (5) Pneumonia: Status: Acute Plan Acute hypoxic respiratory failure and sepsis secondary to pneumonia -on admission WBC 11.8, tachypneic, lactic acid 2.8, 1.3 on repeat, blood cultures x2 pending, not severe sepsis -chest CT with mild pulmonary opacities left lower lung -CTA chest negative for PE -COVID/flu/RSV negative -EKG with NSR, first-degree AV block - WBC normalized ,cont. iv ceftriaxone and azithromycin po, started on 09/07 - on BiPAP for sleep, OxyMask with BiPAP, continue O2 support daytime and titrate off oxygen as appropriate Encourage incentive spirometry/out of bed to chair scheduled cough medication and continue as needed Continue IV Toradol and hydrocodone for pain management Acute lactic acidosis- likely due to metformin use, dehydration, lactic acid improved after IV fluids repeat from 2.8 to 1.3 Acute hypokalemia will replete and follow labs Morbid obesity- BMI 57.1, weight loss encouraged, patient on mounjaro HLD - continue home meds Hypertension on multiple antihypertensive continue hydrochlorothiazide, metoprolol 200 mg, amlodipine 10 mg, and continued to hold losartan 100 mg Type 2 diabetes - hold metformin and Mounjero, continue Jardiance 10 mg and Lantus 20 units home dose 48 units, sliding scale insulin, diabetic diet MARK -continue BiPAP at night with oxygen Mood disorder on sertraline 100 mg at bedtime and BuSpar 10 mg t.i.d.. Full code VTE prophylaxis: Lovenox acute hypoxic respiratory failure and sepsis secondary to pneumonia, requiring continued inpatient hospitalization for IV antibiotics, titration off of oxygen and monitoring. Quality Stroke Does the patient have a stroke diagnosis?: No VTE Prior VTE?: No VTE Risk Level:: Medical - moderate - high VTE Device Contraindication: Treatment Not Indicated VTE Drug Contraindication: N/A - Med Ordered
[2024-09-09 15:09] VITALS: BP 124/73; PULSE 57; RESP 18; TEMP 36.3; O2SAT 97
[2024-09-09] MEDS: Ketorolac Tromethamine 30 MG/ML VIAL IVPUSH (15:31)
[2024-09-09 16:19] LABS: Glucose, Whole Blood 162 mg/dL (60-115)
[2024-09-09 19:00] VITALS: BP 115/60; PULSE 52; RESP 19; TEMP 36; O2SAT 95
[2024-09-09] MEDS: Sertraline HCL 100 MG TABLET PO (19:49)
[2024-09-09 20:23] LABS: Glucose, Whole Blood 185 mg/dL (60-115)
[2024-09-09] MEDS: Azithromycin 250 MG TABLET PO (21:41)
[2024-09-09] MEDS: cefTRIAXone sodium 1 GM VIAL IVPUSH (21:41)
[2024-09-09 23:00] VITALS: BP 124/66; PULSE 58; RESP 16; TEMP 36.7; O2SAT 96
[2024-09-10 03:00] VITALS: BP 104/57; PULSE 56; RESP 16; TEMP 36.3; O2SAT 94
[2024-09-10] MEDS: Enoxaparin Sodium 40 MG/0.4 ML SYRINGE SUBCUT (03:13)
[2024-09-10 06:02] LABS: Anion Gap 12 (12-20); Blood Urea Nitrogen 13 mg/dL (9-16); Calcium 8.8 mg/dL (8.4-10.2); Carbon Dioxide 28 mmol/L (22-29); Chloride 104 mmol/L (96-108); Creatinine Clr Calc Pharmacy 254.2; Estimated Glomerular Filt Rate > 60; Glucose Random 153 mg/dL (60-115); Potassium 3.5 mmol/L (3.3-5.1); Sodium 140 mmol/L (135-145)
[2024-09-10 07:00] VITALS: BP 133/77; PULSE 54; RESP 16; TEMP 36.4; O2SAT 94
[2024-09-10 07:43] LABS: Glucose, Whole Blood 159 mg/dL (60-115)
--- NOTE | 2024-09-10 08:55 | PC.NURSE ---
per ok to administer BP and HR meds despite HR < 60
[2024-09-10] MEDS: amLODIPine Besylate 10 MG TABLET PO (08:58)
[2024-09-10] MEDS: Metoprolol Succinate ER 100 MG TAB.ER.24H 200 MG PO (08:58)
[2024-09-10] MEDS: Insulin Lispro 100 UNIT/ML 3 ML VIAL SUBCUT ×2 (08:58→11:59)
[2024-09-10] MEDS: Benzonatate 100 MG CAPSULE PO (08:58)
[2024-09-10] MEDS: Empagliflozin 10 MG TABLET PO (08:58)
[2024-09-10] MEDS: hydroCHLOROthiazide 25 MG TABLET PO (08:58)
[2024-09-10] MEDS: Magnesium Oxide 400 MG TABLET PO (08:58)
[2024-09-10] MEDS: Atorvastatin Calcium 10 MG TABLET PO (08:58)
[2024-09-10] MEDS: busPIRone HCl 10 MG TABLET PO (08:58)
[2024-09-10] MEDS: HYDROcodone Bit/Acetam 5/325 TABLET 2 TAB PO (09:20)
[2024-09-10 10:27] VITALS: O2SAT 90; O2SAT 94
[2024-09-10 11:00] VITALS: BP 123/78; PULSE 57; RESP 16; TEMP 36.1; O2SAT 92
[2024-09-10 11:30] LABS: Glucose, Whole Blood 206 mg/dL (60-115)
--- NOTE | 2024-09-10 11:42 | PM.DS ---
DS: Providers Provider Date of Service: 09/10/24 Date of admission: 09/07/24 02:50 Date of discharge: 09/10/24 Primary care physician: Lexie Lima MD DS: Diagnosis Discharge Diagnosis (1) Lactic acidosis: Status: Acute (2) Respiratory acidosis: Status: Acute (3) Sepsis: Status: Acute (4) Acute hypoxic respiratory failure: Status: Acute (5) Pneumonia: Status: Acute DS: Summary Hospital Course Hospital Course: History of presenting illness: Date of Service: 09/07/24 Attending physician on admission: [facility] Chief Complaint: Right-sided chest pain Patient is a 54-year-old male with a past medical history significant for morbid obesity, HLD, SDH s/p fall, PVCs, HTN, type 2 diabetes, MARK on BiPAP and diabetic neuropathy, who presented to the ED due to right-sided chest pain after a fall 3 days ago and pneumonia. He reports that he had a mechanical fall and was seen by his PCP who diagnosed pneumonia He then went to urgent care who did not see any rib fractures on imaging but found moderate pneumonia and suggested that he come to the ED due to hypoxia. He still complains of severe right-sided chest pain making it difficult for him to take a deep breath. He has a productive cough and generalized malaise. After his fall he denies any head strike or loss of consciousness. He does not use oxygen at baseline but is requiring OxyMask here. Hospital course: Acute hypoxic respiratory failure and sepsis secondary to right base pneumonia ,on admission WBC 11.8, tachypneic, lactic acid 2.8, 1.3 on repeat, chest CT with mild pulmonary opacities bilateral lower lung, CTA chest negative for PE,COVID/flu/RSV negative,EKG with NSR, first-degree AV block, patient admitted to medical floor treated with IV ceftriaxone and azithromycin, and was continued on home BiPAP with OxyMask at 3 L of oxygen ,he was encouraged to use spirometry, in regard to right-sided chest wall pain,he was treated with IV Toradol and hydrocodone with good response, hypoxia resolved ,evaluated by respiratory therapy do not qualify for home oxygen therefore he is being discharged home , he is recommended to take Augmentin for 3 more days that was given to him by urgent Care Clinic, and to take oxycodone for severe pain, Advil/Motrin 400 mg t.i.d. for moderate pain and Tylenol for mild pain discomfort is recommended to continue incentive spirometry at home. Acute lactic acidosis- likely due to metformin use, dehydration, lactic acid improved after IV fluids repeat from 2.8 to 1.3 Acute hypokalemia Repleted Morbid obesity- BMI 57.1, weight loss encouraged, patient on mounjaro HLD - continue home meds Hypertension on multiple antihypertensive continue hydrochlorothiazide, metoprolol 200 mg, amlodipine 10 mg, and losartan 100 mg and follow BP Type 2 diabetes - recommend to resume all home medications including metformin and Mounjero, Jardiance 10 mg and Lantus 48 units, diabetic diet MARK -continue BiPAP at night with oxygen Mood disorder continue sertraline 100 mg at bedtime and BuSpar 10 mg t.i.d.. Time Attestation Discharge Coordination Time (in mins): 40 Quality: Safe Use of Opioids Does Pt have an Active Cancer Diagnosis on the Problem List?: No Quality: Stroke Does the patient have a stroke diagnosis?: No Physical Exam Vital Signs: Vital Signs: Last Vital Signs Temp 97.0 F 09/10/24 11:00 Pulse 57 09/10/24 11:00 Resp 16 09/10/24 11:00 BP 123/78 09/10/24 11:00 Pulse Ox 92 09/10/24 11:00 O2 Del Method Room Air 09/10/24 11:00 O2 Flow Rate 5 09/10/24 07:00 BMI result Body Mass Index 57.0 Const: Other: General in no acute distress. Neck no JVD. CVS regular rate rhythm, Respiratory lungs bibasilar crackles, no respiratory distress, no wheeze, no rhonchi. Gastrointestinal abdomen soft, non tender, bowel sounds audible, obese, Extremities no edema. Neuro non focal Skin no rash/no ecchymosis Psych appropriate affect DS: Data Data Completed and Pending Labs on day of discharge: Laboratory Results - last 24 hr 09/09/24 09/09/24 09/09/24 11:33 16:06 20:17 Hold Purple Top Sodium Potassium Chloride Carbon Dioxide Anion Gap BUN Creatinine Estim Creat Clear Calc Estimated GFR POC Glucose 171 H 162 H 185 H Random Glucose Calcium 09/10/24 09/10/24 09/10/24 05:01 07:33 11:18 Hold Purple Top SEE NOTE Sodium 140 Potassium 3.5 Chloride 104 Carbon Dioxide 28 Anion Gap 12 BUN 13 Creatinine 0.62 Estim Creat Clear Calc 254.2 Estimated GFR > 60 POC Glucose 159 H 206 H Random Glucose 153 H Calcium 8.8 Preliminary micro results at discharge 09/06/24 23:39 Blood Culture - Preliminary Blood - Venous No growth after 48 hours. 09/06/24 23:39 Blood Culture - Preliminary Blood - Venous No growth after 48 hours. Discharge Plan Discharge Anticipated Discharge Date/Time: 09/10/24 11:37 Patient Disposition: Home, Self-Care Discharge Diagnosis: acute hypoxic respiratory failure pneumonia Referrals: Lexie Lima MD [Primary Care Provider] - 1 Week Discharge Medications: Continued (DME) pen needle, diabetic [BD Ultra-Fine Lisa Pen Needle] 32 gauge x 5/32 needle See Rx Instructions .ROUTE .MEDSUPPLY Qty: 100 3RF Rx Instructions: As directed once daily (DME) flash glucose sensor Kit See Rx Instructions topical DIRECTED Qty: 2 11RF Rx Instructions: As directed (DME) FreeStyle Bobby 14 Day Sensor Kit See Rx Instructions .Route Qty: 6 0RF Rx Instructions: As directed metoprolol succinate 200 mg tablet extended release 24 hr 200 mg PO DAILY Qty: 90 1RF (DME) Dexcom G7 [employer] Misc See Rx Instructions .Route Qty: 1 0RF Rx Instructions: Test blood sugars 4 times per day sertraline 100 mg tablet 100 mg PO BEDTIME insulin degludec [Tresiba FlexTouch U-200] 200 unit/mL (3 mL) insulin pen 48 unit subcut DAILY@2130 Mounjaro 15 mg/0.5 mL pen injector 15 mg subcut ESCAMILLA@0900 (DME) FreeStyle Bobby 14 Day [place] Misc See Rx Instructions .Route Qty: 2 4RF Rx Instructions: As directed (DME) comp.stocking,thigh,long,x-lrg Misc See Rx Instructions .Route Qty: 1 0RF Rx Instructions: 1 qd metformin 1,000 mg tablet 1,000 mg PO BID Qty: 180 3RF buspirone 10 mg tablet 10 mg PO TID magnesium oxide 400 mg magnesium tablet 400 mg PO DAILY (DME) Dexcom G7 Sensor Device See Rx Instructions .Route Qty: 3 4RF Rx Instructions: As directed Jardiance 10 mg tablet 10 mg PO DAILY Qty: 90 3RF hydrochlorothiazide 25 mg tablet 25 mg PO DAILY Qty: 90 3RF amlodipine 10 mg tablet 10 mg PO DAILY Qty: 90 3RF atorvastatin 10 mg tablet 10 mg PO DAILY Qty: 90 3RF losartan 100 mg tablet 100 mg PO DAILY Qty: 90 3RF Discharge Orders: Discharge Order (Routine); Ordered 09/10/24 Ordered By: Akua Nguyen Diet: Diabetic diet Activity on Discharge: As tolerated Stand Alone Forms: Patient Portal Discharge page Print Language: Lao Care Plan Goals: right-sided back and anterior chest pain due to fall take analgesics as needed take deep breaths continue incentive spirometry , monitor oxygenation returned to check with hypoxia oxygenation less than 90% patient has script for Augmentin from urgent care. take Augmentin 1 tablet twice daily for 3 more days do not take azithromycin take oxycodone 1-2 tablets as needed q.6 hours for severe pain take Advil or Motrin 400 mg 3 times a day as needed for Moderate pain with food for next 2-3 days. Take Tylenol for mild pain Health Concerns: diabetes take home medications monitor blood sugar hypertension resume all home medications monitor blood sugar Plan of Treatment: outpatient follow-up with primary care physician call for appointment Assessment: as above
--- NOTE | 2024-09-10 12:39 | MHC.CM.PN ---
Patient is discharged to home self care. A family member will provide transportation home. He will continue with home oxygen and BIPAP.
== END 2024-09-10 12:38 | disposition home or self-care (01) | DRG 720 ==
LOC: HO.ED 09-07 00:35 → HO.EDOVER 09-07 03:15 → HO.IMC 09-07 12:01 → HO.EDOVER 09-07 12:03 → HO.S3 09-08 08:42
PROVIDERS: Physician Assistant Medical; Admitting Provider Physician Assistant; Emergency Provider Emergency Medicine; PCP Internal Medicine; Visit Provider Hospitalist
DX: A41.9 Sepsis, unspecified organism (principal); J96.01 Acute respiratory failure with hypoxia; E87.21 Acute metabolic acidosis; J18.9 Pneumonia, unspecified organism; Z68.43 Body mass index [BMI] 50.0-59.9, adult; E11.42 Type 2 diabetes mellitus with diabetic polyneuropathy; E86.0 Dehydration; E66.01 Morbid (severe) obesity due to excess calories; E87.6 Hypokalemia; I10 Essential (primary) hypertension; Z71.3 Dietary counseling and surveillance; E78.5 Hyperlipidemia, unspecified; G47.33 Obstructive sleep apnea (adult) (pediatric); I44.0 Atrioventricular block, first degree; Z20.822 Contact with and (suspected) exposure to COVID-19; Z79.4 Long term (current) use of insulin; Z79.84 Long term (current) use of oral hypoglycemic drugs; Z79.899 Other long term (current) drug therapy
CPT/HCPCS: 0241U; 36415; 71250; 71275; 80048; 80076; 82550; 82803; 82947; 83605; 83690; 83735; 83880; 84145; 84484; 85025; 86140; 87040; 93005; 99285; J0456; J0696; J1650; J1885; J2270; Q9967

== ENCOUNTER → 2024-09-06 23:01 | Outpatient (BNV) | payer OTHER, SELFPAY | PROVIDERS: Admitting Provider Physician Assistant; Emergency Provider Emergency Medicine; PCP Internal Medicine; Visit Provider Internal Medicine | DX: I44.0 Atrioventricular block, first degree (principal) | CPT/HCPCS: 93010 ==

== ENCOUNTER → 2024-09-07 02:50 | Outpatient (BNV) | payer OTHER, SELFPAY | PROVIDERS: Admitting Provider Physician Assistant; Emergency Provider Emergency Medicine; PCP Internal Medicine; Visit Provider Hospitalist | DX: E87.20 Acidosis, unspecified (principal); E87.29 Other acidosis; A41.9 Sepsis, unspecified organism; J96.01 Acute respiratory failure with hypoxia; J18.9 Pneumonia, unspecified organism | CPT/HCPCS: 99233; 99239; 99499 ==

== ENCOUNTER → 2024-09-07 | Outpatient (BNV) | payer OTHER, SELFPAY | PROVIDERS: Emergency Provider Emergency Medicine; PCP Internal Medicine; Visit Provider Radiology Neuroradiology | DX: R07.9 Chest pain, unspecified (principal); R09.02 Hypoxemia | CPT/HCPCS: 71275 ==

== ENCOUNTER 2024-10-02 10:12 | Outpatient (AMB) | payer OTHER, SELFPAY ==
[2024-10-02 10:14] VITALS: BP 120/72; PULSE 79; RESP 20; TEMP 36.5; O2SAT 95; BMI 56.5
--- NOTE | 2024-10-02 10:14 | A.OFFPC_ITS ---
Vital Signs 10/02/24 10:14 Height 6 ft 3 in Weight 452 lb BMI 56.5 BP 120/72 Blood Pressure Location Lt brachial Position Sitting Respiration 20 Pulse 79 Pulse Source Pulse Oximeter Temp 97.7 F Temp Source Oral Pulse Oximetry (%) 95 Oxygen Delivery Method Room Air Intake Visit Reasons: Hospital follow up Intake Note: Pt is here today for Hospital follow up visit. Allergies canagliflozin [Invokana] Adverse Reaction (Unknown, Verified 10/02/24 10:16) rash Medication List - Last Reconciled 10/02/24 by Lexie Lima MD amlodipine 10 mg PO DAILY atorvastatin 10 mg PO DAILY buspirone 10 mg PO TID comp.stocking,thigh,long,x-lrg 1 qd Dexcom G7 Adapted Physical Education Specialist (blood-glucose meter,continuous) Test blood sugars 4 times per day NS Dexcom G7 Sensor (blood-glucose sensor) As directed NS empagliflozin (Jardiance) 10 mg PO DAILY flash glucose scanning reader (FreeStyle Bobby 14 Day [place]) As directed flash glucose sensor As directed fluconazole 100 mg PO DAILY FreeStyle Bobby 14 Day Sensor (flash glucose sensor) As directed NS hydrochlorothiazide 25 mg PO DAILY insulin degludec (Tresiba FlexTouch U-200 insulin) 48 units subcut DAILY@2130 losartan 100 mg PO DAILY magnesium oxide 400 mg PO DAILY metformin 1,000 mg PO BID metoprolol succinate ER 200 mg PO DAILY nystatin 1 appl topical BID pen needle, diabetic (BD Ultra-Fine Lisa Pen Needle) As directed once daily sertraline 100 mg PO BEDTIME tirzepatide (Mounjaro) 15 mg subcut ESCAMILLA@0900 Tobacco use date assessed: 10/02/24 Dental Screening Dental Screen Date: 10/02/24 Did you have a dental visit in the last 12 months?: Yes Did you have a dental problem in the last 6 months where you did not have access to dental care?: No Was dental information given to patient?: Patient has dentist HPI Hospital follow up HPI Details Pt presents for f/u hospitalization for CAP , hypoxia, right lower chest wall pain after a fall. Patient was treated with IV antibiotics and hypoxia resolved. Pt uses Bipap with supplemental O2 3 l and has been monitoring O2 sat. He is established with massotherapist for sleep apnea monitoring. Patient reports high blood glucose readings over 200 most of the time due to noncompliance with ADA diet. He developed pruritic rash on scrotum 3 days ago. [facility] Medical History (Updated 10/02/24 @ 12:07 by Lexie Lima MD) Subdural hematoma, post-traumatic Obesity due to excess calories Annual physical exam MARK (obstructive sleep apnea) Normal colonoscopy Diabetic polyneuropathy associated with type 2 diabetes mellitus Hypertension Dyslipidemia Morbid obesity Diabetes type 2, controlled Surgical History History of surgery of head Hx of cholecystectomy Family History Father No problems noted. Mother Arthritis Brother Stroke Social History Household Members: Family Housing: House Do you presently have visiting nurse or other home services: No Alcohol intake: current Alcohol intake frequency: holidays/special occasions only Patient Tobacco Use Status: Never used Tobacco e-Cigarette/Vaping Use: Never Used service: No Current occupational status: employed Cognitive needs: No Hearing needs: No Vision needs: No Questionnaire PHQ-9 Over the last 2 weeks, how often have you been bothered by any of the following problems? 1. Little interest or pleasure in doing things: not at all 2. Feeling down, depressed, or hopeless: not at all 3. Trouble falling or staying asleep, or sleeping too much: not at all 4. Feeling tired or having little energy: several days 5. Poor appetite or overeating: several days 6. Feeling bad about yourself - or that you are a failure or have let yourself or your family down: not at all 7. Trouble concentrating on things, such as reading the newspaper or watching television: not at all 8. Moving or speaking so slowly that other people could have noticed. Or the opposite - being so fidgety or restless that you have been moving around a lot more than usual: not at all 9. Thoughts that you would be better off or of hurting yourself in some way: not at all Total score: 2 Depression Screening Interpretation: Negative Depression Screening Done: Yes 87296 - PHQ-9 Billing: Yes Source: Developed by Drs. Gaurav Dalton, Jordin Sanchez and colleagues, with an educational bassem from [employer]. Thrive Questionnaire Date Thrive assessed: 10/02/24 I am a: Patient What is your living situation today?: I have a steady place to live Within the past 12 months, did the food you bought not last and you didn't have the money to get more?: Never true Within the past 12 months, did you worry whether your food would run out before you got money to buy more?: Never true Do you have trouble paying for medicines?: No Do you have trouble getting transportation to medical appointments?: No Do you have trouble paying your heating and electricity bill?: No Do you have trouble taking care of your child, family member or friend?: I choose not to answer this question Do you have trouble with day-to-day activities such as bathing, preparing meals, shopping, managing finances, etc.?: No Are you currently unemployed and looking for a job?: I choose not to answer this question Are you interested in more education?: No Please select the resources that you would like help with: None Currently or been in a relationship where the following occur: No concerns reported THRIVE Score: 0 AUDIT C Alcohol Use Questionnaire (AUDIT-C) 1. How often do you have a drink containing alcohol?: Never 3. How often do you have six or more drinks on one occasion?: Never Total Score: 0 BRIDGETT-7 AMB Questionnaire BRIDGETT-7 Date BRIDGETT - 7 assessed: 10/02/24 Feeling nervous, anxious, or on edge: 0 = Not at all Not being able to stop or control worryin = Not at all Worrying too much about different things: 0 = Not at all Trouble relaxin = Not at all Being so restless that it is hard to sit still: 0 = Not at all Becoming easily annoyed or irritable: 0 = Not at all Feeling afraid as if something awful might happen: 0 = Not at all Total BRIDGETT-7 score (0-4 normal; 5-9 mild; 10-14 moderate; 15-21 severe): 0 Source: Developed by Drs. Gaurav Dalton, Jordin Sanchez and colleagues, with an educational bassem from [employer]. BRIDGETT-7 Assessment Billing BRIDGETT-7 Assessment Tool: BRIDGETT-7 Assessment 57970 Review of Systems Const All systems reviewed & are unremarkable except as noted in HPI and below ENT Reports no additional complaints Card Reports no additional complaints Resp Reports no additional complaints GI Reports no additional complaints Reports no additional complaints Physical exam (Primary Care) Vital Signs: Last Vital Signs Temp 97.7 F 10/02/24 10:14 Pulse 79 10/02/24 10:14 Resp 20 10/02/24 10:14 BP 120/72 10/02/24 10:14 Pulse Ox 95 10/02/24 10:14 Oxygen Delivery Method Room Air 10/02/24 10:14 BMI result Body Mass Index 56.5 Tobacco/Smoking Status: Tobacco use Status Tobacco use date assessed 10/02/24 10/02/24 10:18 Patient Tobacco Use Status Never used Tobacco 10/02/24 10:14 e-Cigarette/Vaping Use Never Used 10/02/24 10:14 PHQ-9: PHQ-9 Score PHQ-9: Total score 2 10/02/24 10:53 Depression Screening Interpretation: Negative Thrive Assessment: Date of Thrive Assessment Date Thrive assessed 10/02/24 10/02/24 10:18 Currently or been in a relationship where the following occur: No concerns reported Const General: no acute distress HENMT Face and sinus: Yes normal facial exam Eyes General: appearance normal, both eyes and all related structures Neck Neck: Yes supple Resp Effort & Inspection: normal respiratory effort Auscultation: clear to auscultation bilaterally Cardio Rhythm: regular rhythm Heart sounds: S1 normal heart sound present and S2 normal heart sound present GI Inspection: Yes normal to inspection Palpation (GI): Soft to palpation Percussion: Yes normal to percussion Skin Other: Erythematous papular rash on the scrotum Results AMB Random Glucose (hemocue) AMB Random Glucose (hemocue) 205 mg/dL Last Edit by SIMA Lopez on 10/02/24 11:09 Coding Level of Care Code Est Pt Level 4 (72749) Diagnoses Candidiasis B37.9 Controlled type 2 diabetes mellitus with diabetic polyneuropathy, without long- term current use of insulin E11.42 Diabetes mellitus buttermaker continuous churn insulin use: without buttermaker continuous churn use Diabetes mellitus complication status: with neurologic complications Diabetes mellitus complication detail: with polyneuropathy Morbid obesity E66.01 MARK (obstructive sleep apnea) G47.33 Additional Codes BRIDGETT-7 Assessment Billing - BRIDGETT-7 Assessment Tool: BRIDGETT-7 Assessment 85682 ([id number]) PHQ-9 - 10049 - PHQ-9 Billing: Yes ([id number]) Assessment & Plan Assessment & Plan (1) Candidiasis: Code(s): B37.9 - Candidiasis, unspecified Category: Medical Plan: Nystatin powder and Diflucan prescribed (2) Diabetes type 2, controlled: Code(s): E11.9 - Type 2 diabetes mellitus without complications Category: Medical Qualifiers: Diabetes mellitus skilled nursing insulin use: without buttermaker continuous churn use Diabetes mellitus complication status: with neurologic complications Diabetes mellitus complication detail: with polyneuropathy Qualified Code(s): E11.42 - Type 2 diabetes mellitus with diabetic polyneuropathy Plan: ADA diet increase physical activity weight loss discussed with the patient. He was more compliant following Weight Watchers diet and will try again, he will continue current medications. Patient will follow-up in 1 month with a fasting labs before (3) Morbid obesity: Code(s): E66.01 - Morbid (severe) obesity due to excess calories Category: Medical Plan: Decreasing caloric intake increasing physical activity discussed with the patient continue Mounjaro (4) MARK (obstructive sleep apnea): Comment: ON Bipap f/u pul Code(s): G47.33 - Obstructive sleep apnea (adult) (pediatric) Category: Medical Plan: Continue CPAP with supplemental O2 and follow-up with pulmonology Orders: Orders AMB Random Glucose (hemocue) Today Z13.9 - Encounter for screening, unspecified Medications: New fluconazole 100 mg PO DAILY 7 tabs 0RF nystatin 1 appl topical BID 120 grams 2RF
== END 2024-10-02 12:11 | disposition home or self-care (01) ==
LOC: HO.HMCC 10:13
PROVIDERS: PCP Internal Medicine; Visit Provider Internal Medicine
DX: B37.9 Candidiasis, unspecified (principal); E11.42 Type 2 diabetes mellitus with diabetic polyneuropathy; E66.01 Morbid (severe) obesity due to excess calories; Z68.43 Body mass index [BMI] 50.0-59.9, adult; G47.33 Obstructive sleep apnea (adult) (pediatric)

== ENCOUNTER → 2024-10-02 10:12 | Outpatient (BNVA) | payer OTHER, SELFPAY | PROVIDERS: PCP Internal Medicine; Visit Provider Internal Medicine | DX: B37.9 Candidiasis, unspecified (principal); E11.42 Type 2 diabetes mellitus with diabetic polyneuropathy; E66.01 Morbid (severe) obesity due to excess calories; G47.33 Obstructive sleep apnea (adult) (pediatric) | CPT/HCPCS: 82948; 96127; 99212 ==

== ENCOUNTER 2024-10-23 08:17 | Outpatient (REF) | payer OTHER, SELFPAY ==
--- OUTSIDE RECORDS SUMMARY | 2024-10-23 08:26 | XMS_ITS | Clinical Summary ---
Author Organization [facility] ity Address [address] [place] [id number] Care Team Providers Care Senior Business Development Manager Name Role Phone Unavailable Primary Care Provider Unavailabl e Social History Tobacco Use Types Packs/Day Years Used Date Smoking Tobacco: Never Assessed Sex and Gender Information Value Date Recorded Sex Assigned at Not on file Legal Sex Male 1:39 PM EDT Gender Identity Not on file Sexual Orientation Not on file Plan of Treatment Health Maintenance Due Date Last Done Comments DTaP,Tdap,and Td Vaccines (1 - Tdap) 1988 Hepatitis B Vaccines (1 of 3 - 19+ 3-dose series) 1988 Pneumococcal Vaccine: 50+ Ye ars (1 of 1 - PCV) 2019 Zoster Vaccines (1 of 2) 2019 Cholesterol Screening (Lipid Panel) 02/15/2024 Colorectal Cancer Screening: Colonoscopy 02/15/2024 Depression Screening 02/15/2024 HIV Screening 02/15/2024 Hepatitis C Screening 02/15/2024 Social Influencers of Health Screening 02/15/2024 COVID-19 Vaccine ( - 2023-2 5 season) 2024 Influenza Vaccine (#1) 2024 HIB Vaccines Aged Out No longer eligi ble based on patient's age to complete this topic HPV Vaccines Aged Out No longer eligi ble based on patient's age to complete this topic Hepatitis A Vaccines Aged Out No long er eligible based on patient's age to complete this topic IPV Vaccines Aged Out No longer eligi ble based on patient's age to complete this topic MMR Vaccines Aged Out No longer eligi ble based on patient's age to complete this topic Meningococcal ACWY Vaccine Aged Out N o longer eligible based on patient's age to complete this topic Meningococcal B Vaccine Aged Out No l onger eligible based on patient's age to complete this topic Pneumococcal Vaccine: Pediat rics (0 to 5 Years) and At-Risk Patients (6 to 64 Years) Aged Out No longer eligible b ased on patient's age to complete this topic RSV Immunization Patients Un sona 20 months Aged Out No longer eligible b ased on patient's age to complete this topic Varicella Vaccines Aged Out No longer eligible based on patient's age to complete this topic Advance Directives Documents on File Type Date Recorded 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
[2024-10-23 10:28] LABS: Estimated Average Glucose 183 mg/dL; Hemoglobin A1C 266.1235 umol/L; Total Hemoglobin (HGBA1C) 4152.3146 umol/L
[2024-10-23 10:49] LABS: Alanine Aminotransferase 23 U/L (0-40); Albumin Level 3.8 g/dL (3.5-5.0); Alkaline Phosphatase 116 U/L (39-117); Anion Gap 15 (12-20); Aspartate Amino Transferase 35 U/L (5-37); Bilirubin Total 1.1 mg/dL (0.0-1.0); Blood Urea Nitrogen 14 mg/dL (9-16); Calcium 9.3 mg/dL (8.4-10.2); Carbon Dioxide 20 mmol/L (22-29); Chloride 108 mmol/L (96-108); Cholesterol 100 mg/dL (<200); Estimated Glomerular Filt Rate > 60; Glucose Fasting 149 mg/dL (60-99); HDL Cholesterol 29 mg/dL (>40); LDL Cholesterol Calculated 47 mg/dL (<100); Sodium 139 mmol/L (135-145); Total Protein 7.2 g/dL (6.5-8.0); Triglycerides 120 mg/dL (<150)
[2024-10-23 11:15] LABS: Creatinine Urine 135.98 mg/dL; Microalbum/Creatinine Ratio Ur 43.3 ug/mg cr (<30)
== END 2024-10-23 08:18 | disposition home or self-care (01) ==
LOC: HO.HMGCLDS 08:17
PROVIDERS: PCP Internal Medicine; Visit Provider Internal Medicine
DX: I10 Essential (primary) hypertension (principal); E78.5 Hyperlipidemia, unspecified; E11.42 Type 2 diabetes mellitus with diabetic polyneuropathy; E66.01 Morbid (severe) obesity due to excess calories
CPT/HCPCS: 36415; 80053; 80061; 82043; 82570; 83036

== ENCOUNTER 2025-01-08 13:55 | Outpatient (AMB) | payer OTHER, SELFPAY ==
[2025-01-08 14:02] VITALS: BP 122/82; PULSE 75; RESP 20; O2SAT 91; BMI 57.7
--- NOTE | 2025-01-08 14:02 | A.OFFPC_ITS ---
Vital Signs 01/08/25 14:02 Height 6 ft 3 in Weight 462 lb BMI 57.7 BP 122/82 Blood Pressure Location Rt brachial Position Sitting Respiration 20 Pulse 75 Pulse Source Pulse Oximeter Pulse Oximetry (%) 91 L Oxygen Delivery Method Room Air Intake Visit Reasons: DM followup-update pcp Intake Note: Pt is here today for follow up visit on DM. Allergies canagliflozin (Invokana) Adverse Reaction (Unknown, Verified 01/08/25 14:02) rash Medication List - Last Reconciled 01/08/25 by Lexie Lima MD amlodipine 10 mg PO DAILY atorvastatin 10 mg PO DAILY buspirone 10 mg PO TID comp.stocking,thigh,long,x-lrg 1 qd Dexcom G7 Electrical Maintenance Technician (blood-glucose,direct response consultant,cont) Test blood sugars 4 times per day NS Dexcom G7 Sensor (blood-glucose sensor) As directed NS empagliflozin (Jardiance) 10 mg PO DAILY flash glucose scanning reader (FreeStyle Bobby 14 Day [place]) As directed flash glucose sensor As directed fluconazole 100 mg PO DAILY FreeStyle Bobby 14 Day Sensor (flash glucose sensor) As directed NS hydrochlorothiazide 25 mg PO DAILY losartan 100 mg PO DAILY magnesium oxide 400 mg PO DAILY metformin 1,000 mg PO BID metoprolol succinate ER 200 mg PO DAILY nystatin 1 appl topical BID pen needle, diabetic (BD Ultra-Fine Lisa Pen Needle) As directed once daily sertraline 100 mg PO BEDTIME tirzepatide (Mounjaro) 15 mg subcut ESCAMILLA@0900 Tresiba FlexTouch U-200 (insulin degludec) 48 units (0.24 mL) subcut BEDTIME NS Tobacco use date assessed: 01/08/25 Dental Screening Dental Screen Date: 10/02/24 HPI DM followup-update pcp HPI Details Patient presents complaining of dyspnea on exertion, upper chest tightness when walking short distance for the last 3 months getting worse recently. He denies chest pain palpitations cough wheezing PND orthopnea fever chills pleurisy. Patient has a negative CT angiogram of the chest in August. Patient uses a BiPAP with supplemental O2 because of severe obstructive sleep apnea with hypoxia. Patient reports improving blood glucose readings the still has 40% high or very high readings. He reports eating chips for lunch and not following ADA diet. He gained 10 lb in last 2 months despite taking 15 mg of Mounjaro. He has been compliant with his medications. [facility] Medical History (Updated 01/08/25 @ 15:17 by Lexie Lima MD) Subdural hematoma, post-traumatic Obesity due to excess calories Annual physical exam MARK (obstructive sleep apnea) Normal colonoscopy Diabetic polyneuropathy associated with type 2 diabetes mellitus Hypertension Dyslipidemia Morbid obesity Diabetes type 2, controlled Surgical History History of surgery of head Hx of cholecystectomy Family History Father No problems noted. Mother Arthritis Brother Stroke Social History Household Members: Family Housing: House Do you presently have visiting nurse or other home services: No Alcohol intake: current Alcohol intake frequency: holidays/special occasions only Patient Tobacco Use Status: Never used Tobacco e-Cigarette/Vaping Use: Never Used service: No Current occupational status: employed Cognitive needs: No Hearing needs: No Vision needs: No Questionnaire Thrive Questionnaire Date Thrive assessed: 10/02/24 I am a: Patient What is your living situation today?: I have a steady place to live Within the past 12 months, did the food you bought not last and you didn't have the money to get more?: Never true Within the past 12 months, did you worry whether your food would run out before you got money to buy more?: Never true Do you have trouble paying for medicines?: No Do you have trouble getting transportation to medical appointments?: No Do you have trouble paying your heating and electricity bill?: No Do you have trouble taking care of your child, family member or friend?: I choose not to answer this question Do you have trouble with day-to-day activities such as bathing, preparing meals, shopping, managing finances, etc.?: No Are you currently unemployed and looking for a job?: I choose not to answer this question Are you interested in more education?: No Please select the resources that you would like help with: None Currently or been in a relationship where the following occur: No concerns reported THRIVE Score: 0 BRIDGETT-7 AMB Questionnaire BRIDGETT-7 Date BRIDGETT - 7 assessed: 03/20/25 Source: Developed by Drs. Gaurav Dalton, Shira De La Vega, Jordin Nash and colleagues, with an educational bassem from [employer]. Review of Systems Const All systems reviewed & are unremarkable except as noted in HPI and below Eyes Reports no additional complaints ENT Reports no additional complaints Card Reports no additional complaints Resp Reports no additional complaints GI Reports no additional complaints Reports no additional complaints Physical exam (Primary Care) Vital Signs: Last Vital Signs Pulse 75 01/08/25 14:02 Resp 20 01/08/25 14:02 BP 122/82 01/08/25 14:02 Pulse Ox 91 L 01/08/25 14:02 Oxygen Delivery Method Room Air 01/08/25 14:02 BMI result Body Mass Index 57.7 Tobacco/Smoking Status: Tobacco use Status Tobacco use date assessed 01/08/25 01/08/25 14:02 Patient Tobacco Use Status Never used Tobacco 01/08/25 14:02 e-Cigarette/Vaping Use Never Used 01/08/25 14:02 Thrive Assessment: Date of Thrive Assessment Date Thrive assessed 10/02/24 01/08/25 14:02 Currently or been in a relationship where the following occur: No concerns reported Const General: no acute distress HENMT Head: Yes normal to inspection Eyes General: appearance normal, both eyes and all related structures Neck Neck: Yes no lymphadenopathy and Yes supple Resp Effort & Inspection: normal respiratory effort Auscultation: clear to auscultation bilaterally Cardio Rhythm: regular rhythm Heart sounds: S1 normal heart sound present and S2 normal heart sound present GI Inspection: Yes normal to inspection Palpation (GI): Soft to palpation Extrem Other: 1+ pitting edema bilaterally Coding Level of Care Code Est Pt Level 4 (47631) Complex EM visit Add On G2211 Diagnoses SOB (shortness of breath) R06.02 Controlled type 2 diabetes mellitus with diabetic polyneuropathy, without long- term current use of insulin E11.42 Diabetes mellitus alf insulin use: without intermediate card tender use Diabetes mellitus complication status: with neurologic complications Diabetes mellitus complication detail: with polyneuropathy Morbid obesity E66.01 MARK (obstructive sleep apnea) G47.33 Assessment & Plan Assessment & Plan (1) SOB (shortness of breath): Comment: CT angiogram negative for PE August 2024 Code(s): R06.02 - Shortness of breath Category: Medical Plan: O2 saturation rest 91% after 5 minute walk 88%. Obtain repeat chest x-ray and pulmonary function test. Weight loss discussed with the pt (2) Diabetes type 2, controlled: Code(s): E11.9 - Type 2 diabetes mellitus without complications Category: Medical Qualifiers: Diabetes mellitus intermediate card tender insulin use: without alf use Diabetes mellitus complication status: with neurologic complications Diabetes mellitus complication detail: with polyneuropathy Qualified Code(s): E11.42 - Type 2 diabetes mellitus with diabetic polyneuropathy Plan: ADA diet increase physical activity continue current medications follow-up in 1 month with a fasting labs including A1c (3) Morbid obesity: Code(s): E66.01 - Morbid (severe) obesity due to excess calories Category: Medical Plan: Continue Mounjaro, decrease caloric intake increasing physical activity weight loss discussed with the patient (4) MARK (obstructive sleep apnea): Comment: ON Bipap with supplemental O2 f/u pul Code(s): G47.33 - Obstructive sleep apnea (adult) (pediatric) Category: Medical Plan: Continue BiPAP with supplemental O2 follow-up with pulmonology Orders: Orders XR chest 1V Today R06.02 - Shortness of breath Complete Blood Count Auto Diff 1 Month E11.42 - Type 2 diabetes mellitus with diabetic polyneuropathy, E66.01 - Morbid (severe) obesity due to excess calories Hemoglobin A1c 1 Month E11.42 - Type 2 diabetes mellitus with diabetic polyneuropathy, E66.01 - Morbid (severe) obesity due to excess calories Lipid Panel 1 Month E11.42 - Type 2 diabetes mellitus with diabetic polyneuropathy, E66.01 - Morbid (severe) obesity due to excess calories PFT pulmonary function test Today R06.02 - Shortness of breath Comprehensive [place]. Panel Fast 1 Month E11.42 - Type 2 diabetes mellitus with diabetic polyneuropathy, E66.01 - Morbid (severe) obesity due to excess calories Microalbumin, Random (w Creat) 1 Month E11.42 - Type 2 diabetes mellitus with diabetic polyneuropathy, E66.01 - Morbid (severe) obesity due to excess calories Referrals Cologuard Test Z12.11 - Encounter for screening for malignant neoplasm of colon, Z12.12 - Encounter for screening for malignant neoplasm of rectum
--- OUTSIDE RECORDS SUMMARY | 2025-01-08 16:46 | XMS_ITS | Clinical Summary ---
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
== END 2025-01-08 15:06 | disposition home or self-care (01) ==
LOC: HO.HMCC 13:56
PROVIDERS: PCP Internal Medicine; Visit Provider Internal Medicine
DX: R06.02 Shortness of breath (principal); E11.42 Type 2 diabetes mellitus with diabetic polyneuropathy; E66.01 Morbid (severe) obesity due to excess calories; Z68.43 Body mass index [BMI] 50.0-59.9, adult; G47.33 Obstructive sleep apnea (adult) (pediatric)

== ENCOUNTER 2025-01-08 13:55 | Outpatient (REF) | payer OTHER, SELFPAY ==
--- NOTE | ~2025-01-08 | XR_ITS ---
EXAMINATION: XR CHEST CLINICAL INFORMATION: R06.02 - Shortness of breath COMPARISON: 09/06/2024, and CT chest 09/06/2024 and 09/07/2024. TECHNIQUE: Frontal view of the chest was obtained. FINDINGS: Borderline cardiac enlargement. Vascular prominence in the hilar regions. Mediastinal contours appear normal. Lungs again demonstrate bilateral low volumes and diffuse bronchovascular crowding/bronchovascular positional opacities. No pneumothorax or effusion. No focal osseous or soft tissue abnormality. XR/XR chest 1V IMPRESSION: Low lung volumes with diffuse prominence of the background bronchovascular markings again present. Findings appear similar to 09/06/2024, and most likely represent chronic lung changes versus prominence of the bronchovascular interstitium from low lung volumes/bronchovascular crowding. Electronically signed by: Bradford Burns MD 01/08/2025 04:20 PM EDT
== END 2025-01-08 13:56 | disposition home or self-care (01) ==
LOC: HO.HMGCX 13:55
PROVIDERS: PCP Internal Medicine; Visit Provider Internal Medicine
DX: R06.02 Shortness of breath (principal); E11.42 Type 2 diabetes mellitus with diabetic polyneuropathy; E66.01 Morbid (severe) obesity due to excess calories; G47.33 Obstructive sleep apnea (adult) (pediatric); Z68.43 Body mass index [BMI] 50.0-59.9, adult; Z71.3 Dietary counseling and surveillance
CPT/HCPCS: 71045; 99212

== ENCOUNTER → 2025-01-08 15:08 | Outpatient (BNV) | payer OTHER, SELFPAY | PROVIDERS: PCP Internal Medicine; Visit Provider Radiology Diagnostic Radiology | DX: R06.02 Shortness of breath (principal) | CPT/HCPCS: 71045 ==

== ENCOUNTER 2025-02-02 09:28 | Outpatient (REF) | payer OTHER, SELFPAY ==
--- OUTSIDE RECORDS SUMMARY | 2025-02-02 09:58 | XMS_ITS | Clinical Summary ---
Author Organization [facility] ity Address [id number] [place] [phone] Care Team Providers Care Park Services Specialist Name Role Phone Unavailable Primary Care Provider [...] Panel) 02/15/2024 Colorectal Cancer Screening: Colonoscopy 02/15/2024 HIV Screening 02/15/2024 Hepatitis C Screening 02/15/2024 Social Influencers of Health Screening 02/15/2024 COVID-19 Vaccine ( - 2023-2 5 season) 2024 Depression Screening 07/16/2024 Influenza Vaccine (#1) 2025 HIB Vaccines Aged Out No longer [...] Documents on File Type Date Recorded Patient Surfacer Expl anation Health Care Decision (hx) 08/07/2023 [facility]
--- OUTSIDE RECORDS SUMMARY | 2025-02-02 09:58 | XMS_ITS | Clinical Summary ---
Author Organization [facility] Address [address] [place] [phone] Phone Care Team Providers Care Stave Hewer Name Role Phone Unavailable Primary Care Provider Unavailabl e Social History Tobacco Use Types Packs/Day Years Used Date Smoking Tobacco: Never Assessed Education Answer Date Recorded Are you interested in more education? Not on diamond e 08/09/2023 Are you concerned about learning? Not on file 08/09/2023 No 08/09/2023 No 08/09/2023 Digital Access Answer Date Recorded No 08/09/2023 No 08/09/2023 Reliable internet access at home? Not on file 08/09/2023 Device with a working camera? Not on file Sex and Gender Information Value Date Recorded Sex Assigned at Not on file Legal Sex Male 8:34 AM EST Gender Identity Not on file Sexual Orientation Not on file Plan of Treatment Not on file Medical Devices Not on file Additional Source Comments The information contained in this document represents components of the legal health record. It is not the complete legal health record.[facility]
[2025-02-02 12:57] LABS: MANUAL DIFF FLAG NO
[2025-02-02 13:09] LABS: Hematocrit 47.3 % (42.0-52.0); Hemoglobin 14.4 g/dl (14.0-18.0); Imm Gran Abs Auto 0.05 X10*3/uL (0.00-0.03); Imm Gran Pct Auto 0.6 % (0.0-0.4); Lymphocytes Absolute Auto 1.7 X10*3/uL (1.2-4.9); Mean Corpuscular HGB Conc 30.4 g/dl (31.0-36.0); Mean Corpuscular Hemoglobin 25.1 pg (27.0-33.0); Mean Corpuscular Volume 82.5 fL (80.0-98.0); NRBC Abs Auto 0.000 X10*3/uL (0.0-0.012); NRBC Pct Auto 0.0 /100WBC (0.0-0.2); Platelet Count 282 X10*3/uL (160-400); Red Blood Count 5.73 X10*6/uL (4.60-5.80); White Blood Count 8.3 X10*3/uL (4.8-10.8)
[2025-02-02 13:21] LABS: Hemoglobin A1C 235.8010 umol/L; Total Hemoglobin (HGBA1C) 3736.8280 umol/L
[2025-02-02 13:37] LABS: Alanine Aminotransferase 73 U/L (0-40); Albumin Level 3.9 g/dL (3.5-5.0); Alkaline Phosphatase 149 U/L (39-117); Anion Gap 13 (12-20); Aspartate Amino Transferase 60 U/L (5-37); Blood Urea Nitrogen 15 mg/dL (9-16); Calcium 9.4 mg/dL (8.4-10.2); Carbon Dioxide 27 mmol/L (22-29); Chloride 107 mmol/L (96-108); Cholesterol 82 mg/dL (<200); Estimated Glomerular Filt Rate > 60; HDL Cholesterol 23 mg/dL (>40); Potassium 3.8 mmol/L (3.3-5.1); Sodium 143 mmol/L (135-145); Total Protein 7.0 g/dL (6.5-8.0); Triglycerides 95 mg/dL (<150)
[2025-02-02 14:39] LABS: Microalbum/Creatinine Ratio Ur 262.1 ug/mg cr (<30)
== END 2025-02-02 09:29 | disposition home or self-care (01) ==
LOC: HO.HMGCLDS 09:28
PROVIDERS: PCP Internal Medicine; Visit Provider Internal Medicine
DX: E11.42 Type 2 diabetes mellitus with diabetic polyneuropathy (principal); E66.01 Morbid (severe) obesity due to excess calories
CPT/HCPCS: 36415; 80053; 80061; 82043; 82570; 83036; 85025

== ENCOUNTER 2025-02-05 12:24 | Outpatient (AMB) | payer OTHER, SELFPAY ==
[2025-02-05 12:30] VITALS: BP 122/82; PULSE 75; O2SAT 90; BMI 58.0
--- NOTE | 2025-02-05 12:30 | A.OFFPC_ITS ---
Vital Signs 02/05/25 12:30 Height 6 ft 3 in Weight 464 lb BMI 58.0 BP 122/82 Blood Pressure Location Lt brachial Position Sitting Pulse 75 Pulse Source Pulse Oximeter Pulse Oximetry (%) 90 L Oxygen Delivery Method Room Air Intake Visit Reasons: 1m follow up Allergies canagliflozin (Invokana) Adverse Reaction (Unknown, Verified 02/05/25 12:30) rash Medication List - Last Reconciled 02/05/25 by Lexie Lima MD amlodipine 10 mg PO DAILY atorvastatin 10 mg PO DAILY buspirone 10 mg PO TID comp.stocking,thigh,long,x-lrg 1 qd Dexcom G7 Water Pumping Station Engineer (blood-glucose,funnel coater,cont) Test blood sugars 4 times per day NS Dexcom G7 Sensor (blood-glucose sensor) As directed NS empagliflozin (Jardiance) 10 mg PO DAILY flash glucose scanning reader (FreeStyle Bobby 14 Day [place]) As directed flash glucose sensor As directed FreeStyle Bobby 14 Day Sensor (flash glucose sensor) As directed NS hydrochlorothiazide 25 mg PO DAILY losartan 100 mg PO DAILY magnesium oxide 400 mg PO DAILY metformin 1,000 mg PO BID metoprolol succinate ER 200 mg PO DAILY Mounjaro (tirzepatide) INJECT 15 MG (0.5 ML) SUBCUTANEOUSLY ONCE A WEEK NS nystatin 1 appl topical BID pen needle, diabetic (BD Ultra-Fine Lisa Pen Needle) As directed once daily sertraline 100 mg PO BEDTIME Tresiba FlexTouch U-200 (insulin degludec) 48 units (0.24 mL) subcut BEDTIME NS Tobacco use date assessed: 01/08/25 Dental Screening Dental Screen Date: 10/02/24 HPI 1m follow up HPI Details Patient presents for the follow-up. He reports improve diabetes controlled with a fasting blood glucose readings between 120-140. Patient has been following ADA diet monitoring his glucose with Dexcom8 and has been in control of 75% of the time. Patient complains of dyspnea on exertion and has been using oxygen for nocturnal hypoxemia with a CPAP. Chronic anxiety and depression stable on sertraline. Patient had an episode of hematuria with dysuria last week which lasted 1 day. He denies abdominal pelvic pain nausea vomiting fever chills urinary incontinence or hesitancy. [facility] Medical History Subdural hematoma, post-traumatic Obesity due to excess calories Annual physical exam MARK (obstructive sleep apnea) Normal colonoscopy Diabetic polyneuropathy associated with type 2 diabetes mellitus Hypertension Dyslipidemia Morbid obesity Diabetes type 2, controlled Surgical History History of surgery of head Hx of cholecystectomy Family History Father No problems noted. Mother Arthritis Brother Stroke Social History Household Members: Family Housing: House Do you presently have visiting nurse or other home services: No Alcohol intake: current Alcohol intake frequency: holidays/special occasions only Patient Tobacco Use Status: Never used Tobacco e-Cigarette/Vaping Use: Never Used service: No Current occupational status: employed Cognitive needs: No Hearing needs: No Vision needs: No Questionnaire Thrive Questionnaire Date Thrive assessed: 10/02/24 I am a: Patient What is your living situation today?: I have a steady place to live Within the past 12 months, did the food you bought not last and you didn't have the money to get more?: Never true Within the past 12 months, did you worry whether your food would run out before you got money to buy more?: Never true Do you have trouble paying for medicines?: No Do you have trouble getting transportation to medical appointments?: No Do you have trouble paying your heating and electricity bill?: No Do you have trouble taking care of your child, family member or friend?: I choose not to answer this question Do you have trouble with day-to-day activities such as bathing, preparing meals, shopping, managing finances, etc.?: No Are you currently unemployed and looking for a job?: I choose not to answer this question Are you interested in more education?: No Please select the resources that you would like help with: None Currently or been in a relationship where the following occur: No concerns reported THRIVE Score: 0 BRIDGETT-7 AMB Questionnaire BRIDGETT-7 Date BRIDGETT - 7 assessed: 10/02/24 Source: Developed by Drs. Gaurav Dalton, Shira De La Vega, Jordin Nash and colleagues, with an educational bassem from [employer]. Review of Systems Const All systems reviewed & are unremarkable except as noted in HPI and below Eyes Reports no additional complaints ENT Reports no additional complaints Card Reports no additional complaints Resp Reports no additional complaints GI Reports no additional complaints Reports no additional complaints Physical exam (Primary Care) Vital Signs: Last Vital Signs Pulse 75 02/05/25 12:30 BP 122/82 02/05/25 12:30 Pulse Ox 90 L 02/05/25 12:30 Oxygen Delivery Method Room Air 02/05/25 12:30 BMI result Body Mass Index 58.0 Tobacco/Smoking Status: Tobacco use Status Tobacco use date assessed 01/08/25 02/05/25 12:35 Patient Tobacco Use Status Never used Tobacco 02/05/25 12:35 e-Cigarette/Vaping Use Never Used 02/05/25 12:35 Thrive Assessment: Date of Thrive Assessment Date Thrive assessed 10/02/24 02/05/25 12:35 Currently or been in a relationship where the following occur: No concerns reported Const General: no acute distress HENMT Head: Yes normal to inspection Neck Neck: Yes supple Resp Effort & Inspection: normal respiratory effort Auscultation: diminished lung sounds Cardio Rhythm: regular rhythm Heart sounds: S1 normal heart sound present and S2 normal heart sound present GI Inspection: Yes normal to inspection Palpation (GI): Soft to palpation Percussion: Yes normal to percussion Auscultation: normal bowel sounds General: Yes no CVA tenderness Back/Spine/Pelvis Back: no CVA tenderness Coding Level of Care Code Est Pt Level 4 (75002) Complex EM visit Add On G2211 Diagnoses Hematuria R31.9 Diabetes type 2, controlled E11.9 Morbid obesity E66.01 Essential hypertension I10 Hypertension type: essential hypertension MARK (obstructive sleep apnea) G47.33 Assessment & Plan Assessment & Plan (1) Hematuria: Code(s): R31.9 - Hematuria, unspecified Category: Medical Plan: Check urinalysis urine culture bladder and renal ultrasound and referred to urologist (2) Diabetes type 2, controlled: Code(s): E11.9 - Type 2 diabetes mellitus without complications Category: Medical Plan: A1c is 7.9. ADA diet increase exercise weight loss discussed with the patient continue metformin Mounjaro Jardiance and insulin. Add short-acting insulin with sliding scale before meals (3) Morbid obesity: Code(s): E66.01 - Morbid (severe) obesity due to excess calories Category: Medical Plan: Decreasing caloric intake increasing physical activity discussed with the patient continue Felicita (4) Hypertension: Code(s): I10 - Essential (primary) hypertension Category: Medical Qualifiers: Hypertension type: essential hypertension Qualified Code(s): I10 - Essential (primary) hypertension Plan: Continue current medications (5) MARK (obstructive sleep apnea): Comment: ON Bipap with supplemental O2 f/u pul Code(s): G47.33 - Obstructive sleep apnea (adult) (pediatric) Category: Medical Plan: Continue BiPAP with supplemental O2 and follow-up with pulmonology Orders: Orders UA w Microscopic Today R31.9 - Hematuria, unspecified US renal BI Today R31.9 - Hematuria, unspecified US bladder 2 Months E11.42 - Type 2 diabetes mellitus with diabetic polyneuropathy, E66.01 - Morbid (severe) obesity due to excess calories, E78.5 - Hyperlipidemia, unspecified, I10 - Essential (primary) hypertension, R31.9 - Hematuria, unspecified, Z00.00 - Encounter for general adult medical examination without abnormal findings Urine Culture Today R31.9 - Hematuria, unspecified Comprehensive [place]. Panel Fast 2 Months E11.42 - Type 2 diabetes mellitus with diabetic polyneuropathy, E78.5 - Hyperlipidemia, unspecified, I10 - Essential (primary) hypertension, Z00.00 - Encounter for general adult medical examination without abnormal findings Hemoglobin A1c 2 Months E11.42 - Type 2 diabetes mellitus with diabetic polyneuropathy, E66.01 - Morbid (severe) obesity due to excess calories, E78.5 - Hyperlipidemia, unspecified, I10 - Essential (primary) hypertension, Z00.00 - Encounter for general adult medical examination without abnormal findings Lipid Panel 2 Months E11.42 - Type 2 diabetes mellitus with diabetic polyneuropathy, E66.01 - Morbid (severe) obesity due to excess calories, E78.5 - Hyperlipidemia, unspecified, I10 - Essential (primary) hypertension, Z00.00 - Encounter for general adult medical examination without abnormal findings Complete Blood Count Auto Diff 2 Months E11.42 - Type 2 diabetes mellitus with diabetic polyneuropathy, E66.01 - Morbid (severe) obesity due to excess calories, E78.5 - Hyperlipidemia, unspecified, I10 - Essential (primary) hypertension, Z00.00 - Encounter for general adult medical examination without abnormal findings Microalbumin, Random (w Creat) 2 Months E11.42 - Type 2 diabetes mellitus with diabetic polyneuropathy, E66.01 - Morbid (severe) obesity due to excess calories, E78.5 - Hyperlipidemia, unspecified, I10 - Essential (primary) hypertension, Z00.00 - Encounter for general adult medical examination without abnormal findings Referrals Urology Referral R31.9 - Hematuria, unspecified Medications: New Humalog Tempo Pen(U-100)Insuln (insulin lispro) 6 units for BG 150-240, 10 units for BG > 240 subcutaneously 3 times a day; 15 mL 3RF NS
--- OUTSIDE RECORDS SUMMARY | 2025-02-05 12:49 | XMS_ITS | Clinical Summary ---
Author Organization [facility] ity Address [address] [place] [phone] Care Team Providers Care Psychological Tests Sales Agent Name Role Phone Unavailable Primary Care Provider [...] Documents on File Type Date Recorded Patient Solid Waste Manager Expl anation Health Care Decision (hx) 08/07/2023 [facility] PROX[facility]
--- OUTSIDE RECORDS SUMMARY | 2025-02-05 12:49 | XMS_ITS | Clinical Summary ---
Author Organization [facility] Address [address] [place] [phone] Phone Care Team Providers Care Bicycle Technician Name Role Phone Unavailable Primary Care Provider [...] It is not the complete legal health record.[facility]
== END 2025-02-05 13:23 | disposition home or self-care (01) ==
LOC: HO.HMCC 12:25
PROVIDERS: PCP Internal Medicine; Visit Provider Internal Medicine
DX: R31.9 Hematuria, unspecified (principal); E11.9 Type 2 diabetes mellitus without complications; E66.01 Morbid (severe) obesity due to excess calories; Z68.43 Body mass index [BMI] 50.0-59.9, adult; I10 Essential (primary) hypertension; G47.33 Obstructive sleep apnea (adult) (pediatric)

== ENCOUNTER → 2025-02-05 12:24 | Outpatient (BNVA) | payer OTHER, SELFPAY | PROVIDERS: PCP Internal Medicine; Visit Provider Internal Medicine | DX: R31.9 Hematuria, unspecified (principal); E11.9 Type 2 diabetes mellitus without complications; E66.01 Morbid (severe) obesity due to excess calories; Z68.43 Body mass index [BMI] 50.0-59.9, adult; I10 Essential (primary) hypertension; G47.33 Obstructive sleep apnea (adult) (pediatric); F41.9 Anxiety disorder, unspecified; F32.A Depression, unspecified; Z79.4 Long term (current) use of insulin; Z79.84 Long term (current) use of oral hypoglycemic drugs; Z79.85 Long-term (current) use of injectable non-insulin antidiabetic drugs | CPT/HCPCS: 99212 ==

== ENCOUNTER 2025-02-06 12:22 | Outpatient (REF) | payer OTHER, SELFPAY ==
--- NOTE | ~2025-02-06 | US_ITS ---
EXAMINATION: US RETROPERITONEAL COMPLETE (RENAL) CLINICAL INFORMATION: R31.9 - Hematuria, unspecified. COMPARISON: Ultrasound September 16, [address] February 12, 2018 TECHNIQUE: Real-time imaging of the kidneys and bladder. FINDINGS: RIGHT KIDNEY: 15 x 8 x 6.5 cm (SAG x AP x TRV). The kidney is normal in size, contour, and echogenicity. Renal cortical thickness is normal. No calculi or focal parenchymal lesions. No hydronephrosis. LEFT KIDNEY: 16 x 6.4 x 6 cm (SAG x AP x TRV). The kidney is normal in size, contour, and echogenicity. Renal cortical thickness is normal. No calculi or focal parenchymal lesions. No hydronephrosis. BLADDER: It is partially distended and normal. Ureteral jets were not demonstrated. Prevoid bladder volume is 163 mL. Postvoid bladder volume is 0 mL. US/US retroperitoneal comp IMPRESSION: Unremarkable exam. Mild to moderately limited due to body habitus Electronically signed by: Danny Cain MD 02/06/2025 01:02 PM EDT
--- OUTSIDE RECORDS SUMMARY | 2025-02-06 12:24 | XMS_ITS | Clinical Summary ---
Author Organization [facility] ity Address [address] [place] [phone] Care Team Providers Care Roving Inspector Name Role Phone Unavailable Primary Care Provider [...] Documents on File Type Date Recorded Patient Quality Assurance Test Program Manager Expl anation Health Care Decision (hx) 08/07/2023 [facility] PROX[facility]
== END 2025-02-06 12:23 | disposition home or self-care (01) ==
LOC: HO.HMGCX 12:22
PROVIDERS: PCP Internal Medicine; Visit Provider Internal Medicine
DX: R31.9 Hematuria, unspecified (principal)
CPT/HCPCS: 76770

== ENCOUNTER → 2025-02-06 12:25 | Outpatient (BNV) | payer OTHER, SELFPAY | PROVIDERS: PCP Internal Medicine; Visit Provider Radiology Diagnostic Radiology | DX: R31.9 Hematuria, unspecified (principal) | CPT/HCPCS: 76770 ==

== ENCOUNTER 2025-03-25 13:49 | Outpatient (REF) | payer OTHER, SELFPAY ==
--- NOTE | 2025-03-25 14:00 | PFT_ITS ---
Indication: Dyspnea Spirometry FEV1 to FVC 79%; FEV1 2.13 L; FVC 2.69 L. no significant response to bronchodilators noted. Lung Volumes Total lung capacity 63% predicted; residual volume 106% predicted; expiratory reserve volume 24% predicted Diffusion Capacity DLCO 86% predicted; DLCO VA 140% predicted Comparisons None Interpretation No obstructive ventilatory defect. No significant response to bronchodilators noted. The patient does have a restrictive ventilatory defect consistent with moderate restrictive lung disease. In part due to an elevated BMI. The patient does have normal diffusing capacity suggesting good intrinsic gas exchange. Clinical correlation warranted. MTDD
[2025-03-25 14:38] VITALS: PULSE 75; O2SAT 91
--- OUTSIDE RECORDS SUMMARY | 2025-03-25 16:54 | XMS_ITS | Clinical Summary ---
Author Organization [facility] ity Address [address] [place] [phone] Care Team Providers Care Incident Analyst Name Role Phone Unavailable Primary Care Provider [...] 02/15/2024 Social Influencers of Health Screening 02/15/2024 Depression Screening 07/16/2024 COVID-19 Vaccine ( - 2023-2 5 season) 2025 Influenza Vaccine (#1) 2025 HIB Vaccines Aged [...] Documents on File Type Date Recorded Patient Head Operator Sulfide Expl anation Health Care Decision (hx) 08/07/2023 [facility] PROX[facility]
--- OUTSIDE RECORDS SUMMARY | 2025-03-25 16:54 | XMS_ITS | Clinical Summary ---
Author Organization [facility] Address [address] [place] [phone] Phone Care Team Providers Care Lath Hand Name Role Phone Unavailable Primary Care Provider [...] It is not the complete legal health record.[facility]
== END 2025-03-25 13:50 | disposition home or self-care (01) ==
LOC: HO.RESP 13:49
PROVIDERS: PCP Internal Medicine; Visit Provider Internal Medicine
DX: R06.02 Shortness of breath (principal)
CPT/HCPCS: 94010; 94640; 94727; 94729

== ENCOUNTER → 2025-03-25 14:00 | Outpatient (BNV) | payer OTHER, SELFPAY | PROVIDERS: PCP Internal Medicine; Visit Provider Hospitalist | DX: R06.02 Shortness of breath (principal) | CPT/HCPCS: 94060; 94727; 94729 ==

== ENCOUNTER 2025-04-07 09:15 | Outpatient (REF) | payer OTHER, SELFPAY ==
--- OUTSIDE RECORDS SUMMARY | 2025-04-07 10:50 | XMS_ITS | Clinical Summary ---
Author Organization [facility] ity Address [address] [place] [phone] Care Team Providers Care Underwriting Manager Name Role Phone Unavailable Primary Care [...] Documents on File Type Date Recorded Patient Design Analyst Expl anation Health Care Decision (hx) 08/07/2023 [facility] PROXY
[2025-04-07 11:41] LABS: Microalbum/Creatinine Ratio Ur 152.5 ug/mg cr (<30)
[2025-04-07 12:18] LABS: Alanine Aminotransferase 36 U/L (0-40); Albumin Level 4.2 g/dL (3.5-5.0); Alkaline Phosphatase 115 U/L (39-117); Anion Gap 13 (12-20); Aspartate Amino Transferase 31 U/L (5-37); Blood Urea Nitrogen 15 mg/dL (9-16); Calcium 9.8 mg/dL (8.4-10.2); Carbon Dioxide 27 mmol/L (22-29); Chloride 106 mmol/L (96-108); Cholesterol 94 mg/dL (<200); Estimated Glomerular Filt Rate > 60; HDL Cholesterol 27 mg/dL (>40); Potassium 4.0 mmol/L (3.3-5.1); Sodium 142 mmol/L (135-145); Total Protein 7.4 g/dL (6.5-8.0); Triglycerides 75 mg/dL (<150)
[2025-04-07 13:36] LABS: Hemoglobin A1C 244.0206 umol/L; Total Hemoglobin (HGBA1C) 3860.1893 umol/L
== END 2025-04-07 09:16 | disposition home or self-care (01) ==
LOC: HO.HMGCLDS 09:15
PROVIDERS: PCP Internal Medicine; Visit Provider Internal Medicine
DX: Z00.00 Encounter for general adult medical examination without abnormal findings (principal); I10 Essential (primary) hypertension; E11.42 Type 2 diabetes mellitus with diabetic polyneuropathy; E66.01 Morbid (severe) obesity due to excess calories; E78.5 Hyperlipidemia, unspecified
CPT/HCPCS: 36415; 80053; 80061; 82043; 82570; 83036; 85025

== ENCOUNTER 2025-04-09 07:57 | Outpatient (AMB) | payer OTHER, SELFPAY ==
--- OUTSIDE RECORDS SUMMARY | 2025-04-09 08:00 | XMS_ITS | Clinical Summary ---
Author Organization [facility] Address [address] [place] [phone] Phone Care Team Providers Care Hairspring Vibrator Name Role Phone Unavailable Primary Care Provider [...] It is not the complete legal health record.[facility]
--- OUTSIDE RECORDS SUMMARY | 2025-04-09 08:00 | XMS_ITS | Clinical Summary ---
Author Organization [facility] ity Address [address] [place] [phone] Care Team Providers Care Sorority Mother Name Role Phone Unavailable Primary Care Provider [...] Documents on File Type Date Recorded Patient Support Staff Expl anation Health Care Decision (hx) 08/07/2023 [facility] PROXY
--- NOTE | 2025-04-09 08:21 | MHC.PC.OV ---
Vital Signs 04/09/25 08:22 Height 6 ft 3 in Weight 450 lb BMI 56.2 BP 134/80 Blood Pressure Location Rt brachial Position Sitting Pulse 76 Temp 98.3 F Temp Source Oral Pulse Oximetry (%) 97 Oxygen Delivery Method Room Air Intake Visit Reasons: CPE Intake Note: Pt is here today for his PE Allergies canagliflozin (Invokana) Adverse Reaction (Unknown, Verified 04/09/25 08:25) rash Medication List - Last Reconciled 04/09/25 by Lexie Lima MD amlodipine 10 mg PO DAILY atorvastatin 10 mg PO DAILY buspirone 10 mg PO TID comp.stocking,thigh,long,x-lrg 1 qd Dexcom G7 Sales Program Manager (blood-glucose,yard spotter,cont) Test blood sugars 4 times per day NS Dexcom G7 Sensor (blood-glucose sensor) As directed NS empagliflozin (Jardiance) 10 mg PO DAILY flash glucose scanning reader (FreeStyle Bobby 14 Day [place]) As directed flash glucose sensor As directed FreeStyle Bobby 14 Day Sensor (flash glucose sensor) As directed NS hydrochlorothiazide 25 mg PO DAILY insulin lispro (Humalog KwikPen (U-100) Insulin) 1 sliding scale dose subcut USEASDIRECTD MDD 30 units losartan 100 mg PO DAILY magnesium oxide 400 mg PO DAILY metformin 1,000 mg PO BID metoprolol succinate ER 200 mg PO DAILY Mounjaro (tirzepatide) INJECT 15 MG (0.5 ML) SUBCUTANEOUSLY ONCE A WEEK NS nystatin 1 appl topical BID pen needle, diabetic (BD Ultra-Fine Lisa Pen Needle) As directed once daily sertraline 100 mg PO BEDTIME Tresiba FlexTouch U-200 (insulin degludec) 48 units (0.24 mL) subcut BEDTIME NS Tobacco use date assessed: 04/09/25 Dental Screening Dental Screen Date: 04/09/25 Did you have a dental visit in the last 12 months?: Yes Did you have a dental problem in the last 6 months where you did not have access to dental care?: No Was dental information given to patient?: Patient has dentist HPI CPE HPI Details Patient presents for a physical. He reports improved blood glucose readings and being more compliant with ADA diet. 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 [facility] Medical History (Updated 04/09/25 @ 12:01 by Lexie Lima MD) Subdural hematoma, post-traumatic Obesity due to excess calories Annual physical exam MARK (obstructive sleep apnea) Normal colonoscopy Hypertension Dyslipidemia Morbid obesity Diabetes type 2, controlled Surgical History History of surgery of head Hx of cholecystectomy Family History Father No problems noted. Mother Arthritis Brother Stroke Social History Household Members: Family Housing: House Do you presently have visiting nurse or other home services: No Alcohol intake: current Alcohol intake frequency: holidays/special occasions only Patient Tobacco Use Status: Never used Tobacco e-Cigarette/Vaping Use: Never Used service: No Current occupational status: employed Cognitive needs: No Hearing needs: No Vision needs: No Questionnaire Thrive Questionnaire Date Thrive assessed: 10/02/24 I am a: Patient What is your living situation today?: I have a steady place to live Within the past 12 months, did the food you bought not last and you didn't have the money to get more?: Never true Within the past 12 months, did you worry whether your food would run out before you got money to buy more?: Never true Do you have trouble paying for medicines?: No Do you have trouble getting transportation to medical appointments?: No Do you have trouble paying your heating and electricity bill?: No Do you have trouble taking care of your child, family member or friend?: I choose not to answer this question Do you have trouble with day-to-day activities such as bathing, preparing meals, shopping, managing finances, etc.?: No Are you currently unemployed and looking for a job?: I choose not to answer this question Are you interested in more education?: No Please select the resources that you would like help with: None Currently or been in a relationship where the following occur: No concerns reported THRIVE Score: 0 BRIDGETT-7 AMB Questionnaire BRIDGETT-7 Date BRIDGETT - 7 assessed: 10/02/24 Source: Developed by Drs. Gaurav Dalton, Shira De La Vega, Jordin Nash and colleagues, with an educational bassem from [employer]. Review of Systems Const All systems reviewed & are unremarkable except as noted in HPI and below Eyes Reports no additional complaints ENT Reports no additional complaints Card Reports no additional complaints Resp Reports no additional complaints GI Reports no additional complaints Reports no additional complaints Physical exam (Primary Care) Vital Signs: Last Vital Signs Temp 98.3 F 04/09/25 08:22 Pulse 76 04/09/25 08:22 BP 134/80 04/09/25 08:22 Pulse Ox 97 04/09/25 08:22 Oxygen Delivery Method Room Air 04/09/25 08:22 BMI result Body Mass Index 56.2 Tobacco/Smoking Status: Tobacco use Status Tobacco use date assessed 04/09/25 04/09/25 08:26 Patient Tobacco Use Status Never used Tobacco 04/09/25 08:26 e-Cigarette/Vaping Use Never Used 04/09/25 08:26 Thrive Assessment: Date of Thrive Assessment Date Thrive assessed 10/02/24 04/09/25 08:26 Currently or been in a relationship where the following occur: No concerns reported Const General: no acute distress HENMT Head: Yes normal to inspection Ears: hearing grossly normal bilaterally Eyes General: appearance normal, both eyes and all related structures Neck Neck: Yes no lymphadenopathy and Yes supple Resp Effort & Inspection: normal respiratory effort Auscultation: clear to auscultation bilaterally Cardio Rhythm: regular rhythm Heart sounds: S1 normal heart sound present and S2 normal heart sound present GI Inspection: Yes normal to inspection Palpation (GI): Soft to palpation Percussion: Yes normal to percussion Auscultation: normal bowel sounds Extrem Other: Diabetic foot exam skin is intact monofilament and vibration sensation intact bilaterally Coding Level of Care Code Est Pt Prev Care 40-64y(83352) Diagnoses Essential hypertension I10 Hypertension type: essential hypertension Diabetes type 2, controlled E11.9 Morbid obesity E66.01 Hx of colonoscopy Z98.890 Annual physical exam Z00.00 MARK (obstructive sleep apnea) G47.33 Assessment & Plan Assessment & Plan (1) Hypertension: Code(s): I10 - Essential (primary) hypertension Category: Medical Qualifiers: Hypertension type: essential hypertension Qualified Code(s): I10 - Essential (primary) hypertension Plan: Continue current medications (2) Diabetes type 2, controlled: Code(s): E11.9 - Type 2 diabetes mellitus without complications Category: Medical Plan: A1c is 7.9, ADA diet increase physical activity weight loss discussed with the patient. Continue Tresiba Mounjaro metformin Jardiance and restart short-acting insulin before meals with a sliding scale coverage (3) Morbid obesity: Code(s): E66.01 - Morbid (severe) obesity due to excess calories Category: Medical Plan: Weight loss discussed with the patient (4) Hx of colonoscopy: Comment: colonoscopy 12/2019, suboptimal prep, check stool test 5 yrs Code(s): Z98.890 - Other specified postprocedural states Category: Surgical Plan: [facility] to schedule repeat colonoscopy (5) Annual physical exam: Code(s): Z00.00 - Encounter for general adult medical examination without abnormal findings Category: Medical Plan: Well-balanced diet regular physical activity weight loss discussed with the patient follow-up in 3 months with a fasting labs before (6) MARK (obstructive sleep apnea): Comment: ON Bipap with supplemental O2 f/u pul Code(s): G47.33 - Obstructive sleep apnea (adult) (pediatric) Category: Medical Plan: Follow-up with pulmonology Orders: Orders Hemoglobin A1c 3 Months E11.42 - Type 2 diabetes mellitus with diabetic polyneuropathy Lipid Panel 3 Months E11.42 - Type 2 diabetes mellitus with diabetic polyneuropathy Complete Blood Count Auto Diff 3 Months E11.42 - Type 2 diabetes mellitus with diabetic polyneuropathy Comprehensive [place]. Panel Fast 3 Months E11.42 - Type 2 diabetes mellitus with diabetic polyneuropathy Microalbumin, Random (w Creat) 3 Months E11.42 - Type 2 diabetes mellitus with diabetic polyneuropathy Medications: Changed From Tresiba FlexTouch U-200 (insulin degludec) 48 units (0.24 mL) subcut BEDTIME 27 mL 3RF NS E11.42 - Type 2 diabetes mellitus with diabetic polyneuropathy To Tresiba FlexTouch U-200 (insulin degludec) 50 units (0.25 mL) subcut BEDTIME 27 mL 3RF NS E11.42 - Type 2 diabetes mellitus with diabetic polyneuropathy Refilled nystatin 1 appl topical BID 240 grams 2RF
[2025-04-09 08:22] VITALS: BP 134/80; PULSE 76; TEMP 36.8; O2SAT 97; BMI 56.2
== END 2025-04-09 12:04 | disposition home or self-care (01) ==
LOC: HO.HMCC 07:58
PROVIDERS: PCP Internal Medicine; Visit Provider Internal Medicine
DX: Z00.00 Encounter for general adult medical examination without abnormal findings (principal); E11.9 Type 2 diabetes mellitus without complications; E66.01 Morbid (severe) obesity due to excess calories; Z68.43 Body mass index [BMI] 50.0-59.9, adult; I10 Essential (primary) hypertension; Z98.890 Other specified postprocedural states; G47.33 Obstructive sleep apnea (adult) (pediatric)

== ENCOUNTER → 2025-04-09 07:57 | Outpatient (BNVA) | payer OTHER, SELFPAY | PROVIDERS: PCP Internal Medicine; Visit Provider Internal Medicine | DX: Z00.00 Encounter for general adult medical examination without abnormal findings (principal); I10 Essential (primary) hypertension; E11.9 Type 2 diabetes mellitus without complications; E66.01 Morbid (severe) obesity due to excess calories; Z68.43 Body mass index [BMI] 50.0-59.9, adult; G47.33 Obstructive sleep apnea (adult) (pediatric); Z79.4 Long term (current) use of insulin; Z79.84 Long term (current) use of oral hypoglycemic drugs | CPT/HCPCS: 99396 ==